=== PATIENT | male | born 1945 | race Caucasian/White ===

== ENCOUNTER → 2016-11-17 | Day surgery (SDC) | payer OTHER ==
[~2016-11-17] VITALS: Ht 180.3 cm; Wt 90.0 kg
[~2016-11-17] MED LIST: ALBU1AER9 INH; AMIO200T4 PO; ASPCH81X PO; ATOR10TA82 PO; ATROPINE SULFATE 0.1 MG/ML 5ML SYR IV PRN; DICL1GEL12 TOP; EpHEDrine SULFATE INJ 50 MG/ML AMP IV PRN; FURO40TA3 PO; LORA-741 PO; LOSA1TAB PO; MELO7.5T5 PO; METO-596 PO; METO100T44 PO; MULT-513 PO; NITR0.4S UT; RIVA1TAB4 PO; SERT1TAB72 PO; TRAM-10 PO; WARF5TAB7 PO
[2016-11-17 07:05] VITALS: BP 102/74; PULSE 73; TEMP 36.4; O2SAT 95; Ht 180.3 cm; Wt 90.0 kg
[2016-11-17 07:31] VITALS: BP 103/72; PULSE 72; O2SAT 99
--- NOTE | 2016-11-17 07:31 | History & Physical Bridge Note ---
H&P Re-Evaluation Bridge Note: I have examined the patient, reviewed the History & Physical and in the interval since the performance of the History & Physical I have noted the following changes of clinical significance: Since office visit, patient had repeat EKG two days ago revealing continued rate controlled atrial fibrillation despite metoprolol and amiodarone therapy. He has been on Xarelto without any missed doses for months. Will proceed with DCCV. Goal of treatment is rhythm control given patient's past history of nonischemic CM in the setting of AF with RVR. His LV EF normalized with medical therapy for cardiomyopathy and maintenance of sinus rhythm in the past. No changes noted
[2016-11-17 07:35] VITALS: BP 87/67; PULSE 57; O2SAT 98
[2016-11-17 07:40] VITALS: BP 100/60; PULSE 57; O2SAT 98
--- NOTE | 2016-11-17 07:41 | Cardiology Procedure Brief Nt ---
Preliminary Cardiology Note Procedure Date Nov 17, 2016. Pre-Procedure Diagnosis atrial fibrillation Post-Procedure Diagnosis successful conversion to SB Procedure(s) Performed [facility] Neurology Hospitalist Pro Pisano DO Security Field Supervisor(s) not applicable Estimated Blood Loss none Preliminary Findings Patient received a total of three counter shocks of 150 J, 200 J, and 360 J, and successfully converted to sinus bradycardia at 56 bpm on third attempt. Patient tolerated procedure well. Recommendations Continue metoprolol , Amiodarone, and Xarelto at prior doses. Specimens none. 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
--- NOTE | 2016-11-17 07:47 | Discharge Instructions ---
Discharge Instructions Procedure Procedure Date: Nov 17, 2016. Reason for Visit: atrial fibrillation, cardioversion Discharge Discharge Date: Nov 17, 2016. Discharge Diagnosis: Successful conversion to sinus rhythm. Last Recorded Wt (Kilograms): 90 Anesthesia Post Anesthesia Instructions: If you have had General Anesthesia or IV Sedation: * Do not drive today. * Resume driving when surgeon permits. * Do not make important decisions or sign legal documents today. * Call surgeon for: 1. Temperature elevations greater than 101 degrees F. 2. Uncontrollable pain. 3. Excessive bleeding. 4. Persistent nausea and vomiting. 5. Medication intolerance (nausea, vomiting or rash). * For nausea and vomiting use only clear liquids such as: tea, soda, bouillon until nausea subsides, then gradually increase diet as tolerated. * If you have any concerns or questions, call your surgeon's office. If physician is unavailable and it is an emergency, call 911 or go to the nearest emergency room. Instructions Activity Recommendations: limitations as noted below Recommended Home Diet: resume previous diet Allergies: Coded Allergies: No Known Allergies (Unverified , 08/10/15) Provider Instructions ACTIVITY RECOMMENDATIONS: Resume activities as tolerated with no limitations unless specified. _x_ No lifting over _10_ pounds for 24 hours. _x_ Do not engage in vigorous exercise, sexual activity, or sports for 24 hours. _x_ Do not drive or operate any motorized equipment for 24 hours. _x_ You may return to work/school tomorrow. Follow Up Follow-up with: Dr Pisaon, keep office appointment as planned Clarice Snell Recommendations: Call your doctor if: * Temperature above 101 degrees * Pain not relieved by pain medicine ordered * There is increased drainage or redness from any incision * You have any unanswered questions or concerns. Your Doctors Instructions noted above were prepared by provider Phong Pisano. Patient Signature Section: Patient Instructions Signature Page Lencho Jena Patient (or Guardian) Signature/Date: I have read and understand the instructions given to me by my caregivers. Caregiver/RN/Doctor Signature/Date: The above-named patient and/or guardian has received patient instructions on this date. + Original Patient Signature Page (only) stays with chart. Please make copy for patient.
[2016-11-17 08:35] VITALS: BP 98/56; PULSE 56; O2SAT 98
--- NOTE | 2016-11-17 08:39 | CARDIOVERSION ---
DATE OF OPERATION: 11/17/2016 PREPROCEDURE DIAGNOSIS: Atrial fibrillation. POSTPROCEDURE DIAGNOSIS: Successful conversion to sinus bradycardia. PROCEDURE PERFORMED: Synchronized direct current cardioversion. SUPERVISOR ROLLER SHOP: Phong Pisano DO DESCRIPTION OF PROCEDURE: After informed consent was obtained, time out was performed, the patient was sedated with the assistance of Dr. Gottlieb of anesthesia receiving a total of 70 mg if IV propofol. The patient then received a total of 3 synchronized counter shocks with doses of 150 joules, 200 joules, 360 joules. On the third attempt, which was the 360 joules dose, the patient successfully converted from atrial fibrillation at 75 beats per minute to sinus bradycardia 56 beats per minute. The patient tolerated the procedure well and vital signs remained stable throughout the procedure. RECOMMENDATIONS: The patient is to be discharged after he completes the recovery interval on his previous doses of metoprolol, amiodarone and Xarelto. COMPLICATIONS: None. 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 I attest to the content of the Intraoperative Record and any orders documented therein. Any exceptions are noted below. MTDD
--- NOTE | 2016-11-17 09:11 | Anesthesiology Progress Note ---
Anesthesia Post Op Note Date & Time Nov 17, 2016 at 09:10 Vital Signs Pain Intensity: 0 Vital Signs Past 12 Hours Date Time Temp Pulse Resp B/P Pulse Ox O2 Delivery O2 Flow Rate FiO2 11/17/16 08:35 56 16 98/56 98 Room Air 11/17/16 08:20 53 16 97/50 98 Room Air 11/17/16 08:05 50 16 100/52 98 Room Air 11/17/16 07:50 53 18 92/59 92 Room Air 11/17/16 07:40 57 18 100/60 98 Nasal Cannula 4 11/17/16 07:35 57 18 87/67 98 Nasal Cannula 4 11/17/16 07:31 72 18 103/72 99 Nasal Cannula 4 11/17/16 07:05 36.4 73 18 102/74 95 Room Air Notes Mental Status: alert / awake / arousable, participated in evaluation Pt Amnestic to Procedure: Yes Nausea / Vomiting: adequately controlled Pain: adequately controlled Airway Patency, RR, SpO2: stable & adequate BP & HR: stable & adequate Hydration State: stable & adequate Anesthetic Complications: no major complications apparent
== END | disposition home or self-care (01) ==
LOC: C.CATH 06:31
PROVIDERS: ATTEND Specialist
DX: I48.0 Paroxysmal atrial fibrillation (principal); R00.1 Bradycardia, unspecified; I10 Essential (primary) hypertension; E78.5 Hyperlipidemia, unspecified; E83.119 Hemochromatosis, unspecified; Z79.82 Long term (current) use of aspirin

== ENCOUNTER 2023-04-14 14:11 | Inpatient (IN) ==
[2023-04-14 15:25] LABS: Albumin Globulin Ratio 1.2 (0.9-2); Albumin Level 3.6 gm/dl (3.4-5.0); BUN Creatinine Ratio 32.2 (10-20); Bilirubin,Total 0.9 mg/dl (0.2-1.0); Calcium 8.7 mg/dl (8.6-10.3); Creatinine Clr Calc Pharmacy 71.1 ml/min; Est GFR (African American) 96.5 ml/min; Est GFR (Non-African American) 83.2 ml/min; Potassium 3.9 mmol/L (3.5-5.1); Total Protein 6.6 gm/dl (6.0-8.3)
[2023-04-14 15:29] LABS: Hematocrit (blood only) 27.9 % (42.0-52.0); Hemoglobin 9.8 g/dl (14.0-18.0); Mean Corpuscular Hemoglobin 35.9 pg (25.0-34.0); Mean Corpuscular Hgb Conc 35.1 g/dL (32.0-36.0); Mean Corpuscular Volume 102.2 fL (80.0-100.0); Mean Platelet Volume 10.5 fL (9.4-12.4); Platelet Count 101 K/uL (130-400); RDW Coefficient of Variation 16.1 % (11.5-14.5); RDW Standard Deviation 56.4 fL (36.4-46.3); Red Blood Count 2.73 M/uL (4.70-6.10); White Blood Count 1.94 K/ul (4.8-10.8)
--- NOTE | 2023-04-14 15:30 | Emergency Department Note ---
History of Present Illness General Chief complaint: Abnormal Labs/Diagnostic Testing Stated complaint: REF BY FOR BLOOD TRANSFUSION Time Seen by Provider: 04/14/23 15:14 History of Present Illness 77-year-old male presents emergency department complaint of black stools for the past few days. Patient is very poor historian he was taking antidiarrheal he is also taking acid reflux medication. Patient had outpatient lab work today [facility] and was told that his hemoglobin is half. Patient is currently on Xarelto for A-fib. Patient has no other history of GI bleeding. No history of ulcers. Patient does state some lightheadedness dizziness at times and fatigue; no abdominal pain Home Medications Medication Instructions Recorded Confirmed Type albuterol sulfate 90 mcg/actuation 2 puff inhalation PRN ##0 06/30/12 04/14/23 History aerosol inhaler (ProAir HFA) lorazepam 0.5 mg tablet 0.5 mg PO BID PRN #0 tabs 06/30/12 04/14/23 History aspirin 81 mg tablet 81 mg PO QAM #0 tabs 07/18/12 04/14/23 History nitroglycerin 0.4 mg sublingual 0.4 mg UT PRN #0 BTLS 07/18/12 04/14/23 History tablet (Nitrostat) losartan 25 mg tablet 25 mg PO QAM #0 tabs 11/28/12 04/14/23 History atorvastatin 10 mg tablet 10 mg PO QAM #0 tabs 05/04/15 04/14/23 History rivaroxaban 20 mg tablet (Xarelto) 1 tab PO DAILY 30 days #30 tabs 11/17/16 04/14/23 History folic acid 1 mg tablet 1 mg PO DAILY 02/16/23 04/14/23 History metformin 500 mg tablet 500 mg PO DAILY 02/16/23 04/14/23 History dexamethasone 4 mg tablet See Rx Instructions .Route .COMPLEX 04/14/23 04/14/23 History diclofenac sodium 1 % topical gel 2 g topical BID PRN Pain 04/14/23 04/14/23 History glipizide 5 mg tablet, extended See Rx Instructions .Route .COMPLEX 04/14/23 04/14/23 History release 24 hr metoprolol succinate 25 mg 12.5 mg PO QAM 04/14/23 04/14/23 History tablet,extended release 24 hr sertraline 50 mg tablet 50 mg PO QAM 04/14/23 04/14/23 History umeclidinium 62.5 mcg-vilanterol 1 inh inhalation DAILY 04/14/23 04/14/23 History 25 mcg/actuation powdr for inhalation (Anoro Ellipta) Allergies Allergy/AdvReac Type Severity Reaction Status Date / Time No Known Drug Allergies Allergy Verified 04/14/23 15:58 Past Med/Surg History Medical History Atrial fibrillation COPD (chronic obstructive pulmonary disease) with emphysema Diabetes mellitus type II, controlled Gall stones Lung cancer Skin cancer of scalp Surgical History H/O cataract removal with insertion of prosthetic lens 07/21 H/O colonoscopy 10/27/2015 Dr. Sargent; Diverticulosis; repeat 10 yrs H/O ventral hernia repair 09/01/2009 Dr. Cortes; right inguinal hernia Hx of tonsillectomy <12 y/o Family History Mother Breast cancer Father Diabetes Type I Stroke Sister Breast cancer Sister Autoimmune hemolytic anemia Aunt Breast cancer Social History Smoking Status: Never smoker Tobacco Type: Cigarettes Age Started Using Tobacco: 20; Age Quit Using Tobacco: 77; packs per day: 0.5; Second Hand Exposure: Yes; Do You Dip or Chew Tobacco: No; Hx Alcohol Use: Yes Alcohol type: beer and other Alcohol type Comment: Yanet Alcohol Intake Frequency: 2-4 x/Month Hx Substance Use: No Preferred Language: Micronesian Communication Ability: Effective Visual Impairment: No Limitations Beliefs That Will Affect Care: None marital status: Current Living Situation: Spouse current occupational status: employed 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 How many Children do You have: 2 Feels Safe at Home: Yes Review of Systems A total of 10 systems reviewed and were otherwise negative Gastrointestinal: + blood in stools; no nausea Physical Exam Vital Signs Vital Signs - 24 hr 04/14/23 14:30 04/14/23 16:13 04/14/23 15:37 Temperature 37.0 C Temperature Source Temporal Artery Scan Pulse Rate 102 H 109 H 112 H Respiratory Rate 20 18 Blood Pressure 106/66 Blood Pressure Mean 79 Pulse Oximetry 96 Oxygen Delivery Method Room Air Sepsis Recent Fever Within 48 Hours No Sepsis New/Unexplained Change in Mental Status N/A Sepsis Action Taken by Nursing No Action Required 04/14/23 16:00 04/14/23 16:00 Temperature Temperature Source Pulse Rate 101 H Respiratory Rate 13 Blood Pressure 104/70 Blood Pressure Mean 88 Pulse Oximetry Oxygen Delivery Method Sepsis Recent Fever Within 48 Hours Sepsis New/Unexplained Change in Mental Status Sepsis Action Taken by Nursing GENERAL: Patient is awake alert in no acute distress patient is resting comfortably and showing no signs of anxiety EYES: The conjunctivae are clear. The pupils are round and reactive. EARS, NOSE, MOUTH AND THROAT: The nose is without any evidence of any deformity. Mucous membranes are moist. Tongue is midline. NECK: The neck is nontender and supple. RESPIRATORY: Normal respiratory effort is noted there is no evidence of wheezing rhonchi or rales CARDIOVASCULAR: Regular rate and rhythm noted there no murmurs rubs or gallops normal S1 normal S2. GASTROINTESTINAL: The abdomen is soft. Abdomen is nontender. No rebound rigidity or guarding, rectal exam reveals black stools however surprisingly the Hemoccult card was negative BACK: No midline tenderness or or step-off noted range of motion in flexion extension as well as rotation no signs of muscle spasm noted MUSCULOSKELETAL/EXTREMITIES: There is no evidence of gross deformity full range of motion is noted in the hips and shoulders. SKIN: There is no obvious evidence of any rash. There are no petechiae, pallor or cyanosis noted. NEUROLOGIC: Patient is awake alert and oriented x3 strength is symmetric Course Reevaluation(s) Reevaluation #1: Patient was started on IV Protonix Time: 15:30 Consultations Consultation #1: Case was discussed with the [facility] Hospitalist Time: 16:00 Administered Medications Discontinued Medications Pantoprazole Sodium 40 mg/ (Syringe) 10 mls @ 5 mls/min IV NOW ONE Stop: 04/14/23 15:33 Last Admin: 04/14/23 16:22 Dose: 5 mls/min Documented By: DAVIDA Critical Care Time Critical Care Time: Yes Total Critical Care Time: 35 I have personally spent greater than 35 minutes of critical care time in the direct management of this patient. This includes bedside care, interpretation of diagnostic studies, and testing, discussion with consultants, patient, and fa vikas members, and other required patient management activities. These minutes are in excess of all separately billable procedures. Medical Decision Making Medical Records Attestation: I reviewed the patient's medical records. Home Medications Current Medication List: was personally reviewed by me Laboratory Data Attestation: I reviewed the patient's lab results. Lab work interpreted by me patient is anemic 04/14/23 14:51 04/14/23 14:51 Lab Results 04/14/23 04/14/23 04/14/23 Range/Units 14:51 14:51 14:51 WBC 1.94 L (4.8-10.8) K/ul RBC 2.73 L (4.70-6.10) M/uL Hgb 9.8 L (14.0-18.0) g/dl Hct 27.9 L (42.0-52.0) % MCV 102.2 H (80.0-100.0) fL MCH 35.9 H (25.0-34.0) pg MCHC 35.1 (32.0-36.0) g/dL RDW Std Deviation 56.4 H (36.4-46.3) fL RDW Coeff of Norm 16.1 H (11.5-14.5) % Plt Count 101 L (130-400) K/uL MPV 10.5 (9.4-12.4) fL PT 13.0 H (9.0-12.0) Seconds INR 1.2 H (0.9-1.1) APTT 28.7 (21.0-31.0) Seconds PTT Ratio 1.0 Sodium 139 (136-145) mmol/L Potassium 3.9 (3.5-5.1) mmol/L Chloride 107 (98-107) mmol/L Carbon Dioxide 29 (21-32) mmol/L Anion Gap 3 (3-11) BUN 28 H (6-23) mg/dl Creatinine 0.87 (0.6-1.4) mg/dl Est Cr Clr Drug Dosing 71.1 ml/min Est GFR ( Amer) 96.5 ml/min Est GFR (Non-Af Amer) 83.2 ml/min BUN/Creatinine Ratio 32.2 H (10-20) Glucose 100 H (70-99(Fasting)) mg/dl Calcium 8.7 (8.6-10.3) mg/dl Total Bilirubin 0.9 (0.2-1.0) mg/dl AST 22 (13-39) U/L ALT 16 (7-52) U/L Alkaline Phosphatase 60 (34-104) U/L Troponin I High Sens 11.0 (0-20) pg/ml Total Protein 6.6 (6.0-8.3) gm/dl Albumin 3.6 (3.4-5.0) gm/dl Globulin 3.0 (2.5-4.0) gm/dl Albumin/Globulin Ratio 1.2 (0.9-2) POC Stool Occult Blood (Negative) Blood Type Antibody Screen 04/14/23 04/14/23 Range/Units 14:52 16:17 WBC (4.8-10.8) K/ul RBC (4.70-6.10) M/uL Hgb (14.0-18.0) g/dl Hct (42.0-52.0) % MCV (80.0-100.0) fL MCH (25.0-34.0) pg MCHC (32.0-36.0) g/dL RDW Std Deviation (36.4-46.3) fL RDW Coeff of Nrom (11.5-14.5) % Plt Count (130-400) K/uL MPV (9.4-12.4) fL PT (9.0-12.0) Seconds INR (0.9-1.1) APTT (21.0-31.0) Seconds PTT Ratio Sodium (136-145) mmol/L Potassium (3.5-5.1) mmol/L Chloride (98-107) mmol/L Carbon Dioxide (21-32) mmol/L Anion Gap (3-11) BUN (6-23) mg/dl Creatinine (0.6-1.4) mg/dl Est Cr Clr Drug Dosing ml/min Est GFR ( Amer) ml/min Est GFR (Non-Af Amer) ml/min BUN/Creatinine Ratio (10-20) Glucose (70-99(Fasting)) mg/dl Calcium (8.6-10.3) mg/dl Total Bilirubin (0.2-1.0) mg/dl AST (13-39) U/L ALT (7-52) U/L Alkaline Phosphatase (34-104) U/L Troponin I High Sens (0-20) pg/ml Total Protein (6.0-8.3) gm/dl Albumin (3.4-5.0) gm/dl Globulin (2.5-4.0) gm/dl Albumin/Globulin Ratio (0.9-2) POC Stool Occult Blood Negative (Negative) Blood Type A Positive Antibody Screen NEGATIVE ECG Data Attestation: I personally reviewed and interpreted this ECG as follows: Additional Comments: EKG interpreted by me atrial fibrillation rate of 107, occasional PVCs, no obvious ST segment elevation or depression, normal axis Telemetry was ordered by me, interpreted as atrial fibrillation rate of 107 MDM Narrative Medical decision making differential diagnosis includes upper GI bleed, ulcer, anemia, metabolic derangement, dehydration, electrolyte abnormality, coagulopathy Plan is to check labs, type and screen External medical records were reviewed by me Family at bedside, his sisters provide any medical history as well [facility] outpatient labs revealed a hemoglobin of 11 today with platelets of 114 and a white blood cell count of 2 Impression & Plan UGIB (upper gastrointestinal bleed), Anemia Discharge Plan Visit Data Chief Complaint: Abnormal Labs/Diagnostic Testing Stated Complaint: REF BY FOR BLOOD TRANSFUSION ED Provider: Mamadou Gao Discharge Problem: UGIB (upper gastrointestinal bleed), Anemia Patient Disposition: Admitted As Inpatient Forms Stand Alone Forms: My [facility] Prescriptions Prescriptions: No Action folic acid 1 mg tablet 1 mg PO DAILY metformin 500 mg tablet 500 mg PO DAILY lorazepam 0.5 mg Tablet 0.5 mg PO BID PRN Qty: 0 albuterol sulfate [ProAir HFA] 90 mcg/actuation Hfa Aerosol Inhaler 2 puff Inhalation PRN Qty: 0 nitroglycerin [Nitrostat] 0.4 mg Tablet, Sublingual 0.4 mg UT PRN Qty: 0 aspirin 81 mg Tablet 81 mg PO QAM Qty: 0 losartan 25 mg Tablet 25 mg PO QAM Qty: 0 atorvastatin 10 mg Tablet 10 mg PO QAM Qty: 0 Xarelto 20 mg Tablet 1 tab PO DAILY 30 Days Qty: 30 glipizide 5 mg tablet extended release 24hr See Rx Instructions .ROUTE .COMPLEX Rx Instructions: Take 1-2 tablets the night before chemo with dexamethasone and in the evening the day of chemo as directed for 7 weeks. (tapering dose based on blood glucose) dexamethasone 4 mg tablet See Rx Instructions .ROUTE .COMPLEX Rx Instructions: TAKE 12mg THE NIGHT BEFORE AND THE MORNING OF EACH CHEMO TREATMENT metoprolol succinate 25 mg tablet extended release 24 hr 12.5 mg PO QAM sertraline 50 mg tablet 50 mg PO QAM Anoro Ellipta 62.5-25 mcg/actuation blister with device 1 inh INHALATION DAILY diclofenac sodium [Voltaren] 1 % Gel 2 g Topical BID PRN (Reason: Pain) Referrals Referrals: Ameya Benedict MD [Physician] -
[2023-04-14] MEDS ORDERED: PANTOprazole 40 MG in SYRINGE 0 ML IV ONE (15:32)
[2023-04-14 15:39] LABS: INR 1.2 (0.9-1.1); Partial Thromboplastin Time 28.7 Seconds (21.0-31.0)
[2023-04-14] MEDS ORDERED: POLYETHYLENE (MIRALAX) 17 GM PACK PO PRN (18:38)
--- NOTE | 2023-04-14 18:49 | Electrocardiogram Report ---
Test Reason : Blood Pressure : / mmHG Vent. Rate : 107 BPM Atrial Rate : 000 BPM P-R Int : 000 ms QRS Dur : 076 ms QT Int : 340 ms P-R-T Axes : 000 054 056 degrees QTc Int : 453 ms Atrial fibrillation with rapid ventricular response with premature ventricular or aberrantly conducte d complexes Abnormal ECG When compared with ECG of 17-NOV-2016 07:40, Atrial fibrillation has replaced Sinus rhythm Vent. rate has increased BY 39 BPM Confirmed by Lencho Reid ([id number]) on 04/14/2023 6:49:02 PM Referred By: Confirmed By:Denny Reid
[2023-04-14 19:38] LABS: Hematocrit (blood only) 25.9 % (42.0-52.0)
--- NOTE | 2023-04-14 20:21 | History & Physical Report ---
Date of Service April 14, 2023 Assessment & Plan (1) UGIB (upper gastrointestinal bleed): (2) Anemia: (3) Primary cancer of right lower lobe of lung: (4) Diabetes mellitus type II, controlled: (5) Atrial fibrillation: Plan Pt is a 77yo very pleasant gentleman with Pmhx significant for lung cancer (currently undergoing chemotherapy and radiation), atrial fibrillation anticoagulated with xarelto, DMII, HLD, hemochromatosis, Mood disorder admitted with an acute GI bleed. Acute GI Bleed/Melena/Acute blood loss anemia Pt states that he has been having black tarry stools for the past week. Presented to his pcp today and discussed the stools. He was advised to present to the ED after it was noted that his hgb dropped to 9.9 from 11 two days ago. States he is occasionally dizzy. Denies chest pain, SOB. Admits to abdominal discomfort/ "gurgling". Hgb on arrival of 9.8. Hemodynamically stable. Started on ppi drip. Pt NPO, GI consult, continue ppi drip. CT abd/pelvis pending. Trend h/h q6h. Transfuse for hgb <7, or for 8 + symptoms. Hold home xarelto and baby aspirin. Appreciate GI recs. Hx of Lung Cancer Non small cell lung cancer, in R lower lobe Currently undergoing chemotherapy (weekly paclitaxel and carboplatin) and radiation, follows with Dr. Mari Continue home inhalers, compazine and zofran prn Hemochromatosis Per [facility], had HFE testing done in 2016 Has not had phlebotomy for many years. AM ferritin, iron panel ordered Atrial fibrillation On metoprolol and xarelto hold xarelto as above DMII On metformin at home daily Also takes glipizide on chemo days when taking dexamethasone Hold home PO meds, ISS once taking PO Mood Disorder Continue home sertraline once taking po, home ativan prn HLD continue home statin once taking po macrocytosis MCV >100 folic acid and b12 levels pending Continue home folic acid once tolerating po FEN/GI: NPO, NSS@80 DVT prophylaxis: holding home xarelto and aspirin in setting of acute GI bleed Dispo: PCU/tele CODE STATUS: DNR/DNI History of Present Illness Chief Complaint: Abnormal labs Primary Care Provider: So Dave DO Pt is a 77yo very pleasant gentleman with Pmhx significant for lung cancer (currently undergoing chemotherapy and radiation), atrial fibrillation anticoagulated with xarelto, DMII, HLD, hemochromatosis, mood disorder admitted with an acute GI bleed. Younger sister is present in the room. Hx obtained from patient, sister, [facility] and [facility] rad/onc records. Pt states that he has been having black tarry stools for the past week. Presented to his pcp today and discussed the stools. He was advised to present to the ED after it was noted that his hgb dropped to 9.9 from 11 two days ago. States that the stools are "sticky". Notes he had heartburn about 2-3 days ago that prompted his sister to advise use of OTC pepcid to help. States that he has been occasionally dizzy since noting the black stools. Denies chest pain, SOB. Admits to abdominal discomfort/ "gurgling in the area" where he was told he had gallstones. Notes that he last took his baby aspirin on MondayApr 10 as he ran out but has been taking his home xarelto. Currently undergoing both chemotherapy and radiation treatments for lung cancer. Was a former smoker. States that he had radiation yesterday. In the ED, Hgb of 9.8 noted, pantoprazole drip started. Allergies Allergy/AdvReac Type Severity Reaction Status Date / Time No Known Drug Allergies Allergy Verified 04/14/23 15:58 Home Medications Medication Instructions Recorded Confirmed Type albuterol sulfate 90 mcg/actuation 2 puff inhalation PRN ##0 06/30/12 04/14/23 History aerosol inhaler (ProAir HFA) lorazepam 0.5 mg tablet 0.5 mg PO BID PRN #0 tabs 06/30/12 04/14/23 History aspirin 81 mg tablet 81 mg PO QAM #0 tabs 07/18/12 04/14/23 History nitroglycerin 0.4 mg sublingual 0.4 mg UT PRN #0 BTLS 07/18/12 04/14/23 History tablet (Nitrostat) rivaroxaban 20 mg tablet (Xarelto) 1 tab PO DAILY 30 days #30 tabs 11/17/16 04/14/23 History folic acid 1 mg tablet 1 mg PO DAILY 02/16/23 04/14/23 History metformin 500 mg tablet 500 mg PO DAILY 02/16/23 04/14/23 History atorvastatin 40 mg tablet 40 mg PO DAILY 04/14/23 04/14/23 History dexamethasone 4 mg tablet See Rx Instructions .Route .COMPLEX 04/14/23 04/14/23 History diclofenac sodium 1 % topical gel 2 g topical BID PRN Pain 04/14/23 04/14/23 History glipizide 5 mg tablet, extended See Rx Instructions .Route .COMPLEX 04/14/23 04/14/23 History release 24 hr metoprolol succinate 25 mg 12.5 mg PO QAM 04/14/23 04/14/23 History tablet,extended release 24 hr ondansetron HCl 8 mg tablet 8 mg PO Q8H PRN Nausea And Vomiting 04/14/23 04/14/23 History prochlorperazine maleate 10 mg 10 mg PO Q6H PRN Nausea And 04/14/23 04/14/23 History tablet (Compazine) Vomiting sertraline 50 mg tablet 50 mg PO QAM 04/14/23 04/14/23 History umeclidinium 62.5 mcg-vilanterol 1 inh inhalation DAILY 04/14/23 04/14/23 History 25 mcg/actuation powdr for inhalation (Anoro Ellipta) Past Med/Surg History Medical History (Updated 04/15/23 @ 00:54 by Sugar Blas MD) Atrial fibrillation COPD (chronic obstructive pulmonary disease) with emphysema Diabetes mellitus type II, controlled Gall stones Lung cancer Skin cancer of scalp Surgical History H/O cataract removal with insertion of prosthetic lens 07/21 H/O colonoscopy 10/27/2015 Dr. Sargent; Diverticulosis; repeat 10 yrs H/O ventral hernia repair 09/01/2009 Dr. 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 No acute distress but shivering under blanket Psych: Appropriate mood and affect, occasionally joking Neuro: No gross deficits while laying in bed HEENT: NC/AT CV: Irregular Resp: Breath sounds clear but decreased bilaterally, no increased effort of breathing. Abdomen: Soft, nontender Extremities: No edema in lower extremities bilaterally. Results & Data Results & Data Vital Signs (Past 12 Hours) Vital Signs Temp Pulse Resp BP Pulse Ox O2 Del Method 04/14/23 18:25 111 H 16 110/76 95 Room Air 04/14/23 17:32 134/114 H 04/14/23 16:38 121 H 16 04/14/23 16:30 114 H 17 04/14/23 16:30 111/78 04/14/23 16:00 101 H 13 04/14/23 16:00 104/70 04/14/23 15:37 112 H 18 04/14/23 16:13 109 H 04/14/23 14:30 37.0 C 102 H 20 106/66 96 Room Air Code Status & VTE Plan VTE Prophylaxis Plan VTE Prophylaxis will be ordered: Yes
[2023-04-14 20:53] LABS: Hematocrit (blood only) 25.5 % (42.0-52.0)
[2023-04-14] MEDS ORDERED: PROCHLORPERAZINE MALEATE 10 MG TAB PO PRN (21:18)
[2023-04-14] MEDS ORDERED: ONDANSETRON 8MG OD TAB PO PRN (21:18)
[2023-04-14] MEDS ORDERED: SODIUM CHLORIDE 0.9% 250 ML IV PRN (21:18)
[2023-04-14] MEDS ORDERED: PANTOprazole 40 MG in DEXTROSE 5% 100 ML IV SCH (21:18)
[2023-04-14] MEDS: PANTOprazole 40 MG in DEXTROSE 5% 100 ML IV SCH (22:06)
[2023-04-14] MEDS: ALBUTEROL HFA 8 GM INHALER INH SCH (22:45)
[2023-04-15] MEDS: PANTOprazole 40 MG in DEXTROSE 5% 100 ML IV SCH ×5 (02:24→21:09)
[2023-04-15] MEDS: SODIUM CHLORIDE 0.9% 1,000 ML IV SCH ×3 (02:28→21:08)
[2023-04-15] MEDS: FOLIC ACID 1 MG TAB PO SCH (07:54)
[2023-04-15] MEDS: SERTRALINE HCL 50 MG TABLET PO SCH (07:54)
[2023-04-15] MEDS: ATORVASTATIN 40 MG TAB PO SCH (07:54)
[2023-04-15] MEDS: UMECLIDINIUM/VILANTEROL 62.5/25MCG 7 PUFFS/INHALER INH SCH (07:55)
[2023-04-15 08:16] LABS: Hematocrit (blood only) 25.3 % (42.0-52.0); Hemoglobin 8.9 g/dl (14.0-18.0); Mean Corpuscular Hemoglobin 34.9 pg (25.0-34.0); Mean Corpuscular Hgb Conc 35.2 g/dL (32.0-36.0); Mean Corpuscular Volume 99.2 fL (80.0-100.0); Mean Platelet Volume 10.5 fL (9.4-12.4); Platelet Count 89 K/uL (130-400); RDW Coefficient of Variation 15.9 % (11.5-14.5); RDW Standard Deviation 55.2 fL (36.4-46.3); Red Blood Count 2.55 M/uL (4.70-6.10); White Blood Count 1.41 K/ul (4.8-10.8)
[2023-04-15 08:22] LABS: Albumin Globulin Ratio 1.2 (0.9-2); Albumin Level 3.2 gm/dl (3.4-5.0); BUN Creatinine Ratio 25.3 (10-20); Bilirubin,Total 1.4 mg/dl (0.2-1.0); Calcium 8.1 mg/dl (8.6-10.3); Creatinine Clr Calc Pharmacy 78.3 ml/min; Est GFR (African American) 100.4 ml/min; Est GFR (Non-African American) 86.6 ml/min; Globulin 2.7 gm/dl (2.5-4.0); Potassium 4.2 mmol/L (3.5-5.1); Total Protein 5.9 gm/dl (6.0-8.3)
[2023-04-15 08:25] LABS: Estimated Average Glucose 160 mg/dl; Hemoglobin A1C 7.2 % (4.5-5.6)
[2023-04-15 08:36] LABS: Basophils # (auto) 0.01 K/uL (0.00-0.20); Basophils % (auto) 0.7 %; Eosinophils # (auto) 0.01 K/uL (0.00-0.50); Eosinophils % (auto) 0.7 %; Immature Granulocytes # (auto) 0.01 K/uL (0.01-0.20); Immature Granulocytes % (auto) 0.7 %; Lymphocytes # (auto) 0.24 K/uL (1.20-3.40); Monocytes # (auto) 0.19 K/uL (0.11-0.59); Monocytes % (auto) 13.5 %; Neutrophils # (auto) 0.95 K/uL (1.40-6.50); Neutrophils % (auto) 67.4 %
[2023-04-15 08:41] LABS: Ferritin 463.6 ng/ml (8-388)
[2023-04-15 08:44] LABS: Folate (Folic Acid),Ser orPlas > 22.30 ng/ml (>5.38); Vitamin B12 783 pg/ml (180-914)
--- NOTE | 2023-04-15 08:52 | Hospitalist Progress Note ---
Date of Service April 15, 2023 Assessment & Plan (1) UGIB (upper gastrointestinal bleed): (2) Anemia: (3) Primary cancer of right lower lobe of lung: (4) Diabetes mellitus type II, controlled: (5) Atrial fibrillation: Plan Pt is a 77yo M w/ lung cancer (currently undergoing chemotherapy and radiation), atrial fibrillation anticoagulated with xarelto, DMII, HLD, hemochromatosis, Mood disorder admitted with an acute GI bleed. Acute GI Bleed/Melena/Acute blood loss anemia Pt states that he has been having black tarry stools for the past week. Presented to his pcp and discussed the stools. He was advised to present to the ED after it was noted that his hgb dropped to 9.9 from 11 two days ago. States he is occasionally dizzy. Denies chest pain, SOB. Admits to abdominal discomfort/ "gurgling". Hgb on arrival of 9.8. Hemodynamically stable. Started on ppi drip. Cont. PPI IV CT abd/pelvis c/w diverticulitis w/ poss. abscess - started on zosyn GI and surgery consulted - plan for EGD on Tuesday 04/17 Monitor H&H, Transfuse for hgb <7, or for 8 + symptoms. Hold home xarelto and baby aspirin. Hypomagnesemia Mag 1.3 this AM -replete and monitor Hx of Lung Cancer Non small cell lung cancer, in R lower lobe Currently undergoing chemotherapy (weekly paclitaxel and carboplatin) and radiation, follows with Dr. Mari Continue home inhalers, compazine and zofran prn Hemochromatosis Per [facility], had HFE testing done in 2016 Has not had phlebotomy for many years. ferritin 460, iron panel obtained Atrial fibrillation On metoprolol and xarelto hold xarelto as above DMII On metformin at home daily Also takes glipizide on chemo days when taking dexamethasone Hold home PO meds, ISS once taking PO Mood Disorder Continue home sertraline once taking po, home ativan prn HLD continue home statin once taking po macrocytosis MCV >100 folic acid and b12 levels wnl Continue home folic acid once tolerating po DVT prophylaxis: holding home xarelto and aspirin in setting of acute GI bleed Dispo: PCU/tele CODE STATUS: DNR/DNI Admission and Anticipated Discharge Date Admission Date: April 14, 2023 Subjective Pt seen in follow up of anemia, poss. GI bleed, currently on chemo and radiation for lung ca CT abd/pelvis - w/ diverticulitis and poss. abscess - started zosyn GI and surgery consulted - plan for EGD on Monday Pt is currently laying in bed in NAD, denies any abd. pain, denies fever, chills, chest pain, shortness of breath Review of Systems Review of Systems: All systems reviewed & are unremarkable except as noted in Subjective Physical Exam Physical Exam: General: Alert, oriented. No acute distress HEENT: NC/AT CV: Irregular Resp: Breath sounds clear but decreased bilaterally, no increased effort of breathing. Abdomen: Soft, nontender, posit. bowel sounds Extremities: No edema in lower extremities bilaterally. Neuro: awake, alert, answers appropriately, moves extremities Results & Data Results & Data Vital Signs (Past 12 Hours) Vital Signs Temp Pulse Pulse Resp BP Pulse Ox O2 Del Method 04/15/23 08:29 37.0 C 90 18 102/72 95 Room Air 04/15/23 02:45 36.7 C 99 H 18 96/65 L 94 Room Air 04/14/23 23:33 36.6 C 95 H 18 105/76 99 Room Air 04/14/23 22:46 97 H 18 93 04/14/23 21:48 37.3 C 98 H 18 106/75 98 Room Air 04/14/23 21:38 Room Air Laboratory Results 04/15/23 04/15/23 04/15/23 Range/Units 07:18 07:18 07:18 WBC (4.8-10.8) K/ul RBC (4.70-6.10) M/uL Hgb (14.0-18.0) g/dl Hct (42.0-52.0) % MCV (80.0-100.0) fL MCH (25.0-34.0) pg MCHC (32.0-36.0) g/dL RDW Std Deviation (36.4-46.3) fL RDW Coeff of Norm (11.5-14.5) % Plt Count (130-400) K/uL MPV (9.4-12.4) fL Immature Gran % (Auto) % Neut % (Auto) % Lymph % (Auto) % Faulk % (Auto) % Eos % (Auto) % Baso % (Auto) % Neut # (Auto) (1.40-6.50) K/uL Lymph # (Auto) (1.20-3.40) K/uL Faulk # (Auto) (0.11-0.59) K/uL Eos # (Auto) (0.00-0.50) K/uL Baso # (Auto) (0.00-0.20) K/uL Immature Gran # (Auto) (0.01-0.20) K/uL Hyposegmented Neuts PT (9.0-12.0) Seconds INR (0.9-1.1) APTT (21.0-31.0) Seconds PTT Ratio Sodium 136 (136-145) mmol/L Potassium 4.2 (3.5-5.1) mmol/L Chloride 105 (98-107) mmol/L Carbon Dioxide 26 (21-32) mmol/L Anion Gap 5 (3-11) BUN 20 (6-23) mg/dl Creatinine 0.79 (0.6-1.4) mg/dl Est Cr Clr Drug Dosing 78.3 ml/min Est GFR ( Amer) 100.4 ml/min Est GFR (Non-Af Amer) 86.6 ml/min BUN/Creatinine Ratio 25.3 H (10-20) Glucose 93 (70-99(Fasting)) mg/dl Estimat Average Glucose 160 mg/dl Hemoglobin A1c 7.2 H (4.5-5.6) % Calcium 8.1 L (8.6-10.3) mg/dl Magnesium 1.3 L (1.7-2.4) mg/dl Iron 127 (35-175) mcg/dl TIBC 235 L (250-450) mcg/dl Unsaturated IBC 108 L (155-355) mcg/dl Transferrin % Sat 54 H (20-50) % Ferritin 463.6 H (8-388) ng/ml Total Bilirubin 1.4 H D (0.2-1.0) mg/dl AST 19 (13-39) U/L ALT 13 (7-52) U/L Alkaline Phosphatase 56 (34-104) U/L Troponin I High Sens (0-20) pg/ml Total Protein 5.9 L (6.0-8.3) gm/dl Albumin 3.2 L (3.4-5.0) gm/dl Globulin 2.7 (2.5-4.0) gm/dl Albumin/Globulin Ratio 1.2 (0.9-2) Vitamin B12 783 (180-914) pg/ml Folate > 22.30 (>5.38) ng/ml POC Stool Occult Blood (Negative) Blood Type Blood Type Recheck Antibody Screen 04/15/23 04/14/23 04/14/23 Range/Units 07:18 22:31 20:38 WBC 1.41 L (4.8-10.8) K/ul RBC 2.55 L (4.70-6.10) M/uL Hgb 8.9 L 9.0 L (14.0-18.0) g/dl Hct 25.3 L 25.5 L (42.0-52.0) % MCV 99.2 (80.0-100.0) fL MCH 34.9 H (25.0-34.0) pg MCHC 35.2 (32.0-36.0) g/dL RDW Std Deviation 55.2 H (36.4-46.3) fL RDW Coeff of Norm 15.9 H (11.5-14.5) % Plt Count 89 L (130-400) K/uL MPV 10.5 (9.4-12.4) fL Immature Gran % (Auto) 0.7 % Neut % (Auto) 67.4 % Lymph % (Auto) 17.0 % Faulk % (Auto) 13.5 % Eos % (Auto) 0.7 % Baso % (Auto) 0.7 % Neut # (Auto) 0.95 L* (1.40-6.50) K/uL Lymph # (Auto) 0.24 L (1.20-3.40) K/uL Faulk # (Auto) 0.19 (0.11-0.59) K/uL Eos # (Auto) 0.01 (0.00-0.50) K/uL Baso # (Auto) 0.01 (0.00-0.20) K/uL Immature Gran # (Auto) 0.01 (0.01-0.20) K/uL Hyposegmented Neuts 1+ PT (9.0-12.0) Seconds INR (0.9-1.1) APTT (21.0-31.0) Seconds PTT Ratio Sodium (136-145) mmol/L Potassium (3.5-5.1) mmol/L Chloride (98-107) mmol/L Carbon Dioxide (21-32) mmol/L Anion Gap (3-11) BUN (6-23) mg/dl Creatinine (0.6-1.4) mg/dl Est Cr Clr Drug Dosing ml/min Est GFR ( Amer) ml/min Est GFR (Non-Af Amer) ml/min BUN/Creatinine Ratio (10-20) Glucose (70-99(Fasting)) mg/dl Estimat Average Glucose mg/dl Hemoglobin A1c (4.5-5.6) % Calcium (8.6-10.3) mg/dl Magnesium (1.7-2.4) mg/dl Iron (35-175) mcg/dl TIBC (250-450) mcg/dl Unsaturated IBC (155-355) mcg/dl Transferrin % Sat (20-50) % Ferritin (8-388) ng/ml Total Bilirubin (0.2-1.0) mg/dl AST (13-39) U/L ALT (7-52) U/L Alkaline Phosphatase (34-104) U/L Troponin I High Sens (0-20) pg/ml Total Protein (6.0-8.3) gm/dl Albumin (3.4-5.0) gm/dl Globulin (2.5-4.0) gm/dl Albumin/Globulin Ratio (0.9-2) Vitamin B12 (180-914) pg/ml Folate (>5.38) ng/ml POC Stool Occult Blood (Negative) Blood Type Blood Type Recheck A Positive Antibody Screen 04/14/23 04/14/23 04/14/23 Range/Units 19:14 16:17 14:52 WBC (4.8-10.8) K/ul RBC (4.70-6.10) M/uL Hgb 9.0 L (14.0-18.0) g/dl Hct 25.9 L (42.0-52.0) % MCV (80.0-100.0) fL MCH (25.0-34.0) pg MCHC (32.0-36.0) g/dL RDW Std Deviation (36.4-46.3) fL RDW Coeff of Norm (11.5-14.5) % Plt Count (130-400) K/uL MPV (9.4-12.4) fL Immature Gran % (Auto) % Neut % (Auto) % Lymph % (Auto) % Faulk % (Auto) % Eos % (Auto) % Baso % (Auto) % Neut # (Auto) (1.40-6.50) K/uL Lymph # (Auto) (1.20-3.40) K/uL Faulk # (Auto) (0.11-0.59) K/uL Eos # (Auto) (0.00-0.50) K/uL Baso # (Auto) (0.00-0.20) K/uL Immature Gran # (Auto) (0.01-0.20) K/uL Hyposegmented Neuts PT (9.0-12.0) Seconds INR (0.9-1.1) APTT (21.0-31.0) Seconds PTT Ratio Sodium (136-145) mmol/L Potassium (3.5-5.1) mmol/L Chloride (98-107) mmol/L Carbon Dioxide (21-32) mmol/L Anion Gap (3-11) BUN (6-23) mg/dl Creatinine (0.6-1.4) mg/dl Est Cr Clr Drug Dosing ml/min Est GFR ( Amer) ml/min Est GFR (Non-Af Amer) ml/min BUN/Creatinine Ratio (10-20) Glucose (70-99(Fasting)) mg/dl Estimat Average Glucose mg/dl Hemoglobin A1c (4.5-5.6) % Calcium (8.6-10.3) mg/dl Magnesium (1.7-2.4) mg/dl Iron (35-175) mcg/dl TIBC (250-450) mcg/dl Unsaturated IBC (155-355) mcg/dl Transferrin % Sat (20-50) % Ferritin (8-388) ng/ml Total Bilirubin (0.2-1.0) mg/dl AST (13-39) U/L ALT (7-52) U/L Alkaline Phosphatase (34-104) U/L Troponin I High Sens (0-20) pg/ml Total Protein (6.0-8.3) gm/dl Albumin (3.4-5.0) gm/dl Globulin (2.5-4.0) gm/dl Albumin/Globulin Ratio (0.9-2) Vitamin B12 (180-914) pg/ml Folate (>5.38) ng/ml POC Stool Occult Blood Negative (Negative) Blood Type A Positive Blood Type Recheck Antibody Screen NEGATIVE 04/14/23 04/14/23 04/14/23 Range/Units 14:51 14:51 14:51 WBC 1.94 L (4.8-10.8) K/ul RBC 2.73 L (4.70-6.10) M/uL Hgb 9.8 L (14.0-18.0) g/dl Hct 27.9 L (42.0-52.0) % MCV 102.2 H (80.0-100.0) fL MCH 35.9 H (25.0-34.0) pg MCHC 35.1 (32.0-36.0) g/dL RDW Std Deviation 56.4 H (36.4-46.3) fL RDW Coeff of Norm 16.1 H (11.5-14.5) % Plt Count 101 L (130-400) K/uL MPV 10.5 (9.4-12.4) fL Immature Gran % (Auto) % Neut % (Auto) % Lymph % (Auto) % Faulk % (Auto) % Eos % (Auto) % Baso % (Auto) % Neut # (Auto) (1.40-6.50) K/uL Lymph # (Auto) (1.20-3.40) K/uL Faulk # (Auto) (0.11-0.59) K/uL Eos # (Auto) (0.00-0.50) K/uL Baso # (Auto) (0.00-0.20) K/uL Immature Gran # (Auto) (0.01-0.20) K/uL Hyposegmented Neuts PT 13.0 H (9.0-12.0) Seconds INR 1.2 H (0.9-1.1) APTT 28.7 (21.0-31.0) Seconds PTT Ratio 1.0 Sodium 139 (136-145) mmol/L Potassium 3.9 (3.5-5.1) mmol/L Chloride 107 (98-107) mmol/L Carbon Dioxide 29 (21-32) mmol/L Anion Gap 3 (3-11) BUN 28 H (6-23) mg/dl Creatinine 0.87 (0.6-1.4) mg/dl Est Cr Clr Drug Dosing 71.1 ml/min Est GFR ( Amer) 96.5 ml/min Est GFR (Non-Af Amer) 83.2 ml/min BUN/Creatinine Ratio 32.2 H (10-20) Glucose 100 H (70-99(Fasting)) mg/dl Estimat Average Glucose mg/dl Hemoglobin A1c (4.5-5.6) % Calcium 8.7 (8.6-10.3) mg/dl Magnesium (1.7-2.4) mg/dl Iron (35-175) mcg/dl TIBC (250-450) mcg/dl Unsaturated IBC (155-355) mcg/dl Transferrin % Sat (20-50) % Ferritin (8-388) ng/ml Total Bilirubin 0.9 (0.2-1.0) mg/dl AST 22 (13-39) U/L ALT 16 (7-52) U/L Alkaline Phosphatase 60 (34-104) U/L Troponin I High Sens 11.0 (0-20) pg/ml Total Protein 6.6 (6.0-8.3) gm/dl Albumin 3.6 (3.4-5.0) gm/dl Globulin 3.0 (2.5-4.0) gm/dl Albumin/Globulin Ratio 1.2 (0.9-2) Vitamin B12 (180-914) pg/ml Folate (>5.38) ng/ml POC Stool Occult Blood (Negative) Blood Type Blood Type Recheck Antibody Screen Medications Administered Current Inpatient Medications Albuterol (Albuterol Hfa 8 Gm Inhaler) 2 puffs INH PRN TIANA Stop: 05/14/23 21:17 Last Admin: 04/14/23 22:45 Dose: 2 puffs Atorvastatin Calcium (Atorvastatin 40 Mg Tab) 40 mg PO DAILY TIANA Stop: 05/15/23 08:59 Last Admin: 04/15/23 07:54 Dose: 40 mg Benzocaine (Benzocaine/Menthol 18 Eduard/1 Box) 1 eduard MT Q4 PRN PRN Reason: Sore Throat Stop: 05/15/23 09:03 Folic Acid (Folic Acid 1 Mg Tab) 1 mg PO DAILY [facility] Stop: 05/15/23 08:59 Last Admin: 04/15/23 07:54 Dose: 1 mg Pantoprazole Sodium 40 mg/ (Dextrose) 100 mls @ 20 mls/hr IV Q5H [facility] Stop: 05/14/23 20:14 Last Admin: 04/15/23 07:58 Dose: 8 mg/hr, 20 mls/hr Sodium Chloride (Nss) 1,000 mls @ 125 mls/hr IV .Q8H [facility] Stop: 05/15/23 00:44 Last Infusion: 04/15/23 10:17 Dose: 125 mls/hr Magnesium Sulfate/Dextrose (Magnesium Sulfate / D5w) 1 gm in 100 mls @ 50 mls/hr IV Q2H [facility] Stop: 04/15/23 13:44 Last Admin: 04/15/23 11:41 Dose: 50 mls/hr Piperacillin Sod/Tazobactam (Sod 4.5 gm/ Dextrose) 120 mls @ 30 mls/hr IV Q8H [facility]; Protocol Stop: 04/25/23 15:29 Lorazepam (Lorazepam 0.5 Mg Tab) 0.5 mg PO BID PRN PRN Reason: Anxiety Stop: 05/14/23 21:17 Magnesium Oxide (Magnesium Oxide 400 Mg Tab) 400 mg PO BID [facility] Stop: 05/15/23 20:59 Metoprolol Succinate (Metoprolol Succ 25mg Ext Rel Tab) 12.5 mg PO QAM [facility] Stop: 05/15/23 08:59 Last Admin: 04/15/23 07:54 Dose: 12.5 mg Ondansetron HCl (Ondansetron 8mg Od Tab) 8 mg PO Q8H PRN PRN Reason: Nausea And Vomiting Polyethylene Glycol (Polyethylene (Miralax) 17 Gm Pack) 17 gm PO DAILY PRN PRN Reason: Constipation Stop: 05/14/23 18:37 Prochlorperazine (Prochlorperazine Maleate 10 Mg Tab) 10 mg PO Q6H PRN PRN Reason: Nausea And Vomiting Stop: 05/14/23 21:17 Sertraline HCl (Sertraline Hcl 50 Mg Tablet) 50 mg PO QAM [facility] Stop: 05/15/23 08:59 Last Admin: 04/15/23 07:54 Dose: 50 mg Umeclidinium/Vilanterol (Umeclidinium/Vilanterol 62.5/25mcg 7 Puffs/Inhaler) 1 puffs INH DAILY [facility] Stop: 05/15/23 08:59 Last Admin: 04/15/23 07:55 Dose: 1 puffs
[2023-04-15] MEDS ORDERED: METOPROLOL SUCC 25MG EXT REL TAB PO SCH (09:00)
[2023-04-15] MEDS ORDERED: BENZOCAINE/MENTHOL 18 LOZ/1 BOX MT PRN (09:04)
[2023-04-15 09:29] LABS: Magnesium 1.3 mg/dl (1.7-2.4)
[2023-04-15] MEDS ORDERED: OPTIRAY 320 100ml IV ONE (09:39)
--- NOTE | 2023-04-15 10:12 | CT Scan Report ---
CT SCAN OF THE ABDOMEN AND PELVIS WITH IV CONTRAST CLINICAL HISTORY: Generalized abdominal pain. Melanotic stool. COMPARISON STUDY: PET/CT dated 01/03/2023. TECHNIQUE: Following the IV administration of 92 cc of Optiray 320, CT scan of the abdomen and pelvi s is performed from the lung bases to the proximal femora. Images are reviewed in the axial, sagittal , and coronal planes. IV contrast was administered without complication. A dose lowering technique wa s utilized adhering to the principles of ALARA. CT DOSE: 893.83 mGy.cm FINDINGS: Lung bases: The heart is enlarged and without pericardial effusion. Emphysematous change is noted. Th ere is bibasilar scarring/atelectasis. Trace pleural effusions are seen bilaterally. Mild bronchiecta sis is noted at the lung bases. There is no airspace consolidation typical for pneumonia. There is a small hiatal hernia. Liver: The contrast-enhanced liver is normal in size, contour, and attenuation. There is no intrahepa tic biliary ductal dilatation. The hepatic veins and portal veins are patent. Gallbladder: There are layering calcified gallstones with no CT evidence of acute cholecystitis. Spleen: Normal in size and attenuation. Pancreas: Atrophic and grossly unremarkable. Adrenal glands: Unremarkable. Kidneys: The contrast enhanced kidneys are normal in size and without hydronephrosis. The kidneys enh ance symmetrically. Abdominal vasculature: There is advanced atherosclerotic calcification and mild ectasia of the abdomi nal aorta. Bowel: There is moderate to advanced colonic diverticulosis. There is wall thickening with surroundin g inflammation involving the right colon below the hepatic flexure seen on image #145. This likely re presents acute to subacute diverticulitis. An intramural fluid collection at this site measures 2.9 x 2.9 x 2.6 cm and is typical for an abscess. No bowel obstruction is seen. The appendix is well-visu alized and normal. Peritoneum: No intraperitoneal free air is identified. There is trace perisplenic and a small volume of pelvic ascites. Lymphadenopathy: None. Pelvic viscera: The prostate gland is enlarged and heterogeneous. The bladder is decompressed, and th e wall is thickened/trabeculated suggesting chronic outlet obstruction. Skeletal structures: The skeletal structures are osteopenic. There is moderate lumbosacral spondylosi s. No lytic or blastic lesions are seen. There are numerous subacute appearing right-sided rib fractu res. Chronic/healed rib fractures on the left. Soft tissues: The patient is cachectic. IMPRESSION: 1. Moderate to advanced colonic diverticulosis. Findings are most consistent with acute to subacute d iverticulitis of the right colon as above with a 2.9 cm intramural abscess. This is not amenable to p ercutaneous drainage. 2. No intraperitoneal free air is identified. 4. Cardiomegaly and emphysema. 5. Trace pleural effusions. 6. Cholelithiasis. 7. Small volume pelvic ascites. 8. Additional findings as above. ACT 112: Negative or not required by law. Electronically signed by: Lonnie Baez M.D. 04/15/2023 10:10 AM
[2023-04-15] MEDS: MAGNESIUM SULFATE / D5W 1 GM/100 ML BAG IV SCH ×2 (10:17→11:41)
[2023-04-15] MEDS ORDERED: PIPERACILLIN/TAZOBACTAM 4.5 GM (over 30 mins) IV ONE (10:45)
--- NOTE | 2023-04-15 11:02 | Gastrointestinal Consultation ---
Date of Consultation April 15, 2023 Assessment & Plan (1) Melena: Possibly related to the acute complicated diverticulitis however will need to r/o UGI bleeding source. Currently stable with no signs of overt ongoing GI bleeding. Recommend: IV PPI drip. Clear liquid diet. Plan for EGD on Monday. IV ABx for the diverticulitis. Surgery consult. Colonoscopy as OP in 2-3 months. (2) Anemia: (3) Acute diverticulitis: History of Present Illness Reason for Consultation: Anemia and melena Attending Physician: Ger Barrera MD History of Present Illness 77 years old male patient with Lung cancer on chemotherapy, Atrial fibrillation on Xarelto, presented with melena for almost a week and anemia. Initially had worsening heartburn prior to that. Also reports intermittent right lower abdominal pain. No nausea, vomiting, fever, change in bowel hbaits, no diarrhea. Allergies Allergy/AdvReac Type Severity Reaction Status Date / Time No Known Drug Allergies Allergy Verified 04/14/23 15:58 Home Medications Medication Instructions Recorded Confirmed Type albuterol sulfate 90 mcg/actuation 2 puff inhalation PRN ##0 06/30/12 04/14/23 History aerosol inhaler (ProAir HFA) lorazepam 0.5 mg tablet 0.5 mg PO BID PRN #0 tabs 06/30/12 04/14/23 History aspirin 81 mg tablet 81 mg PO QAM #0 tabs 07/18/12 04/14/23 History nitroglycerin 0.4 mg sublingual 0.4 mg UT PRN #0 BTLS 07/18/12 04/14/23 History tablet (Nitrostat) rivaroxaban 20 mg tablet (Xarelto) 1 tab PO DAILY 30 days #30 tabs 11/17/16 04/14/23 History folic acid 1 mg tablet 1 mg PO DAILY 02/16/23 04/14/23 History metformin 500 mg tablet 500 mg PO DAILY 02/16/23 04/14/23 History atorvastatin 40 mg tablet 40 mg PO DAILY 04/14/23 04/14/23 History dexamethasone 4 mg tablet See Rx Instructions .Route .COMPLEX 04/14/23 04/14/23 History diclofenac sodium 1 % topical gel 2 g topical BID PRN Pain 04/14/23 04/14/23 History glipizide 5 mg tablet, extended See Rx Instructions .Route .COMPLEX 04/14/23 04/14/23 History release 24 hr metoprolol succinate 25 mg 12.5 mg PO QAM 04/14/23 04/14/23 History tablet,extended release 24 hr ondansetron HCl 8 mg tablet 8 mg PO Q8H PRN Nausea And Vomiting 04/14/23 04/14/23 History prochlorperazine maleate 10 mg 10 mg PO Q6H PRN Nausea And 04/14/23 04/14/23 History tablet (Compazine) Vomiting sertraline 50 mg tablet 50 mg PO QAM 04/14/23 04/14/23 History umeclidinium 62.5 mcg-vilanterol 1 inh inhalation DAILY 04/14/23 04/14/23 History 25 mcg/actuation powdr for inhalation (Anoro Ellipta) Patient History Medical History (Updated 04/15/23 @ 11:00 by Yodit Ellington MD) Atrial fibrillation COPD (chronic obstructive pulmonary disease) with emphysema Diabetes mellitus type II, controlled Gall stones Lung cancer Skin cancer of scalp Surgical History H/O cataract removal with insertion of prosthetic lens 07/21 H/O colonoscopy 10/27/2015 Dr. Sargent; Diverticulosis; repeat 10 yrs H/O ventral hernia repair 09/01/2009 Dr. Cortes; right inguinal hernia Hx of tonsillectomy <12 y/o Family History Mother Breast cancer Father Diabetes Type I Stroke Sister Breast cancer Sister Autoimmune hemolytic anemia Aunt Breast cancer Social History Smoking Status: Never smoker Tobacco Type: Cigarettes Age Started Using Tobacco: 20; Age Quit Using Tobacco: 77; packs per day: 0.5; Second Hand Exposure: Yes; Do You Dip or Chew Tobacco: No; Hx Alcohol Use: No Hx Substance Use: No Preferred Language: Vietnamese Communication Ability: Effective Visual Impairment: No Limitations Manager Pricing Required: No Beliefs That Will Affect Care: None marital status: Current Living Situation: Spouse current occupational status: employed 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 How many Children do You have: 2 Other Information That Helps Us Care for You: No Feels Safe at Home: Yes Safety Concerns: Feels Safe At This Time Assistive Devices: None Review of Systems Constitutional: no fever, no chills, no fatigue and no weight loss Eyes: no eye pain and no worsening vision Ear, Nose, Mouth, Throat: no tinnitus, no dizziness, no nasal discharge and no epistaxis Respiratory: no cough, no dyspnea, no dyspnea on exertion and no wheezing Cardiovascular: no chest pain, no orthopnea, no palpitations and no edema Gastrointestinal: as per Subjective / HPI Musculoskeletal: no stiffness and no myalgia Neurologic: no localized weakness, no paralysis, no tremor(s) and no headache(s) Endocrine: no polydipsia and no polyuria Hematologic / Lymphatic: no easy bleeding and no night sweats Physical Exam Constitutional: + well hydrated, cooperative and comfortable Eyes: PERRL, conjunctivae normal, anicteric sclerae ENMT: external ear and nose normal, oropharynx normal Neck: normal visual inspection and trachea midline Respiratory: normal respiratory effort, lungs clear to auscultation Auscultation: no wheezes Cardiovascular: RRR, no murmur, no edema Gastrointestinal (Abdomen): normal bowel sounds, soft, nontender, no hepatosplenomegaly Musculoskeletal: no cyanosis or clubbing, extremities motor strength 5/5 Skin: no rashes, warm and dry Neurologic: awake; no focal motor deficits Motor/Sensory: no tremor Results & Data Vital Signs (Past 12 Hours) Vital Signs Temp Pulse Resp BP Pulse Ox O2 Del Method 04/15/23 09:24 139 H 18 121/81 94 Room Air 04/15/23 08:00 Room Air 04/15/23 08:29 37.0 C 90 18 102/72 95 Room Air 04/15/23 02:45 36.7 C 99 H 18 96/65 L 94 Room Air 04/14/23 23:33 36.6 C 95 H 18 105/76 99 Room Air Diagnostic Findings Laboratory Results - last 24 hr 04/14/23 04/14/23 04/14/23 14:51 14:51 14:51 WBC 1.94 L RBC 2.73 L Hgb 9.8 L Hct 27.9 L MCV 102.2 H MCH 35.9 H MCHC 35.1 RDW Std Deviation 56.4 H RDW Coeff of Norm 16.1 H Plt Count 101 L MPV 10.5 Immature Gran % (Auto) Neut % (Auto) Lymph % (Auto) Cloud % (Auto) Eos % (Auto) Baso % (Auto) Neut # (Auto) Lymph # (Auto) Cloud # (Auto) Eos # (Auto) Baso # (Auto) Immature Gran # (Auto) Hyposegmented Neuts PT 13.0 H INR 1.2 H APTT 28.7 PTT Ratio 1.0 Sodium 139 Potassium 3.9 Chloride 107 Carbon Dioxide 29 Anion Gap 3 BUN 28 H Creatinine 0.87 Est Cr Clr Drug Dosing 71.1 Est GFR ( Amer) 96.5 Est GFR (Non-Af Amer) 83.2 BUN/Creatinine Ratio 32.2 H Glucose 100 H Estimat Average Glucose Hemoglobin A1c Calcium 8.7 Magnesium Iron TIBC Unsaturated IBC Transferrin % Sat Ferritin Total Bilirubin 0.9 AST 22 ALT 16 Alkaline Phosphatase 60 Troponin I High Sens 11.0 Total Protein 6.6 Albumin 3.6 Globulin 3.0 Albumin/Globulin Ratio 1.2 Vitamin B12 Folate POC Stool Occult Blood Blood Type Blood Type Recheck Antibody Screen 04/14/23 04/14/23 04/14/23 14:52 16:17 19:14 WBC RBC Hgb 9.0 L Hct 25.9 L MCV MCH MCHC RDW Std Deviation RDW Coeff of Norm Plt Count MPV Immature Gran % (Auto) Neut % (Auto) Lymph % (Auto) Cloud % (Auto) Eos % (Auto) Baso % (Auto) Neut # (Auto) Lymph # (Auto) Cloud # (Auto) Eos # (Auto) Baso # (Auto) Immature Gran # (Auto) Hyposegmented Neuts PT INR APTT PTT Ratio Sodium Potassium Chloride Carbon Dioxide Anion Gap BUN Creatinine Est Cr Clr Drug Dosing Est GFR ( Amer) Est GFR (Non-Af Amer) BUN/Creatinine Ratio Glucose Estimat Average Glucose Hemoglobin A1c Calcium Magnesium Iron TIBC Unsaturated IBC Transferrin % Sat Ferritin Total Bilirubin AST ALT Alkaline Phosphatase Troponin I High Sens Total Protein Albumin Globulin Albumin/Globulin Ratio Vitamin B12 Folate POC Stool Occult Blood Negative Blood Type A Positive Blood Type Recheck Antibody Screen NEGATIVE 04/14/23 04/14/23 04/15/23 20:38 22:31 07:18 WBC 1.41 L RBC 2.55 L Hgb 9.0 L 8.9 L Hct 25.5 L 25.3 L MCV 99.2 MCH 34.9 H MCHC 35.2 RDW Std Deviation 55.2 H RDW Coeff of Norm 15.9 H Plt Count 89 L MPV 10.5 Immature Gran % (Auto) 0.7 Neut % (Auto) 67.4 Lymph % (Auto) 17.0 Cloud % (Auto) 13.5 Eos % (Auto) 0.7 Baso % (Auto) 0.7 Neut # (Auto) 0.95 L* Lymph # (Auto) 0.24 L Cloud # (Auto) 0.19 Eos # (Auto) 0.01 Baso # (Auto) 0.01 Immature Gran # (Auto) 0.01 Hyposegmented Neuts 1+ PT INR APTT PTT Ratio Sodium Potassium Chloride Carbon Dioxide Anion Gap BUN Creatinine Est Cr Clr Drug Dosing Est GFR ( Amer) Est GFR (Non-Af Amer) BUN/Creatinine Ratio Glucose Estimat Average Glucose Hemoglobin A1c Calcium Magnesium Iron TIBC Unsaturated IBC Transferrin % Sat Ferritin Total Bilirubin AST ALT Alkaline Phosphatase Troponin I High Sens Total Protein Albumin Globulin Albumin/Globulin Ratio Vitamin B12 Folate POC Stool Occult Blood Blood Type Blood Type Recheck A Positive Antibody Screen 04/15/23 04/15/23 04/15/23 07:18 07:18 07:18 WBC RBC Hgb Hct MCV MCH MCHC RDW Std Deviation RDW Coeff of Norm Plt Count MPV Immature Gran % (Auto) Neut % (Auto) Lymph % (Auto) Cloud % (Auto) Eos % (Auto) Baso % (Auto) Neut # (Auto) Lymph # (Auto) Cloud # (Auto) Eos # (Auto) Baso # (Auto) Immature Gran # (Auto) Hyposegmented Neuts PT INR APTT PTT Ratio Sodium 136 Potassium 4.2 Chloride 105 Carbon Dioxide 26 Anion Gap 5 BUN 20 Creatinine 0.79 Est Cr Clr Drug Dosing 78.3 Est GFR ( Amer) 100.4 Est GFR (Non-Af Amer) 86.6 BUN/Creatinine Ratio 25.3 H Glucose 93 Estimat Average Glucose 160 Hemoglobin A1c 7.2 H Calcium 8.1 L Magnesium 1.3 L Iron 127 TIBC 235 L Unsaturated IBC 108 L Transferrin % Sat 54 H Ferritin 463.6 H Total Bilirubin 1.4 H D AST 19 ALT 13 Alkaline Phosphatase 56 Troponin I High Sens Total Protein 5.9 L Albumin 3.2 L Globulin 2.7 Albumin/Globulin Ratio 1.2 Vitamin B12 783 Folate > 22.30 POC Stool Occult Blood Blood Type Blood Type Recheck Antibody Screen
[2023-04-15] MEDS ORDERED: Nursing to Pharmacy Communication SCH (12:15)
[2023-04-15] MEDS: PIPERACILLIN/TAZOBACTAM 4.5 GM in DEXTROSE 5% 100 ML IV SCH (14:59)
--- NOTE | 2023-04-15 15:11 | Surgery Consultation ---
Date of Consultation April 15, 2023 Assessment & Plan (1) Acute diverticulitis: Assessment: Patient is a 77 years old gentleman with a significant past medical history with a lung cancer (with chemo and radiation atrial fibrillation on Xarelto. Patient presented to ED with 2-day history of melena and the right lower quadrant pain. CT scan diagnosis right-sided diverticulitis abscess. Abscess less than 3 cm. Plan: No emergency surgical indication now. Conservative treatment. N.p.o.. IV fluid. IV antibiotic. control the pain. Repeat the lab in morning, agree GI will do EGD to rule out upper GI bleeding. Patient agreed with treatment plan. I answered all questions. We will follow-up. History of Present Illness Reason for Consultation: Diverticulitis with abscess Requesting Physician: Ger Barrera MD Attending Physician: Ger Barrera MD History of Present Illness CC: Melena HPI: Patient is a 77 years old gentleman with a significant lung cancer currently chemotherapy and radiation, with atrial fibrillation on Xarelto.T II DM. Patient presented with a 2 days history of melena with RLQ pain. The pain was dull. Patient saw his PCP yesterday. On the patient hemoglobin dropped to 9.8 from 11 2 days ago. Patient was recommended to come to the ED. patient denies significant chest pain. No shortness of breath. No fever or chills. No nausea or vomiting. No significant dizziness. Patient had a CT scan done earlier this month. Which diagnosis acute right-sided acute diverticulitis with abscess. Allergies Allergy/AdvReac Type Severity Reaction Status Date / Time No Known Drug Allergies Allergy Verified 04/14/23 15:58 Home Medications Medication Instructions Recorded Confirmed Type albuterol sulfate 90 mcg/actuation 2 puff inhalation PRN ##0 06/30/12 04/14/23 History aerosol inhaler (ProAir HFA) lorazepam 0.5 mg tablet 0.5 mg PO BID PRN #0 tabs 06/30/12 04/14/23 History aspirin 81 mg tablet 81 mg PO QAM #0 tabs 07/18/12 04/14/23 History nitroglycerin 0.4 mg sublingual 0.4 mg UT PRN #0 BTLS 07/18/12 04/14/23 History tablet (Nitrostat) rivaroxaban 20 mg tablet (Xarelto) 1 tab PO DAILY 30 days #30 tabs 11/17/16 04/14/23 History folic acid 1 mg tablet 1 mg PO DAILY 02/16/23 04/14/23 History metformin 500 mg tablet 500 mg PO DAILY 02/16/23 04/14/23 History atorvastatin 40 mg tablet 40 mg PO DAILY 04/14/23 04/14/23 History dexamethasone 4 mg tablet See Rx Instructions .Route .COMPLEX 04/14/23 04/14/23 History diclofenac sodium 1 % topical gel 2 g topical BID PRN Pain 04/14/23 04/14/23 History glipizide 5 mg tablet, extended See Rx Instructions .Route .COMPLEX 04/14/23 04/14/23 History release 24 hr metoprolol succinate 25 mg 12.5 mg PO QAM 04/14/23 04/14/23 History tablet,extended release 24 hr ondansetron HCl 8 mg tablet 8 mg PO Q8H PRN Nausea And Vomiting 04/14/23 04/14/23 History prochlorperazine maleate 10 mg 10 mg PO Q6H PRN Nausea And 04/14/23 04/14/23 History tablet (Compazine) Vomiting sertraline 50 mg tablet 50 mg PO QAM 04/14/23 04/14/23 History umeclidinium 62.5 mcg-vilanterol 1 inh inhalation DAILY 04/14/23 04/14/23 History 25 mcg/actuation powdr for inhalation (Anoro Ellipta) Patient History Medical History (Updated 04/15/23 @ 11:00 by Yodit Ellington MD) Atrial fibrillation COPD (chronic obstructive pulmonary disease) with emphysema Diabetes mellitus type II, controlled Gall stones Lung cancer Skin cancer of scalp Surgical History H/O cataract removal with insertion of prosthetic lens 07/21 H/O colonoscopy 10/27/2015 Dr. Sargent; Diverticulosis; repeat 10 yrs H/O ventral hernia repair 09/01/2009 Dr. Cortes; right inguinal hernia Hx of tonsillectomy <12 y/o Family History Mother Breast cancer Father Diabetes Type I Stroke Sister Breast cancer Sister Autoimmune hemolytic anemia Aunt Breast cancer Social History Smoking Status: Never smoker Tobacco Type: Cigarettes Age Started Using Tobacco: 20; Age Quit Using Tobacco: 77; packs per day: 0.5; Second Hand Exposure: Yes; Do You Dip or Chew Tobacco: No; Hx Alcohol Use: No Hx Substance Use: No Preferred Language: Swiss Communication Ability: Effective Visual Impairment: No Limitations Stove Refinisher Required: No Beliefs That Will Affect Care: None marital status: Current Living Situation: Spouse current occupational status: employed 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 How many Children do You have: 2 Other Information That Helps Us Care for You: No Feels Safe at Home: Yes Safety Concerns: Feels Safe At This Time Assistive Devices: None Review of Systems Constitutional: as per Subjective / HPI no distress Eyes: as per Subjective / HPI Respiratory: lung cancer on chemo + radiation, Cardiovascular: Additional Comments: A-fib Gastrointestinal: melena Neurologic: as per Subjective / HPI Psychiatric: as per Subjective / HPI Endocrine: DM Hematologic / Lymphatic: anemia Physical Exam Constitutional: WD/WN, vitals as above Eyes: PERRL, conjunctivae normal, anicteric sclerae Neck: trachea midline, no thyromegaly Respiratory: normal respiratory effort, lungs clear to auscultation Cardiovascular: Rate/Rhythm: + irregularly irregular Gastrointestinal (Abdomen): soft, mild tenderness at RLQ, no rebound pain, no distend, BS +. Neurologic: patellar DTR's 2+ bilat, sensation intact Psychiatric: A+Ox3, euthymic affect Results & Data Vital Signs (Past 12 Hours) Vital Signs Temp Pulse Resp BP Pulse Ox O2 Del Method 04/15/23 11:27 36.4 C L 86 18 91/56 L 95 Room Air 04/15/23 09:24 139 H 18 121/81 94 Room Air 04/15/23 08:00 Room Air 04/15/23 08:29 37.0 C 90 18 102/72 95 Room Air Laboratory Results Lab Results 04/14/23 04/14/23 04/14/23 Range/Units 14:51 14:51 14:51 WBC 1.94 L (4.8-10.8) K/ul RBC 2.73 L (4.70-6.10) M/uL Hgb 9.8 L (14.0-18.0) g/dl Hct 27.9 L (42.0-52.0) % MCV 102.2 H (80.0-100.0) fL MCH 35.9 H (25.0-34.0) pg MCHC 35.1 (32.0-36.0) g/dL RDW Std Deviation 56.4 H (36.4-46.3) fL RDW Coeff of Norm 16.1 H (11.5-14.5) % Plt Count 101 L (130-400) K/uL MPV 10.5 (9.4-12.4) fL Immature Gran % (Auto) % Neut % (Auto) % Lymph % (Auto) % [place] % (Auto) % Eos % (Auto) % Baso % (Auto) % Neut # (Auto) (1.40-6.50) K/uL Lymph # (Auto) (1.20-3.40) K/uL [place] # (Auto) (0.11-0.59) K/uL Eos # (Auto) (0.00-0.50) K/uL Baso # (Auto) (0.00-0.20) K/uL Immature Gran # (Auto) (0.01-0.20) K/uL Hyposegmented Neuts PT 13.0 H (9.0-12.0) Seconds INR 1.2 H (0.9-1.1) APTT 28.7 (21.0-31.0) Seconds PTT Ratio 1.0 Sodium 139 (136-145) mmol/L Potassium 3.9 (3.5-5.1) mmol/L Chloride 107 (98-107) mmol/L Carbon Dioxide 29 (21-32) mmol/L Anion Gap 3 (3-11) BUN 28 H (6-23) mg/dl Creatinine 0.87 (0.6-1.4) mg/dl Est Cr Clr Drug Dosing 71.1 ml/min Est GFR ( Amer) 96.5 ml/min Est GFR (Non-Af Amer) 83.2 ml/min BUN/Creatinine Ratio 32.2 H (10-20) Glucose 100 H (70-99(Fasting)) mg/dl Estimat Average Glucose mg/dl Hemoglobin A1c (4.5-5.6) % Calcium 8.7 (8.6-10.3) mg/dl Magnesium (1.7-2.4) mg/dl Iron (35-175) mcg/dl TIBC (250-450) mcg/dl Unsaturated IBC (155-355) mcg/dl Transferrin % Sat (20-50) % Ferritin (8-388) ng/ml Total Bilirubin 0.9 (0.2-1.0) mg/dl AST 22 (13-39) U/L ALT 16 (7-52) U/L Alkaline Phosphatase 60 (34-104) U/L Troponin I High Sens 11.0 (0-20) pg/ml Total Protein 6.6 (6.0-8.3) gm/dl Albumin 3.6 (3.4-5.0) gm/dl Globulin 3.0 (2.5-4.0) gm/dl Albumin/Globulin Ratio 1.2 (0.9-2) Vitamin B12 (180-914) pg/ml Folate (>5.38) ng/ml POC Stool Occult Blood (Negative) Blood Type Blood Type Recheck Antibody Screen 04/14/23 04/14/23 04/14/23 Range/Units 14:52 16:17 19:14 WBC (4.8-10.8) K/ul RBC (4.70-6.10) M/uL Hgb 9.0 L (14.0-18.0) g/dl Hct 25.9 L (42.0-52.0) % MCV (80.0-100.0) fL MCH (25.0-34.0) pg MCHC (32.0-36.0) g/dL RDW Std Deviation (36.4-46.3) fL RDW Coeff of Norm (11.5-14.5) % Plt Count (130-400) K/uL MPV (9.4-12.4) fL Immature Gran % (Auto) % Neut % (Auto) % Lymph % (Auto) % [place] % (Auto) % Eos % (Auto) % Baso % (Auto) % Neut # (Auto) (1.40-6.50) K/uL Lymph # (Auto) (1.20-3.40) K/uL [place] # (Auto) (0.11-0.59) K/uL Eos # (Auto) (0.00-0.50) K/uL Baso # (Auto) (0.00-0.20) K/uL Immature Gran # (Auto) (0.01-0.20) K/uL Hyposegmented Neuts PT (9.0-12.0) Seconds INR (0.9-1.1) APTT (21.0-31.0) Seconds PTT Ratio Sodium (136-145) mmol/L Potassium (3.5-5.1) mmol/L Chloride (98-107) mmol/L Carbon Dioxide (21-32) mmol/L Anion Gap (3-11) BUN (6-23) mg/dl Creatinine (0.6-1.4) mg/dl Est Cr Clr Drug Dosing ml/min Est GFR ( Amer) ml/min Est GFR (Non-Af Amer) ml/min BUN/Creatinine Ratio (10-20) Glucose (70-99(Fasting)) mg/dl Estimat Average Glucose mg/dl Hemoglobin A1c (4.5-5.6) % Calcium (8.6-10.3) mg/dl Magnesium (1.7-2.4) mg/dl Iron (35-175) mcg/dl TIBC (250-450) mcg/dl Unsaturated IBC (155-355) mcg/dl Transferrin % Sat (20-50) % Ferritin (8-388) ng/ml Total Bilirubin (0.2-1.0) mg/dl AST (13-39) U/L ALT (7-52) U/L Alkaline Phosphatase (34-104) U/L Troponin I High Sens (0-20) pg/ml Total Protein (6.0-8.3) gm/dl Albumin (3.4-5.0) gm/dl Globulin (2.5-4.0) gm/dl Albumin/Globulin Ratio (0.9-2) Vitamin B12 (180-914) pg/ml Folate (>5.38) ng/ml POC Stool Occult Blood Negative (Negative) Blood Type A Positive Blood Type Recheck Antibody Screen NEGATIVE 04/14/23 04/14/23 04/15/23 Range/Units 20:38 22:31 07:18 WBC 1.41 L (4.8-10.8) K/ul RBC 2.55 L (4.70-6.10) M/uL Hgb 9.0 L 8.9 L (14.0-18.0) g/dl Hct 25.5 L 25.3 L (42.0-52.0) % MCV 99.2 (80.0-100.0) fL MCH 34.9 H (25.0-34.0) pg MCHC 35.2 (32.0-36.0) g/dL RDW Std Deviation 55.2 H (36.4-46.3) fL RDW Coeff of Norm 15.9 H (11.5-14.5) % Plt Count 89 L (130-400) K/uL MPV 10.5 (9.4-12.4) fL Immature Gran % (Auto) 0.7 % Neut % (Auto) 67.4 % Lymph % (Auto) 17.0 % [place] % (Auto) 13.5 % Eos % (Auto) 0.7 % Baso % (Auto) 0.7 % Neut # (Auto) 0.95 L* (1.40-6.50) K/uL Lymph # (Auto) 0.24 L (1.20-3.40) K/uL [place] # (Auto) 0.19 (0.11-0.59) K/uL Eos # (Auto) 0.01 (0.00-0.50) K/uL Baso # (Auto) 0.01 (0.00-0.20) K/uL Immature Gran # (Auto) 0.01 (0.01-0.20) K/uL Hyposegmented Neuts 1+ PT (9.0-12.0) Seconds INR (0.9-1.1) APTT (21.0-31.0) Seconds PTT Ratio Sodium (136-145) mmol/L Potassium (3.5-5.1) mmol/L Chloride (98-107) mmol/L Carbon Dioxide (21-32) mmol/L Anion Gap (3-11) BUN (6-23) mg/dl Creatinine (0.6-1.4) mg/dl Est Cr Clr Drug Dosing ml/min Est GFR ( Amer) ml/min Est GFR (Non-Af Amer) ml/min BUN/Creatinine Ratio (10-20) Glucose (70-99(Fasting)) mg/dl Estimat Average Glucose mg/dl Hemoglobin A1c (4.5-5.6) % Calcium (8.6-10.3) mg/dl Magnesium (1.7-2.4) mg/dl Iron (35-175) mcg/dl TIBC (250-450) mcg/dl Unsaturated IBC (155-355) mcg/dl Transferrin % Sat (20-50) % Ferritin (8-388) ng/ml Total Bilirubin (0.2-1.0) mg/dl AST (13-39) U/L ALT (7-52) U/L Alkaline Phosphatase (34-104) U/L Troponin I High Sens (0-20) pg/ml Total Protein (6.0-8.3) gm/dl Albumin (3.4-5.0) gm/dl Globulin (2.5-4.0) gm/dl Albumin/Globulin Ratio (0.9-2) Vitamin B12 (180-914) pg/ml Folate (>5.38) ng/ml POC Stool Occult Blood (Negative) Blood Type Blood Type Recheck A Positive Antibody Screen 04/15/23 04/15/23 04/15/23 Range/Units 07:18 07:18 07:18 WBC (4.8-10.8) K/ul RBC (4.70-6.10) M/uL Hgb (14.0-18.0) g/dl Hct (42.0-52.0) % MCV (80.0-100.0) fL MCH (25.0-34.0) pg MCHC (32.0-36.0) g/dL RDW Std Deviation (36.4-46.3) fL RDW Coeff of Norm (11.5-14.5) % Plt Count (130-400) K/uL MPV (9.4-12.4) fL Immature Gran % (Auto) % Neut % (Auto) % Lymph % (Auto) % [place] % (Auto) % Eos % (Auto) % Baso % (Auto) % Neut # (Auto) (1.40-6.50) K/uL Lymph # (Auto) (1.20-3.40) K/uL [place] # (Auto) (0.11-0.59) K/uL Eos # (Auto) (0.00-0.50) K/uL Baso # (Auto) (0.00-0.20) K/uL Immature Gran # (Auto) (0.01-0.20) K/uL Hyposegmented Neuts PT (9.0-12.0) Seconds INR (0.9-1.1) APTT (21.0-31.0) Seconds PTT Ratio Sodium 136 (136-145) mmol/L Potassium 4.2 (3.5-5.1) mmol/L Chloride 105 (98-107) mmol/L Carbon Dioxide 26 (21-32) mmol/L Anion Gap 5 (3-11) BUN 20 (6-23) mg/dl Creatinine 0.79 (0.6-1.4) mg/dl Est Cr Clr Drug Dosing 78.3 ml/min Est GFR ( Amer) 100.4 ml/min Est GFR (Non-Af Amer) 86.6 ml/min BUN/Creatinine Ratio 25.3 H (10-20) Glucose 93 (70-99(Fasting)) mg/dl Estimat Average Glucose 160 mg/dl Hemoglobin A1c 7.2 H (4.5-5.6) % Calcium 8.1 L (8.6-10.3) mg/dl Magnesium 1.3 L (1.7-2.4) mg/dl Iron 127 (35-175) mcg/dl TIBC 235 L (250-450) mcg/dl Unsaturated IBC 108 L (155-355) mcg/dl Transferrin % Sat 54 H (20-50) % Ferritin 463.6 H (8-388) ng/ml Total Bilirubin 1.4 H D (0.2-1.0) mg/dl AST 19 (13-39) U/L ALT 13 (7-52) U/L Alkaline Phosphatase 56 (34-104) U/L Troponin I High Sens (0-20) pg/ml Total Protein 5.9 L (6.0-8.3) gm/dl Albumin 3.2 L (3.4-5.0) gm/dl Globulin 2.7 (2.5-4.0) gm/dl Albumin/Globulin Ratio 1.2 (0.9-2) Vitamin B12 783 (180-914) pg/ml Folate > 22.30 (>5.38) ng/ml POC Stool Occult Blood (Negative) Blood Type Blood Type Recheck Antibody Screen Diagnostic Findings CT SCAN OF THE ABDOMEN AND PELVIS WITH IV CONTRAST CLINICAL HISTORY: Generalized abdominal pain. Melanotic stool. COMPARISON STUDY: PET/CT dated 01/03/2023. TECHNIQUE: Following the IV administration of 92 cc of Optiray 320, CT scan of the abdomen and pelvis is performed from the lung bases to the proximal femora. Images are reviewed in the axial, sagittal, and coronal planes. IV contrast was administered without complication. A dose lowering technique was utilized adhering to the principles of ALARA. CT DOSE: 893.83 mGy.cm FINDINGS: Lung bases: The heart is enlarged and without pericardial effusion. Emphysematous change is noted. There is bibasilar scarring/atelectasis. Trace pleural effusions are seen bilaterally. Mild bronchiectasis is noted at the lung bases. There is no airspace consolidation typical for pneumonia. There is a small hiatal hernia. Liver: The contrast-enhanced liver is normal in size, contour, and attenuation. There is no intrahepatic biliary ductal dilatation. The hepatic veins and portal veins are patent. Gallbladder: There are layering calcified gallstones with no CT evidence of acute cholecystitis. Spleen: Normal in size and attenuation. Pancreas: Atrophic and grossly unremarkable. Adrenal glands: Unremarkable. Kidneys: The contrast enhanced kidneys are normal in size and without hydronephrosis. The kidneys enhance symmetrically. Abdominal vasculature: There is advanced atherosclerotic calcification and mild ectasia of the abdominal aorta. Bowel: There is moderate to advanced colonic diverticulosis. There is wall thickening with surrounding inflammation involving the right colon below the hepatic flexure seen on image #145. This likely represents acute to subacute diverticulitis. An intramural fluid collection at this site measures 2.9 x 2.9 x 2.6 cm and is typical for an abscess. No bowel obstruction is seen. The appendix is well-visualized and normal. Peritoneum: No intraperitoneal free air is identified. There is trace perisplenic and a small volume of pelvic ascites. Lymphadenopathy: None. Pelvic viscera: The prostate gland is enlarged and heterogeneous. The bladder is decompressed, and the wall is thickened/trabeculated suggesting chronic outlet obstruction. Skeletal structures: The skeletal structures are osteopenic. There is moderate lumbosacral spondylosis. No lytic or blastic lesions are seen. There are numerous subacute appearing right-sided rib fractures. Chronic/healed rib fractures on the left. Soft tissues: The patient is cachectic. IMPRESSION: 1. Moderate to advanced colonic diverticulosis. Findings are most consistent with acute to subacute diverticulitis of the right colon as above with a 2.9 cm intramural abscess. This is not amenable to percutaneous drainage. 2. No intraperitoneal free air is identified. 4. Cardiomegaly and emphysema. 5. Trace pleural effusions. 6. Cholelithiasis. 7. Small volume pelvic ascites. 8. Additional findings as above.
[2023-04-15] MEDS: ACETAMINOPHEN 325 MG TAB PO PRN ×2 (15:30→21:57)
[2023-04-15] MEDS: MAGNESIUM OXIDE 400 MG TAB PO SCH (21:08)
[2023-04-15] MEDS: ALBUTEROL HFA 8 GM INHALER INH SCH (21:09)
[2023-04-15] MEDS: LORazepam 0.5 MG TAB PO PRN (21:57)
[2023-04-16] MEDS: PIPERACILLIN/TAZOBACTAM 4.5 GM in DEXTROSE 5% 100 ML IV SCH ×4 (00:02→22:25)
[2023-04-16] MEDS: PANTOprazole 40 MG in DEXTROSE 5% 100 ML IV SCH ×5 (04:37→22:25)
[2023-04-16] MEDS: SODIUM CHLORIDE 0.9% 1,000 ML IV SCH ×3 (04:37→19:53)
[2023-04-16 07:11] LABS: Hematocrit (blood only) 25.5 % (42.0-52.0); Hemoglobin 8.8 g/dl (14.0-18.0); Mean Corpuscular Hemoglobin 34.9 pg (25.0-34.0); Mean Corpuscular Hgb Conc 34.5 g/dL (32.0-36.0); Mean Corpuscular Volume 101.2 fL (80.0-100.0); Mean Platelet Volume 10.5 fL (9.4-12.4); Platelet Count 76 K/uL (130-400); Red Blood Count 2.52 M/uL (4.70-6.10); White Blood Count 1.49 K/ul (4.8-10.8)
--- NOTE | 2023-04-16 07:18 | Hospitalist Progress Note ---
Date of Service April 16, 2023 Assessment & Plan (1) UGIB (upper gastrointestinal bleed): (2) Anemia: (3) Primary cancer of right lower lobe of lung: (4) Diabetes mellitus type II, controlled: (5) Atrial fibrillation: Plan Pt is a 77yo M w/ lung cancer (currently undergoing chemotherapy and radiation), atrial fibrillation anticoagulated with xarelto, DMII, HLD, hemochromatosis, Mood disorder admitted with an acute GI bleed. Acute GI Bleed/Melena/Acute blood loss anemia Pt states that he has been having black tarry stools for the past week. Presented to his pcp and discussed the stools. He was advised to present to the ED after it was noted that his hgb dropped to 9.9 from 11 two days ago. States he is occasionally dizzy. Denies chest pain, SOB. Admits to abdominal discomfort/ "gurgling". Hgb on arrival of 9.8. Hemodynamically stable. Started on ppi drip. Cont. PPI IV CT abd/pelvis c/w diverticulitis w/ poss. abscess - started on zosyn GI and surgery consulted - plan for EGD on Tuesday 04/17 Monitor H&H, Transfuse for hgb <7, or for 8 + symptoms. Hold home xarelto and baby aspirin. Hypomagnesemia Mag 1.3 yesterday AM, 1.5 today AM -replete and monitor Hx of Lung Cancer Non small cell lung cancer, in R lower lobe Currently undergoing chemotherapy (weekly paclitaxel and carboplatin) and radiation, follows with Dr. Mari Continue home inhalers, compazine and zofran prn Hemochromatosis Per [facility], had HFE testing done in 2016 Has not had phlebotomy for many years. ferritin 460, iron panel obtained Atrial fibrillation On metoprolol and xarelto hold xarelto as above DMII On metformin at home daily Also takes glipizide on chemo days when taking dexamethasone Hold home PO meds, ISS once taking PO Mood Disorder Continue home sertraline once taking po, home ativan prn HLD continue home statin once taking po macrocytosis MCV >100 folic acid and b12 levels wnl Continue home folic acid once tolerating po DVT prophylaxis: holding home xarelto and aspirin in setting of acute GI bleed Dispo: PCU/tele CODE STATUS: DNR/DNI Admission and Anticipated Discharge Date Admission Date: April 14, 2023 Subjective Pt seen in follow up of anemia, poss. GI bleed, currently on chemo and radiation for lung ca CT abd/pelvis - w/ diverticulitis and poss. abscess - started zosyn GI and surgery consulted - plan for EGD on Monday Pt is currently laying in bed in NAD, denies any abd. pain, denies fever, chills, chest pain, shortness of breath Review of Systems Review of Systems: All systems reviewed & are unremarkable except as noted in Subjective Physical Exam Physical Exam: General: Alert, oriented. No acute distress HEENT: NC/AT CV: Irregular Resp: Breath sounds clear but decreased bilaterally, no increased effort of breathing. Abdomen: Soft, nontender, posit. bowel sounds Extremities: No edema in lower extremities bilaterally. Neuro: awake, alert, answers appropriately, moves extremities Results & Data Results & Data Vital Signs (Past 12 Hours) Vital Signs Temp Pulse Resp BP Pulse Ox O2 Del Method 04/16/23 03:00 36.6 C 97 H 18 94 Room Air 04/15/23 23:00 36.6 C 87 14 91/58 L 93 Room Air 04/15/23 22:00 Room Air Laboratory Results 04/16/23 04/16/23 04/15/23 Range/Units 06:08 06:08 07:18 WBC 1.49 L (4.8-10.8) K/ul RBC 2.52 L (4.70-6.10) M/uL Hgb 8.8 L (14.0-18.0) g/dl Hct 25.5 L (42.0-52.0) % MCV 101.2 H (80.0-100.0) fL MCH 34.9 H (25.0-34.0) pg MCHC 34.5 (32.0-36.0) g/dL RDW Std Deviation 56.0 H (36.4-46.3) fL RDW Coeff of Norm 16.0 H (11.5-14.5) % Plt Count 76 L (130-400) K/uL MPV 10.5 (9.4-12.4) fL Immature Gran % (Auto) 1.3 % Neut % (Auto) 73.8 % Lymph % (Auto) 12.8 % [place] % (Auto) 10.7 % Eos % (Auto) 0.7 % Baso % (Auto) 0.7 % Neut # (Auto) 1.10 L (1.40-6.50) K/uL Lymph # (Auto) 0.19 L (1.20-3.40) K/uL [place] # (Auto) 0.16 (0.11-0.59) K/uL Eos # (Auto) 0.01 (0.00-0.50) K/uL Baso # (Auto) 0.01 (0.00-0.20) K/uL Immature Gran # (Auto) 0.02 (0.01-0.20) K/uL Hyposegmented Neuts 1+ Polychromasia 1+ Sodium 136 (136-145) mmol/L Potassium 4.0 (3.5-5.1) mmol/L Chloride 108 H (98-107) mmol/L Carbon Dioxide 25 (21-32) mmol/L Anion Gap 3 (3-11) BUN 14 (6-23) mg/dl Creatinine 0.84 (0.6-1.4) mg/dl Est Cr Clr Drug Dosing 73.6 ml/min Est GFR ( Amer) 97.9 ml/min Est GFR (Non-Af Amer) 84.5 ml/min BUN/Creatinine Ratio 16.7 (10-20) Glucose 99 (70-99(Fasting)) mg/dl Calcium 7.8 L (8.6-10.3) mg/dl Phosphorus 2.5 (2.5-4.9) mg/dl Magnesium 1.5 L (1.7-2.4) mg/dl Ferritin (8-388) ng/ml Total Bilirubin 2.2 H D (0.2-1.0) mg/dl AST 16 (13-39) U/L ALT 11 (7-52) U/L Alkaline Phosphatase 50 (34-104) U/L Total Protein 5.5 L (6.0-8.3) gm/dl Albumin 3.0 L (3.4-5.0) gm/dl Globulin 2.5 (2.5-4.0) gm/dl Albumin/Globulin Ratio 1.2 (0.9-2) Vitamin B12 783 (180-914) pg/ml Folate > 22.30 (>5.38) ng/ml 09/09/23 Range/Units 07:18 WBC (4.8-10.8) K/ul RBC (4.70-6.10) M/uL Hgb (14.0-18.0) g/dl Hct (42.0-52.0) % MCV (80.0-100.0) fL MCH (25.0-34.0) pg MCHC (32.0-36.0) g/dL RDW Std Deviation (36.4-46.3) fL RDW Coeff of Norm (11.5-14.5) % Plt Count (130-400) K/uL MPV (9.4-12.4) fL Immature Gran % (Auto) % Neut % (Auto) % Lymph % (Auto) % [place] % (Auto) % Eos % (Auto) % Baso % (Auto) % Neut # (Auto) (1.40-6.50) K/uL Lymph # (Auto) (1.20-3.40) K/uL [place] # (Auto) (0.11-0.59) K/uL Eos # (Auto) (0.00-0.50) K/uL Baso # (Auto) (0.00-0.20) K/uL Immature Gran # (Auto) (0.01-0.20) K/uL Hyposegmented Neuts Polychromasia Sodium (136-145) mmol/L Potassium (3.5-5.1) mmol/L Chloride (98-107) mmol/L Carbon Dioxide (21-32) mmol/L Anion Gap (3-11) BUN (6-23) mg/dl Creatinine (0.6-1.4) mg/dl Est Cr Clr Drug Dosing ml/min Est GFR ( Amer) ml/min Est GFR (Non-Af Amer) ml/min BUN/Creatinine Ratio (10-20) Glucose (70-99(Fasting)) mg/dl Calcium (8.6-10.3) mg/dl Phosphorus (2.5-4.9) mg/dl Magnesium 1.3 L (1.7-2.4) mg/dl Ferritin 463.6 H (8-388) ng/ml Total Bilirubin (0.2-1.0) mg/dl AST (13-39) U/L ALT (7-52) U/L Alkaline Phosphatase (34-104) U/L Total Protein (6.0-8.3) gm/dl Albumin (3.4-5.0) gm/dl Globulin (2.5-4.0) gm/dl Albumin/Globulin Ratio (0.9-2) Vitamin B12 (180-914) pg/ml Folate (>5.38) ng/ml Medications Administered Current Inpatient Medications Acetaminophen (Acetaminophen 325 Mg Tab) 650 mg PO Q4 PRN PRN Reason: Headache or Pain Stop: 05/15/23 15:24 Last Admin: 04/15/23 21:57 Dose: 650 mg Albuterol (Albuterol Hfa 8 Gm Inhaler) 2 puffs INH PRN TIANA Stop: 05/14/23 21:17 Last Admin: 04/15/23 21:09 Dose: Not Given Atorvastatin Calcium (Atorvastatin 40 Mg Tab) 40 mg PO DAILY TIANA Stop: 05/15/23 08:59 Last Admin: 04/15/23 07:54 Dose: 40 mg Benzocaine (Benzocaine/Menthol 18 Eduard/1 Box) 1 eduard MT Q4 PRN PRN Reason: Sore Throat Stop: 05/15/23 09:03 Folic Acid (Folic Acid 1 Mg Tab) 1 mg PO DAILY TIANA Stop: 05/15/23 08:59 Last Admin: 04/15/23 07:54 Dose: 1 mg Pantoprazole Sodium 40 mg/ (Dextrose) 100 mls @ 20 mls/hr IV Q5H TIANA Stop: 05/14/23 20:14 Last Admin: 04/16/23 04:37 Dose: 8 mg/hr, 20 mls/hr Sodium Chloride (Nss) 1,000 mls @ 125 mls/hr IV .Q8H TIANA Stop: 05/15/23 00:44 Last Admin: 04/16/23 04:37 Dose: 125 mls/hr Piperacillin Sod/Tazobactam (Sod 4.5 gm/ Dextrose) 120 mls @ 30 mls/hr IV Q8H TIANA; Protocol Stop: 04/25/23 15:29 Last Infusion: 04/16/23 04:02 Dose: Infused Lorazepam (Lorazepam 0.5 Mg Tab) 0.5 mg PO BID PRN PRN Reason: Anxiety Stop: 05/14/23 21:17 Last Admin: 04/15/23 21:57 Dose: 0.5 mg Magnesium Oxide (Magnesium Oxide 400 Mg Tab) 400 mg PO BID [facility] Stop: 05/15/23 20:59 Last Admin: 04/15/23 21:08 Dose: 400 mg Metoprolol Succinate (Metoprolol Succ 25mg Ext Rel Tab) 6.25 mg PO QAM [facility] Stop: 05/16/23 08:59 Ondansetron HCl (Ondansetron 8mg Od Tab) 8 mg PO Q8H PRN PRN Reason: Nausea And Vomiting Polyethylene Glycol (Polyethylene (Miralax) 17 Gm Pack) 17 gm PO DAILY PRN PRN Reason: Constipation Stop: 05/14/23 18:37 Prochlorperazine (Prochlorperazine Maleate 10 Mg Tab) 10 mg PO Q6H PRN PRN Reason: Nausea And Vomiting Stop: 05/14/23 21:17 Sertraline HCl (Sertraline Hcl 50 Mg Tablet) 50 mg PO QAM [facility] Stop: 05/15/23 08:59 Last Admin: 04/15/23 07:54 Dose: 50 mg Umeclidinium/Vilanterol (Umeclidinium/Vilanterol 62.5/25mcg 7 Puffs/Inhaler) 1 puffs INH DAILY [facility] Stop: 05/15/23 08:59 Last Admin: 04/15/23 07:55 Dose: 1 puffs
[2023-04-16 07:34] LABS: Basophils # (auto) 0.01 K/uL (0.00-0.20); Basophils % (auto) 0.7 %; Eosinophils # (auto) 0.01 K/uL (0.00-0.50); Eosinophils % (auto) 0.7 %; Immature Granulocytes # (auto) 0.02 K/uL (0.01-0.20); Immature Granulocytes % (auto) 1.3 %; Lymphocytes # (auto) 0.19 K/uL (1.20-3.40); Lymphocytes % (auto) 12.8 %; Monocytes # (auto) 0.16 K/uL (0.11-0.59); Monocytes % (auto) 10.7 %; Neutrophils % (auto) 73.8 %; Polychromasia 1+
[2023-04-16 08:16] LABS: Albumin Globulin Ratio 1.2 (0.9-2); BUN Creatinine Ratio 16.7 (10-20); Bilirubin,Total 2.2 mg/dl (0.2-1.0); Calcium 7.8 mg/dl (8.6-10.3); Creatinine Clr Calc Pharmacy 73.6 ml/min; Est GFR (African American) 97.9 ml/min; Est GFR (Non-African American) 84.5 ml/min; Globulin 2.5 gm/dl (2.5-4.0); Magnesium 1.5 mg/dl (1.7-2.4); Phosphorus 2.5 mg/dl (2.5-4.9); Total Protein 5.5 gm/dl (6.0-8.3)
[2023-04-16] MEDS: SERTRALINE HCL 50 MG TABLET PO SCH (08:51)
[2023-04-16] MEDS: METOPROLOL SUCC 25MG EXT REL TAB PO SCH (08:51)
[2023-04-16] MEDS: ATORVASTATIN 40 MG TAB PO SCH (08:51)
[2023-04-16] MEDS: FOLIC ACID 1 MG TAB PO SCH (08:52)
[2023-04-16] MEDS: MAGNESIUM OXIDE 400 MG TAB PO SCH ×2 (08:52→19:55)
[2023-04-16] MEDS: MAGNESIUM SULFATE / D5W 1 GM/100 ML BAG IV SCH ×2 (08:58→10:55)
[2023-04-16] MEDS: UMECLIDINIUM/VILANTEROL 62.5/25MCG 7 PUFFS/INHALER INH SCH (09:04)
--- NOTE | 2023-04-16 14:20 | Surgery Progress Note ---
Date of Service April 16, 2023 Assessment & Plan (1) Acute diverticulitis: Plan: Assessment: Patient is a 77 years old gentleman with a significant past medical history with a lung cancer (with chemo and radiation atrial fibrillation on Xarelto. Patient presented to ED with 2-day history of melena and the right lower quadrant pain. CT scan diagnosis right-sided diverticulitis abscess. Abscess less than 3 cm. Plan: No emergency surgical indication now. Conservative treatment. N.p.o.. IV fluid. IV antibiotic. control the pain. Repeat the lab in morning, agree GI will do EGD to rule out upper GI bleeding. Patient agreed with treatment plan. I answered all questions. We will follow-up. 04/16/2023 2:18 PM continue conservative treatment, clear diet, repeat labs in morning, will F/U Admission and Anticipated Discharge Date Admission Date: April 14, 2023 Subjective Pt seen in follow up of anemia, poss. GI bleed, currently on chemo and radiation for lung ca CT abd/pelvis - w/ diverticulitis and poss. abscess - started [facility] GI and surgery consulted - plan for EGD on Monday Pt is currently laying in bed in NAD, denies any abd. pain, denies fever, chills, chest pain, shortness of breath 04/16/2023 2:17 PM, DR. Hathaway F/U diverticulitis and poss. abscess pt is doing better, no significant abdominal pain, no fever, no bloody stool. Review of Systems Constitutional: as per Subjective / HPI no distress Eyes: as per Subjective / HPI Respiratory: lung cancer on chemo + radiation, Cardiovascular: Additional Comments: A-fib Gastrointestinal: melena Neurologic: as per Subjective / HPI Psychiatric: as per Subjective / HPI Endocrine: DM Hematologic / Lymphatic: anemia Physical Exam Constitutional: WD/WN, vitals as above Eyes: PERRL, conjunctivae normal, anicteric sclerae Neck: trachea midline, no thyromegaly Respiratory: normal respiratory effort, lungs clear to auscultation Cardiovascular: Rate/Rhythm: + irregularly irregular Gastrointestinal (Abdomen): soft, NT, Nd, BS +. Neurologic: patellar DTR's 2+ bilat, sensation intact Psychiatric: A+Ox3, euthymic affect Results & Data Vital Signs (Past 12 Hours) Vital Signs Temp Pulse Pulse Resp BP Pulse Ox O2 Del Method 04/16/23 12:30 36.4 C L 106 H 20 104/65 94 Room Air 04/16/23 08:00 89 04/16/23 08:00 Room Air 04/16/23 08:05 37.0 C 81 18 106/87 96 Room Air 04/16/23 03:00 36.6 C 97 H 18 94 Room Air Laboratory Results Abnormal lab results 04/16/23 04/16/23 Range/Units 06:08 06:08 WBC 1.49 L (4.8-10.8) K/ul RBC 2.52 L (4.70-6.10) M/uL Hgb 8.8 L (14.0-18.0) g/dl Hct 25.5 L (42.0-52.0) % MCV 101.2 H (80.0-100.0) fL MCH 34.9 H (25.0-34.0) pg RDW Std Deviation 56.0 H (36.4-46.3) fL RDW Coeff of Norm 16.0 H (11.5-14.5) % Plt Count 76 L (130-400) K/uL Neut # (Auto) 1.10 L (1.40-6.50) K/uL Lymph # (Auto) 0.19 L (1.20-3.40) K/uL Chloride 108 H (98-107) mmol/L Calcium 7.8 L (8.6-10.3) mg/dl Magnesium 1.5 L (1.7-2.4) mg/dl Total Bilirubin 2.2 H D (0.2-1.0) mg/dl Total Protein 5.5 L (6.0-8.3) gm/dl Albumin 3.0 L (3.4-5.0) gm/dl
[2023-04-16] MEDS ORDERED: MAGNESIUM SULFATE / D5W 1 GM/100 ML BAG IV ONE (14:21)
[2023-04-16] MEDS: LORazepam 0.5 MG TAB PO PRN (19:57)
[2023-04-17] MEDS: ALBUTEROL HFA 8 GM INHALER INH SCH ×2 (00:58→20:02)
[2023-04-17] MEDS: SODIUM CHLORIDE 0.9% 1,000 ML IV SCH ×3 (04:16→20:00)
[2023-04-17] MEDS: PANTOprazole 40 MG in DEXTROSE 5% 100 ML IV SCH ×4 (04:17→19:59)
[2023-04-17 06:29] LABS: Hematocrit (blood only) 24.2 % (42.0-52.0); Hemoglobin 8.6 g/dl (14.0-18.0); Mean Corpuscular Hemoglobin 35.2 pg (25.0-34.0); Mean Corpuscular Hgb Conc 35.5 g/dL (32.0-36.0); Mean Corpuscular Volume 99.2 fL (80.0-100.0); Mean Platelet Volume 9.8 fL (9.4-12.4); Platelet Count 64 K/uL (130-400); RDW Coefficient of Variation 15.9 % (11.5-14.5); RDW Standard Deviation 54.8 fL (36.4-46.3); Red Blood Count 2.44 M/uL (4.70-6.10); White Blood Count 1.58 K/ul (4.8-10.8)
[2023-04-17 06:49] LABS: Albumin Globulin Ratio 1.1 (0.9-2); Albumin Level 2.9 gm/dl (3.4-5.0); BUN Creatinine Ratio 10.6 (10-20); Bilirubin,Total 2.2 mg/dl (0.2-1.0); Calcium 7.6 mg/dl (8.6-10.3); Creatinine Clr Calc Pharmacy 72.8 ml/min; Est GFR (African American) 97.4 ml/min; Globulin 2.6 gm/dl (2.5-4.0); Magnesium 1.7 mg/dl (1.7-2.4); Phosphorus 2.1 mg/dl (2.5-4.9); Potassium 3.7 mmol/L (3.5-5.1); Total Protein 5.5 gm/dl (6.0-8.3)
[2023-04-17 07:49] LABS: Basophils # (auto) 0.01 K/uL (0.00-0.20); Basophils % (auto) 0.6 %; Eosinophils # (auto) 0.02 K/uL (0.00-0.50); Eosinophils % (auto) 1.3 %; Immature Granulocytes # (auto) 0.02 K/uL (0.01-0.20); Immature Granulocytes % (auto) 1.3 %; Lymphocytes # (auto) 0.34 K/uL (1.20-3.40); Lymphocytes % (auto) 21.5 %; Monocytes # (auto) 0.17 K/uL (0.11-0.59); Monocytes % (auto) 10.8 %; Neutrophils # (auto) 1.02 K/uL (1.40-6.50); Neutrophils % (auto) 64.5 %; Polychromasia 1+
--- NOTE | 2023-04-17 08:32 | History & Physical Bridge Note ---
Date of Service April 17, 2023 History & Physical Bridge Note I have examined the patient, reviewed the History & Physical and in the interval since the performance of the History & Physical I have noted the following changes of clinical significance: no changes noted
[2023-04-17] MEDS ORDERED: LIDOCAINE 2% 2 ML VIAL/AMP(20MG/ML) INFIL ONE (08:47)
[2023-04-17] MEDS ORDERED: PROPOFOL IV EMULSION 10 MG/ML 20 ML VIAL IV ONE (08:47)
--- NOTE | 2023-04-17 08:55 | Anesthesiology Consultation ---
Date of Service April 17, 2023 Assessment & Plan Chart Review Chart Review: Acceptable Risk for Surgery Consults Requested none History Surgery Operation Date: 04/17/23 16:45 Proposed Procedures p Esophagogastroduodenoscopy Dr Ellington - Yodit Ellington MD Height/Weight Height: 5 ft 9 in Weight: 75.7 kg Allergies Allergy/AdvReac Type Severity Reaction Status Date / Time No Known Drug Allergies Allergy Verified 04/14/23 15:58 Medications Home Medications Medication Instructions Recorded Confirmed Last Taken albuterol sulfate 90 mcg/actuation 2 puff inhalation PRN ##0 06/30/12 04/14/23 Unknown aerosol inhaler (ProAir HFA) lorazepam 0.5 mg tablet 0.5 mg PO BID PRN #0 tabs 06/30/12 04/14/23 Unknown aspirin 81 mg tablet 81 mg PO QAM #0 tabs 07/18/12 04/14/23 04/10/23 nitroglycerin 0.4 mg sublingual 0.4 mg UT PRN #0 BTLS 07/18/12 04/14/23 Unknown tablet (Nitrostat) rivaroxaban 20 mg tablet (Xarelto) 1 tab PO DAILY 30 days #30 tabs 11/17/16 04/14/23 04/14/23 folic acid 1 mg tablet 1 mg PO DAILY 02/16/23 04/14/23 04/14/23 metformin 500 mg tablet 500 mg PO DAILY 02/16/23 04/14/23 04/14/23 atorvastatin 40 mg tablet 40 mg PO DAILY 04/14/23 04/14/23 Unknown dexamethasone 4 mg tablet See Rx Instructions .Route .COMPLEX 04/14/23 04/14/23 04/12/23 diclofenac sodium 1 % topical gel 2 g topical BID PRN Pain 04/14/23 04/14/23 Unknown glipizide 5 mg tablet, extended See Rx Instructions .Route .COMPLEX 04/14/23 04/14/23 04/12/23 release 24 hr metoprolol succinate 25 mg 12.5 mg PO QAM 04/14/23 04/14/23 04/14/23 tablet,extended release 24 hr ondansetron HCl 8 mg tablet 8 mg PO Q8H PRN Nausea And Vomiting 04/14/23 04/14/23 Unknown prochlorperazine maleate 10 mg 10 mg PO Q6H PRN Nausea And 04/14/23 04/14/23 Unknown tablet (Compazine) Vomiting sertraline 50 mg tablet 50 mg PO QAM 04/14/23 04/14/23 04/14/23 umeclidinium 62.5 mcg-vilanterol 1 inh inhalation DAILY 04/14/23 04/14/23 04/14/23 25 mcg/actuation powdr for inhalation (Anoro Ellipta) Active Medications Generic Name Dose Route Start Last Admin Trade Name Freq PRN Reason Stop Dose Admin Acetaminophen 650 mg 04/15/23 15:25 04/15/23 21:57 Acetaminophen 325 Mg Tab PO 05/15/23 15:24 650 mg Q4 PRN Administration Headache or Pain Albuterol 2 puffs 04/14/23 21:18 04/17/23 00:58 Albuterol Hfa 8 Gm Inhaler INH 05/14/23 21:17 Not Given PRN TIANA Atorvastatin Calcium 40 mg 04/15/23 09:00 04/16/23 08:51 Atorvastatin 40 Mg Tab PO 05/15/23 08:59 40 mg DAILY TIANA Administration Folic Acid 1 mg 04/15/23 09:00 04/16/23 08:52 Folic Acid 1 Mg Tab PO 05/15/23 08:59 1 mg DAILY TIANA Administration Pantoprazole Sodium 40 mg/ 100 mls @ 20 mls/hr 04/14/23 20:15 04/17/23 04:17 Dextrose IV 05/14/23 20:14 8 mg/hr Q5H TIANA 20 mls/hr Administration 8 MG/HR Sodium Chloride 1,000 mls @ 125 mls/hr 04/15/23 00:45 04/17/23 04:16 Nss IV 05/15/23 00:44 125 mls/hr .Q8H TIANA Administration Piperacillin Sod/Tazobactam 120 mls @ 30 mls/hr 04/15/23 15:30 04/17/23 04:16 Sod 4.5 gm/ Dextrose IV 04/25/23 15:29 Infused Q8H TIANA Infusion Protocol Lorazepam 0.5 mg 04/14/23 21:18 04/16/23 19:57 Lorazepam 0.5 Mg Tab PO 05/14/23 21:17 0.5 mg BID PRN Administration Anxiety Magnesium Oxide 400 mg 04/15/23 21:00 04/16/23 19:55 Magnesium Oxide 400 Mg Tab PO 05/15/23 20:59 400 mg BID TIANA Administration Metoprolol Succinate 6.25 mg 04/16/23 09:00 04/16/23 08:51 Metoprolol Succ 25mg Ext Rel Tab PO 05/16/23 08:59 6.25 mg QAM TIANA Administration Sertraline HCl 50 mg 04/15/23 09:00 04/16/23 08:51 Sertraline Hcl 50 Mg Tablet PO 05/15/23 08:59 50 mg QAM TIANA Administration Umeclidinium/Vilanterol 1 puffs 04/15/23 09:00 04/16/23 09:04 Umeclidinium/Vilanterol 62.5/25mcg 7 Puffs/Inhaler INH 05/15/23 08:59 1 puffs DAILY TIANA Administration NPO Date Last Intake of Fluids: 04/17/23 Time Last Intake of Fluids: 07:00 Date Last Intake of Solids: 04/15/23 Past Medical History Medical History (Updated 04/15/23 @ 11:00 by Yodit Ellington MD) Atrial fibrillation COPD (chronic obstructive pulmonary disease) with emphysema Diabetes mellitus type II, controlled Gall stones Lung cancer Skin cancer of scalp Past Family History Family History Mother Breast cancer Father Diabetes Type I Stroke Sister Breast cancer Sister Autoimmune hemolytic anemia Aunt Breast cancer Past Surgical History Surgical History H/O cataract removal with insertion of prosthetic lens 07/21 H/O colonoscopy 10/27/2015 Dr. Sargent; Diverticulosis; repeat 10 yrs H/O ventral hernia repair 09/01/2009 Dr. Cortes; right inguinal hernia Hx of tonsillectomy <12 y/o Social History Smoking Status: Never smoker Do You Dip or Chew Tobacco: No Hx Alcohol Use: No Alcohol type: beer and other Hx Substance Use: No Physical Exam Vital Signs Last Vital Signs Temp 36.8 C 04/17/23 08:45 Pulse 105 H 04/17/23 08:45 Resp 16 04/17/23 08:45 BP 105/70 04/17/23 08:45 Pulse Ox 96 04/17/23 08:45 O2 Del Method Room Air 04/17/23 08:45 Testing Laboratory Results 04/17/23 05:50 04/17/23 05:50 PT 13.0 Seconds (9.0-12.0) H 04/14/23 14:51 INR 1.2 (0.9-1.1) H 04/14/23 14:51 APTT 28.7 Seconds (21.0-31.0) 04/14/23 14:51 Hemoglobin A1c 7.2 % (4.5-5.6) H 04/15/23 07:18 Blood Type A Positive 04/14/23 14:52 Antibody Screen NEGATIVE 04/14/23 14:52
[2023-04-17] MEDS ORDERED: PHENYLEPHRINE 100MCG/ML 5ML SYR ONE (09:17)
--- NOTE | 2023-04-17 09:31 | GI REPORT ---
Patient Name: Lencho Bella Procedure Date: 04/17/2023 8:48 AM Date of : 1945 Admit Type: Inpatient Age: 77 Gender: Male Attending MD: Yodit Ellington MD, Procedure: Upper GI endoscopy Providers: Yodit Ellington MD Referring MD: So Dave Do Indications: Melena Medicines: Propofol per Anesthesia Complications: No immediate complications. Estimated Blood Loss: Estimated blood loss: none. Procedure: Pre-Anesthesia Assessment: - Prior to the procedure, a History and Physical was performed, and patient medications, allergies and sensitivities were reviewed. The patient's tolerance of previous anesthesia was reviewed. - The risks and benefits of the procedure and the sedation options and risks were discussed with the patient. All questions were answered and informed consent was obtained. - Patient identification and proposed procedure were verified prior to the procedure by the physician and the nurse. The procedure was verified in the procedure room. - Pre-procedure physical examination revealed no contraindications to sedation. After obtaining informed consent, the endoscope was passed under direct vision. Throughout the procedure, the patient's blood pressure, pulse, and oxygen saturations were monitored continuously. The Endoscope was introduced through the mouth, and advanced to the second part of duodenum. The upper GI endoscopy was accomplished without difficulty. The patient tolerated the procedure well. Findings: The examined esophagus was normal. A single small angioectasia with no bleeding was found in the stomach. Vaporization for hemostasis using argon plasma was successful. To prevent bleeding post-intervention, two hemostatic clips were successfully placed (MR conditional). Clip in flight refueling system repairer: Lighting by LED. The duodenal bulb and second portion of the duodenum were normal. The area of the papilla was prominent, possible underlying submucosal nodule. Impression: - Normal esophagus. - A single non-bleeding angioectasia in the stomach. Treated with argon plasma coagulation (APC). Clips (MR conditional) were placed. Clip in flight refueling system repairer: Lighting by LED. - Normal duodenal bulb and second portion of the duodenum. - Prominent Papilla. - No specimens collected. Recommendation: - [facility]. - Advance diet as tolerated. - Schedule EUS to evaluate the area of the Papilla as OP. - Perform a colonoscopy in 3 months. - May resume his anticoagulation in 3 days. Yodit Ellington MD 04/17/2023 9:30:19 AM This report has been signed electronically. Note Initiated On: 04/17/2023 8:48 AM Number of Addenda: 0 I attest to the content of the Intraoperative Record and orders documented therein, exceptions below {[id number]}
--- NOTE | 2023-04-17 09:45 | Anesthesiology Progress Note ---
Date of Service April 17, 2023 Anesthesia Post Procedure Vital Signs Vital Signs: Temp Pulse Pulse Resp BP Pulse Ox O2 Del Method 04/17/23 09:39 100 H 16 91/65 L 94 Room Air 04/17/23 09:24 112 H 24 84/61 L 97 Room Air 04/17/23 08:45 36.8 C 105 H 16 105/70 96 Room Air 04/17/23 07:50 36.8 C 108 H 18 110/74 92 Room Air 04/17/23 07:33 99 H 04/17/23 04:10 36.9 C 91 H 17 106/62 93 Room Air 04/17/23 00:35 36.9 C 91 H 16 94/58 L 94 Room Air 04/16/23 19:00 36.7 C 100 H 18 94/55 L 95 Room Air 04/16/23 18:00 98 H 96/58 L 04/16/23 16:00 89 04/16/23 16:38 36.7 C 114 H 20 81/63 L 93 Room Air 04/16/23 12:30 36.4 C L 106 H 20 104/65 94 Room Air Transfer of Care Handoff Completed per policy Notes Mental Status: alert / awake / arousable and participated in evaluation Patient Amnestic to Procedure: Yes Nausea / Vomiting: adequately controlled Pain: adequately controlled Airway Patency, RR, SpO2: stable & adequate BP & HR: stable & adequate Hydration State: stable & adequate Anesthetic Complications: no major complications apparent
[2023-04-17] MEDS: PIPERACILLIN/TAZOBACTAM 4.5 GM in DEXTROSE 5% 100 ML IV SCH ×2 (10:28→15:09)
[2023-04-17] MEDS: MAGNESIUM SULFATE / D5W 1 GM/100 ML BAG IV SCH ×2 (10:28→12:18)
[2023-04-17] MEDS: POT PHOSPHATE MONOBASIC W/ SOD TAB PO SCH ×4 (10:41→20:01)
[2023-04-17] MEDS: METOPROLOL SUCC 25MG EXT REL TAB PO SCH (10:41)
[2023-04-17] MEDS: SERTRALINE HCL 50 MG TABLET PO SCH (10:41)
[2023-04-17] MEDS: ATORVASTATIN 40 MG TAB PO SCH (10:42)
[2023-04-17] MEDS: UMECLIDINIUM/VILANTEROL 62.5/25MCG 7 PUFFS/INHALER INH SCH (10:42)
[2023-04-17] MEDS: MAGNESIUM OXIDE 400 MG TAB PO SCH ×2 (10:42→20:00)
[2023-04-17] MEDS: FOLIC ACID 1 MG TAB PO SCH (10:42)
--- NOTE | 2023-04-17 12:34 | Hospitalist Progress Note ---
Date of Service April 17, 2023 Assessment & Plan (1) UGIB (upper gastrointestinal bleed): (2) Anemia: (3) Primary cancer of right lower lobe of lung: (4) Diabetes mellitus type II, controlled: (5) Atrial fibrillation: Plan Pt is a 77yo M w/ lung cancer (currently undergoing chemotherapy and radiation), atrial fibrillation anticoagulated with xarelto, DMII, HLD, hemochromatosis, Mood disorder admitted with an acute GI bleed. Acute GI Bleed/Melena/Acute blood loss anemia Presents with black tarry stools for the past week. States he is occasionally dizzy. Denies chest pain, SOB. Admits to abdominal discomfort/ "gurgling". Hgb on arrival of 9.8. Hemodynamically stable. Started on ppi drip CT abd/pelvis c/w diverticulitis w/ poss. abscess - started on zosyn GI and surgery consulted Monitor H&H, Hold home xarelto and baby aspirin. Hypomagnesemia Mg 1.7, replace and repeat in am. Hx of Lung Cancer Non small cell lung cancer, in R lower lobe Currently undergoing chemotherapy (weekly paclitaxel and carboplatin) and radiation, follows with Dr. Mari Continue home inhalers, compazine and zofran prn Will continue XRT while inpatient. Hemochromatosis Per [facility], had HFE testing done in 2016 Has not had phlebotomy for many years. ferritin 460, iron panel obtained Atrial fibrillation On metoprolol and xarelto hold xarelto as above DMII On metformin at home daily Also takes glipizide on chemo days when taking dexamethasone Hold home PO meds, ISS once taking PO Mood Disorder chronic, stable. Continue home sertraline once taking po, home ativan prn HLD continue home statin once taking po macrocytosis MCV >100 folic acid and b12 levels wnl Continue home folic acid once tolerating po DVT prophylaxis: holding home xarelto and aspirin in setting of acute GI bleed Dispo: PCU/tele CODE STATUS: DNR/DNI DO Gomez Guerrero Hospitalist Admission and Anticipated Discharge Date Admission Date: April 14, 2023 Subjective Pt seen in follow up of anemia, poss. GI bleed, currently on chemo and radiation for lung ca CT abd/pelvis - w/ diverticulitis and poss. abscess - continues on zosyn Underwent EGD today Pt is currently laying in bed in NAD, denies any abd. pain, denies fever, chills, chest pain, shortness of breath Physical Exam Physical Exam: CONSTITUTIONAL: WNWD, vitals as above, generally well-appearing, NAD EYES: normal conjunctivae, no scleral icterus ENT: external ear and nose normal, MMM NECK: trachea midline RESPIRATORY: clear to auscultation bilaterally, no crackles, rales or wheezes, normal respiratory effort CARDIOVASCULAR: regular rate and rhythm, S1 and 2 heard without murmurs, gallops or rubs, no JVD, no peripheral edema, CHEST: inspection of chest was normal GASTROINTESTINAL: soft, nontender, ND, no guarding MUSCULOSKELETAL: strength 5/5 throughout, head is normocephalic and atraumatic SKIN: warm and dry NEUROLOGIC: CN 2-12 grossly intact, no sensory deficit, normal cognition, normal speech, no tremor PSYCHIATRIC: alert cooperative and oriented to person, place and time. Results & Data Results & Data Vital Signs (Past 12 Hours) Vital Signs Temp Pulse Pulse Resp BP Pulse Ox O2 Del Method 04/17/23 12:09 36.4 C L 120 H 18 94/64 L 96 Room Air 04/17/23 09:55 101 H 16 94/63 L 93 Room Air 04/17/23 09:39 100 H 16 91/65 L 94 Room Air 04/17/23 09:24 112 H 24 84/61 L 97 Room Air 04/17/23 08:45 36.8 C 105 H 16 105/70 96 Room Air 04/17/23 07:50 36.8 C 108 H 18 110/74 92 Room Air 04/17/23 07:33 99 H 04/17/23 04:10 36.9 C 91 H 17 106/62 93 Room Air 04/17/23 00:35 36.9 C 91 H 16 94/58 L 94 Room Air Laboratory Results Short CBC 04/17/23 Range/Units 05:50 WBC 1.58 L (4.8-10.8) K/ul Hgb 8.6 L (14.0-18.0) g/dl Hct 24.2 L (42.0-52.0) % Plt Count 64 L (130-400) K/uL BMP 04/17/23 05:50 Sodium 137 Potassium 3.7 Chloride 111 H Carbon Dioxide 24 BUN 9 Creatinine 0.85 Glucose 91 Calcium 7.6 L Liver Function 04/17/23 Range/Units 05:50 Total Bilirubin 2.2 H (0.2-1.0) mg/dl AST 14 (13-39) U/L ALT 9 (7-52) U/L Alkaline Phosphatase 45 (34-104) U/L Albumin 2.9 L (3.4-5.0) gm/dl Medications Administered Current Inpatient Medications Acetaminophen (Acetaminophen 325 Mg Tab) 650 mg PO Q4 PRN PRN Reason: Headache or Pain Stop: 05/15/23 15:24 Last Admin: 04/15/23 21:57 Dose: 650 mg Albuterol (Albuterol Hfa 8 Gm Inhaler) 2 puffs INH PRN TIANA Stop: 05/14/23 21:17 Last Admin: 04/17/23 00:58 Dose: Not Given Atorvastatin Calcium (Atorvastatin 40 Mg Tab) 40 mg PO DAILY TIANA Stop: 05/15/23 08:59 Last Admin: 04/17/23 10:42 Dose: 40 mg Benzocaine (Benzocaine/Menthol 18 Eduard/1 Box) 1 eduard MT Q4 PRN PRN Reason: Sore Throat Stop: 05/15/23 09:03 Folic Acid (Folic Acid 1 Mg Tab) 1 mg PO DAILY TIANA Stop: 05/15/23 08:59 Last Admin: 04/17/23 10:42 Dose: 1 mg Pantoprazole Sodium 40 mg/ (Dextrose) 100 mls @ 20 mls/hr IV Q5H TIANA Stop: 05/14/23 20:14 Last Admin: 04/17/23 10:28 Dose: 8 mg/hr, 20 mls/hr Sodium Chloride (Nss) 1,000 mls @ 125 mls/hr IV .Q8H TIANA Stop: 05/15/23 00:44 Last Admin: 04/17/23 04:16 Dose: 125 mls/hr Piperacillin Sod/Tazobactam (Sod 4.5 gm/ Dextrose) 120 mls @ 30 mls/hr IV Q8H TIANA; Protocol Stop: 04/25/23 15:29 Last Admin: 04/17/23 10:28 Dose: 30 mls/hr Lorazepam (Lorazepam 0.5 Mg Tab) 0.5 mg PO BID PRN PRN Reason: Anxiety Stop: 05/14/23 21:17 Last Admin: 04/16/23 19:57 Dose: 0.5 mg Magnesium Oxide (Magnesium Oxide 400 Mg Tab) 400 mg PO BID [facility] Stop: 05/15/23 20:59 Last Admin: 04/17/23 10:42 Dose: 400 mg Metoprolol Succinate (Metoprolol Succ 25mg Ext Rel Tab) 6.25 mg PO QAM [facility] Stop: 05/16/23 08:59 Last Admin: 04/17/23 10:41 Dose: 6.25 mg Ondansetron HCl (Ondansetron 8mg Od Tab) 8 mg PO Q8H PRN PRN Reason: Nausea And Vomiting Polyethylene Glycol (Polyethylene (Miralax) 17 Gm Pack) 17 gm PO DAILY PRN PRN Reason: Constipation Stop: 05/14/23 18:37 Potassium Phosphate (Pot Phosphate Monobasic W/ Sod Tab) 1 tab PO QID [facility] Stop: 04/17/23 21:01 Last Admin: 04/17/23 10:41 Dose: 1 tab Prochlorperazine (Prochlorperazine Maleate 10 Mg Tab) 10 mg PO Q6H PRN PRN Reason: Nausea And Vomiting Stop: 05/14/23 21:17 Sertraline HCl (Sertraline Hcl 50 Mg Tablet) 50 mg PO QAM [facility] Stop: 05/15/23 08:59 Last Admin: 04/17/23 10:41 Dose: 50 mg Umeclidinium/Vilanterol (Umeclidinium/Vilanterol 62.5/25mcg 7 Puffs/Inhaler) 1 puffs INH DAILY [facility] Stop: 05/15/23 08:59 Last Admin: 04/17/23 10:42 Dose: 1 puffs
--- NOTE | 2023-04-17 14:43 | Surgery Progress Note ---
Date of Service April 17, 2023 Assessment & Plan (1) Acute diverticulitis: Plan: Patient is a 77 year old gentleman with a significant past medical history with a lung cancer (with chemo and radiation atrial fibrillation on Xarelto. Patient presented to ED with 2-day history of melena and the right lower quadrant pain. CT scan diagnosis right-sided diverticulitis abscess. Abscess less than 3 cm. Plan: Continue conservative management slowly advance diet as tolerated continue IV antibiotics, will need 14 day total course of IV and oral antibiotics given abscess continue medical management Admission and Anticipated Discharge Date Admission Date: April 14, 2023 Subjective feeling okay no abdominal pain, some "gurgling" discomfort in right lower abdomen no n,v no fevers Physical Exam Constitutional: WD/WN, vitals as above no acute distress and not ill appearing Respiratory: normal respiratory effort; no respiratory distress Gastrointestinal (Abdomen): Inspection/Auscultation: abdomen normal to inspection; abdomen not distended Percussion/Palpation: abdomen soft; abdomen nontender, no guarding, abdomen not rigid and abdomen not firm Skin: no rashes, warm and dry Psychiatric: Orientation: alert and oriented x 3 Results & Data Vital Signs (Past 12 Hours) Vital Signs Temp Pulse Pulse Resp BP Pulse Ox O2 Del Method 04/17/23 12:09 36.4 C L 120 H 18 94/64 L 96 Room Air 04/17/23 09:55 101 H 16 94/63 L 93 Room Air 04/17/23 09:39 100 H 16 91/65 L 94 Room Air 04/17/23 09:24 112 H 24 84/61 L 97 Room Air 04/17/23 08:45 36.8 C 105 H 16 105/70 96 Room Air 04/17/23 07:50 36.8 C 108 H 18 110/74 92 Room Air 04/17/23 07:33 99 H 04/17/23 04:10 36.9 C 91 H 17 106/62 93 Room Air Laboratory Results 04/17/23 04/17/23 Range/Units 05:50 05:50 WBC 1.58 L (4.8-10.8) K/ul RBC 2.44 L (4.70-6.10) M/uL Hgb 8.6 L (14.0-18.0) g/dl Hct 24.2 L (42.0-52.0) % MCV 99.2 (80.0-100.0) fL MCH 35.2 H (25.0-34.0) pg MCHC 35.5 (32.0-36.0) g/dL RDW Std Deviation 54.8 H (36.4-46.3) fL RDW Coeff of Norm 15.9 H (11.5-14.5) % Plt Count 64 L (130-400) K/uL MPV 9.8 (9.4-12.4) fL Immature Gran % (Auto) 1.3 % Neut % (Auto) 64.5 % Lymph % (Auto) 21.5 % [place] % (Auto) 10.8 % Eos % (Auto) 1.3 % Baso % (Auto) 0.6 % Neut # (Auto) 1.02 L (1.40-6.50) K/uL Lymph # (Auto) 0.34 L (1.20-3.40) K/uL [place] # (Auto) 0.17 (0.11-0.59) K/uL Eos # (Auto) 0.02 (0.00-0.50) K/uL Baso # (Auto) 0.01 (0.00-0.20) K/uL Immature Gran # (Auto) 0.02 (0.01-0.20) K/uL Hyposegmented Neuts 1+ Polychromasia 1+ Sodium 137 (136-145) mmol/L Potassium 3.7 (3.5-5.1) mmol/L Chloride 111 H (98-107) mmol/L Carbon Dioxide 24 (21-32) mmol/L Anion Gap 2 L (3-11) BUN 9 (6-23) mg/dl Creatinine 0.85 (0.6-1.4) mg/dl Est Cr Clr Drug Dosing 72.8 ml/min Est GFR ( Amer) 97.4 ml/min Est GFR (Non-Af Amer) 84.0 ml/min BUN/Creatinine Ratio 10.6 (10-20) Glucose 91 (70-99(Fasting)) mg/dl Calcium 7.6 L (8.6-10.3) mg/dl Phosphorus 2.1 L (2.5-4.9) mg/dl Magnesium 1.7 (1.7-2.4) mg/dl Total Bilirubin 2.2 H (0.2-1.0) mg/dl AST 14 (13-39) U/L ALT 9 (7-52) U/L Alkaline Phosphatase 45 (34-104) U/L Total Protein 5.5 L (6.0-8.3) gm/dl Albumin 2.9 L (3.4-5.0) gm/dl Globulin 2.6 (2.5-4.0) gm/dl Albumin/Globulin Ratio 1.1 (0.9-2)
[2023-04-17] MEDS: LORazepam 0.5 MG TAB PO PRN (20:11)
[2023-04-17] MEDS ORDERED: GLUCOSE 10 TAB/TUBE PO PRN (23:08)
[2023-04-17] MEDS ORDERED: GLUCOSE 40% GEL 15 GM TUBE PO PRN (23:08)
[2023-04-17] MEDS ORDERED: CARBOHYDRATES FOR HYPOGLYCEMIA PO PRN (23:08)
[2023-04-17] MEDS ORDERED: GLUCAGON FOR INJ 1 MG VIAL SQ PRN (23:08)
[2023-04-17] MEDS ORDERED: DEXTROSE 50% 50 ML SYRINGE IV PRN (23:08)
[2023-04-18] MEDS: PANTOprazole 40 MG in DEXTROSE 5% 100 ML IV SCH ×2 (00:34→05:52)
[2023-04-18] MEDS: PIPERACILLIN/TAZOBACTAM 4.5 GM in DEXTROSE 5% 100 ML IV SCH ×2 (00:34→07:43)
[2023-04-18] MEDS: SODIUM CHLORIDE 0.9% 1,000 ML IV SCH (03:59)
[2023-04-18] MEDS: METOPROLOL SUCC 25MG EXT REL TAB PO SCH (07:45)
[2023-04-18] MEDS: FOLIC ACID 1 MG TAB PO SCH (07:45)
[2023-04-18] MEDS: ATORVASTATIN 40 MG TAB PO SCH (07:45)
[2023-04-18] MEDS: MAGNESIUM OXIDE 400 MG TAB PO SCH ×2 (07:45→20:00)
[2023-04-18] MEDS: SERTRALINE HCL 50 MG TABLET PO SCH (07:46)
[2023-04-18] MEDS: UMECLIDINIUM/VILANTEROL 62.5/25MCG 7 PUFFS/INHALER INH SCH (07:46)
[2023-04-18 08:07] LABS: Hemoglobin 8.3 g/dl (14.0-18.0); Mean Corpuscular Hemoglobin 35.9 pg (25.0-34.0); Mean Corpuscular Hgb Conc 36.1 g/dL (32.0-36.0); Mean Corpuscular Volume 99.6 fL (80.0-100.0); Mean Platelet Volume 10.1 fL (9.4-12.4); Platelet Count 64 K/uL (130-400); RDW Coefficient of Variation 15.8 % (11.5-14.5); RDW Standard Deviation 54.2 fL (36.4-46.3); Red Blood Count 2.31 M/uL (4.70-6.10); White Blood Count 1.47 K/ul (4.8-10.8)
[2023-04-18 09:08] LABS: BUN Creatinine Ratio 7.3 (10-20); Calcium 7.7 mg/dl (8.6-10.3); Creatinine Clr Calc Pharmacy 77.9 ml/min; Est GFR (African American) 98.9 ml/min; Est GFR (Non-African American) 85.3 ml/min; Magnesium 1.5 mg/dl (1.7-2.4); Potassium 3.7 mmol/L (3.5-5.1)
[2023-04-18] MEDS: METOPROLOL TARTRATE 25 MG TAB PO SCH ×3 (10:26→20:00)
[2023-04-18] MEDS: PANTOprazole 40 MG TAB PO SCH (10:27)
--- NOTE | 2023-04-18 11:18 | Hospitalist Progress Note ---
Date of Service April 18, 2023 Assessment & Plan (1) UGIB (upper gastrointestinal bleed): (2) Anemia: (3) Primary cancer of right lower lobe of lung: (4) Diabetes mellitus type II, controlled: (5) Atrial fibrillation: Plan Pt is a 77yo M w/ lung cancer (currently undergoing chemotherapy and radiation), atrial fibrillation anticoagulated with xarelto, DMII, HLD, hemochromatosis, Mood disorder admitted with an acute GI bleed. Acute GI Bleed/Melena/Acute blood loss anemia Presents with black tarry stools for the past week. States he was occasionally dizzy. Denies chest pain, SOB. Admits to abdominal discomfort/ "gurgling". Symptoms have improved/resolved. Hgb on arrival of 9.8. Hemodynamically stable. Started on ppi drip CT abd/pelvis c/w diverticulitis w/ poss. abscess - started on zosyn GI and surgery consulted Monitor H&H, Underwent EGD on 04/17 with clip placed on non-bleeding angioectasia and other angioectasia spots that were not clipped. Advanced diet as tolerated. PPI drip converted to PO this morning, cont once daily Protonix Hold home xarelto and baby aspirin until 04/21. Colonoscopy in 3 months. Schedule EUS as outpatient to evaluate his papilla area which was prominent on the EGD. Transitioned to Augmentin 875 q8h after having had 48 hours of IV Zosyn and doing well clinically. Cont for total 14 day course and followup with general surgeon as outpatient. Hypomagnesemia Mg 1.5, replace and repeat in am. Cont oral Mg Oxide at discharge. PPI may continue to cause this to be low post hospital discharge. Followup with PCP. Hx of Lung Cancer Non small cell lung cancer, in R lower lobe Currently undergoing chemotherapy (weekly paclitaxel and carboplatin) and radiation, follows with Dr. Mari Continue home inhalers, compazine and zofran prn Will continue XRT while inpatient, next session on 04/18. Pancytopenia 2/2 chemotherapy No indication for transfusion at this time. Cont neutropenic precautions for now wtih borderline ANC. Hemochromatosis Per [facility], had HFE testing done in 2016 Has not had phlebotomy for many years. ferritin 460, iron panel obtained Atrial fibrillation with rapid ventricular response Persistent afib. On metoprolol which was decreased by 50% on admission. Increased to 12.5mg PO TID this morning for better HR control, partly off because of infection. hold xarelto as above until 04/21. DMII On metformin at home daily Also takes glipizide on chemo days when taking dexamethasone Hold home PO meds, ISS held at this time to avoid hypoglycemia. given BSG is at goal. Cont to trend BSG Mood Disorder chronic, stable. Continue home sertraline once taking po, home ativan prn HLD continue home statin once taking po macrocytosis MCV >100 folic acid and b12 levels wnl Continue home folic acid once tolerating po DVT prophylaxis: holding home xarelto and aspirin in setting of acute GI bleed. Additional chemoprophylaxis is contraindicated in setting of thrombocytopenia. SCDs, ambulation Dispo: PCU/tele, if HR stabilizes and he does well after the transition to oral medication will plan to dc him to home in am. Will ensure he is moving [facility] PT/OT to evaluate. CODE STATUS: DNR/DNI I spent a total of 60minutes coordinating, documenting, and providing care for this patient excluding time spent in the performance of separately billed services Guillermina Bajwa DO [facility] Hospitalist Admission and Anticipated Discharge Date Admission Date: April 14, 2023 Subjective Pt seen in follow up of anemia, poss. GI bleed, currently on chemo and radiation for lung ca CT abd/pelvis - w/ diverticulitis and poss. abscess - no fevers, chills, abdominal pain Underwent EGD today HR elevated overnight into the 1 teens. Chronic underlying afib and metoprolol was cut in half Metop was increased for better rate control today No other issues today Plans for XRT therapy this afternoon. Physical Exam Physical Exam: CONSTITUTIONAL: WNWD, vitals as above, generally well-appearing, NAD EYES: normal conjunctivae, no scleral icterus ENT: external ear and nose normal, MMM NECK: trachea midline RESPIRATORY: clear to auscultation bilaterally, no crackles, rales or wheezes, normal respiratory effort CARDIOVASCULAR: regular rate and rhythm, S1 and 2 heard without murmurs, gallops or rubs, no JVD, no peripheral edema, CHEST: inspection of chest was normal GASTROINTESTINAL: soft, nontender, ND, no guarding MUSCULOSKELETAL: strength 5/5 throughout, head is normocephalic and atraumatic SKIN: warm and dry NEUROLOGIC: CN 2-12 grossly intact, no sensory deficit, normal cognition, normal speech, no tremor PSYCHIATRIC: alert cooperative and oriented to person, place and time. Results & Data Results & Data Vital Signs (Past 12 Hours) Vital Signs Temp Pulse Pulse Pulse Resp BP BP 04/18/23 08:00 102 H 04/18/23 08:00 04/18/23 08:34 37.1 C 118 H 20 120/76 04/18/23 03:05 37.0 C 99 H 18 111/71 04/17/23 23:49 36.7 C 92 H 20 98/68 L Pulse Ox O2 Del Method 04/18/23 08:00 04/18/23 08:00 Room Air 04/18/23 08:34 93 Room Air 04/18/23 03:05 92 Room Air 04/17/23 23:49 92 Room Air Laboratory Results Short CBC 04/18/23 Range/Units 07:21 WBC 1.47 L (4.8-10.8) K/ul Hgb 8.3 L (14.0-18.0) g/dl Hct 23.0 L (42.0-52.0) % Plt Count 64 L (130-400) K/uL BMP 04/18/23 07:21 Sodium 139 Potassium 3.7 Chloride 111 H Carbon Dioxide 25 BUN 6 Creatinine 0.82 Glucose 95 Calcium 7.7 L Medications Administered Current Inpatient Medications Acetaminophen (Acetaminophen 325 Mg Tab) 650 mg PO Q4 PRN PRN Reason: Headache or Pain Stop: 05/15/23 15:24 Last Admin: 04/15/23 21:57 Dose: 650 mg Albuterol (Albuterol Hfa 8 Gm Inhaler) 2 puffs INH PRN TIANA Stop: 05/14/23 21:17 Last Admin: 04/17/23 20:02 Dose: Not Given Amoxicillin/Clavulanate Potassium (Amoxicillin/Clavulanate 875 Mg Tab) 1 tab PO Q8H TIANA; Protocol Stop: 04/28/23 15:59 Atorvastatin Calcium (Atorvastatin 40 Mg Tab) 40 mg PO DAILY TIANA Stop: 05/15/23 08:59 Last Admin: 04/18/23 07:45 Dose: 40 mg Benzocaine (Benzocaine/Menthol 18 Eduard/1 Box) 1 eduard MT Q4 PRN PRN Reason: Sore Throat Stop: 05/15/23 09:03 Dextrose (Dextrose 50% 50 Ml Syringe) 25 - 50 ml IV UD PRN; Protocol PRN Reason: Hypoglycemia Protocol Stop: 05/17/23 23:07 Folic Acid (Folic Acid 1 Mg Tab) 1 mg PO DAILY TIANA Stop: 05/15/23 08:59 Last Admin: 04/18/23 07:45 Dose: 1 mg Glucagon (Glucagon For Inj 1 Mg Vial) 1 mg SQ UD PRN; Protocol PRN Reason: Hypoglycemia Protocol Stop: 05/17/23 23:07 Glucose (Glucose 10 Tab/Tube) 4 - 8 tab PO UD PRN; Protocol PRN Reason: Hypoglycemia Treatment Stop: 05/17/23 23:07 Glucose (Glucose 40% Gel 15 Gm Tube) 15 - 30 gm PO UD PRN; Protocol PRN Reason: Hypoglycemia Protocol Stop: 05/17/23 23:07 Lorazepam (Lorazepam 0.5 Mg Tab) 0.5 mg PO BID PRN PRN Reason: Anxiety Stop: 05/14/23 21:17 Last Admin: 04/17/23 20:11 Dose: 0.5 mg Magnesium Oxide (Magnesium Oxide 400 Mg Tab) 400 mg PO BID TIANA Stop: 05/15/23 20:59 Last Admin: 04/18/23 07:45 Dose: 400 mg Metoprolol Tartrate (Metoprolol Tartrate 25 Mg Tab) 12.5 mg PO TID TIANA Stop: 05/18/23 09:09 Last Admin: 04/18/23 10:26 Dose: 12.5 mg Miscellaneous (Carbohydrates For Hypoglycemia ) 15 - 30 gm PO UD PRN PRN Reason: Hypoglycemia Protocol Stop: 05/17/23 23:07 Ondansetron HCl (Ondansetron 8mg Od Tab) 8 mg PO Q8H PRN PRN Reason: Nausea And Vomiting Pantoprazole Sodium (Pantoprazole 40 Mg Tab) 40 mg PO QAM TIANA Stop: 05/18/23 09:09 Last Admin: 04/18/23 10:27 Dose: 40 mg Polyethylene Glycol (Polyethylene (Miralax) 17 Gm Pack) 17 gm PO DAILY PRN PRN Reason: Constipation Stop: 05/14/23 18:37 Prochlorperazine (Prochlorperazine Maleate 10 Mg Tab) 10 mg PO Q6H PRN PRN Reason: Nausea And Vomiting Stop: 05/14/23 21:17 Sertraline HCl (Sertraline Hcl 50 Mg Tablet) 50 mg PO QAM [facility] Stop: 05/15/23 08:59 Last Admin: 04/18/23 07:46 Dose: 50 mg Umeclidinium/Vilanterol (Umeclidinium/Vilanterol 62.5/25mcg 7 Puffs/Inhaler) 1 puffs INH DAILY [facility] Stop: 05/15/23 08:59 Last Admin: 04/18/23 07:46 Dose: 1 puffs
[2023-04-18] MEDS ORDERED: BUTT PASTE (ZINC OXIDE 16%) 171 APPLN/57 GM JAR EXT PRN (12:05)
[2023-04-18] MEDS: MAGNESIUM SULFATE / D5W 1 GM/100 ML BAG IV SCH ×4 (12:11→18:45)
--- NOTE | 2023-04-18 13:10 | CT Scan Report ---
CT OF THE CHEST WITHOUT IV CONTRAST CLINICAL HISTORY: new, worsened pleural effusion right per XRT. Lung cancer. COMPARISON STUDY: Chest CT July 05, 2012. Chest radiograph July 18, 2012. PET/CT January 03 3. Chest radiograph January 19, 2023. CT DOSE: 446.15 mGy.cm TECHNIQUE: Axial images of the chest were obtained without IV contrast. Images were reviewed in the axial, sagittal, and coronal planes. IV contrast was not administered for this examination. Automat ed exposure control was utilized for the study. A dose lowering technique was utilized adhering to t he principles of ALARA. FINDINGS: Mediastinal and right hilar lymph nodes have mildly decreased in size since PET/CT of January 03, 2023. Index AP window lymph node on image 116 of 277 measures 1.9 x 1.5 cm. It previously measure d 2.1 x 1.5 cm. Subcarinal lymph node has also decreased in size. There is mild cardiomegaly. There i s no pericardial effusion. No pneumothorax is present. Small bilateral pleural effusions have increas ed in size since abdominal CT of April 15, 2023. The right lower lobe nodule on prior PET/CT has d ecreased in size. This now measures 1.4 x 1.2 cm. Appearance measured 2.2 x 1.6 cm. There is underlyi ng emphysema. Subpleural opacities are greatest within the right upper lobe. These were present on pr ior PET/CT. The right pleural effusion is slightly loculated. Multiple old incompletely healed right- sided rib fractures are present. There are no suspicious lesions within the bony fracture. Visualized portions of the upper abdomen are unremarkable. IMPRESSION: 1. Small bilateral pleural effusions, increased in size since CT of April 15, 2023. The right pleu ral effusion is slightly loculated. 2. Decrease in size of the right lower lobe lesion since PET/CT of January 03, 2023. Interval decrease in mediastinal and right hilar adenopathy. 3. Emphysema. 4. Subpleural opacities within the lungs which are unchanged. These favor atelectasis. Pneumonia coul d appear similar although is considered less likely. ACT 112: Negative or not required by law. Electronically signed by: Chung Pelayo M.D. 04/18/2023 1:08 PM
--- NOTE | 2023-04-18 15:43 | Surgery Progress Note ---
Date of Service April 18, 2023 Assessment & Plan (1) Acute diverticulitis: Plan: Patient is a 77 year old gentleman with a significant past medical history with a lung cancer (with chemo and radiation atrial fibrillation on Xarelto. Patient presented to ED with 2-day history of melena and the right lower quadrant pain. CT scan diagnosis right-sided diverticulitis abscess. Abscess less than 3 cm. Plan: Continue conservative management slowly advance diet as tolerated continue IV antibiotics, will need 14 day total course of IV and oral antibiotics given abscess continue medical management 04/18/2023 3:[address] Hathaway F/U diverticulitis with small abscess, pt is doing fine, no abdominal pain, pt can be discharged home with po cipro + flagyl for 10 days. sign off today, F/U me 2 weeks, please call with questions, thanks. Admission and Anticipated Discharge Date Admission Date: April 14, 2023 Subjective Pt seen in follow up of anemia, poss. GI bleed, currently on chemo and radiation for lung ca CT abd/pelvis - w/ diverticulitis and poss. abscess - no fevers, chills, abdominal pain Underwent EGD today HR elevated overnight into the 1 teens. Chronic underlying afib and metoprolol was cut in half Metop was increased for better rate control today No other issues today Plans for XRT therapy this afternoon. 04/18/2023 3:[address] Hathaway pt is doing fine, no abdominal pain, tolerated diet. no nausea, no vomiting. EGD- no active bleeding from UGI. Review of Systems Constitutional: as per Subjective / HPI no distress Eyes: as per Subjective / HPI Respiratory: lung cancer on chemo + radiation, Cardiovascular: Additional Comments: A-fib Gastrointestinal: melena Neurologic: as per Subjective / HPI Psychiatric: as per Subjective / HPI Endocrine: DM Hematologic / Lymphatic: anemia Physical Exam Constitutional: WD/WN, vitals as above Eyes: PERRL, conjunctivae normal, anicteric sclerae Neck: trachea midline, no thyromegaly Respiratory: normal respiratory effort, lungs clear to auscultation Cardiovascular: Rate/Rhythm: + irregularly irregular Gastrointestinal (Abdomen): soft, NT, ND, BS +. Neurologic: patellar DTR's 2+ bilat, sensation intact Psychiatric: A+Ox3, euthymic affect Results & Data Vital Signs (Past 12 Hours) Vital Signs Temp Pulse Pulse Pulse Resp BP BP 04/18/23 14:00 85 94/70 L 04/18/23 12:42 37.5 C 89 20 94/50 L 04/18/23 08:00 102 H 04/18/23 08:00 04/18/23 08:34 37.1 C 118 H 20 120/76 Pulse Ox O2 Del Method 04/18/23 14:00 04/18/23 12:42 96 Room Air 04/18/23 08:00 04/18/23 08:00 Room Air 04/18/23 08:34 93 Room Air Laboratory Results Abnormal lab results 04/18/23 04/18/23 Range/Units 07:21 07:21 WBC 1.47 L (4.8-10.8) K/ul RBC 2.31 L (4.70-6.10) M/uL Hgb 8.3 L (14.0-18.0) g/dl Hct 23.0 L (42.0-52.0) % MCH 35.9 H (25.0-34.0) pg MCHC 36.1 H (32.0-36.0) g/dL RDW Std Deviation 54.2 H (36.4-46.3) fL RDW Coeff of Norm 15.8 H (11.5-14.5) % Plt Count 64 L (130-400) K/uL Chloride 111 H (98-107) mmol/L BUN/Creatinine Ratio 7.3 L (10-20) Calcium 7.7 L (8.6-10.3) mg/dl Magnesium 1.5 L (1.7-2.4) mg/dl
[2023-04-18] MEDS: ACETAMINOPHEN 325 MG TAB PO PRN (16:20)
[2023-04-18] MEDS: AMOXICILLIN/CLAVULANATE 875 MG TAB PO SCH (17:03)
[2023-04-18] MEDS: LORazepam 0.5 MG TAB PO PRN (20:00)
[2023-04-18] MEDS: ALBUTEROL HFA 8 GM INHALER INH SCH (20:03)
[2023-04-19] MEDS: AMOXICILLIN/CLAVULANATE 875 MG TAB PO SCH ×4 (00:24→23:56)
[2023-04-19 06:35] LABS: Basophils # (auto) 0.01 K/uL (0.00-0.20); Basophils % (auto) 0.6 %; Eosinophils # (auto) 0.01 K/uL (0.00-0.50); Eosinophils % (auto) 0.6 %; Hematocrit (blood only) 23.4 % (42.0-52.0); Hemoglobin 8.3 g/dl (14.0-18.0); Immature Granulocytes # (auto) 0.02 K/uL (0.01-0.20); Immature Granulocytes % (auto) 1.1 %; Lymphocytes # (auto) 0.37 K/uL (1.20-3.40); Lymphocytes % (auto) 21.3 %; Mean Corpuscular Hemoglobin 35.3 pg (25.0-34.0); Mean Corpuscular Hgb Conc 35.5 g/dL (32.0-36.0); Mean Corpuscular Volume 99.6 fL (80.0-100.0); Mean Platelet Volume 10.4 fL (9.4-12.4); Monocytes # (auto) 0.17 K/uL (0.11-0.59); Monocytes % (auto) 9.8 %; Neutrophils # (auto) 1.16 K/uL (1.40-6.50); Neutrophils % (auto) 66.6 %; Platelet Count 61 K/uL (130-400); RDW Standard Deviation 55.2 fL (36.4-46.3); Red Blood Count 2.35 M/uL (4.70-6.10); White Blood Count 1.74 K/ul (4.8-10.8)
[2023-04-19 06:50] LABS: Calcium 7.6 mg/dl (8.6-10.3); Creatinine Clr Calc Pharmacy 77.9 ml/min; Est GFR (African American) 98.9 ml/min; Est GFR (Non-African American) 85.3 ml/min; Potassium 3.7 mmol/L (3.5-5.1)
[2023-04-19] MEDS: UMECLIDINIUM/VILANTEROL 62.5/25MCG 7 PUFFS/INHALER INH SCH (08:01)
[2023-04-19] MEDS: MAGNESIUM OXIDE 400 MG TAB PO SCH ×2 (08:01→20:56)
[2023-04-19] MEDS: SERTRALINE HCL 50 MG TABLET PO SCH (08:01)
[2023-04-19] MEDS: METOPROLOL TARTRATE 25 MG TAB PO SCH ×3 (08:01→20:56)
[2023-04-19] MEDS: FOLIC ACID 1 MG TAB PO SCH (08:01)
[2023-04-19] MEDS: PANTOprazole 40 MG TAB PO SCH (08:01)
[2023-04-19] MEDS: ATORVASTATIN 40 MG TAB PO SCH (08:01)
--- NOTE | 2023-04-19 11:03 | Cardiology Consultation ---
Date of Consultation April 19, 2023 Assessment & Plan (1) Chronic atrial fibrillation with rapid ventricular response: (2) Nonobstructive atherosclerosis of coronary artery: (3) Nonischemic cardiomyopathy: (4) Hemochromatosis: (5) UGIB (upper gastrointestinal bleed): Plan Permanent atrial fibrillation. Recommend rate control. Recommend retrial of metoprolol succinate at 12.5 mg/day. If patient experiences symptomatic hypotension from metoprolol succinate 12.5 mg/day would discontinue and initiate digoxin 125 mcg/day as discussed. Recommend resumption of anticoagulation when able from a GI standpoint. Nonobstructive coronary artery disease. Cardiac catheterization on 07/04/2012 revealed branch vessel CAD with no significant stenosis in his major coronary tree. Patient asymptomatic. Continue medical management. History of nonischemic cardiomyopathy. EF previously 20-25%. Last available echo was in August 2016, EF 55-59%. Compensated volume status. Refer for resting echocardiography. Dyslipidemia. LDL 38 mg/dL on 11/25/2021. Continue atorvastatin 40 mg/day. Supervising Physician Co-Signing Physician Notes 77-year-old patient seen and examined at the bedside. Patient admitted with GI bleed. History of permanent atrial fibrillation with borderline resting hypotension. Cardiology consultation is requested for management of atrial fibrillation. Patient denies palpitations, lightheadedness, or dizziness. No chest discomfort or unusual shortness of breath. PE: VSS. Gen: NAD, AAO x3. Heart: Irregular rhythm. Normal S1-S2. No murmur. Lungs: Clear bilateral, no rales, rhonchi, wheeze. Extremities: No edema. A/P: Agree with above PA-C history, physical exam, assessment and plan. Recommend initiation of low-dose metoprolol succinate 12.5 mg daily. If patient unable to tolerate this low-dose, will consider transition to oral digoxin. Resume anticoagulation when stable from a GI perspective. Preliminary review of bedside echocardiogram demonstrates preserved LV systolic function. History of Present Illness Reason for Consultation: Evaluate atrial fibrillation therapy, hypotension with metoprolol Requesting Physician: Dr. Bajwa Attending Physician: Dr. Patino History of Present Illness Mr. Lencho Bella is a 77-year-old male who was admitted to [facility] on April 14, 2023 with an upper GI bleed, undergoing EGD on April 17, 2023 and clipping of a nonbleeding angioectasia. Cardiology consultation requested on 04/18/2023, to evaluate atrial fibrillation - concern for hypotension observed with metoprolol. Mr. Bella recently reestablished with [facility] cardiology on February 15, 2023 having previously been followed by Dr. Pisano (last in 2017). Patient with chronic atrial fibrillation. Patient previously treated with metoprolol tartrate 100 mg twice per day followed by metoprolol succinate at 100 mg/day. Back in the spring 2022 metoprolol succinate 100 mg/day was discontinued due to observed hypotension. In February 2023 patient underwent a 3-day ZIO monitor while on no rate lowering therapies. This revealed atrial fibrillation with an average heart rate of 103 bpm (ranging from 60 to 182 bpm) led to the recommendation to resume beta-deandre therapy in the form of metoprolol succinate 25 mg/day. Most recently, metoprolol succinate was decreased to 12.5 mg/day again due to hypotension. Review of the patient's continuous clinical research monitor throughout this hospitalization reveals atrial fibrillation with heart rates ranging from the 70s to 130s, currently in the 90s. On April 18, 2023 patient received 2 doses of 12.5 mg metoprolol tartrate. This morning, patient received 12.5 mg of metoprolol tartrate without difficulty. Patient evaluated upon return from radiation therapy. Lone complaint voiced is that of his back being itchy. No chest pain. No overt palpitations. No breath. No orthopnea or PND. No lower extremity peripheral edema. No dizziness or lightheadedness. No near syncope or syncope. Anticoagulation with Xarelto was on hold and is set to be resumed on April 21, 2023. Additional medical issues include nonobstructive coronary artery disease, nonischemic cardiomyopathy (possibly tachycardia induced), chart history of hereditary hemochromatosis, hypertension, dyslipidemia, type 2 diabetes mellitus, ectatic abdominal aorta, stage III chronic kidney disease. Most recent diagnosis included metastatic non-small cell lung cancer, January 2023, history of tobacco abuse as well as work/environmental exposures. Family History: Mother with breast cancer. Father with CVA. Social History: Reformed smoker. Alcohol: Prior heavy use, refomred. No illegal drug use. 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 Sister present for consultation. Allergies Allergy/AdvReac Type Severity Reaction Status Date / Time No Known Drug Allergies Allergy Verified 04/14/23 15:58 Home Medications Medication Instructions Recorded Confirmed Type albuterol sulfate 90 mcg/actuation 2 puff inhalation PRN ##0 06/30/12 04/14/23 History aerosol inhaler (ProAir HFA) lorazepam 0.5 mg tablet 0.5 mg PO BID PRN #0 tabs 06/30/12 04/14/23 History aspirin 81 mg tablet 81 mg PO QAM #0 tabs 07/18/12 04/14/23 History nitroglycerin 0.4 mg sublingual 0.4 mg UT PRN #0 BTLS 07/18/12 04/14/23 History tablet (Nitrostat) rivaroxaban 20 mg tablet (Xarelto) 1 tab PO DAILY 30 days #30 tabs 11/17/16 04/14/23 History folic acid 1 mg tablet 1 mg PO DAILY 02/16/23 04/14/23 History metformin 500 mg tablet 500 mg PO DAILY 02/16/23 04/14/23 History atorvastatin 40 mg tablet 40 mg PO DAILY 04/14/23 04/14/23 History dexamethasone 4 mg tablet See Rx Instructions .Route .COMPLEX 04/14/23 04/14/23 History diclofenac sodium 1 % topical gel 2 g topical BID PRN Pain 04/14/23 04/14/23 History glipizide 5 mg tablet, extended See Rx Instructions .Route .COMPLEX 04/14/23 04/14/23 History release 24 hr metoprolol succinate 25 mg 12.5 mg PO QAM 04/14/23 04/14/23 History tablet,extended release 24 hr ondansetron HCl 8 mg tablet 8 mg PO Q8H PRN Nausea And Vomiting 04/14/23 04/14/23 History prochlorperazine maleate 10 mg 10 mg PO Q6H PRN Nausea And 04/14/23 04/14/23 History tablet (Compazine) Vomiting sertraline 50 mg tablet 50 mg PO QAM 04/14/23 04/14/23 History umeclidinium 62.5 mcg-vilanterol 1 inh inhalation DAILY 04/14/23 04/14/23 History 25 mcg/actuation powdr for inhalation (Anoro Ellipta) amoxicillin 875 mg-potassium 1 tab PO Q8H #16 tabs 04/20/23 Rx clavulanate 125 mg tablet metoprolol succinate 25 mg 25 mg PO QAM #30 tabs 04/20/23 Rx tablet,extended release 24 hr pantoprazole 40 mg tablet,delayed 40 mg PO QAM #30 tabs 04/20/23 Rx release Patient History Medical History Atrial fibrillation COPD (chronic obstructive pulmonary disease) with emphysema Diabetes mellitus type II, controlled Gall stones Lung cancer Skin cancer of scalp Surgical History H/O cataract removal with insertion of prosthetic lens 07/21 H/O colonoscopy 10/27/2015 Dr. Sargent; Diverticulosis; repeat 10 yrs H/O ventral hernia repair 09/01/2009 Dr. Cortes; right inguinal hernia Hx of tonsillectomy <12 y/o Family History Mother Breast cancer Father Diabetes Type I Stroke Sister Breast cancer Sister Autoimmune hemolytic anemia Aunt Breast cancer Social History Smoking Status: Never smoker Tobacco Type: Cigarettes Age Started Using Tobacco: 20; Age Quit Using Tobacco: 77; packs per day: 0.5; Second Hand Exposure: Yes; Do You Dip or Chew Tobacco: No; Hx Alcohol Use: No Hx Substance Use: No Preferred Language: Armenian Communication Ability: Effective Visual Impairment: No Limitations Greens Picker Required: No Beliefs That Will Affect Care: None marital status: Current Living Situation: Spouse current occupational status: employed 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 Physical Exam Physical Exam: General: A&Ox3. NAD. HENT: Normocephalic. Atraumatic. Eyes: PER. Conjunctiva pink, sclera clear. Neck: No carotid bruits. No JVD. Heart: Irregularly irregular at 90 bpm. Soft systolic murmur. No diastolic murmur. Lungs: Diminished. Decreased. No wheeze. Abdomen: +BS. Soft. Nontender. No masses or organomegaly. Extremities: No clubbing, cyanosis, or edema. Limited neurological examination is without focal deficits. Pulses: Posterior tibial=2/4. Results & Data Vital Signs (Past 12 Hours) Vital Signs Temp Pulse Pulse Resp BP BP Pulse Ox 04/19/23 10:11 36.8 C 97 H 18 113/77 96 04/19/23 08:13 36.5 C 97 H 18 125/84 93 04/19/23 07:41 04/19/23 07:13 91 H 04/19/23 02:37 36.7 C 85 18 106/66 96 O2 Del Method 04/19/23 10:11 Room Air 04/19/23 08:13 Room Air 04/19/23 07:41 Room Air 04/19/23 07:13 04/19/23 02:37 Room Air Laboratory Results CBC 04/19/23 Range/Units 06:15 WBC 1.74 L (4.8-10.8) K/ul RBC 2.35 L (4.70-6.10) M/uL Hgb 8.3 L (14.0-18.0) g/dl Hct 23.4 L (42.0-52.0) % Plt Count 61 L (130-400) K/uL Neut # (Auto) 1.16 L (1.40-6.50) K/uL Lymph # (Auto) 0.37 L (1.20-3.40) K/uL Benzie # (Auto) 0.17 (0.11-0.59) K/uL Eos # (Auto) 0.01 (0.00-0.50) K/uL Baso # (Auto) 0.01 (0.00-0.20) K/uL Comprehensive Metabolic Panel 04/19/23 Range/Units 06:15 Sodium 138 (136-145) mmol/L Potassium 3.7 (3.5-5.1) mmol/L Chloride 110 H (98-107) mmol/L Carbon Dioxide 24 (21-32) mmol/L BUN 9 (6-23) mg/dl Creatinine 0.82 (0.6-1.4) mg/dl Glucose 94 (70-99(Fasting)) mg/dl Calcium 7.6 L (8.6-10.3) mg/dl Intake and Output 04/18/23 04/19/23 04/19/23 22:59 06:59 14:59 Intake Total 550 / 1996.333 200 / 1996.333 Output Total 700 / 1051 350 / 1051 Balance -150 / 946.333 -150 / 946.333 Intake: IV 300 / 1187.333 Magnesium Sulfate / D5w 1 gm In 300 / 318.333 100 ml @ 50 mls/hr IV Q2H [facility] Rx#:[id number] Oral 250 / 810 200 / 810 Output: Urine 700 / 1050 350 / 1050 Other: Weight 76 kg Weight Measurement Method Built in [facility]
--- NOTE | 2023-04-19 14:00 | Hospitalist Progress Note ---
Date of Service April 19, 2023 Assessment & Plan (1) UGIB (upper gastrointestinal bleed): (2) Anemia: (3) Primary cancer of right lower lobe of lung: (4) Diabetes mellitus type II, controlled: (5) Atrial fibrillation: Plan Pt is a 77yo M w/ lung cancer (currently undergoing chemotherapy and radiation), atrial fibrillation anticoagulated with xarelto, DMII, HLD, hemochromatosis, Mood disorder admitted with an acute GI bleed. Acute GI Bleed/Melena/Acute blood loss anemia Presents with black tarry stools for the past week. States he was occasionally dizzy. Denies chest pain, SOB. Admits to abdominal discomfort/ "gurgling". Symptoms have improved/resolved. Hgb on arrival of 9.8. Hemodynamically stable. Started on ppi drip Underwent EGD on 04/17 with clip placed on non-bleeding angioectasia and other angioectasia spots that were not clipped. Hemoglobin remains stable at 8.3 as of 04/19/2023 Advanced diet as tolerated. PPI drip converted to PO this morning, cont once daily Protonix Appreciate GI input and recommendation We will have a EUS as an outpatient and colonoscopy in 3 months Acute diverticulitis it with diverticular abscess CT abd/pelvis c/w diverticulitis w/ poss. abscess - started on zosyn Appreciate surgery input and recommendation Zosyn has been changed to oral Augmentin which will be continued for a total of 14 days following discharge Hypomagnesemia Mg 1.5, replace and repeat in am. Cont oral Mg Oxide at discharge. PPI may continue to cause this to be low post hospital discharge. Followup with PCP. Hx of Lung Cancer Non small cell lung cancer, in R lower lobe Currently undergoing chemotherapy (weekly paclitaxel and carboplatin) and radiation, follows with Dr. Mari Continue home inhalers, compazine and zofran prn Will continue XRT while inpatient, next session on 04/18. Denies any lung symptoms-we will continue radiation as an outpatient Pancytopenia 2/2 chemotherapy No indication for transfusion at this time. Cont neutropenic precautions for now wtih borderline ANC. Hemochromatosis Per [facility], had HFE testing done in 2016 Has not had phlebotomy for many years. ferritin 460, iron panel obtained Atrial fibrillation with rapid ventricular response Persistent afib. On metoprolol which was decreased by 50% on admission. Increased to 12.5mg PO TID this morning for better HR control, partly off because of infection. hold xarelto and aspirin as above until 04/21. Appreciate cardiology input and recommendation Will have echo of the heart to evaluate LV function DMII On metformin at home daily Also takes glipizide on chemo days when taking dexamethasone Hold home PO meds, ISS held at this time to avoid hypoglycemia. given BSG is at goal. Cont to trend BSG Mood Disorder chronic, stable. Continue home sertraline once taking po, home ativan prn HLD continue home statin once taking po macrocytosis MCV >100 folic acid and b12 levels wnl Continue home folic acid once tolerating po DVT prophylaxis: holding home xarelto and aspirin in setting of acute GI bleed. Additional chemoprophylaxis is contraindicated in setting of thrombocytopenia. SCDs, ambulation Dispo: PCU/tele, if HR stabilizes and he does well after the transition to oral medication will plan to dc him to home in am. Will ensure he is moving well wt PT/OT to evaluate. CODE STATUS: DNR/DNI Remains medically stable and awaiting echo and further evaluation by the chief pilot Likely discharge tomorrow Admission and Anticipated Discharge Date Admission Date: April 14, 2023 Subjective 04/19/2023 The patient was seen and examined in telemetry unit He remains stable and denies any significant symptoms No chest pain, cough or shortness of breath at rest but he still has palpitation Also complains to have occasional dizziness with ambulation Review of Systems Review of Systems: All systems reviewed and are unremarkable except as noted below Neurologic: Occasional dizziness with ambulation Physical Exam Physical Exam: Lying in bed comfortably Constitutional: well developed, well nourished, + ill appearing and average body habitus Eyes: PERRL, conjunctivae normal, anicteric sclerae ENMT: external ear and nose normal, oropharynx normal Neck: trachea midline, no thyromegaly Respiratory: normal respiratory effort, lungs clear to auscultation Cardiovascular: Rate/Rhythm: regular rate and regular rhythm; not tachycardic Heart Sounds: normal S1, normal S2 and + murmur Extremities: no edema Gastrointestinal (Abdomen): Inspection/Auscultation: normal bowel sounds; abdomen not distended Percussion/Palpation: abdomen soft; abdomen nontender Musculoskeletal: No acute arthritis involving any of the joint Neurologic: normal touch/pain/proprioception and moves all extremities; no focal motor deficits Lymphatic: no cervical or axillary lymphadenopathy Results & Data Results & Data Vital Signs (Past 12 Hours) Vital Signs Temp Pulse Pulse Resp BP BP Pulse Ox 04/19/23 10:11 36.8 C 97 H 18 113/77 96 04/19/23 08:13 36.5 C 97 H 18 125/84 93 04/19/23 07:41 04/19/23 07:13 91 H 04/19/23 02:37 36.7 C 85 18 106/66 96 O2 Del Method 04/19/23 10:11 Room Air 04/19/23 08:13 Room Air 04/19/23 07:41 Room Air 04/19/23 07:13 04/19/23 02:37 Room Air Laboratory Results Short CBC 04/19/23 Range/Units 06:15 WBC 1.74 L (4.8-10.8) K/ul Hgb 8.3 L (14.0-18.0) g/dl Hct 23.4 L (42.0-52.0) % Plt Count 61 L (130-400) K/uL BMP 04/19/23 06:15 Sodium 138 Potassium 3.7 Chloride 110 H Carbon Dioxide 24 BUN 9 Creatinine 0.82 Glucose 94 Calcium 7.6 L Medications Administered Current Inpatient Medications Acetaminophen (Acetaminophen 325 Mg Tab) 650 mg PO Q4 PRN PRN Reason: Headache or Pain Stop: 05/15/23 15:24 Last Admin: 04/18/23 16:20 Dose: 650 mg Albuterol (Albuterol Hfa 8 Gm Inhaler) 2 puffs INH PRN TIANA Stop: 05/14/23 21:17 Last Admin: 04/18/23 20:03 Dose: 2 puffs Amoxicillin/Clavulanate Potassium (Amoxicillin/Clavulanate 875 Mg Tab) 1 tab PO Q8H TIANA; Protocol Stop: 04/28/23 15:59 Last Admin: 04/19/23 08:00 Dose: 1 tab Atorvastatin Calcium (Atorvastatin 40 Mg Tab) 40 mg PO DAILY TIANA Stop: 05/15/23 08:59 Last Admin: 04/19/23 08:01 Dose: 40 mg Benzocaine (Benzocaine/Menthol 18 Eduard/1 Box) 1 eduard MT Q4 PRN PRN Reason: Sore Throat Stop: 05/15/23 09:03 Dextrose (Dextrose 50% 50 Ml Syringe) 25 - 50 ml IV UD PRN; Protocol PRN Reason: Hypoglycemia Protocol Stop: 05/17/23 23:07 Folic Acid (Folic Acid 1 Mg Tab) 1 mg PO DAILY [facility] Stop: 05/15/23 08:59 Last Admin: 04/19/23 08:01 Dose: 1 mg Glucagon (Glucagon For Inj 1 Mg Vial) 1 mg SQ UD PRN; Protocol PRN Reason: Hypoglycemia Protocol Stop: 05/17/23 23:07 Glucose (Glucose 10 Tab/Tube) 4 - 8 tab PO UD PRN; Protocol PRN Reason: Hypoglycemia Treatment Stop: 05/17/23 23:07 Glucose (Glucose 40% Gel 15 Gm Tube) 15 - 30 gm PO UD PRN; Protocol PRN Reason: Hypoglycemia Protocol Stop: 05/17/23 23:07 Lorazepam (Lorazepam 0.5 Mg Tab) 0.5 mg PO BID PRN PRN Reason: Anxiety Stop: 05/14/23 21:17 Last Admin: 04/18/23 20:00 Dose: 0.5 mg Magnesium Oxide (Magnesium Oxide 400 Mg Tab) 400 mg PO BID TIANA Stop: 05/15/23 20:59 Last Admin: 04/19/23 08:01 Dose: 400 mg Metoprolol Succinate (Metoprolol Succ 25mg Ext Rel Tab) 12.5 mg PO QAM [facility] Stop: 05/20/23 08:59 Metoprolol Tartrate (Metoprolol Tartrate 25 Mg Tab) 12.5 mg PO TID TIANA Stop: 04/19/23 23:59 Last Admin: 04/19/23 08:01 Dose: 12.5 mg Miscellaneous (Carbohydrates For Hypoglycemia ) 15 - 30 gm PO UD PRN PRN Reason: Hypoglycemia Protocol Stop: 05/17/23 23:07 Ondansetron HCl (Ondansetron 8mg Od Tab) 8 mg PO Q8H PRN PRN Reason: Nausea And Vomiting Pantoprazole Sodium (Pantoprazole 40 Mg Tab) 40 mg PO QAM [facility] Stop: 05/18/23 09:09 Last Admin: 04/19/23 08:01 Dose: 40 mg Petrolatum (Butt Paste (Zinc Oxide 16%) 171 Appln/57 Gm Jar) 1 appln EXT BID PRN PRN Reason: itching/irritation Stop: 05/18/23 12:14 Polyethylene Glycol (Polyethylene (Miralax) 17 Gm Pack) 17 gm PO DAILY PRN PRN Reason: Constipation Stop: 05/14/23 18:37 Prochlorperazine (Prochlorperazine Maleate 10 Mg Tab) 10 mg PO Q6H PRN PRN Reason: Nausea And Vomiting Stop: 05/14/23 21:17 Rivaroxaban (Rivaroxaban 20 Mg Tab) 20 mg PO QDD [facility] Stop: 05/21/23 16:29 Sertraline HCl (Sertraline Hcl 50 Mg Tablet) 50 mg PO QAM [facility] Stop: 05/15/23 08:59 Last Admin: 04/19/23 08:01 Dose: 50 mg Umeclidinium/Vilanterol (Umeclidinium/Vilanterol 62.5/25mcg 7 Puffs/Inhaler) 1 puffs INH DAILY [facility] Stop: 05/15/23 08:59 Last Admin: 04/19/23 08:01 Dose: 1 puffs
[2023-04-19] MEDS ORDERED: ALBUTEROL HFA 8 GM INHALER INH PRN (14:07)
[2023-04-20 06:12] LABS: Hematocrit (blood only) 23.8 % (42.0-52.0); Hemoglobin 8.3 g/dl (14.0-18.0); Mean Corpuscular Hemoglobin 35.8 pg (25.0-34.0); Mean Corpuscular Hgb Conc 34.9 g/dL (32.0-36.0); Mean Corpuscular Volume 102.6 fL (80.0-100.0); Mean Platelet Volume 9.9 fL (9.4-12.4); Platelet Count 67 K/uL (130-400); RDW Coefficient of Variation 16.1 % (11.5-14.5); RDW Standard Deviation 56.4 fL (36.4-46.3); Red Blood Count 2.32 M/uL (4.70-6.10); White Blood Count 1.58 K/ul (4.8-10.8)
[2023-04-20 06:16] LABS: Creatinine Clr Calc Pharmacy 87.5 ml/min; Est GFR (African American) 103.7 ml/min; Est GFR (Non-African American) 89.5 ml/min; Magnesium 1.5 mg/dl (1.7-2.4); Potassium 3.7 mmol/L (3.5-5.1)
[2023-04-20 06:41] LABS: Polychromasia 1+
[2023-04-20 06:42] LABS: Eosinophils # (auto) 0.01 K/uL (0.00-0.50); Eosinophils % (auto) 0.6 %; Immature Granulocytes # (auto) 0.01 K/uL (0.01-0.20); Immature Granulocytes % (auto) 0.6 %; Lymphocytes # (auto) 0.42 K/uL (1.20-3.40); Lymphocytes % (auto) 26.6 %; Monocytes # (auto) 0.25 K/uL (0.11-0.59); Monocytes % (auto) 15.8 %; Neutrophils # (auto) 0.89 K/uL (1.40-6.50); Neutrophils % (auto) 56.4 %
[2023-04-20] MEDS: AMOXICILLIN/CLAVULANATE 875 MG TAB PO SCH (08:00)
[2023-04-20] MEDS: PANTOprazole 40 MG TAB PO SCH (08:00)
[2023-04-20] MEDS: MAGNESIUM OXIDE 400 MG TAB PO SCH (08:00)
[2023-04-20] MEDS: SERTRALINE HCL 50 MG TABLET PO SCH (08:00)
[2023-04-20] MEDS: ATORVASTATIN 40 MG TAB PO SCH (08:00)
[2023-04-20] MEDS: FOLIC ACID 1 MG TAB PO SCH (08:00)
[2023-04-20] MEDS ORDERED: MAGNESIUM SULFATE / D5W 1 GM/100 ML BAG IV ONE (08:02)
[2023-04-20] MEDS ORDERED: METOPROLOL SUCC 25MG EXT REL TAB PO SCH (09:00)
[2023-04-20] MEDS: UMECLIDINIUM/VILANTEROL 62.5/25MCG 7 PUFFS/INHALER INH SCH (09:25)
[2023-04-20] MEDS ORDERED: METOPROLOL SUCC 25MG EXT REL TAB PO ONE (10:23)
--- NOTE | 2023-04-20 10:32 | Cardiology Progress Note ---
Date of Service April 20, 2023 Assessment & Plan (1) Chronic atrial fibrillation with rapid ventricular response: (2) Nonobstructive atherosclerosis of coronary artery: (3) Nonischemic cardiomyopathy: (4) Hemochromatosis: (5) UGIB (upper gastrointestinal bleed): Plan Permanent atrial fibrillation. Recommend rate control. Recommend metoprolol succinate at 25 mg/day. If patient experiences symptomatic hypotension from metoprolol succinate would reconsider digoxin 125 mcg/day. Resume anticoagulation when able from a GI standpoint. Nonobstructive coronary artery disease. Cardiac catheterization on 07/04/2012 revealed branch vessel CAD with no significant stenosis in his major coronary tree. Patient asymptomatic. Continue medical management. History of nonischemic cardiomyopathy. Compensated volume status. Dyslipidemia. LDL 38 mg/dL on 11/25/2021. Continue atorvastatin 40 mg/day. Hypomagnesemia and borderline potassium. Supplement magnesium IV and potassium orally. OK for discharge from a cardiac standpoint. Outpatient cardiology follow-up. Please contact with any questions or concerns. Admission and Anticipated Discharge Date Admission Date: April 14, 2023 Supervising Physician Co-Signing Physician Notes 77-year-old patient seen and examined at the bedside. Patient admitted with GI bleed. History of permanent atrial fibrillation with borderline resting hypotension. Patient denies palpitations, lightheadedness, or dizziness. No chest discomfort or unusual shortness of breath. PE: VSS. Gen: NAD, AAO x3. Heart: Irregular rhythm. Normal S1-S2. No murmur. Lungs: Clear bilateral, no rales, rhonchi, wheeze. Extremities: No edema. A/P: Agree with above PA-C history, physical exam, assessment and plan. Titrate metoprolol succinate to 25 mg daily. Consider transition to oral digoxin if unable to tolerate low-dose beta-deandre. Resume anticoagulation when stable from a GI perspective. Repeat echocardiogram demonstrates preserved LV systolic function. Compensated from a heart failure perspective. Cardiology will sign off. Please call with additional concerns/questions. Subjective Patient seen and examined. Chart, medications, and telemetry reviewed. No chest pain, palpitations, or worsening shortness of breath Telemetry: Atrial fibrillation throughout with heart rates ranging from 70 to 130 bpm, predominantly in the 90s. April 19, 2023 TTE Interpretation Summary ([facility], Dr. Pereira): Compared to prior study, changes are noted. Technically adequate. EF 55 to 60%. Mildly dilated RV in limited views. Normal RV systolic function. Moderate aortic valve sclerosis without significant stenosis. Mild to moderate tricuspid regurgitation. Estimated systolic pulmonary pressure 42 mmHg. Aortic root mildly enlarged at 4.1 cm. Ascending aorta moderately enlarged at 4.6 cm. Review of Systems Review of Systems: The review of systems is otherwise as stated above, negative, noncontributory. Physical Exam Physical Exam: General: A&Ox3. NAD. HENT: Normocephalic. Atraumatic. Eyes: PER. Conjunctiva pink, sclera clear. Neck: No carotid bruits. No JVD. Heart: Irregularly irregular at 90 bpm. Soft systolic murmur. No diastolic murmur. Lungs: Diminished. Decreased. No wheeze. Abdomen: +BS. Soft. Nontender. No masses or organomegaly. Extremities: No clubbing, cyanosis, or edema. Limited neurological examination is without focal deficits. Pulses: Posterior tibial=2/4. Results & Data Vital Signs (Past 12 Hours) Vital Signs Temp Pulse Pulse Resp BP BP Pulse Ox 04/20/23 08:18 36.6 C 113 H 20 121/68 91 04/20/23 06:52 89 04/20/23 04:08 36.6 C 84 18 118/78 94 04/19/23 23:55 36.9 C 90 18 98/69 L 94 O2 Del Method 04/20/23 08:18 Room Air 04/20/23 06:52 04/20/23 04:08 Room Air 04/19/23 23:55 Room Air Laboratory Results CBC 04/20/23 Range/Units 05:24 WBC 1.58 L (4.8-10.8) K/ul RBC 2.32 L (4.70-6.10) M/uL Hgb 8.3 L (14.0-18.0) g/dl Hct 23.8 L (42.0-52.0) % Plt Count 67 L (130-400) K/uL Neut # (Auto) 0.89 L* (1.40-6.50) K/uL Lymph # (Auto) 0.42 L (1.20-3.40) K/uL [place] # (Auto) 0.25 (0.11-0.59) K/uL Eos # (Auto) 0.01 (0.00-0.50) K/uL Baso # (Auto) 0.00 (0.00-0.20) K/uL Comprehensive Metabolic Panel 04/20/23 Range/Units 05:24 Sodium 139 (136-145) mmol/L Potassium 3.7 (3.5-5.1) mmol/L Chloride 110 H (98-107) mmol/L Carbon Dioxide 25 (21-32) mmol/L BUN 8 (6-23) mg/dl Creatinine 0.73 (0.6-1.4) mg/dl Glucose 96 (70-99(Fasting)) mg/dl Calcium 8.0 L (8.6-10.3) mg/dl Intake and Output 04/19/23 04/20/23 04/20/23 22:59 06:59 14:59 Intake Total 240 / 240 100 / 100 Balance 240 / 240 100 / 100 Intake: IV 100 / 100 Magnesium Sulfate / D5w 1 gm In 100 / 100 100 ml @ 50 mls/hr IV ONE ONE Rx#:[id number] Oral 240 / 240 Other: # Unmeasured Voids 1 Weight 76.4 kg Weight Measurement Method Built in [facility]
[2023-04-20] MEDS ORDERED: POTASSIUM CHLORIDE CRTAB 20 MEQ TABCR PO ONE (10:33)
--- NOTE | 2023-04-20 11:12 | Hospitalist Progress Note ---
Date of Service April 20, 2023 Assessment & Plan (1) UGIB (upper gastrointestinal bleed): (2) Anemia: (3) Primary cancer of right lower lobe of lung: (4) Diabetes mellitus type II, controlled: (5) Atrial fibrillation: Plan Pt is a 77yo M w/ lung cancer (currently undergoing chemotherapy and radiation), atrial fibrillation anticoagulated with xarelto, DMII, HLD, hemochromatosis, Mood disorder admitted with an acute GI bleed. Acute GI Bleed/Melena/Acute blood loss anemia Presents with black tarry stools for the past week. States he was occasionally dizzy. Denies chest pain, SOB. Admits to abdominal discomfort/ "gurgling". Symptoms have improved/resolved. Hgb on arrival of 9.8. Hemodynamically stable. Started on ppi drip Underwent EGD on 04/17 with clip placed on non-bleeding angioectasia and other angioectasia spots that were not clipped. Hemoglobin remains stable at 8.3 as of 04/19/2023 Advanced diet as tolerated. PPI drip converted to PO this morning, cont once daily Protonix Appreciate GI input and recommendation We will have a EUS as an outpatient and colonoscopy in 3 months Hemoglobin remains stable at 8.3 Will be discharged home this afternoon Acute diverticulitis it with diverticular abscess CT abd/pelvis c/w diverticulitis w/ poss. abscess - started on zosyn Appreciate surgery input and recommendation Zosyn has been changed to oral Augmentin which will be continued for a total of 14 days following discharge No abdominal pain, nausea and or vomiting Hypomagnesemia Mg 1.5, replace and repeat in am. Cont oral Mg Oxide at discharge. PPI may continue to cause this to be low post hospital discharge. Followup with PCP. Received 1 g of magnesium IV today 04/20/2020 Hx of Lung Cancer Non small cell lung cancer, in R lower lobe Currently undergoing chemotherapy (weekly paclitaxel and carboplatin) and radiation, follows with Dr. Mari Continue home inhalers, compazine and zofran prn Will continue XRT while inpatient, next session on 04/18. Denies any lung symptoms-we will continue radiation as an outpatient Pancytopenia 2/2 chemotherapy No indication for transfusion at this time. Cont neutropenic precautions for now wtih borderline ANC. Hemochromatosis Per [facility], had HFE testing done in 2016 Has not had phlebotomy for many years. ferritin 460, iron panel obtained Atrial fibrillation with rapid ventricular response Persistent afib. On metoprolol which was decreased by 50% on admission. Increased to 12.5mg PO TID this morning for better HR control, partly off because of infection. hold xarelto and aspirin as above until 04/21. Appreciate cardiology input and recommendation Echo of the heart showed-EF of 55 to 60%, RV appears mildly dilated, RV systolic function is equivocally normal, aortic valve sclerosis without any significant stenosis mild to moderate tricuspid regurgitation, estimated systolic pulmonary pressure 42 mmHg, aortic root is mildly dilated at 4.1 cm and ascending aorta is moderately dilated at 4.6 cm. Metoprolol has been increased to succinate 25 mg a day and if needed digoxin can be added if symptomatic dizziness with metoprolol 25 mg DMII On metformin at home daily Also takes glipizide on chemo days when taking dexamethasone Hold home PO meds, ISS held at this time to avoid hypoglycemia. given BSG is at goal. Cont to trend BSG Mood Disorder chronic, stable. Continue home sertraline once taking po, home ativan prn HLD continue home statin once taking po macrocytosis MCV >100 folic acid and b12 levels wnl Continue home folic acid once tolerating po DVT prophylaxis: holding home xarelto and aspirin in setting of acute GI bleed. Additional chemoprophylaxis is contraindicated in setting of thrombocytopenia. SCDs, ambulation Dispo: PCU/tele, if HR stabilizes and he does well after the transition to oral medication will plan to dc him to home in am. Will ensure he is moving well [facility] PT/OT to evaluate. CODE STATUS: DNR/DNI Discharge home this afternoon Admission and Anticipated Discharge Date Admission Date: April 14, 2023 Subjective 04/19/2023 The patient was seen and examined in telemetry unit He remains stable and denies any significant symptoms No chest pain, cough or shortness of breath at rest but he still has palpitation Also complains to have occasional dizziness with ambulation 04/20/2023 The patient was seen and examined in telemetry unit He has been feeling much better and wants to be discharged today Does not have any chest pain, palpitation or shortness of breath Heart rate remains around 113 Review of Systems Review of Systems: All systems reviewed and are unremarkable except as noted below Neurologic: Occasional dizziness with ambulation Physical Exam Physical Exam: Lying in bed comfortably Constitutional: well developed, well nourished, + ill appearing and average body habitus Eyes: PERRL, conjunctivae normal, anicteric sclerae ENMT: external ear and nose normal, oropharynx normal Neck: trachea midline, no thyromegaly Respiratory: normal respiratory effort, lungs clear to auscultation Cardiovascular: Rate/Rhythm: regular rate and regular rhythm; not tachycardic Heart Sounds: normal S1, normal S2 and + murmur Extremities: no edema Gastrointestinal (Abdomen): Inspection/Auscultation: normal bowel sounds; abdomen not distended Percussion/Palpation: abdomen soft; abdomen nontender Musculoskeletal: No acute Arthritis in any joint Neurologic: normal touch/pain/proprioception and moves all extremities; no focal motor deficits Lymphatic: no cervical or axillary lymphadenopathy Results & Data Results & Data Vital Signs (Past 12 Hours) Vital Signs Temp Pulse Pulse Resp BP BP Pulse Ox 04/20/23 08:18 36.6 C 113 H 20 121/68 91 04/20/23 06:52 89 04/20/23 04:08 36.6 C 84 18 118/78 94 04/19/23 23:55 36.9 C 90 18 98/69 L 94 O2 Del Method 04/20/23 08:18 Room Air 04/20/23 06:52 04/20/23 04:08 Room Air 04/19/23 23:55 Room Air Laboratory Results Short CBC 04/20/23 Range/Units 05:24 WBC 1.58 L (4.8-10.8) K/ul Hgb 8.3 L (14.0-18.0) g/dl Hct 23.8 L (42.0-52.0) % Plt Count 67 L (130-400) K/uL BMP 04/20/23 05:24 Sodium 139 Potassium 3.7 Chloride 110 H Carbon Dioxide 25 BUN 8 Creatinine 0.73 Glucose 96 Calcium 8.0 L Medications Administered Current Inpatient Medications Acetaminophen (Acetaminophen 325 Mg Tab) 650 mg PO Q4 PRN PRN Reason: Headache or Pain Stop: 05/15/23 15:24 Last Admin: 04/18/23 16:20 Dose: 650 mg Albuterol (Albuterol Hfa 8 Gm Inhaler) 2 puffs INH Q4R PRN PRN Reason: Wheezing Stop: 05/19/23 14:06 Amoxicillin/Clavulanate Potassium (Amoxicillin/Clavulanate 875 Mg Tab) 1 tab PO Q8H TIANA; Protocol Stop: 04/28/23 15:59 Last Admin: 04/20/23 08:00 Dose: 1 tab Atorvastatin Calcium (Atorvastatin 40 Mg Tab) 40 mg PO DAILY TIANA Stop: 05/15/23 08:59 Last Admin: 04/20/23 08:00 Dose: 40 mg Benzocaine (Benzocaine/Menthol 18 Eduard/1 Box) 1 eduard MT Q4 PRN PRN Reason: Sore Throat Stop: 05/15/23 09:03 Dextrose (Dextrose 50% 50 Ml Syringe) 25 - 50 ml IV UD PRN; Protocol PRN Reason: Hypoglycemia Protocol Stop: 05/17/23 23:07 Folic Acid (Folic Acid 1 Mg Tab) 1 mg PO DAILY TIANA Stop: 05/15/23 08:59 Last Admin: 04/20/23 08:00 Dose: 1 mg Glucagon (Glucagon For Inj 1 Mg Vial) 1 mg SQ UD PRN; Protocol PRN Reason: Hypoglycemia Protocol Stop: 05/17/23 23:07 Glucose (Glucose 10 Tab/Tube) 4 - 8 tab PO UD PRN; Protocol PRN Reason: Hypoglycemia Treatment Stop: 05/17/23 23:07 Glucose (Glucose 40% Gel 15 Gm Tube) 15 - 30 gm PO UD PRN; Protocol PRN Reason: Hypoglycemia Protocol Stop: 05/17/23 23:07 Lorazepam (Lorazepam 0.5 Mg Tab) 0.5 mg PO BID PRN PRN Reason: Anxiety Stop: 05/14/23 21:17 Last Admin: 04/18/23 20:00 Dose: 0.5 mg Magnesium Oxide (Magnesium Oxide 400 Mg Tab) 400 mg PO BID TIANA Stop: 05/15/23 20:59 Last Admin: 04/20/23 08:00 Dose: 400 mg Metoprolol Succinate (Metoprolol Succ 25mg Ext Rel Tab) 25 mg PO QAM TIANA Stop: 05/21/23 08:59 Miscellaneous (Carbohydrates For Hypoglycemia ) 15 - 30 gm PO UD PRN PRN Reason: Hypoglycemia Protocol Stop: 05/17/23 23:07 Ondansetron HCl (Ondansetron 8mg Od Tab) 8 mg PO Q8H PRN PRN Reason: Nausea And Vomiting Pantoprazole Sodium (Pantoprazole 40 Mg Tab) 40 mg PO QAM [facility] Stop: 05/18/23 09:09 Last Admin: 04/20/23 08:00 Dose: 40 mg Petrolatum (Butt Paste (Zinc Oxide 16%) 171 Appln/57 Gm Jar) 1 appln EXT BID PRN PRN Reason: itching/irritation Stop: 05/18/23 12:14 Polyethylene Glycol (Polyethylene (Miralax) 17 Gm Pack) 17 gm PO DAILY PRN PRN Reason: Constipation Stop: 05/14/23 18:37 Prochlorperazine (Prochlorperazine Maleate 10 Mg Tab) 10 mg PO Q6H PRN PRN Reason: Nausea And Vomiting Stop: 05/14/23 21:17 Rivaroxaban (Rivaroxaban 20 Mg Tab) 20 mg PO QDD [facility] Stop: 05/21/23 16:29 Sertraline HCl (Sertraline Hcl 50 Mg Tablet) 50 mg PO QAM [facility] Stop: 05/15/23 08:59 Last Admin: 04/20/23 08:00 Dose: 50 mg Umeclidinium/Vilanterol (Umeclidinium/Vilanterol 62.5/25mcg 7 Puffs/Inhaler) 1 puffs INH DAILY [facility] Stop: 05/15/23 08:59 Last Admin: 04/20/23 09:25 Dose: 1 puffs
[2023-04-21] MEDS ORDERED: METOPROLOL SUCC 25MG EXT REL TAB PO SCH (09:00)
[2023-04-21] MEDS ORDERED: RIVAROXABAN 20 MG TAB PO SCH (16:30)
--- NOTE | 2023-04-28 09:04 | Discharge Summary ---
Date of Service April 20, 2023 Admission HPI Per Admitting Provider Pt is a 77yo very pleasant gentleman with Pmhx significant for lung cancer (currently undergoing chemotherapy and radiation), atrial fibrillation anticoagulated with xarelto, DMII, HLD, hemochromatosis, mood disorder admitted with an acute GI bleed. Younger sister is present in the room. Hx obtained from patient, sister, [facility] and [employer] rad/onc records. Pt states that he has been having black tarry stools for the past week. Presented to his pcp today and discussed the stools. He was advised to present to the ED after it was noted that his hgb dropped to 9.9 from 11 two days ago. States that the stools are "sticky". Notes he had heartburn about 2-3 days ago that prompted his sister to advise use of OTC pepcid to help. States that he has been occasionally dizzy since noting the black stools. Denies chest pain, SOB. Admits to abdominal discomfort/ "gurgling in the area" where he was told he had gallstones. Notes that he last took his baby aspirin on MondayApr 10 as he ran out but has been taking his home xarelto. Currently undergoing both chemotherapy and radiation treatments for lung cancer. Was a former smoker. States that he had radiation yesterday. In the ED, Hgb of 9.8 noted, pantoprazole drip started. Admission Exam Per Admitting Provider Physical Exam: General: Alert, oriented. No acute distress but shivering under blanket Psych: Appropriate mood and affect, occasionally joking Neuro: No gross deficits while laying in bed HEENT: NC/AT CV: Irregular Resp: Breath sounds clear but decreased bilaterally, no increased effort of breathing. Abdomen: Soft, nontender Extremities: No edema in lower extremities bilaterally. Principal Diagnosis Acute GI bleed, acute diverticulitis with abscess, lung cancer with ongoing chemo and radiation, atrial fibrillation Discharge Exam Lying in bed comfortably Constitutional well developed, well nourished, + ill appearing and average body habitus Eyes PERRL, conjunctivae normal, anicteric sclerae ENMT external ear and nose normal, oropharynx normal Neck trachea midline, no thyromegaly Respiratory normal respiratory effort, lungs clear to auscultation Cardiovascular Rate/Rhythm: regular rate and regular rhythm; not tachycardic Heart Sounds: normal S1, normal S2 and + murmur Extremities: no edema Gastrointestinal (Abdomen) Inspection/Auscultation: normal bowel sounds; abdomen not distended Percussion/Palpation: abdomen soft; abdomen nontender Neurologic normal touch/pain/proprioception and moves all extremities; no focal motor deficits Lymphatic no cervical or axillary lymphadenopathy Discharge Data Allergies Allergy/AdvReac Type Severity Reaction Status Date / Time No Known Drug Allergies Allergy Verified 04/14/23 15:58 Consultations 04/14/23 16:24 ED Decision to Admit Stat 04/14/23 18:38 Consult Gastroenterology Routine 04/15/23 10:26 Consult General Surgery Routine 04/18/23 15:58 Consult Cardiology Routine Procedures Performed Operation Date: 04/17/23 16:45 Actual Procedures p EGD Hemostasis - Yodit Ellington MD Ordered Studies 04/15/23 08:45 CT abd pelvis IV con only Urgent 04/18/23 11:45 CT chest diagnostic wo con Urgent Hospital Course (1) UGIB (upper gastrointestinal bleed): (2) Anemia: (3) Primary cancer of right lower lobe of lung: (4) Diabetes mellitus type II, controlled: (5) Atrial fibrillation: Plan Pt is a 77yo M w/ lung cancer (currently undergoing chemotherapy and radiation), atrial fibrillation anticoagulated with xarelto, DMII, HLD, hemochromatosis, Mood disorder admitted with an acute GI bleed. Acute GI Bleed/Melena/Acute blood loss anemia Presents with black tarry stools for the past week. States he was occasionally dizzy. Denies chest pain, SOB. Admits to abdominal discomfort/ "gurgling". Symptoms have improved/resolved. Hgb on arrival of 9.8. Hemodynamically stable. Started on ppi drip Underwent EGD on 04/17 with clip placed on non-bleeding angioectasia and other angioectasia spots that were not clipped. Hemoglobin remains stable at 8.3 as of 04/19/2023 Advanced diet as tolerated. PPI drip converted to PO this morning, cont once daily Protonix Appreciate GI input and recommendation We will have a EUS as an outpatient and colonoscopy in 3 months Hemoglobin remains stable at 8.3 Will be discharged home this afternoon Acute diverticulitis it with diverticular abscess CT abd/pelvis c/w diverticulitis w/ poss. abscess - started on zosyn Appreciate surgery input and recommendation Zosyn has been changed to oral Augmentin which will be continued for a total of 14 days following discharge No abdominal pain, nausea and or vomiting Hypomagnesemia Mg 1.5, replace and repeat in am. Cont oral Mg Oxide at discharge. PPI may continue to cause this to be low post hospital discharge. Followup with PCP. Received 1 g of magnesium IV today 04/20/2020 Hx of Lung Cancer Non small cell lung cancer, in R lower lobe Currently undergoing chemotherapy (weekly paclitaxel and carboplatin) and radiation, follows with Dr. Mari Continue home inhalers, compazine and zofran prn Will continue XRT while inpatient, next session on 04/18. Denies any lung symptoms-we will continue radiation as an outpatient Pancytopenia 2/2 chemotherapy No indication for transfusion at this time. Cont neutropenic precautions for now wtih borderline ANC. Hemochromatosis Per [facility], had HFE testing done in 2016 Has not had phlebotomy for many years. ferritin 460, iron panel obtained Atrial fibrillation with rapid ventricular response Persistent afib. On metoprolol which was decreased by 50% on admission. Increased to 12.5mg PO TID this morning for better HR control, partly off because of infection. hold xarelto and aspirin as above until 04/21. Appreciate cardiology input and recommendation Echo of the heart showed-EF of 55 to 60%, RV appears mildly dilated, RV systolic function is equivocally normal, aortic valve sclerosis without any significant stenosis mild to moderate tricuspid regurgitation, estimated systolic pulmonary pressure 42 mmHg, aortic root is mildly dilated at 4.1 cm and ascending aorta is moderately dilated at 4.6 cm. Metoprolol has been increased to succinate 25 mg a day and if needed digoxin can be added if symptomatic dizziness with metoprolol 25 mg DMII On metformin at home daily Also takes glipizide on chemo days when taking dexamethasone Hold home PO meds, ISS held at this time to avoid hypoglycemia. given BSG is at goal. Cont to trend BSG Mood Disorder chronic, stable. Continue home sertraline once taking po, home ativan prn HLD continue home statin once taking po macrocytosis MCV >100 folic acid and b12 levels wnl Continue home folic acid once tolerating po DVT prophylaxis: holding home xarelto and aspirin in setting of acute GI bleed. Additional chemoprophylaxis is contraindicated in setting of thrombocytopenia. SCDs, ambulation Dispo: PCU/tele, if HR stabilizes and he does well after the transition to oral medication will plan to dc him to home in am. Will ensure he is moving well wt PT/OT to evaluate. CODE STATUS: DNR/DNI Discharge home this afternoon Total Time Total Time Spent Total Time Spent (In Minutes): 35 minutes Discharge Plan Discharge Items Patient Disposition: Home - Home Health Services Reason For Visit: LOW HEMOGLOBIN Discharge Diagnosis: Acute GI bleed, acute diverticulitis with abscess, lung cancer with ongoing chemo and radiation, atrial fibrillation Condition on Discharge: Fair Activity: Resume your previous activity Non-emergency contact: Primary Care Provider Call non-emergency contact if: you have any medication questions and your symptoms worsen Follow-up/Referrals: Jase Yap [Physician Etl Lead] - (The Cardiology office will contact you for a follow up appointment.) Bryce Hathaway MD [Physician] - (Date & Time 05/04/2023 2:30 PM Provider Bryce Hathaway MD Department General Surgery, [facility] ) So Dave DO [Primary Care Provider] - (Date & Time 04/27/2023 1:20 PM Provider Pharmacist [address] [place] [address] [address] [place] [address] Date & Time 04/27/2023 1:40 PM Provider So Dave DO [facility] [address] [place] [address] ) Diet: Carb Consistent or DM2 Addtl Attending Provider Instructions: Please take precautions to avoid falls Take your medications as advised Your metoprolol succinate has been increased to 25 mg daily Start Xarelto and aspirin from tomorrow. Please keep follow-up appointments with your healthcare provider Pending Studies at Discharge: No Stand-Alone Forms: My [facility], Smoking Cessation Medications and DC Order Prescriptions: New pantoprazole 40 mg Tablet,Delayed Release (Dr/Ec) 40 mg PO QAM Qty: 30 0RF amoxicillin-pot clavulanate 875-125 mg Tablet 1 tab PO Q8H Qty: 16 0RF metoprolol succinate 25 mg Tablet Extended Release 24 Hr 25 mg PO QAM Qty: 30 0RF Continued folic acid 1 mg tablet 1 mg PO DAILY metformin 500 mg tablet 500 mg PO DAILY lorazepam 0.5 mg Tablet 0.5 mg PO BID PRN Qty: 0 albuterol sulfate [ProAir HFA] 90 mcg/actuation Hfa Aerosol Inhaler 2 puff Inhalation PRN Qty: 0 nitroglycerin [Nitrostat] 0.4 mg Tablet, Sublingual 0.4 mg UT PRN Qty: 0 aspirin 81 mg Tablet 81 mg PO QAM Qty: 0 Xarelto 20 mg Tablet 1 tab PO DAILY 30 Days Qty: 30 glipizide 5 mg tablet extended release 24hr See Rx Instructions .ROUTE .COMPLEX Rx Instructions: Take 1-2 tablets the night before chemo with dexamethasone and in the evening the day of chemo as directed for 7 weeks. (tapering dose based on blood glucose) dexamethasone 4 mg tablet See Rx Instructions .ROUTE .COMPLEX Rx Instructions: TAKE 12mg THE NIGHT BEFORE AND THE MORNING OF EACH CHEMO TREATMENT sertraline 50 mg tablet 50 mg PO QAM Anoro Ellipta 62.5-25 mcg/actuation blister with device 1 inh INHALATION DAILY diclofenac sodium 1 % Gel 2 g Topical BID PRN (Reason: Pain) atorvastatin 40 mg Tablet 40 mg PO DAILY ondansetron HCl 8 mg Tablet 8 mg PO Q8H PRN (Reason: Nausea And Vomiting) prochlorperazine maleate [Compazine] 10 mg Tablet 10 mg PO Q6H PRN (Reason: Nausea And Vomiting) Changed metoprolol succinate 25 mg tablet extended release 24 hr 25 mg PO QAM Qty: 30 0RF Discharge Orders: Discharge Order (Routine); Ordered 04/20/23 Ordered By: Francy Key/Other Patient Handouts: High Blood Sugar (Hyperglycemia), Hypoglycemia (Low Blood Sugar), Managing Type 2 Diabetes Admission Data Admit Date/Time: 04/14/23 18:38 Attending Provider: Francy Patino Admit Provider: Sugar Blas Primary Care Provider: So Dave Other Providers: Sugar Blas ; Yodit Ellington ; Bryce Hathaway ; Alphonse Pereira Other Interventions: Discharge Summary Assessment (RN) Last Done: 04/20/23 11:46
== END 2023-04-20 12:53 | disposition home health service (06) | DRG 377 ==
LOC: ED 14:11 → SUATTDRO 18:38 → 2E 18:38

== ENCOUNTER 2023-06-07 15:26 | Inpatient (IN) ==
[2023-06-07] MEDS ORDERED: SODIUM CHLORIDE 0.9% 1,000 ML IV ONE ×2 (15:48→16:40)
--- NOTE | 2023-06-07 15:57 | Emergency Department Note ---
Impression & Plan Atrial fibrillation with rapid ventricular response, Pneumonia, Acute hypotension ED Provider Note NAME: THAIS KIMBLE AGE: 78 SEX: M : 1945 ARRIVES VIA: Walk-In INFORMANT: Patient, ED PROVIDER(S): Oleg Givens DO CHIEF COMPLAINT: Weakness HPI: The patient is a 78-year-old male who presented to the emergency department for an evaluation of generalized weakness. The patient states that he has been having trouble breathing for the last few weeks. He was seen by his primary care physician. He did have a CT of the chest obtained to rule out a pulmonary embolism. This was consistent with pneumonia. The patient was started on antibiotics. Over the last few days he has been noticing worsening diarrhea and weakness. He denies having any abdominal pain. He denies having any fever or hemoptysis. He denies having any lower extremity swelling or pain. The patient states he has been compliant with his outpatient medications. ROS: See above HPI for pertinent positives & negatives. A total of 10 systems reviewed and were otherwise negative. PAST MEDICAL HISTORY: See Below PAST SURGICAL HISTORY: See Below FAMILY HISTORY: See Below SOCIAL HISTORY: See Below HOME MEDICATIONS: See Below ALLERGIES: See Below VITALS: See Below PHYSICAL EXAMINATION: GENERAL: Patient is awake alert in no acute distress patient is resting comfortably and showing no signs of anxiety EYES: The conjunctivae are clear. The pupils are round and reactive. EARS, NOSE, MOUTH AND THROAT: The nose is without any evidence of any deformity. Mucous membranes are moist. Tongue is midline. NECK: The neck is nontender and supple. RESPIRATORY: Normal respiratory effort is noted there is no evidence of wheezing rhonchi or rales CARDIOVASCULAR: Tachycardic and irregular heart sounds were noted to auscultation. There is no definite murmur GASTROINTESTINAL: The abdomen is soft. Abdomen is nontender. MUSCULOSKELETAL/EXTREMITIES: There is no evidence of gross deformity full range of motion is noted in the hips and shoulders. SKIN: There is no obvious evidence of any rash. There are no petechiae, pallor or cyanosis noted. NEUROLOGIC: Patient is awake alert and oriented x3 MEDICAL DECISION MAKING: The patient is a 78-year-old male who presented to the emergency department for an evaluation of weakness. The patient was found to be hypotensive and tachycardic. He was in atrial fibrillation with RVR. He was also found to have signs of pneumonia. I discussed the patient's laboratory and radiographic studies with him. He was treated with IV fluids in the emergency department. This improved his tachycardia as well as his hypotension. I do feel his underlying issue is most likely related to his pulmonary infection. He was started on IV antibiotics. I discussed patient's laboratory and radiographic studies with him. [facility] have agreed to evaluate the patient in the emergency department for further management and disposition. Triage Nursing notes reviewed. Prior medical records reviewed Vital Signs: reviewed and remarkable for initial hypotension Differential diagnosis: Infection, dehydration, metabolic abnormality, hypo/hyperglycemia, electrolyte disturbance, anemia, hypoxia, cardiac sources, intracerebral event, toxicologic, neurologic, as well as other pathologies. ER treatment provided: See below Diagnostics interpreted by me: ECG: EKG was obtained in the emergency department. My interpretation is atrial fibrillation at [address] segment abnormalities were noted. There was no PVCs noted. This was compared to a tracing from April 14, 2023. Atrial fibrillation is not new however the rate is increased compared to the earlier tracing. Cardiac Monitoring: An order was placed for continuous cardiac monitoring. The monitor shows a rate of 104 bpm with atrial fibrillation with RVR. Laboratory studies: As stated above and show below. Imaging studies: See below. Radiographic imaging was reviewed by myself Consultation(s): I discussed this case with Dr. Blas who [facility] ED COURSE: Procedures: none Critical Care: I have personally spent greater than 45 minutes of critical care time in the direct management of this patient. This includes bedside care, interpretation of diagnostic studies, and testing, discussion with consultants, patient, and family members, and other required patient management activities. This 45 minutes is in excess of all separately billable procedures. Past Med/Surg History Medical History Atrial fibrillation COPD (chronic obstructive pulmonary disease) with emphysema Diabetes mellitus type II, controlled Gall stones Lung cancer Skin cancer of scalp Surgical History H/O cataract removal with insertion of prosthetic lens 07/21 H/O colonoscopy 10/27/2015 Dr. Sargent; Diverticulosis; repeat 10 yrs H/O ventral hernia repair 09/01/2009 Dr. Cortes; right inguinal hernia Hx of tonsillectomy <12 y/o Family History Mother Breast cancer Father Diabetes Type I Stroke Sister Breast cancer Sister Autoimmune hemolytic anemia Aunt Breast cancer Social History Smoking Status: Never smoker Tobacco Type: Cigarettes Age Started Using Tobacco: 20; Age Quit Using Tobacco: 77; packs per day: 0.5; Second Hand Exposure: Yes; Do You Dip or Chew Tobacco: No; Hx Alcohol Use: No Hx Substance Use: No Preferred Language: Swedish Communication Ability: Effective Visual Impairment: No Limitations Wire Galvanizer Required: No Beliefs That Will Affect Care: None marital status: Current Living Situation: Spouse current occupational status: employed 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 How many Children do You have: 2 Feels Safe at Home: Yes Assistive Devices: None Allergies Allergies Allergy/AdvReac Type Severity Reaction Status Date / Time No Known Drug Allergies Allergy Unknown Verified 06/07/23 19:30 Home Meds Home Medications Medication Instructions Recorded Confirmed albuterol sulfate 90 mcg/actuation 2 puff inhalation Q4 PRN Shortness 06/30/12 06/07/23 aerosol inhaler (ProAir HFA) Of Breath ##0 lorazepam 0.5 mg tablet 0.5 mg PO BID PRN #0 tabs 06/30/12 06/07/23 nitroglycerin 0.4 mg sublingual 0.4 mg UT PRN #0 BTLS 07/18/12 06/07/23 tablet (Nitrostat) rivaroxaban 20 mg tablet (Xarelto) 1 tab PO DAILY 30 days #30 tabs 11/17/16 06/07/23 folic acid 1 mg tablet 1 mg PO DAILY 02/16/23 06/07/23 atorvastatin 40 mg tablet 40 mg PO DAILY 04/14/23 06/07/23 sertraline 50 mg tablet 50 mg PO QAM 04/14/23 06/07/23 umeclidinium 62.5 mcg-vilanterol 1 inh inhalation QAM 04/14/23 06/07/23 25 mcg/actuation powdr for inhalation (Anoro Ellipta) aspirin 81 mg tablet,delayed 81 mg PO QAM 06/07/23 06/07/23 release cyanocobalamin (vitamin B-12) 1,000 mcg PO QAM 06/07/23 06/07/23 1,000 mcg tablet (Vitamin B-12) levofloxacin 500 mg tablet 500 mg PO QAM 06/07/23 06/07/23 magnesium oxide 400 mg PO DAILY 06/07/23 06/07/23 Previous Rx's Medication Instructions Recorded metoprolol succinate 25 mg 25 mg PO QAM #30 tabs 04/20/23 tablet,extended release 24 hr pantoprazole 40 mg tablet,delayed 40 mg PO QAM #30 tabs 04/20/23 release Results & Data (ED) Vital Signs Vital Signs - 24 hr 06/07/23 15:37 06/07/23 15:51 06/07/23 15:48 Temperature 36.3 C L Temperature Source Temporal Artery Scan Pulse Rate 113 H 131 H Pulse Rate [Apical] 130 H Respiratory Rate 22 24 Respiratory Effort / Characteristics Non-Labored Spontaneous Non-Labored Spontaneous Respiratory Depth Normal Normal Respiratory Pattern Regular Regular Blood Pressure 63/43 L Blood Pressure [Left Arm] 67/51 L Blood Pressure Mean 49 Blood Pressure Mean [Left Arm] 56 Blood Pressure Position [Left Arm] Semi-fowlers Pulse Oximetry 92 Oxygen Delivery Method Room Air Oxygen Flow Rate Sepsis Recent Fever Within 48 Hours No Sepsis New/Unexplained Change in Mental Status N/A Sepsis Action Taken by Nursing No Action Required 06/07/23 16:03 06/07/23 16:30 06/07/23 16:45 Temperature Temperature Source Pulse Rate Pulse Rate [Apical] 105 H 95 H 113 H Respiratory Rate 18 Respiratory Effort / Characteristics Respiratory Depth Respiratory Pattern Blood Pressure Blood Pressure [Left Arm] 99/64 L 99/80 L 99/80 L Blood Pressure Mean Blood Pressure Mean [Left Arm] 75 86 86 Blood Pressure Position [Left Arm] Semi-fowlers Semi-fowlers Pulse Oximetry 91 Oxygen Delivery Method Room Air Oxygen Flow Rate Sepsis Recent Fever Within 48 Hours Sepsis New/Unexplained Change in Mental Status Sepsis Action Taken by Nursing 06/07/23 17:00 06/07/23 17:30 06/07/23 18:00 Temperature Temperature Source Pulse Rate Pulse Rate [Apical] 100 H 88 93 H Respiratory Rate 17 Respiratory Effort / Characteristics Respiratory Depth Respiratory Pattern Blood Pressure Blood Pressure [Left Arm] 112/86 139/89 118/95 Blood Pressure Mean Blood Pressure Mean [Left Arm] 94 105 102 Blood Pressure Position [Left Arm] Semi-fowlers Pulse Oximetry 96 Oxygen Delivery Method Nasal Cannula Oxygen Flow Rate 3 Sepsis Recent Fever Within 48 Hours Sepsis New/Unexplained Change in Mental Status Sepsis Action Taken by Nursing 06/07/23 20:57 06/07/23 20:59 Temperature Temperature Source Pulse Rate 104 H Pulse Rate [Apical] 95 H Respiratory Rate 19 Respiratory Effort / Characteristics Respiratory Depth Respiratory Pattern Blood Pressure Blood Pressure [Left Arm] 110/79 Blood Pressure Mean Blood Pressure Mean [Left Arm] 89 Blood Pressure Position [Left Arm] Pulse Oximetry 96 Oxygen Delivery Method Nasal Cannula Oxygen Flow Rate 3 Sepsis Recent Fever Within 48 Hours Sepsis New/Unexplained Change in Mental Status Sepsis Action Taken by [facility] Medications Current Medication List: was personally reviewed by me Laboratory Data Attestation: I reviewed the patient's lab results. 06/07/23 15:48 06/07/23 15:48 Lab Results 06/07/23 06/07/23 06/07/23 Range/Units 15:48 15:48 15:48 WBC 6.04 (4.8-10.8) K/ul RBC 2.98 L (4.70-6.10) M/uL Hgb 11.6 L (14.0-18.0) g/dl Hct 33.8 L (42.0-52.0) % MCV 113.4 H (80.0-100.0) fL MCH 38.9 H (25.0-34.0) pg MCHC 34.3 (32.0-36.0) g/dL RDW Std Deviation 66.6 H (36.4-46.3) fL RDW Coeff of Norm 15.8 H (11.5-14.5) % Plt Count 224 (130-400) K/uL MPV 9.0 L (9.4-12.4) fL Immature Gran % (Auto) 0.3 % Neut % (Auto) 76.4 % Lymph % (Auto) 8.1 % Blaine % (Auto) 12.1 % Eos % (Auto) 2.6 % Baso % (Auto) 0.5 % Neut # (Auto) 4.61 (1.40-6.50) K/uL Lymph # (Auto) 0.49 L (1.20-3.40) K/uL Blaine # (Auto) 0.73 H (0.11-0.59) K/uL Eos # (Auto) 0.16 (0.00-0.50) K/uL Baso # (Auto) 0.03 (0.00-0.20) K/uL Immature Gran # (Auto) 0.02 (0.01-0.20) K/uL Macrocytosis Present PT 19.1 H (9.0-12.0) Seconds INR 1.8 H (0.9-1.1) APTT 44.2 H* (21.0-31.0) Seconds PTT Ratio 1.6 VBG pH (7.36-7.41) VBG pCO2 (38-50) mmHg VBG pO2 mmHg VBG HCO3 mmol/L VBG O2 Saturation % VBG Base Excess mEq/L Sodium 141 (136-145) mmol/L Potassium 3.7 (3.5-5.1) mmol/L Chloride 105 (98-107) mmol/L Carbon Dioxide 26 (21-32) mmol/L Anion Gap 10 (3-11) BUN 19 (6-23) mg/dl Creatinine 1.19 (0.6-1.4) mg/dl Est Cr Clr Drug Dosing 52.4 ml/min Est GFR ( Amer) 67.4 ml/min Est GFR (Non-Af Amer) 58.2 ml/min BUN/Creatinine Ratio 16.0 (10-20) Glucose 134 H (70-99(Fasting)) mg/dl Lactate (0.4-2.0) mmol/L Calcium 9.4 (8.6-10.3) mg/dl Magnesium 1.6 L (1.7-2.4) mg/dl Total Bilirubin 2.5 H (0.2-1.0) mg/dl Direct Bilirubin 0.6 H (0-0.2) mg/dl AST 15 (13-39) U/L ALT 6 L (7-52) U/L Alkaline Phosphatase 64 (34-104) U/L Troponin I High Sens 12.0 (0-20) pg/ml B-Natriuretic Peptide (0-100) pg/ml Total Protein 7.5 (6.0-8.3) gm/dl Albumin 3.9 (3.4-5.0) gm/dl Procalcitonin (0-0.5) ng/ml Urine Color Urine Appearance (Clear) Urine pH (4.5-7.5) Ur Specific Ca[place]field (1.000-1.030) Urine Protein (Negative) Urine Glucose (UA) (Negative) Urine Ketones (Negative) Urine Blood (Negative) Urine Nitrite (Negative) Urine Bilirubin (Negative) Urine Urobilinogen (Negative) Ur Leukocyte Esterase (Negative) Urine WBC (Auto) (0-5) /hpf Urine RBC (Auto) (0-4) /hpf U Hyaline Cast (Auto) (0-5) /lpf U Epithel Cells (Auto) (0-5) /lpf Urine Bacteria (Auto) (Negative) 06/07/23 06/07/23 06/07/23 Range/Units 15:48 15:48 15:57 WBC (4.8-10.8) K/ul RBC (4.70-6.10) M/uL Hgb (14.0-18.0) g/dl Hct (42.0-52.0) % MCV (80.0-100.0) fL MCH (25.0-34.0) pg MCHC (32.0-36.0) g/dL RDW Std Deviation (36.4-46.3) fL RDW Coeff of Norm (11.5-14.5) % Plt Count (130-400) K/uL MPV (9.4-12.4) fL Immature Gran % (Auto) % Neut % (Auto) % Lymph % (Auto) % Blaine % (Auto) % Eos % (Auto) % Baso % (Auto) % Neut # (Auto) (1.40-6.50) K/uL Lymph # (Auto) (1.20-3.40) K/uL Blaine # (Auto) (0.11-0.59) K/uL Eos # (Auto) (0.00-0.50) K/uL Baso # (Auto) (0.00-0.20) K/uL Immature Gran # (Auto) (0.01-0.20) K/uL Macrocytosis PT (9.0-12.0) Seconds INR (0.9-1.1) APTT (21.0-31.0) Seconds PTT Ratio VBG pH (7.36-7.41) VBG pCO2 (38-50) mmHg VBG pO2 mmHg VBG HCO3 mmol/L VBG O2 Saturation % VBG Base Excess mEq/L Sodium (136-145) mmol/L Potassium (3.5-5.1) mmol/L Chloride (98-107) mmol/L Carbon Dioxide (21-32) mmol/L Anion Gap (3-11) BUN (6-23) mg/dl Creatinine (0.6-1.4) mg/dl Est Cr Clr Drug Dosing ml/min Est GFR ( Amer) ml/min Est GFR (Non-Af Amer) ml/min BUN/Creatinine Ratio (10-20) Glucose (70-99(Fasting)) mg/dl Lactate 2.2 H* (0.4-2.0) mmol/L Calcium (8.6-10.3) mg/dl Magnesium (1.7-2.4) mg/dl Total Bilirubin (0.2-1.0) mg/dl Direct Bilirubin (0-0.2) mg/dl AST (13-39) U/L ALT (7-52) U/L Alkaline Phosphatase (34-104) U/L Troponin I High Sens (0-20) pg/ml B-Natriuretic Peptide 457 H (0-100) pg/ml Total Protein (6.0-8.3) gm/dl Albumin (3.4-5.0) gm/dl Procalcitonin 2.62 H (0-0.5) ng/ml Urine Color Urine Appearance (Clear) Urine pH (4.5-7.5) Ur Specific [place] (1.000-1.030) Urine Protein (Negative) Urine Glucose (UA) (Negative) Urine Ketones (Negative) Urine Blood (Negative) Urine Nitrite (Negative) Urine Bilirubin (Negative) Urine Urobilinogen (Negative) Ur Leukocyte Esterase (Negative) Urine WBC (Auto) (0-5) /hpf Urine RBC (Auto) (0-4) /hpf U Hyaline Cast (Auto) (0-5) /lpf U Epithel Cells (Auto) (0-5) /lpf Urine Bacteria (Auto) (Negative) 06/07/23 06/07/23 06/07/23 Range/Units 16:38 16:42 19:27 WBC (4.8-10.8) K/ul RBC (4.70-6.10) M/uL Hgb (14.0-18.0) g/dl Hct (42.0-52.0) % MCV (80.0-100.0) fL MCH (25.0-34.0) pg MCHC (32.0-36.0) g/dL RDW Std Deviation (36.4-46.3) fL RDW Coeff of Norm (11.5-14.5) % Plt Count (130-400) K/uL MPV (9.4-12.4) fL Immature Gran % (Auto) % Neut % (Auto) % Lymph % (Auto) % Blaine % (Auto) % Eos % (Auto) % Baso % (Auto) % Neut # (Auto) (1.40-6.50) K/uL Lymph # (Auto) (1.20-3.40) K/uL Blaine # (Auto) (0.11-0.59) K/uL Eos # (Auto) (0.00-0.50) K/uL Baso # (Auto) (0.00-0.20) K/uL Immature Gran # (Auto) (0.01-0.20) K/uL Macrocytosis PT (9.0-12.0) Seconds INR (0.9-1.1) APTT (21.0-31.0) Seconds PTT Ratio VBG pH 7.36 (7.36-7.41) VBG pCO2 45 (38-50) mmHg VBG pO2 < 20 mmHg VBG HCO3 25 mmol/L VBG O2 Saturation < 60.0 % VBG Base Excess -0.2 mEq/L Sodium (136-145) mmol/L Potassium (3.5-5.1) mmol/L Chloride (98-107) mmol/L Carbon Dioxide (21-32) mmol/L Anion Gap (3-11) BUN (6-23) mg/dl Creatinine (0.6-1.4) mg/dl Est Cr Clr Drug Dosing ml/min Est GFR ( Amer) ml/min Est GFR (Non-Af Amer) ml/min BUN/Creatinine Ratio (10-20) Glucose (70-99(Fasting)) mg/dl Lactate 1.0 (0.4-2.0) mmol/L Calcium (8.6-10.3) mg/dl Magnesium (1.7-2.4) mg/dl Total Bilirubin (0.2-1.0) mg/dl Direct Bilirubin (0-0.2) mg/dl AST (13-39) U/L ALT (7-52) U/L Alkaline Phosphatase (34-104) U/L Troponin I High Sens (0-20) pg/ml B-Natriuretic Peptide (0-100) pg/ml Total Protein (6.0-8.3) gm/dl Albumin (3.4-5.0) gm/dl Procalcitonin (0-0.5) ng/ml Urine Color Dark Yellow Urine Appearance Clear (Clear) Urine pH 6.0 (4.5-7.5) Ur Specific [place] 1.025 (1.000-1.030) Urine Protein Trace H (Negative) Urine Glucose (UA) Negative (Negative) Urine Ketones Negative (Negative) Urine Blood Negative (Negative) Urine Nitrite Negative (Negative) Urine Bilirubin Negative (Negative) Urine Urobilinogen Negative (Negative) Ur Leukocyte Esterase Negative (Negative) Urine WBC (Auto) 1-5 (0-5) /hpf Urine RBC (Auto) 0-4 (0-4) /hpf U Hyaline Cast (Auto) 1-5 (0-5) /lpf U Epithel Cells (Auto) 10-20 H (0-5) /lpf Urine Bacteria (Auto) Negative (Negative) Administered Medications Discontinued Medications Sodium Chloride (Nss) 1,000 mls @ 999 mls/hr IV .Q1H1M ONE Stop: 06/07/23 16:48 Last Infusion: 06/07/23 17:23 Dose: 0 mls/hr Documented By: Admin: 06/07/23 16:22 Dose: 999 mls/hr Documented By: BRAYDEN Sodium Chloride (Nss) 1,000 mls @ 999 mls/hr IV .Q1H1M ONE Stop: 06/07/23 17:40 Last Infusion: 06/07/23 17:57 Dose: 0 mls/hr Documented By: Admin: 06/07/23 16:56 Dose: 999 mls/hr Documented By: BRAYDEN Magnesium Sulfate/Dextrose (Magnesium Sulfate / D5w) 1 gm in 100 mls @ 100 mls/hr IV Q1H TIANA Stop: 06/07/23 18:39 Last Infusion: 06/07/23 19:03 Dose: 0 mls/hr Documented By: Admin: 06/07/23 17:59 Dose: 100 mls/hr Documented By: Infusion: 06/07/23 17:55 Dose: 0 mls/hr Documented By: Admin: 06/07/23 16:55 Dose: 100 mls/hr Documented By: BRAYDEN Cefepime HCl (Maxipime) 2,000 mg in 20 mls @ 5 mls/min IV NOW STA; Protocol Stop: 06/07/23 17:20 Last Admin: 06/07/23 17:35 Dose: 5 mls/min Documented By: KV Ondansetron HCl (Ondansetron Inj 2 Mg/Ml 2 Ml Vial) 4 mg IV NOW STA Stop: 06/07/23 17:45 Last Admin: 06/07/23 17:47 Dose: 4 mg Documented By: KV Imaging Data Attestation: I personally reviewed and interpreted this imaging study as follows: My Impression: 1 view chest x-ray was obtained in the emergency department. My interpretation is infiltrative process noted on the right. There is no free air, final report below. Radiologist's Impression: Chest X-Ray 06/07/23 15:48 XR chest 1V portable HISTORY: Sepsis COMPARISON: Chest CT 04/18/2023. FINDINGS: No pneumothorax. There are trace bilateral pleural effusions. The cardiac silhouette is top normal in size. This remains unchanged. There is diffuse interstitial thickening. This has progressed and may represent mild congestive change on the background of chronic interstitial lung disease. There is a surgical clip within the left upper quadrant.. Emphysema again noted. Patchy airspace opacities within the right midlung zone which is similar to the prior chest CT. This could represent posttreatment changes. A superimposed pneumonia would be difficult to exclude. IMPRESSION: 1. Diffuse interstitial thickening. This has progressed and may represent mild congestive change and the background of chronic interstitial lung disease. 2. Patchy airspace opacities within the right midlung zone are similar to the prior chest CT and likely represent posttreatment changes. A superimposed pneumonia would be difficult to exclude. ACT 112: Negative or not required by law. Electronically signed by: Efrain Yoo M.D. 06/07/2023 5:15 PM Discharge Plan Visit Data Chief Complaint: Dehydration Stated Complaint: DEHYDRATED ED Provider: Oleg Givens Discharge Problem: Atrial fibrillation with rapid ventricular response, Pneumonia, Acute hypotension Patient Disposition: Being Evaluated by Hospitalist Forms Stand Alone Forms: [facility] Prescriptions Prescriptions: No Action folic acid 1 mg tablet 1 mg PO DAILY lorazepam 0.5 mg Tablet 0.5 mg PO BID PRN Qty: 0 albuterol sulfate [ProAir HFA] 90 mcg/actuation Hfa Aerosol Inhaler 2 puff Inhalation Q4 PRN (Reason: Shortness Of Breath) Qty: 0 nitroglycerin [Nitrostat] 0.4 mg Tablet, Sublingual 0.4 mg UT PRN Qty: 0 Xarelto 20 mg Tablet 1 tab PO DAILY 30 Days Qty: 30 sertraline 50 mg tablet 50 mg PO QAM Anoro Ellipta 62.5-25 mcg/actuation blister with device 1 inh INHALATION QAM atorvastatin 40 mg Tablet 40 mg PO DAILY pantoprazole 40 mg Tablet,Delayed Release (Dr/Ec) 40 mg PO QAM Qty: 30 0RF metoprolol succinate 25 mg tablet extended release 24 hr 25 mg PO QAM Qty: 30 0RF levofloxacin 500 mg tablet 500 mg PO QAM Rx Instructions: take for 19 days ordered 06/06/23 cyanocobalamin (vitamin B-12) [Vitamin B-12] 1,000 mcg Tablet 1,000 mcg PO QAM magnesium oxide 400 mg magnesium Tablet 400 mg PO DAILY aspirin [Aspir-Low] 81 mg Tablet,Delayed Release (Dr/Ec) 81 mg PO QAM Referrals Referrals: So Dave DO [Primary Care Provider] -
[2023-06-07 16:12] LABS: Basophils # (auto) 0.03 K/uL (0.00-0.20); Basophils % (auto) 0.5 %; Eosinophils # (auto) 0.16 K/uL (0.00-0.50); Eosinophils % (auto) 2.6 %; Hematocrit (blood only) 33.8 % (42.0-52.0); Hemoglobin 11.6 g/dl (14.0-18.0); Immature Granulocytes # (auto) 0.02 K/uL (0.01-0.20); Immature Granulocytes % (auto) 0.3 %; Lymphocytes # (auto) 0.49 K/uL (1.20-3.40); Lymphocytes % (auto) 8.1 %; Mean Corpuscular Hemoglobin 38.9 pg (25.0-34.0); Mean Corpuscular Hgb Conc 34.3 g/dL (32.0-36.0); Mean Corpuscular Volume 113.4 fL (80.0-100.0); Monocytes # (auto) 0.73 K/uL (0.11-0.59); Monocytes % (auto) 12.1 %; Neutrophils # (auto) 4.61 K/uL (1.40-6.50); Neutrophils % (auto) 76.4 %; Platelet Count 224 K/uL (130-400); RDW Coefficient of Variation 15.8 % (11.5-14.5); RDW Standard Deviation 66.6 fL (36.4-46.3); Red Blood Count 2.98 M/uL (4.70-6.10); White Blood Count 6.04 K/ul (4.8-10.8)
[2023-06-07 16:37] LABS: Albumin Level 3.9 gm/dl (3.4-5.0); Bilirubin Direct 0.6 mg/dl (0-0.2); Bilirubin,Total 2.5 mg/dl (0.2-1.0); Calcium 9.4 mg/dl (8.6-10.3); Creatinine Clr Calc Pharmacy 52.4 ml/min; Est GFR (African American) 67.4 ml/min; Est GFR (Non-African American) 58.2 ml/min; Magnesium 1.6 mg/dl (1.7-2.4); Potassium 3.7 mmol/L (3.5-5.1); Total Protein 7.5 gm/dl (6.0-8.3)
[2023-06-07 16:45] LABS: Macrocytosis Present
[2023-06-07] MEDS: MAGNESIUM SULFATE / D5W 1 GM/100 ML BAG IV SCH ×2 (16:55→17:59)
[2023-06-07 16:57] LABS: Base Excess VBG -0.2 mEq/L; HCO3 VBG 25 mmol/L; Oxygen Saturation VBG < 60.0 %; PCO2 VBG 45 mmHg (38-50); PO2 VBG < 20 mmHg; pH VBG 7.36 (7.36-7.41)
[2023-06-07 17:05] LABS: Appearance Urine Clear (Clear); Bacteria Urine Automated Negative (Negative); Bilirubin Urine Negative (Negative); Blood Urine Negative (Negative); Color Urine Dark Yellow; Glucose Urine UA Negative (Negative); Ketones Urine Negative (Negative); Leukocyte Esterase Urine Negative (Negative); Nitrite Urine Negative (Negative); Protein Urine Trace (Negative); RBC Urine Automated 0-4 /hpf (0-4); Specific Gravity Urine 1.025 (1.000-1.030); Urobilinogen Urine Negative (Negative)
[2023-06-07 17:08] LABS: INR 1.8 (0.9-1.1); Partial Thromboplastin Ratio 1.6; Prothrombin Time 19.1 Seconds (9.0-12.0)
--- NOTE | 2023-06-07 17:16 | XRay Report ---
XR chest 1V portable HISTORY: Sepsis COMPARISON: Chest CT 04/18/2023. FINDINGS: No pneumothorax. There are trace bilateral pleural effusions. The cardiac silhouette is top normal in size. This remains unchanged. There is diffuse interstitial thickening. This has progresse d and may represent mild congestive change on the background of chronic interstitial lung disease. Th ere is a surgical clip within the left upper quadrant.. Emphysema again noted. Patchy airspace opacit ies within the right midlung zone which is similar to the prior chest CT. This could represent posttr eatment changes. A superimposed pneumonia would be difficult to exclude. IMPRESSION: 1. Diffuse interstitial thickening. This has progressed and may represent mild congestive change and the background of chronic interstitial lung disease. 2. Patchy airspace opacities within the right midlung zone are similar to the prior chest CT and like ly represent posttreatment changes. A superimposed pneumonia would be difficult to exclude. ACT 112: Negative or not required by law. Electronically signed by: Efrain Yoo M.D. 06/07/2023 5:15 PM
[2023-06-07] MEDS ORDERED: CEFEPIME 2,000 MG/20 ML VIAL IV STA (17:17)
--- NOTE | 2023-06-07 17:35 | Electrocardiogram Report ---
Test Reason : Blood Pressure : / mmHG Vent. Rate : 146 BPM Atrial Rate : 000 BPM P-R Int : 000 ms QRS Dur : 084 ms QT Int : 310 ms P-R-T Axes : 000 111 009 degrees QTc Int : 483 ms Atrial fibrillation with rapid ventricular response Abnormal ECG Confirmed by Lencho Reid ([id number]) on 06/07/2023 5:34:37 PM Referred By: Confirmed By:Denny Reid
[2023-06-07] MEDS ORDERED: ONDANSETRON INJ 2 MG/ML 2 ML VIAL IV STA (17:44)
[2023-06-07 17:55] LABS: Partial Thromboplastin Time 44.2 Seconds (21.0-31.0)
--- NOTE | 2023-06-07 19:10 | History & Physical Report ---
Date of Service June 07, 2023 Assessment & Plan (1) Atrial fibrillation with rapid ventricular response: (2) Pneumonia: (3) Hemochromatosis: (4) Diabetes mellitus type II, controlled: (5) Primary cancer of right lower lobe of lung: (6) Acute hypoxic respiratory failure: Plan Pt is a 77yo very pleasant gentleman with Pmhx significant for lung cancer (s/p chemotherapy and radiation, currently receiving immunotherapy), atrial fibrillation anticoagulated with xarelto, DMII, HLD, hemochromatosis, Mood disorder admitted with SOB in the setting of known pneumonia. CTA PE 06/06 (from [facility]) IMPRESSION 1. No pulmonary embolism. 2. Right lower lobe superior segment nodule is stable from 05/08/2023. 3. Increasing opacification in the right upper lobe posterior segment, consistent with pneumonia. Few new patchy alveolar opacities in the left lower lobe superior segment are probably also of infectious etiology. 4. Moderate decrease in right pleural effusion since 05/08/2023. 5. Severe emphysema. 6. No significant change in size of mediastinal and hilar lymph nodes. 7. Healing right rib fractures. 8. Cardiomegaly. Coronary artery calcifications. Pneumonia Acute hypoxic respiratory failure Pt with SOB, recently started on home oxygen after being diagnosed with pneumonia on CT scan by pcp Currently requiring 3L at baseline CTA PE done outpt on 06/06 with pneumonia and other findings noted above Chest xray in house concerning for pneumonia WBC relatively elevated given pt previously with low WBC levels Sputum Cx ordered, blood Cx x2 pending Was started on Levaquin outpt, received a dose of Cefepime in the ED Continue with IV Zosyn (for anaerobic coverage as well given pattern of opacification, concern for aspiration) and PO doxycycline. MRSA nares pending. Speech consult placed Continue to monitor, wean oxygen as tolerated. 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 Status post completion of combined radiation and chemotherapy about a month ago. Currently undergoing immunotherapy per family Continue home inhalers, compazine and zofran prn Atrial fibrillation with rapid ventricular response Persistent afib. On metoprolol succinate 25mg daily, xarelto for anticoagulation HR improved with hydration in the ED Continue IVF Consider prn IV Lopressor 5mg doses and dose increase of metoprolol succ for better control as needed. DMII On metformin at home daily [id number] of 7.2 in Apr Hold home PO meds, bsg achs DMII diet Consider ISS based on BSG/AM [id number] Chronic anemia Macrocytosis Previously admitted with acute GI bleed Hgb stable and improved to >11 at this time Continue home ppi daily Still with macrocytosis, continue home folic acid and b12 supplement Pancytopenia 2/2 chemotherapy No longer pancytopenic, neutrophil count wnl Hypomagnesemia Continue home magnesium tabs Hemochromatosis Per [facility], had HFE testing done in 2016 Has not had phlebotomy for many years. Stable Mood Disorder chronic, stable. Continue home sertraline home ativan prn HLD continue home statin DVT prophylaxis: On xarelto Diet: DMII CODE STATUS:DNR/DNI Dispo: Med/Surg with tele at this time, PT/OT orders are in History of Present Illness Chief Complaint: SOB Primary Care Provider: So Dave DO Pt is a 77yo very pleasant gentleman with Pmhx significant for lung cancer (s/p chemotherapy and radiation, currently receiving immunotherapy), atrial fibrillation anticoagulated with xarelto, DMII, HLD, hemochromatosis, Mood d isorder admitted with SOB in the setting of known pneumonia. Daughter and younger sister also present in the room and help provide the history. Pt states that 2 days ago started with diarrhea and SOB. Followed up with pcp and had outpt testing done that included a CTA chest. That did not show a PE but did note a pneumonia. Was started on Levaquin but states he only took 1 pill today. Also just started using oxygen and states he does not have a long cord for it so only uses it when he is sitting in his "spot." States that he used OTC diarrhea medication and his diarrhea got better. Notes that while the stools are liquid-like there is some form to it. Notes that he has only taken one dose of the antibiotics he was prescribed. States that the SOB is worse with ambulation, like when he gets up to use the bathroom. Has also been weaker than usual. Completed chemotherapy and radiation about a month ago and is now undergoing immunotherapy. Allergies Allergy/AdvReac Type Severity Reaction Status Date / Time No Known Drug Allergies Allergy Unknown Verified 06/07/23 19:30 Home Medications Medication Instructions Recorded Confirmed Type albuterol sulfate 90 mcg/actuation 2 puff inhalation Q4 PRN Shortness 06/30/12 06/07/23 History aerosol inhaler (ProAir HFA) Of Breath ##0 lorazepam 0.5 mg tablet 0.5 mg PO BID PRN #0 tabs 06/30/12 06/07/23 History nitroglycerin 0.4 mg sublingual 0.4 mg UT PRN #0 BTLS 07/18/12 06/07/23 History tablet (Nitrostat) rivaroxaban 20 mg tablet (Xarelto) 1 tab PO DAILY 30 days #30 tabs 11/17/16 06/07/23 History folic acid 1 mg tablet 1 mg PO DAILY 02/16/23 06/07/23 History atorvastatin 40 mg tablet 40 mg PO DAILY 04/14/23 06/07/23 History sertraline 50 mg tablet 50 mg PO QAM 04/14/23 06/07/23 History umeclidinium 62.5 mcg-vilanterol 1 inh inhalation QAM 04/14/23 06/07/23 History 25 mcg/actuation powdr for inhalation (Anoro Ellipta) metoprolol succinate 25 mg 25 mg PO QAM #30 tabs 04/20/23 06/07/23 Rx tablet,extended release 24 hr pantoprazole 40 mg tablet,delayed 40 mg PO QAM #30 tabs 04/20/23 06/07/23 Rx release aspirin 81 mg tablet,delayed 81 mg PO QAM 06/07/23 06/07/23 History release cyanocobalamin (vitamin B-12) 1,000 mcg PO QAM 06/07/23 06/07/23 History 1,000 mcg tablet (Vitamin B-12) levofloxacin 500 mg tablet 500 mg PO QAM 06/07/23 06/07/23 History magnesium oxide 400 mg PO DAILY 06/07/23 06/07/23 History Past Med/Surg History Medical History Atrial fibrillation COPD (chronic obstructive pulmonary disease) with emphysema Diabetes mellitus type II, controlled Gall stones Lung cancer Skin cancer of scalp Surgical History H/O cataract removal with insertion of prosthetic lens 07/21 H/O colonoscopy 10/27/2015 Dr. Sargent; Diverticulosis; repeat 10 yrs H/O ventral hernia repair 09/01/2009 Dr. Cortes; right inguinal hernia Hx of tonsillectomy <12 y/o Family History Mother Breast cancer Father Diabetes Type I Stroke Sister Breast cancer Sister Autoimmune hemolytic anemia Aunt Breast cancer Social History Smoking Status: Never smoker Tobacco Type: Cigarettes Age Started Using Tobacco: 20; Age Quit Using Tobacco: 77; packs per day: 0.5; Second Hand Exposure: Yes; Do You Dip or Chew Tobacco: No; Hx Alcohol Use: No Hx Substance Use: No Preferred Language: Albanian Communication Ability: Effective Visual Impairment: No Limitations Dog Pound Attendant Required: No Beliefs That Will Affect Care: None marital status: Current Living Situation: Spouse current occupational status: employed 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 No acute distress Psych: Appropriate mood and affect Neuro: No gross deficits HEENT: NC/AT Chest: Nontender to palpation. CV: Irregular rate and rhythm Resp: Breath sounds decreased bilaterally, no increased effort of breathing. NC in nares Abdomen: Soft, nontender, nondistended. Extremities: No edema in lower extremities bilaterally. Results & Data Results & Data Vital Signs (Past 12 Hours) Vital Signs Temp Pulse Pulse Resp BP BP Pulse Ox 06/07/23 18:00 93 H 17 118/95 96 06/07/23 17:30 88 139/89 06/07/23 17:00 100 H 112/86 06/07/23 16:45 113 H 99/80 L 06/07/23 16:30 95 H 18 99/80 L 91 06/07/23 16:03 105 H 99/64 L 06/07/23 15:48 131 H 06/07/23 15:51 130 H 24 67/51 L 06/07/23 15:37 36.3 C L 113 H 22 63/43 L 92 O2 Del Method O2 Flow Rate 06/07/23 18:00 Nasal Cannula 3 06/07/23 17:30 06/07/23 17:00 06/07/23 16:45 06/07/23 16:30 Room Air 06/07/23 16:03 06/07/23 15:48 06/07/23 15:51 06/07/23 15:37 Room Air Diagnostic Findings Chest X-Ray 06/07/23 15:48 XR chest 1V portable HISTORY: Sepsis COMPARISON: Chest CT 04/18/2023. FINDINGS: No pneumothorax. There are trace bilateral pleural effusions. The cardiac silhouette is top normal in size. This remains unchanged. There is diffuse interstitial thickening. This has progressed and may represent mild congestive change on the background of chronic interstitial lung disease. There is a surgical clip within the left upper quadrant.. Emphysema again noted. Patchy airspace opacities within the right midlung zone which is similar to the prior chest CT. This could represent posttreatment changes. A superimposed pneumonia would be difficult to exclude. IMPRESSION: 1. Diffuse interstitial thickening. This has progressed and may represent mild congestive change and the background of chronic interstitial lung disease. 2. Patchy airspace opacities within the right midlung zone are similar to the prior chest CT and likely represent posttreatment changes. A superimposed pneumonia would be difficult to exclude. ACT 112: Negative or not required by law. Electronically signed by: Efrain Yoo M.D. 06/07/2023 5:15 PM Code Status & VTE Plan VTE Prophylaxis Plan VTE Prophylaxis will be ordered: Yes (2) Pneumonia Laterality: unspecified laterality Lung location: unspecified part of lung Pneumonia type: due to unspecified organism Qualified Code(s): J18.9 - Pneumonia, unspecified organism
[2023-06-08] MEDS ORDERED: LORazepam 0.5 MG TAB PO PRN (00:46)
[2023-06-08] MEDS ORDERED: ALBUTEROL HFA 8 GM INHALER INH PRN (00:46)
[2023-06-08] MEDS ORDERED: DOXYCYCLINE HYCLATE 100 MG CAP PO STA (00:50)
[2023-06-08] MEDS ORDERED: PIPERACILLIN/TAZOBACTAM 4.5 GM/100 ML BAG IV STA (00:50)
[2023-06-08] MEDS: SODIUM CHLORIDE 0.9% 1,000 ML IV SCH ×2 (01:41→13:28)
[2023-06-08 04:59] LABS: Basophils # (auto) 0.02 K/uL (0.00-0.20); Basophils % (auto) 0.5 %; Eosinophils # (auto) 0.23 K/uL (0.00-0.50); Eosinophils % (auto) 5.3 %; Hematocrit (blood only) 27.6 % (42.0-52.0); Hemoglobin 9.3 g/dl (14.0-18.0); Immature Granulocytes # (auto) 0.02 K/uL (0.01-0.20); Immature Granulocytes % (auto) 0.5 %; Lymphocytes % (auto) 9.3 %; Mean Corpuscular Hemoglobin 38.8 pg (25.0-34.0); Mean Corpuscular Hgb Conc 33.7 g/dL (32.0-36.0); Mean Platelet Volume 9.1 fL (9.4-12.4); Monocytes % (auto) 16.2 %; Neutrophils # (auto) 2.95 K/uL (1.40-6.50); Neutrophils % (auto) 68.2 %; Platelet Count 150 K/uL (130-400); RDW Coefficient of Variation 15.8 % (11.5-14.5); RDW Standard Deviation 66.8 fL (36.4-46.3); White Blood Count 4.32 K/ul (4.8-10.8)
[2023-06-08 05:12] LABS: Albumin Globulin Ratio 1.1 (0.9-2); Albumin Level 3.1 gm/dl (3.4-5.0); Bilirubin,Total 1.2 mg/dl (0.2-1.0); Calcium 8.2 mg/dl (8.6-10.3); Creatinine Clr Calc Pharmacy 66.3 ml/min; Est GFR (African American) 89.6 ml/min; Est GFR (Non-African American) 77.3 ml/min; Globulin 2.7 gm/dl (2.5-4.0); Magnesium 1.8 mg/dl (1.7-2.4); Phosphorus 3.2 mg/dl (2.5-4.9); Potassium 3.7 mmol/L (3.5-5.1); Total Protein 5.8 gm/dl (6.0-8.3)
[2023-06-08] MEDS: METOPROLOL SUCC 25MG EXT REL TAB PO SCH (08:32)
[2023-06-08] MEDS: PANTOprazole 40 MG TAB PO SCH (08:32)
[2023-06-08] MEDS: ATORVASTATIN 40 MG TAB PO SCH (08:32)
[2023-06-08] MEDS: ASPIRIN 81 MG ECTAB PO SCH (08:32)
[2023-06-08] MEDS: UMECLIDINIUM/VILANTEROL 62.5/25MCG 7 PUFFS/INHALER INH SCH (08:32)
[2023-06-08] MEDS: SERTRALINE HCL 50 MG TABLET PO SCH (08:32)
[2023-06-08] MEDS: FOLIC ACID 1 MG TAB PO SCH (08:32)
[2023-06-08 09:23] LABS: Estimated Average Glucose 111 mg/dl; Hemoglobin A1C 5.5 % (4.5-5.6)
[2023-06-08] MEDS: DOXYCYCLINE HYCLATE 100 MG CAP PO SCH ×2 (09:44→21:09)
[2023-06-08] MEDS: PIPERACILLIN/TAZOBACTAM 4.5 GM in DEXTROSE 5% MINI-B 100 ML IV SCH ×2 (09:45→17:07)
[2023-06-08] MEDS ORDERED: SODIUM CHLORIDE 0.65% NA SOLN 45 ML (OCEAN) PRN (12:07)
[2023-06-08] MEDS ORDERED: PROCHLORPERAZINE 5 MG in SYRINGE 4 ML IV PRN (14:39)
[2023-06-08] MEDS ORDERED: ONDANSETRON INJ 2 MG/ML 2 ML VIAL IV PRN (14:39)
--- NOTE | 2023-06-08 15:46 | Hospitalist Progress Note ---
Date of Service June 08, 2023 Assessment & Plan (1) Atrial fibrillation with rapid ventricular response: (2) Pneumonia: (3) Hemochromatosis: (4) Diabetes mellitus type II, controlled: (5) Primary cancer of right lower lobe of lung: (6) Acute hypoxic respiratory failure: Plan Pt is a 77yo very pleasant gentleman with Pmhx significant for lung cancer (s/p chemotherapy and radiation, currently receiving immunotherapy), atrial fibrillation anticoagulated with xarelto, DMII, HLD, hemochromatosis, Mood disorder admitted with SOB in the setting of known pneumonia. CTA PE 06/06 (from [facility] IMPRESSION 1. No pulmonary embolism. 2. Right lower lobe superior segment nodule is stable from 05/08/2023. 3. Increasing opacification in the right upper lobe posterior segment, consistent with pneumonia. Few new patchy alveolar opacities in the left lower lobe superior segment are probably also of infectious etiology. 4. Moderate decrease in right pleural effusion since 05/08/2023. 5. Severe emphysema. 6. No significant change in size of mediastinal and hilar lymph nodes. 7. Healing right rib fractures. 8. Cardiomegaly. Coronary artery calcifications. Pneumonia Acute hypoxic respiratory failure Pt with SOB, recently started on home oxygen after being diagnosed with pneumonia on CT scan by pcp Currently requiring 3L at baseline, wean as tolerated CTA PE done outpt on 06/06 with pneumonia and other findings noted above Chest xray in house concerning for pneumonia WBC relatively elevated given pt previously with low WBC levels, now back to low counts Sputum Cx ordered and pending, blood Cx x2 with NGTD at this time Was started on Levaquin outpt, received a dose of Cefepime in the ED Continue with IV Zosyn (for anaerobic coverage as well given pattern of opacification, concern for aspiration) and PO doxycycline. MRSA nares NEGATIVE, no need for Vanc for pneumonia. Speech consult placed- no concerns for aspiration. Continue to monitor, wean oxygen as tolerated. Await sputum Cx growth to aid with transition to PO abx for discharge. Diarrhea Per pt, has some form, about 2 days duration States it has responded to OTC antidiarrheal medication Notes an episode of bloody stools AM of admission- no further episodes C diff ordered by the ED, not collected as pt without further episodes. Hgb stable Continue to monitor Hx of Lung Cancer Metastatic adenocarcinoma of the right lower lobe of the lung. Status post completion of combined radiation and chemotherapy about a month ago. Currently undergoing immunotherapy per family Continue home inhalers, compazine and zofran prn Atrial fibrillation with rapid ventricular response Persistent afib. On metoprolol succinate 25mg daily, xarelto for anticoagulation HR improved with hydration in the ED Continue IVF Consider prn IV Lopressor 5mg doses and dose increase of metoprolol succ for better control as needed. RVR improved, continue home metoprolol dose DMII On metformin at home daily [id number] of 7.2 in Apr, repeat 5.5 in normal limts Hold home PO meds, bsg achs DMII diet Hgba1c currently wnl, no ISS required. Continue to monitor glucose levels Chronic anemia Macrocytosis Previously admitted with acute GI bleed Hgb stable at this time Continue home ppi daily Still with macrocytosis, continue home folic acid and b12 supplement Pancytopenia 2/2 chemotherapy No longer pancytopenic, neutrophil count wnl Hypomagnesemia Continue home magnesium tabs Hemochromatosis Per [facility], had HFE testing done in 2015 Has not had phlebotomy for many years. Stable Mood Disorder chronic, stable. Continue home sertraline home ativan prn HLD continue home statin DVT prophylaxis: On xarelto Diet: DMII CODE STATUS:DNR/DNI Dispo: PT/OT orders are in- recommending home Admission and Anticipated Discharge Date Admission Date: June 07, 2023 Subjective Pt states that he is feeling much better than when he came in. Dizziness had resolved. No further diarrheal episodes, was about to go use the bathroom for a BM at the time he was seen. Notes he needs the oxygen however as it helps with his breathing. States that he helps take care of his at home who is not doing well medically as well. States that he will update his family. Wanted the room warm/hot, states his hands are very cold. Review of Systems Review of Systems: All systems reviewed & are unremarkable except as noted in Subjective Physical Exam Physical Exam: General: Alert, oriented. No acute distress Psych: Appropriate mood and affect Neuro: No gross deficits HEENT: NC/AT Chest: Nontender to palpation. CV: Irregular rate and rhythm Resp: Breath sounds decreased bilaterally, no increased effort of breathing. NC in nares Abdomen: Soft, nontender, nondistended. Extremities: No edema in lower extremities bilaterally. Results & Data Results & Data Vital Signs (Past 12 Hours) Vital Signs Temp Pulse Pulse Resp BP Pulse Ox Pulse Ox 06/08/23 15:00 95 H 06/08/23 13:39 88 L 06/08/23 12:30 36.4 C L 87 18 108/69 96 06/08/23 07:30 06/08/23 07:24 36.4 C L 85 18 103/68 93 O2 Del Method O2 Flow Rate O2 Flow Rate 06/08/23 15:00 06/08/23 13:39 2 06/08/23 12:30 Nasal Cannula 3 06/08/23 07:30 Nasal Cannula 2 06/08/23 07:24 Nasal Cannula 2 (2) Pneumonia Laterality: unspecified laterality Lung location: unspecified part of lung Pneumonia type: due to unspecified organism Qualified Code(s): J18.9 - Pneumonia, unspecified organism
[2023-06-08] MEDS: RIVAROXABAN 20 MG TAB PO SCH (16:17)
[2023-06-09] MEDS: PIPERACILLIN/TAZOBACTAM 4.5 GM in DEXTROSE 5% MINI-B 100 ML IV SCH ×2 (02:16→11:04)
[2023-06-09 05:01] LABS: BUN Creatinine Ratio 12.7 (10-20); Basophils # (auto) 0.03 K/uL (0.00-0.20); Basophils % (auto) 0.7 %; Calcium 8.4 mg/dl (8.6-10.3); Creatinine Clr Calc Pharmacy 61.1 ml/min; Eosinophils # (auto) 0.35 K/uL (0.00-0.50); Est GFR (African American) 81.2 ml/min; Est GFR (Non-African American) 70.1 ml/min; Globulin 2.9 gm/dl (2.5-4.0); Hematocrit (blood only) 27.8 % (42.0-52.0); Hemoglobin 9.3 g/dl (14.0-18.0); Immature Granulocytes # (auto) 0.02 K/uL (0.01-0.20); Immature Granulocytes % (auto) 0.5 %; Lymphocytes # (auto) 0.39 K/uL (1.20-3.40); Magnesium 1.5 mg/dl (1.7-2.4); Mean Corpuscular Hemoglobin 38.4 pg (25.0-34.0); Mean Corpuscular Hgb Conc 33.5 g/dL (32.0-36.0); Mean Corpuscular Volume 114.9 fL (80.0-100.0); Mean Platelet Volume 8.5 fL (9.4-12.4); Monocytes # (auto) 0.77 K/uL (0.11-0.59); Monocytes % (auto) 17.7 %; Neutrophils # (auto) 2.79 K/uL (1.40-6.50); Neutrophils % (auto) 64.1 %; Phosphorus 3.2 mg/dl (2.5-4.9); Platelet Count 144 K/uL (130-400); Potassium 3.9 mmol/L (3.5-5.1); RDW Coefficient of Variation 15.9 % (11.5-14.5); RDW Standard Deviation 67.2 fL (36.4-46.3); Red Blood Count 2.42 M/uL (4.70-6.10); Total Protein 5.9 gm/dl (6.0-8.3); White Blood Count 4.35 K/ul (4.8-10.8)
[2023-06-09] MEDS: UMECLIDINIUM/VILANTEROL 62.5/25MCG 7 PUFFS/INHALER INH SCH (08:34)
[2023-06-09] MEDS: DOXYCYCLINE HYCLATE 100 MG CAP PO SCH (08:35)
[2023-06-09] MEDS: METOPROLOL SUCC 25MG EXT REL TAB PO SCH (08:35)
[2023-06-09] MEDS: ASPIRIN 81 MG ECTAB PO SCH (08:35)
[2023-06-09] MEDS: FOLIC ACID 1 MG TAB PO SCH (08:35)
[2023-06-09] MEDS: SERTRALINE HCL 50 MG TABLET PO SCH (08:35)
[2023-06-09] MEDS: PANTOprazole 40 MG TAB PO SCH (08:35)
[2023-06-09] MEDS: ATORVASTATIN 40 MG TAB PO SCH (08:35)
[2023-06-09] MEDS ORDERED: MAGNESIUM OXIDE 400 MG TAB PO SCH (09:30)
[2023-06-09] MEDS: MAGNESIUM SULFATE / D5W 1 GM/100 ML BAG IV SCH ×2 (11:04→12:49)
--- NOTE | 2023-06-09 15:39 | Discharge Summary ---
Discharge Summary Date of Service June 09, 2023 Notes For Next Care Provider PCP follow up for pneumonia Consider pulmonology follow up Medication Changes From Visit 8 more days of PO Augmentin 875mg BID and doxycycline 100mg BID Take Doxycycline 4 hours apart from magnesium supplement Admission HPI Per Admitting Provider Pt is a 77yo very pleasant gentleman with Pmhx significant for lung cancer (s/p chemotherapy and radiation, currently receiving immunotherapy), atrial fibrillation anticoagulated with xarelto, DMII, HLD, hemochromatosis, Mood diso rder admitted with SOB in the setting of known pneumonia. Daughter and younger sister also present in the room and help provide the history. Pt states that 2 days ago started with diarrhea and SOB. Followed up with pcp and had outpt testing done that included a CTA chest. That did not show a PE but did note a pneumonia. Was started on Levaquin but states he only took 1 pill today. Also just started using oxygen and states he does not have a long cord for it so only uses it when he is sitting in his "spot." States that he used OTC diarrhea medication and his diarrhea got better. Notes that while the stools are liquid-like there is some form to it. Notes that he has only taken one dose of the antibiotics he was prescribed. States that the SOB is worse with ambulation, like when he gets up to use the bathroom. Has also been weaker than usual. Completed chemotherapy and radiation about a month ago and is now undergoing immunotherapy. Admission Exam Per Admitting Provider General: Alert, oriented. No acute distress Psych: Appropriate mood and affect Neuro: No gross deficits HEENT: NC/AT Chest: Nontender to palpation. CV: Irregular rate and rhythm Resp: Breath sounds decreased bilaterally, no increased effort of breathing. NC in nares Abdomen: Soft, nontender, nondistended. Extremities: No edema in lower extremities bilaterally. Principal Dx & Hospital Course #1 = Principal Diagnosis (1) Atrial fibrillation with rapid ventricular response: (2) Pneumonia: (3) Hemochromatosis: (4) Diabetes mellitus type II, controlled: (5) Primary cancer of right lower lobe of lung: (6) Acute hypoxic respiratory failure: Plan Pt is a 77yo very pleasant gentleman with Pmhx significant for lung cancer (s/p chemotherapy and radiation, currently receiving immunotherapy), atrial fibrillation anticoagulated with xarelto, DMII, HLD, hemochromatosis, Mood disorder admitted with SOB in the setting of known pneumonia. CTA PE 06/06 (from [facility] IMPRESSION 1. No pulmonary embolism. 2. Right lower lobe superior segment nodule is stable from 05/08/2023. 3. Increasing opacification in the right upper lobe posterior segment, consistent with pneumonia. Few new patchy alveolar opacities in the left lower lobe superior segment are probably also of infectious etiology. 4. Moderate decrease in right pleural effusion since 05/08/2023. 5. Severe emphysema. 6. No significant change in size of mediastinal and hilar lymph nodes. 7. Healing right rib fractures. 8. Cardiomegaly. Coronary artery calcifications. Pneumonia Acute hypoxic respiratory failure Pt with SOB, recently started on home oxygen after being diagnosed with pneumonia on CT scan by pcp Required up to 3L of oxygen, discharged on 2L, has home oxygen for use, 2L with ambulation CTA PE done outpt on 06/06 with pneumonia and other findings noted above Chest xray in house concerning for pneumonia WBC was relatively elevated given pt previously with low WBC levels. Sputum Cx with no significant growth to date, blood Cx x2 with NGTD at this time Was started on Levaquin outpt, received a dose of Cefepime in the ED Continue with IV Zosyn (for anaerobic coverage as well given pattern of opacification, concern for aspiration) and PO doxycycline. MRSA nares NEGATIVE, no need for Vanc for pneumonia. Speech consult placed- no concerns for aspiration. Continue to monitor, wean oxygen as tolerated. Pt improved symptomatically and was discharged with 8 more days of PO Augmentin and doxycycline. Diarrhea Per pt, diarrhea had some form, about 2 days duration States it has responded to OTC antidiarrheal medication Noted an episode of bloody stools AM of admission- no further episodes while hospitalized C diff ordered by the ED, not collected as pt without further episodes. Hgb was stable Hx of Lung Cancer Metastatic adenocarcinoma of the right lower lobe of the lung. Status post completion of combined radiation and chemotherapy about a month ago. Currently undergoing immunotherapy per family Continue home inhalers, compazine and zofran prn Atrial fibrillation with rapid ventricular response Persistent afib. On metoprolol succinate 25mg daily, xarelto for anticoagulation HR improved with hydration in the ED Received IV fluids. RVR improved, continued home metoprolol succinate dose with no changes made. DMII On metformin at home daily [id number] of 7.2 in Apr, repeat [id number] 5.5 this admission within normal limits Continue home metformin after discharge with pcp follow up Chronic anemia Macrocytosis Previously admitted with acute GI bleed Hgb stable at this time, during this admission Continue home ppi daily Still with macrocytosis, continue home folic acid and b12 supplement Pancytopenia 2/2 chemotherapy No longer pancytopenic, neutrophil count wnl Hypomagnesemia Continue home magnesium tabs Take about 4 hours apart from doxycycline Hemochromatosis Per [facility], had HFE testing done in 2016 Has not had phlebotomy for many years. Stable Mood Disorder chronic, stable. Continue home sertraline home ativan prn HLD continue home statin Discharge Exam General: Alert, oriented. No acute distress Psych: Appropriate mood and affect Neuro: No gross deficits HEENT: NC/AT Chest: Nontender to palpation. CV: Irregular rate and rhythm Resp: Breath sounds decreased bilaterally, no increased effort of breathing. NC in nares Abdomen: Soft, nontender, nondistended. Extremities: No edema in lower extremities bilaterally. Updated Medication List Medication Instructions Recorded Confirmed Type albuterol sulfate 90 mcg/actuation 2 puff inhalation Q4 PRN Shortness 06/30/12 06/07/23 History aerosol inhaler (ProAir HFA) Of Breath ##0 lorazepam 0.5 mg tablet 0.5 mg PO BID PRN #0 tabs 06/30/12 06/07/23 History nitroglycerin 0.4 mg sublingual 0.4 mg UT PRN #0 BTLS 07/18/12 06/07/23 History tablet (Nitrostat) rivaroxaban 20 mg tablet (Xarelto) 1 tab PO DAILY 30 days #30 tabs 11/17/16 06/07/23 History folic acid 1 mg tablet 1 mg PO DAILY 02/16/23 06/07/23 History atorvastatin 40 mg tablet 40 mg PO DAILY 04/14/23 06/07/23 History sertraline 50 mg tablet 50 mg PO QAM 04/14/23 06/07/23 History umeclidinium 62.5 mcg-vilanterol 1 inh inhalation QAM 04/14/23 06/07/23 History 25 mcg/actuation powdr for inhalation (Anoro Ellipta) metoprolol succinate 25 mg 25 mg PO QAM #30 tabs 04/20/23 06/07/23 Rx tablet,extended release 24 hr pantoprazole 40 mg tablet,delayed 40 mg PO QAM #30 tabs 04/20/23 06/07/23 Rx release aspirin 81 mg tablet,delayed 81 mg PO QAM 06/07/23 06/07/23 History release cyanocobalamin (vitamin B-12) 1,000 mcg PO QAM 06/07/23 06/07/23 History 1,000 mcg tablet (Vitamin B-12) magnesium oxide 400 mg PO DAILY 06/07/23 06/07/23 History amoxicillin 875 mg-potassium 1 tab PO BID #16 tabs 06/09/23 Rx clavulanate 125 mg tablet doxycycline hyclate 100 mg capsule 100 mg PO BID #16 caps 06/09/23 Rx Hospital Stay Data Consultations 06/07/23 18:42 ED Decision to Admit Stat Diagnostic Imagining Performed Chest X-Ray 06/07/23 15:48 XR chest 1V portable HISTORY: Sepsis COMPARISON: Chest CT 04/18/2023. FINDINGS: No pneumothorax. There are trace bilateral pleural effusions. The cardiac silhouette is top normal in size. This remains unchanged. There is diffuse interstitial thickening. This has progressed and may represent mild congestive change on the background of chronic interstitial lung disease. There is a surgical clip within the left upper quadrant.. Emphysema again noted. Patchy airspace opacities within the right midlung zone which is similar to the prior chest CT. This could represent posttreatment changes. A superimposed pneumonia would be difficult to exclude. IMPRESSION: 1. Diffuse interstitial thickening. This has progressed and may represent mild congestive change and the background of chronic interstitial lung disease. 2. Patchy airspace opacities within the right midlung zone are similar to the prior chest CT and likely represent posttreatment changes. A superimposed pneumonia would be difficult to exclude. ACT 112: Negative or not required by law. Electronically signed by: Efrain Yoo M.D. 06/07/2023 5:15 PM Pending Results Patient Have Any Pending Studies at Discharge: No Discharge Instructions Given to Patient (Per Discharging Provider) Mr. Bella, Eduard were admitted with trouble breathing and dizziness in the setting of a pneumonia. We treated you with IV antibiotics and your symptoms improved. We are discharging you home with an additional 8 days of antibiotics. Please take them as prescribed. We are discharging you with a homepack of these antibiotics (Augmentin and Doxycycline) to take tonight in case you cannot get your medications tonight from the pharmacy. Continue to use your home oxygen to help with your breathing especially when you are up and moving around. Please keep close follow up with your primary care provider as well. It was truly a pleasure taking care of you while you were here. Total Time Total Time Spent Total Time Spent (In Minutes): > 30 minutes
[2023-06-09] MEDS ORDERED: DOXYCYCLINE HYCLATE 100 MG CAP PO STA (16:31)
[2023-06-09] MEDS ORDERED: AMOXICILLIN/CLAVULANATE 875 MG TAB PO STA (16:32)
[2023-06-09] MEDS: RIVAROXABAN 20 MG TAB PO SCH (18:03)
[2023-06-09] MEDS ORDERED: DOXYCYCLINE HOME PACK 100 MG PO ONE (21:00)
[2023-06-09] MEDS ORDERED: AMOXICILLIN/CLAVULANATE 875MG HOME PACK PO ONE (21:00)
== END 2023-06-09 18:57 | disposition home or self-care (01) | DRG 193 ==
LOC: ED 15:26 → EDINP 19:03 → 2W 06-08 01:05

== ENCOUNTER 2023-06-20 12:40 | Inpatient (IN) ==
[2023-06-20] MEDS ORDERED: SODIUM CHLORIDE 0.9% 1,000 ML IV STA (12:56)
[2023-06-20 13:27] LABS: Basophils # (auto) 0.06 K/uL (0.00-0.20); Basophils % (auto) 0.9 %; Eosinophils # (auto) 0.17 K/uL (0.00-0.50); Eosinophils % (auto) 2.6 %; Hematocrit (blood only) 32.9 % (42.0-52.0); Immature Granulocytes # (auto) 0.02 K/uL (0.01-0.20); Immature Granulocytes % (auto) 0.3 %; Lymphocytes # (auto) 0.76 K/uL (1.20-3.40); Lymphocytes % (auto) 11.7 %; Mean Corpuscular Hemoglobin 38.1 pg (25.0-34.0); Mean Corpuscular Hgb Conc 33.4 g/dL (32.0-36.0); Mean Corpuscular Volume 113.8 fL (80.0-100.0); Mean Platelet Volume 9.3 fL (9.4-12.4); Monocytes # (auto) 1.15 K/uL (0.11-0.59); Monocytes % (auto) 17.8 %; Neutrophils # (auto) 4.31 K/uL (1.40-6.50); Neutrophils % (auto) 66.7 %; Platelet Count 187 K/uL (130-400); RDW Coefficient of Variation 14.5 % (11.5-14.5); RDW Standard Deviation 61.1 fL (36.4-46.3); Red Blood Count 2.89 M/uL (4.70-6.10); White Blood Count 6.47 K/ul (4.8-10.8)
--- NOTE | 2023-06-20 13:40 | XRay Report ---
XR chest 1V portable CLINICAL HISTORY: Chest pain, nonspecific TECHNIQUE: Single frontal radiograph of the chest was obtained. Comparison: Comparison is made to chest radiograph 06/07/2023 FINDINGS: No lines and tubes are seen. Calcified aortic knob is seen. Right midlung airspace opacity is increas ed in density from prior exam. No evidence of pleural effusion or pneumothorax. IMPRESSION: Increased density in the right midlung may represent atelectasis, pneumonia, and/or aspiration superi mposed upon posttreatment changes. ACT 112: Negative or not required by law. Electronically signed by: Riaz Branch M.D. 06/20/2023 1:39 PM
[2023-06-20 13:43] LABS: Albumin Level 3.4 gm/dl (3.4-5.0); BUN Creatinine Ratio 17.9 (10-20); Bilirubin,Total 1.6 mg/dl (0.2-1.0); Calcium 9.4 mg/dl (8.6-10.3); Creatinine Clr Calc Pharmacy 54.6 ml/min; Est GFR (African American) 88.5 ml/min; Est GFR (Non-African American) 76.4 ml/min; Globulin 3.5 gm/dl (2.5-4.0); Magnesium 1.6 mg/dl (1.7-2.4); Potassium 4.1 mmol/L (3.5-5.1); Total Protein 6.9 gm/dl (6.0-8.3)
--- NOTE | 2023-06-20 13:53 | Emergency Department Note ---
Impression & Plan Pneumonia, Acute hypotension, Atrial fibrillation with rapid ventricular response, Hypomagnesemia ED Provider Note NAME: THAIS KIMBLE AGE: 78 SEX: M ARRIVES VIA: Walk-In INFORMANT: Patient ED PROVIDER(S): Alex Linder MD CHIEF COMPLAINT: Fever, PNA, referred. PLAN: Disposition: Admit MEDICAL DECISION MAKING: The patient is a pleasant 78-year-old gentleman with a past medical history of lung cancer, history of atrial fibrillation on Xarelto, hypertension hyperlipidemia, hemochromatosis, diabetes, NICM with recovery of EF who presents to the emergency department via walk-in for evaluation of ongoing fevers with cough and congestion after being admitted to this facility from 06/07-06/09 for treatment of pneumonia. They report that the patient recently completed antibiotics following his admission yesterday and upon evaluation by home health today had a fever up to 104 per their report. They were referred to the emergency department by telehealth provider for assessment and admission. The patient denies vomiting, diarrhea or urinary symptoms. On my evaluation the patient is fatigued appearing but no distress, afebrile with heart in the 100s and blood pressure 80s/50s but mentating normally. He appears clinically dry. Scant rhonchi of right midlung graves and otherwise clear. EKG without overt acute ischemia. Chest x-ray demonstrates increased right midlung opacities from prior suspicious for progression of pneumonia in the clinical context per my preliminary interpretation. WBC and platelets within normal limits. H/H improved from prior. Chemistry without metabolic acidosis. Magnesium 1.6 with IV repletion provided. LFTs without significant abnormality. High-sensitivity troponin 6.5, within normal limits. Procalcitonin is undetectable. Respiratory viral panel/BioFire was negative. Empiric treatment for pneumonia initiated with IV Zosyn. MRSA swab ordered and pending. Patient did receive 2 L of normal saline with improvement and stabilization in his blood pressure. CT of the chest further characterizes lung findings suspicious for pneumonia. No evidence of pulmonary embolism. CT of the pelvis negative for acute intra- abdominal process. Case was discussed with Dr. Bajwa, [facility] hospitalist, who will evaluate the patient for admission. Empiric vancomycin also ordered while awaiting MRSA swab. Further management per admitting team. Triage Nursing notes reviewed and agree them. Prior/external medical records reviewed Vital Signs: reviewed Differential diagnosis: Viral syndrome, otitis, pharyngitis, pneumonia, influenza, meningitis, urinary tract infection, sepsis, bacteremia, as well as other pathologies. ER treatment provided: See below. Diagnostics interpreted by me: ECG: Atrial fibrillation, 86 bpm, no ectopy, no overt ST elevation or depression, QTc 464, QRS 90. Cardiac Monitoring: An order for continuous cardiac monitoring was placed and demonstrated Atrial fibrillation, 86 bpm, no ectopy. Laboratory studies: See below Imaging studies: See below Consultation(s): Dr. Bajwa, [facility] hospitalist HPI: The patient is a pleasant 78-year-old gentleman with a past medical history of lung cancer, history of atrial fibrillation on Xarelto, hypertension hyperlipidemia, hemochromatosis, diabetes, NICM with recovery of EF who presents to the emergency department via walk-in for evaluation of ongoing fevers with cough and congestion after being admitted to this facility from 06/07-06/09 for treatment of pneumonia. They report that the patient recently completed antibiotics following his admission yesterday and upon evaluation by home health today had a fever up to 104 per their report. They were referred to the emergency department by telehealth provider for assessment and admission. The patient denies vomiting, diarrhea or urinary symptoms. ROS: See above HPI for pertinent positives & negatives. A total of 10 systems reviewed and were otherwise negative. VITALS:See Below PHYSICAL EXAMINATION: GENERAL: Awake, alert, fatigued-appearing, in no distress HENT: Normocephalic, atraumatic. Oropharynx with dry mucous membranes and otherwise unremarkable. EYES: Normal conjunctiva. Sclera non-icteric. NECK: Supple. No nuchal rigidity. FROM. No JVD. RESPIRATORY: Scant rhonchi of right midlung graves and otherwise clear. CARDIAC: Tachycardic rate, irregular rhythm. Extremities warm and well perfused. Pulses equal. ABDOMEN: Soft, non-distended. No tenderness to palpation. No rebound or guarding. No masses. RECTAL: Deferred. MUSCULOSKELETAL: Chest examination reveals no tenderness. The back is symmetrical on inspection without obvious abnormality. There is no CVA tenderness to palpation. No joint edema. LOWER EXTREMITIES: Calves are equal size bilaterally and non-tender. No edema. No discoloration. NEURO: Normal sensorium. No sensory or motor deficits noted. SKIN: No rash or jaundice noted. Alex Linder MD Past Med/Surg History Medical History Hypomagnesemia Lung cancer Gall stones Skin cancer of scalp Diabetes mellitus type II, controlled Atrial fibrillation COPD (chronic obstructive pulmonary disease) with emphysema Surgical History H/O ventral hernia repair 09/01/2009 Dr. Cortes; right inguinal hernia H/O cataract removal with insertion of prosthetic lens 07/21 Hx of tonsillectomy <12 y/o H/O colonoscopy 10/27/2015 Dr. Sargent; Diverticulosis; repeat 10 yrs Family History Mother Breast cancer Father Diabetes Type I Stroke Sister Breast cancer Sister Autoimmune hemolytic anemia Aunt Breast cancer Social History Smoking Status: Former smoker Tobacco Type: Cigarettes Age Started Using Tobacco: 20; Age Quit Using Tobacco: 77; packs per day: 0.5; Second Hand Exposure: No; Do You Dip or Chew Tobacco: No; Tobacco Cessation Education Requested by Patient: No Hx Alcohol Use: No Hx Substance Use: No Preferred Language: Sinhala Communication Ability: Effective Visual Impairment: No Limitations Inspector Heating And Refrigeration Required: No Beliefs That Will Affect Care: None marital status: Current Living Situation: Spouse Current Living Situation Comment: Lives at home with , who he cares for current occupational status: employed 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 How many Children do You have: 2 Other Information That Helps Us Care for You: No Feels Safe at Home: Yes Safety Concerns: Feels Safe At This Time Assistive Devices: Cane Allergies Allergies Allergy/AdvReac Type Severity Reaction Status Date / Time No Known Drug Allergies Allergy Unknown Verified 06/20/23 16:00 Home Meds Home Medications Medication Instructions Recorded Confirmed albuterol sulfate 90 mcg/actuation 2 puff inhalation Q4 PRN Shortness 06/30/12 06/20/23 aerosol inhaler (ProAir HFA) Of Breath ##0 lorazepam 0.5 mg tablet 0.5 mg PO BID PRN #0 tabs 06/30/12 06/20/23 nitroglycerin 0.4 mg sublingual 0.4 mg UT PRN #0 BTLS 07/18/12 06/20/23 tablet (Nitrostat) rivaroxaban 20 mg tablet (Xarelto) 1 tab PO DAILY 30 days #30 tabs 11/17/16 06/20/23 folic acid 1 mg tablet 1 mg PO DAILY 02/16/23 06/20/23 atorvastatin 40 mg tablet 40 mg PO DAILY 04/14/23 06/20/23 sertraline 50 mg tablet 50 mg PO QAM 04/14/23 06/20/23 umeclidinium 62.5 mcg-vilanterol 1 inh inhalation QAM 04/14/23 06/20/23 25 mcg/actuation powdr for inhalation (Anoro Ellipta) aspirin 81 mg tablet,delayed 81 mg PO QAM 06/07/23 06/20/23 release cyanocobalamin (vitamin B-12) 1,000 mcg PO QAM 06/07/23 06/20/23 1,000 mcg tablet (Vitamin B-12) magnesium oxide 400 mg PO DAILY 06/07/23 06/20/23 Previous Rx's Medication Instructions Recorded metoprolol succinate 25 mg 25 mg PO QAM #30 tabs 04/20/23 tablet,extended release 24 hr pantoprazole 40 mg tablet,delayed 40 mg PO QAM #30 tabs 04/20/23 release Results & Data (ED) Vital Signs Vital Signs - 24 hr 06/20/23 12:43 06/20/23 12:58 06/20/23 13:00 Temperature 36.4 C L Temperature Source Oral Pulse Rate 102 H 104 H 99 H Respiratory Rate 20 20 Respiratory Effort / Characteristics Non-Labored Respiratory Depth Normal Blood Pressure 81/56 L 106/76 Blood Pressure Mean 64 86 Pulse Oximetry 99 96 Oxygen Delivery Method Room Air Nasal Cannula Oxygen Flow Rate 2 Sepsis Recent Fever Within 48 Hours No Sepsis New/Unexplained Change in Mental Status No Sepsis Action Taken by Nursing No Action Required Oxygen Flow Rate - Titration Pulse Oximetry Post Tiitration 06/20/23 13:06 06/20/23 13:39 06/20/23 15:30 Temperature Temperature Source Pulse Rate 87 90 Respiratory Rate 12 20 Respiratory Effort / Characteristics Respiratory Depth Blood Pressure 115/93 Blood Pressure Mean 98 Pulse Oximetry 87 L 94 98 Oxygen Delivery Method Nasal Cannula Nasal Cannula Nasal Cannula Oxygen Flow Rate 2 2 Sepsis Recent Fever Within 48 Hours Sepsis New/Unexplained Change in Mental Status Sepsis Action Taken by Nursing Oxygen Flow Rate - Titration 3 Pulse Oximetry Post Tiitration 93 Laboratory Data Attestation: I reviewed the patient's lab results. 06/20/23 13:03 06/20/23 13:03 Lab Results 06/20/23 06/20/23 06/20/23 Range/Units 13:03 13:46 14:32 WBC 6.47 (4.8-10.8) K/ul RBC 2.89 L (4.70-6.10) M/uL Hgb 11.0 L (14.0-18.0) g/dl Hct 32.9 L (42.0-52.0) % MCV 113.8 H (80.0-100.0) fL MCH 38.1 H (25.0-34.0) pg MCHC 33.4 (32.0-36.0) g/dL RDW Std Deviation 61.1 H (36.4-46.3) fL RDW Coeff of Norm 14.5 (11.5-14.5) % Plt Count 187 (130-400) K/uL MPV 9.3 L (9.4-12.4) fL Immature Gran % (Auto) 0.3 % Neut % (Auto) 66.7 % Lymph % (Auto) 11.7 % Jenkins % (Auto) 17.8 % Eos % (Auto) 2.6 % Baso % (Auto) 0.9 % Neut # (Auto) 4.31 (1.40-6.50) K/uL Lymph # (Auto) 0.76 L (1.20-3.40) K/uL Jenkins # (Auto) 1.15 H (0.11-0.59) K/uL Eos # (Auto) 0.17 (0.00-0.50) K/uL Baso # (Auto) 0.06 (0.00-0.20) K/uL Immature Gran # (Auto) 0.02 (0.01-0.20) K/uL Sodium 138 (136-145) mmol/L Potassium 4.1 (3.5-5.1) mmol/L Chloride 104 (98-107) mmol/L Carbon Dioxide 27 (21-32) mmol/L Anion Gap 7 (3-11) BUN 17 (6-23) mg/dl Creatinine 0.95 (0.6-1.4) mg/dl Est Cr Clr Drug Dosing 54.6 ml/min Est GFR ( Amer) 88.5 ml/min Est GFR (Non-Af Amer) 76.4 ml/min BUN/Creatinine Ratio 17.9 (10-20) Glucose 138 H (70-99(Fasting)) mg/dl Lactate 0.8 (0.4-2.0) mmol/L Calcium 9.4 (8.6-10.3) mg/dl Phosphorus (2.5-4.9) mg/dl Magnesium 1.6 L (1.7-2.4) mg/dl Total Bilirubin 1.6 H (0.2-1.0) mg/dl AST 19 (13-39) U/L ALT 8 (7-52) U/L Alkaline Phosphatase 74 (34-104) U/L Troponin I High Sens 6.5 (0-20) pg/ml Total Protein 6.9 (6.0-8.3) gm/dl Albumin 3.4 (3.4-5.0) gm/dl Globulin 3.5 (2.5-4.0) gm/dl Albumin/Globulin Ratio 1.0 (0.9-2) Lipase 3 L (11-82) U/L Procalcitonin < 0.05 (0-0.5) ng/ml Adenovirus (PCR) Not Detected (NotDetected) B. pertussis DNA (PCR) Not Detected (NotDetected) B.parapertussis DNA PCR Not Detected (NotDetected) C. pneumoniae DNA (PCR) Not Detected (NotDetected) Coronavirus OC43 (PCR) Not Detected (NotDetected) Coronavirus HKU1 (PCR) Not Detected (NotDetected) Coronavirus 229E (PCR) Not Detected (NotDetected) SARS-CoV-2 (PCR) Not Detected (NotDetected) Coronavirus NL63 (PCR) Not Detected (NotDetected) Human Metapneumovir PCR Not Detected (NotDetected) Influenza Type A (PCR) Not Detected (NotDetected) Influenza Type B (PCR) Not Detected (NotDetected) M. pneumoniae (PCR) Not Detected (NotDetected) Parainfluenza 1 (PCR) Not Detected (NotDetected) Parainfluenza 2 (PCR) Not Detected (NotDetected) Parainfluenza 3 (PCR) Not Detected (NotDetected) Parainfluenza 4 (PCR) Not Detected (NotDetected) RSV (PCR) Not Detected (NotDetected) Entero/Rhino (PCR) Not Detected (NotDetected) 06/20/23 Range/Units 14:34 WBC (4.8-10.8) K/ul RBC (4.70-6.10) M/uL Hgb (14.0-18.0) g/dl Hct (42.0-52.0) % MCV (80.0-100.0) fL MCH (25.0-34.0) pg MCHC (32.0-36.0) g/dL RDW Std Deviation (36.4-46.3) fL RDW Coeff of Norm (11.5-14.5) % Plt Count (130-400) K/uL MPV (9.4-12.4) fL Immature Gran % (Auto) % Neut % (Auto) % Lymph % (Auto) % Jenkins % (Auto) % Eos % (Auto) % Baso % (Auto) % Neut # (Auto) (1.40-6.50) K/uL Lymph # (Auto) (1.20-3.40) K/uL Jenkins # (Auto) (0.11-0.59) K/uL Eos # (Auto) (0.00-0.50) K/uL Baso # (Auto) (0.00-0.20) K/uL Immature Gran # (Auto) (0.01-0.20) K/uL Sodium (136-145) mmol/L Potassium (3.5-5.1) mmol/L Chloride (98-107) mmol/L Carbon Dioxide (21-32) mmol/L Anion Gap (3-11) BUN (6-23) mg/dl Creatinine (0.6-1.4) mg/dl Est Cr Clr Drug Dosing ml/min Est GFR ( Amer) ml/min Est GFR (Non-Af Amer) ml/min BUN/Creatinine Ratio (10-20) Glucose (70-99(Fasting)) mg/dl Lactate (0.4-2.0) mmol/L Calcium (8.6-10.3) mg/dl Phosphorus 3.2 (2.5-4.9) mg/dl Magnesium (1.7-2.4) mg/dl Total Bilirubin (0.2-1.0) mg/dl AST (13-39) U/L ALT (7-52) U/L Alkaline Phosphatase (34-104) U/L Troponin I High Sens (0-20) pg/ml Total Protein (6.0-8.3) gm/dl Albumin (3.4-5.0) gm/dl Globulin (2.5-4.0) gm/dl Albumin/Globulin Ratio (0.9-2) Lipase (11-82) U/L Procalcitonin (0-0.5) ng/ml Adenovirus (PCR) (NotDetected) B. pertussis DNA (PCR) (NotDetected) B.parapertussis DNA PCR (NotDetected) C. pneumoniae DNA (PCR) (NotDetected) Coronavirus OC43 (PCR) (NotDetected) Coronavirus HKU1 (PCR) (NotDetected) Coronavirus 229E (PCR) (NotDetected) SARS-CoV-2 (PCR) (NotDetected) Coronavirus NL63 (PCR) (NotDetected) Human Metapneumovir PCR (NotDetected) Influenza Type A (PCR) (NotDetected) Influenza Type B (PCR) (NotDetected) M. pneumoniae (PCR) (NotDetected) Parainfluenza 1 (PCR) (NotDetected) Parainfluenza 2 (PCR) (NotDetected) Parainfluenza 3 (PCR) (NotDetected) Parainfluenza 4 (PCR) (NotDetected) RSV (PCR) (NotDetected) Entero/Rhino (PCR) (NotDetected) Administered Medications Acetaminophen (Ofirmev) 1,000 mg in 100 mls @ 400 mls/hr IV Q8H PRN PRN Reason: Pain or Fever Stop: 06/23/23 22:09 Last Infusion: 06/20/23 22:35 Dose: Infused Documented By: Admin: 06/20/23 22:20 Dose: 400 mls/hr Documented By: RORY Metoprolol Succinate (Metoprolol Succ 25mg Ext Rel Tab) 25 mg PO BID TIANA Stop: 07/20/23 20:59 Last Admin: 06/20/23 22:25 Dose: Not Given Documented By: DM Metoprolol Tartrate (Metoprolol Tartrate 1 Mg/Ml Vial) 5 mg IV Q6 PRN PRN Reason: Tachycardia Stop: 07/21/23 00:00 Last Admin: 06/20/23 22:33 Dose: 5 mg Documented By: DM Discontinued Medications Sodium Chloride (Nss) 1,000 mls @ 999 mls/hr IV .Q1H1M STA Stop: 06/20/23 13:56 Last Infusion: 06/20/23 14:52 Dose: Infused Documented By: Admin: 06/20/23 13:41 Dose: 999 mls/hr Documented By: ALEXY Magnesium Sulfate/Dextrose (Magnesium Sulfate / D5w) 1 gm in 100 mls @ 100 mls/hr IV NOW STA Stop: 06/20/23 15:20 Last Infusion: 06/20/23 15:34 Dose: Infused Documented By: Admin: 06/20/23 14:41 Dose: 100 mls/hr Documented By: LUANNE Piperacillin Sod/Tazobactam Sod (Zosyn) 4.5 gm in 100 mls @ 200 mls/hr IV NOW ONE Stop: 06/20/23 14:50 Last Infusion: 06/20/23 15:18 Dose: Infused Documented By: Admin: 06/20/23 14:41 Dose: 200 mls/hr Documented By: LUANNE Sodium Chloride (Nss) 1,000 mls @ 999 mls/hr IV .Q1H1M ONE Stop: 06/20/23 15:21 Last Infusion: 06/20/23 15:34 Dose: Infused Documented By: Admin: 06/20/23 14:41 Dose: 999 mls/hr Documented By: LUANNE Vancomycin HCl 1,500 mg/ (Sodium Chloride) 530 mls @ 200 mls/hr IV NOW ONE Stop: 06/20/23 18:28 Last Infusion: 06/20/23 19:46 Dose: Infused Documented By: Admin: 06/20/23 16:39 Dose: 200 mls/hr Documented By: ALEXY Cefepime HCl 2,000 mg/ Syringe 20 mls @ 5 mls/min IV 1900 ONE; Protocol Stop: 06/20/23 19:03 Last Admin: 06/20/23 19:04 Dose: 5 mls/min Documented By: CRISTINO Ioversol (Optiray 320 500ml) 115 ml IV ONCE ONE Stop: 06/20/23 15:06 Last Admin: 06/20/23 15:05 Dose: 115 ml Documented By: JERICA Metoprolol Tartrate (Metoprolol Tartrate 1 Mg/Ml Vial) 5 mg IV NOW STA Stop: 06/20/23 20:22 Last Admin: 06/20/23 20:31 Dose: 5 mg Documented By: CRISTINO Imaging Data Radiologist's Impression: Chest X-Ray 06/20/23 12:56 XR chest 1V portable CLINICAL HISTORY: Chest pain, nonspecific TECHNIQUE: Single frontal radiograph of the chest was obtained. Comparison: Comparison is made to chest radiograph 06/07/2023 FINDINGS: No lines and tubes are seen. Calcified aortic knob is seen. Right midlung airspace opacity is increased in density from prior exam. No evidence of pleural effusion or pneumothorax. IMPRESSION: Increased density in the right midlung may represent atelectasis, pneumonia, and/or aspiration superimposed upon posttreatment changes. ACT 112: Negative or not required by law. Electronically signed by: Riaz Branch M.D. 06/20/2023 1:39 PM Abdomen/Pelvis CT 06/20/23 14:09 CT OF THE ABDOMEN AND PELVIS WITH CONTRAST CLINICAL HISTORY: SIRS, diarrhea, recent ABX COMPARISON STUDY: CT of the abdomen and pelvis April 15, 2023. TECHNIQUE: Following IV administration of 115 mL of Optiray, axial images of the abdomen and pelvis were obtained from the lung bases to the proximal femurs. Images were reviewed in the axial, sagittal, and coronal planes. IV contrast was administered without complication. Automated exposure control was utilized for the study. A dose lowering technique was utilized adhering to the principles of ALARA. CT DOSE: 1566.69 mGy.cm FINDINGS: Please note that the chest CT will be reported separately. No pneumatosis, free air or portal venous gas is present. There are no hepatic lesions. There is no biliary or pancreatic ductal dilatation. Spleen, adrenal glands, kidneys and pancreas are unremarkable. There is no hydronephrosis. There is mild symmetric bilateral perinephric stranding. Extensive colonic diverticulosis is present. There is no evidence for acute diverticulitis. The appendix is normal. There is no evidence for a bowel obstruction. Minimal presacral stranding is likely due to volume overload. There is mild anasarca. The infrarenal abdominal aorta is ectatic. Major vasculature is patent. Moderate aortoiliac atherosclerotic plaque. There is no lymphadenopathy. No fluid collections are present. IMPRESSION: 1. No acute process within the abdomen or pelvis. 2. Extensive colonic diverticulosis. No evidence for acute diverticulitis. 3. Anasarca. ACT 112: Negative or not required by law. Electronically signed by: Chung Pelayo M.D. 06/20/2023 3:40 PM Chest CTA 06/20/23 14:09 CT ANGIOGRAPHY OF THE CHEST, PULMONARY EMBOLUS PROTOCOL CLINICAL HISTORY: Cough, sob, fever, r/o PE. Lung cancer. COMPARISON STUDY: Chest CT April 18, 2023. Chest radiograph performed earlier today. TECHNIQUE: Following IV administration of 115 mL of Optiray, helical axial images of the chest were obtained utilizing the pulmonary embolus protocol. Maximal intensity projections and sagittal and coronal reformats were viewed on an independent 3D workstation. IV contrast was administered without complication. Automated exposure control was utilized for the study. A dose lowering technique was utilized adhering to the principles of ALARA. FINDINGS: No pulmonary emboli are identified. There is mild cardiomegaly and moderate coronary artery calcification. There is no pericardial effusion. Mediastinal and right hilar lymph nodes have mildly increased in size since chest CT of April 18, 2023. Index AP window lymph node measures 2.5 x 1.7 cm. It previously measured 1.9 x 1.3 cm. Small right and trace left pleural effusions are present. There is no pneumothorax. Severe emphysema is noted. The previously described right lower lobe lesion is obscured on this examination by airspace opacity. Moderate multifocal airspace opacities within the lungs are present. There is interlobular septal thickening. There is no cavitation. No suspicious lesions within the bony thorax are noted. Visualized portions of the upper abdomen are unremarkable. IMPRESSION: 1. No pulmonary emboli identified. 2. Moderate multifocal airspace opacities within the lungs. The findings favor multifocal pneumonia. Alveolar pulmonary edema could appear similar although is considered less likely. This airspace opacity obscures the previously described right lower lobe lesion. A follow-up chest CT in 2 months to ensure resolution is recommended. 3. Increase in mediastinal and right hilar lymphadenopathy. This may be reactive or related to pulmonary edema. However, progression of pathologic lymphadenopathy cannot be excluded and these nodes can be assessed on follow-up CT. 4. Interlobular septal thickening suggestive of mild pulmonary edema. Small right and trace left pleural effusions. 5. Emphysema. ACT 112: Negative or not required by law. Electronically signed by: Chung Pelayo M.D. 06/20/2023 3:31 PM Discharge Plan Visit Data Chief Complaint: Shortness of Breath/Dyspnea Stated Complaint: FEVER, CONGESTION, DIZZY, SOB ED Provider: Alex Linder Discharge Problem: Pneumonia, Acute hypotension, Atrial fibrillation with rapid ventricular response, Hypomagnesemia Patient Disposition: Admitted As Inpatient Discharge Instructions Interventions: ED Discharge Assessment Last Done: 06/20/23 19:29 Discharge Problem: Pneumonia Qualifiers: Pneumonia type: due to unspecified organism Laterality: right Lung location: u nspecified part of lung Qualified Code(s): J18.9 - Pneumonia, unspecified organism
[2023-06-20] MEDS ORDERED: MAGNESIUM SULFATE / D5W 1 GM/100 ML BAG IV STA (14:21)
[2023-06-20] MEDS ORDERED: PIPERACILLIN/TAZOBACTAM 4.5 GM/100 ML BAG IV ONE (14:21)
[2023-06-20] MEDS ORDERED: SODIUM CHLORIDE 0.9% 1,000 ML IV ONE ×2 (14:21→22:59)
[2023-06-20 14:46] LABS: Troponin I High Sensitivity 6.5 pg/ml (0-20)
[2023-06-20 14:53] LABS: Adenovirus PCR Not Detected (NotDetected); Bordetella parapertussis PCR Not Detected (NotDetected); Bordetella pertussis PCR Not Detected (NotDetected); Chlamydia pneumoniae PCR Not Detected (NotDetected); Coronavirus 229E PCR Not Detected (NotDetected); Coronavirus CoV-2 (COVID19)PCR Not Detected (NotDetected); Coronavirus HKU1 PCR Not Detected (NotDetected); Coronavirus NL63 PCR Not Detected (NotDetected); Coronavirus OC43PCR Not Detected (NotDetected); Human Metapneumovirus PCR Not Detected (NotDetected); Influenza A PCR Not Detected (NotDetected); Influenza B PCR Not Detected (NotDetected); Mycoplasma pneumoniae PCR Not Detected (NotDetected); Parainfluenza Virus 1 PCR Not Detected (NotDetected); Parainfluenza Virus 2 PCR Not Detected (NotDetected); Parainfluenza Virus 3 PCR Not Detected (NotDetected); Parainfluenza Virus 4 PCR Not Detected (NotDetected); Respiratory Syncytial VirusPCR Not Detected (NotDetected); Rhinovirus/Enterovirus PCR Not Detected (NotDetected)
[2023-06-20] MEDS ORDERED: OPTIRAY 320 500ml IV ONE (15:05)
--- NOTE | 2023-06-20 15:33 | CT Scan Report ---
CT ANGIOGRAPHY OF THE CHEST, PULMONARY EMBOLUS PROTOCOL CLINICAL HISTORY: Cough, sob, fever, r/o PE. Lung cancer. COMPARISON STUDY: Chest CT April 18, 2023. Chest radiograph performed earlier today. TECHNIQUE: Following IV administration of 115 mL of Optiray, helical axial images of the chest were o btained utilizing the pulmonary embolus protocol. Maximal intensity projections and sagittal and cor onal reformats were viewed on an independent 3D workstation. IV contrast was administered without co mplication. Automated exposure control was utilized for the study. A dose lowering technique was ut ilized adhering to the principles of ALARA. FINDINGS: No pulmonary emboli are identified. There is mild cardiomegaly and moderate coronary arter y calcification. There is no pericardial effusion. Mediastinal and right hilar lymph nodes have mildl y increased in size since chest CT of April 18, 2023. Index AP window lymph node measures 2.5 x 1 .7 cm. It previously measured 1.9 x 1.3 cm. Small right and trace left pleural effusions are present. There is no pneumothorax. Severe emphysema is noted. The previously described right lower lobe lesio n is obscured on this examination by airspace opacity. Moderate multifocal airspace opacities within the lungs are present. There is interlobular septal thickening. There is no cavitation. No suspicious lesions within the bony thorax are noted. Visualized portions of the upper abdomen are unremarkable. IMPRESSION: 1. No pulmonary emboli identified. 2. Moderate multifocal airspace opacities within the lungs. The findings favor multifocal pneumonia. Alveolar pulmonary edema could appear similar although is considered less likely. This airspace opaci ty obscures the previously described right lower lobe lesion. A follow-up chest CT in 2 months to ens ure resolution is recommended. 3. Increase in mediastinal and right hilar lymphadenopathy. This may be reactive or related to pulmon chin edema. However, progression of pathologic lymphadenopathy cannot be excluded and these nodes can be assessed on follow-up CT. 4. Interlobular septal thickening suggestive of mild pulmonary edema. Small right and trace left pleu ral effusions. 5. Emphysema. ACT 112: Negative or not required by law. Electronically signed by: Chung Pelayo M.D. 06/20/2023 3:31 PM
--- NOTE | 2023-06-20 15:41 | CT Scan Report ---
CT OF THE ABDOMEN AND PELVIS WITH CONTRAST CLINICAL HISTORY: SIRS, diarrhea, recent ABX COMPARISON STUDY: CT of the abdomen and pelvis April 15, 2023. TECHNIQUE: Following IV administration of 115 mL of Optiray, axial images of the abdomen and pelvis w ere obtained from the lung bases to the proximal femurs. Images were reviewed in the axial, sagittal, and coronal planes. IV contrast was administered without complication. Automated exposure control w as utilized for the study. A dose lowering technique was utilized adhering to the principles of ALAR Mira. CT DOSE: 1566.69 mGy.cm FINDINGS: Please note that the chest CT will be reported separately. No pneumatosis, free air or port al venous gas is present. There are no hepatic lesions. There is no biliary or pancreatic ductal dila tation. Spleen, adrenal glands, kidneys and pancreas are unremarkable. There is no hydronephrosis. Th ere is mild symmetric bilateral perinephric stranding. Extensive colonic diverticulosis is present. T here is no evidence for acute diverticulitis. The appendix is normal. There is no evidence for a sivan l obstruction. Minimal presacral stranding is likely due to volume overload. There is mild anasarca. The infrarenal abdominal aorta is ectatic. Major vasculature is patent. Moderate aortoiliac atheroscl erotic plaque. There is no lymphadenopathy. No fluid collections are present. IMPRESSION: 1. No acute process within the abdomen or pelvis. 2. Extensive colonic diverticulosis. No evidence for acute diverticulitis. 3. Anasarca. ACT 112: Negative or not required by law. Electronically signed by: Chnug Pelayo M.D. 06/20/2023 3:40 PM
[2023-06-20] MEDS ORDERED: VANCOMYCIN CONSULT ACTIVE PRN (15:50)
[2023-06-20] MEDS ORDERED: VANCOMYCIN HCL 1,500 MG in SODIUM CHLORIDE 0.9% 500 ML IV ONE (15:50)
[2023-06-20] MEDS ORDERED: MAGNESIUM HYDROXIDE SUSP 30 ML UDC PO PRN (16:12)
[2023-06-20] MEDS ORDERED: ALUMINUM/MAGNESIUM SUSP 30 ML UDC PO PRN (16:12)
[2023-06-20] MEDS ORDERED: POLYETHYLENE (MIRALAX) 17 GM PACK PO PRN (16:12)
[2023-06-20] MEDS ORDERED: ONDANSETRON INJ 2 MG/ML 2 ML VIAL IV PRN (16:12)
--- NOTE | 2023-06-20 16:23 | History & Physical Report ---
Date of Service June 20, 2023 Assessment & Plan (1) Acute hypoxic respiratory failure: (2) Pneumonia: (3) Hypomagnesemia: (4) Diabetes mellitus type II, controlled: (5) Anemia: (6) Primary cancer of right lower lobe of lung: (7) Atrial fibrillation with rapid ventricular response: Plan Mr. Bella is a 78 year old male that presents to the ED as recommended by his home health nurse for persistent fevers up to 103, hemoptysis, and SOB. He stated that his chest feels tight in the morning at times and he has a persistent dry cough. He does report producing brown sputum intermittently. He attended his hospital follow-up as an outpatient today. Patient was recently admitted from 06/07-06/09 for PNA. He Previously completed a course of Levaquin as an OPT; completed Zosyn + Doxy most recent admission and transition to Augmentin plus Doxy to complete home regimen which was completed yesterday. WBC 6.47; suspect elevated given recent chemo completion and lung cancer history. CXR suggestive of RML PNA vs aspiration PNA. abdomen/pelvis CT negative for SBO, suggestive of diverticulosis without diverticulitis. Chest CTA: as outlined: 1. No pulmonary emboli identified. 2. Moderate multifocal airspace opacities within the lungs. The findings favor multifocal pneumonia. Alveolar pulmonary edema could appear similar although is considered less likely. This airspace opacity obscures the previously described right lower lobe lesion. A follow-up chest CT in 2 months to ensure resolution is recommended. 3. Increase in mediastinal and right hilar lymphadenopathy. This may be reactive or related to pulmonary edema. However, progression of pathologic lymphadenopathy cannot be excluded and these nodes can be assessed on follow-up CT. 4. Interlobular septal thickening suggestive of mild pulmonary edema. Small right and trace left pleural effusions. 5. Emphysema. Obtain Blood Cultures and sputum, order MRSA swab, st ool culture including CDiff obtained in ED. continue IV antibiotics Vanco plus cefepime. Patient would benefit from palliative medicine consultation. Patient indicated frustration with repeat hospitalizations and feels informed with his lung cancer prognosis. Unfortunately this individual and his family have increased stress at home taking care of his who is full care. It appears that the stress is increasing over the recent weeks and months. Patient is a DNR/DNI which was confirmed during this ER admission. Patient could benefit from PT OT for short-term rehab and respite for family as well. After initial admission, nursing contacted me to notify me that his HR was gradually increasing; into the 150-160's. ECG obtained AF RVR known. Patient had just eaten and had emesis x2; high risk for aspiration. Stat CXR without aspiration or worsening on comparison from AM CXR. Bedside ABG obtained O2 77%, otherwise compensated respiratory acidosis. Placed on NRB. Want to avoid Bipap as patient having intermittent emesis. Takes Metoprolol; administered 5 mg IV Metoprolol with some resolution. Will give additional PO dose of Metoprolol as well.Family updated. Acute hypoxic Respiratory Failure: Multifocal PNA: acute uncontrolled Recent admission 06/07-06/09 for PNA; completed course of Augmentin + Doxy; last dose yesterday IV Vanco started in ED; continue and add Cefepime IV; adjust based on culture results Requiring 2LNC WBC 6.47; suspect elevated given recent chemo completion and lung ca history Obtain Blood Cultures and sputum Previously completed a course of Levaquin as an OPT; completed Zosyn + Doxy most recent admission. 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 follows with Dr. Mari s/p completion of chemotherapy/radiation Currently perusing immunotherapy Continue Anoruth Damonta Has had thoracentesis in the past; if no improvement with abx and worsening of pleural effusions;consider pulm consultation Palliative medicine consultation as outlined above Hypomagnesemia: Acute uncontrolled serum Mg+ in ED; 1.6; replaced with 1 G Mg+ in ED; will trend Mg+ level in AM DM2: chronic stable A1C 5.5 on 06/08/23 Diabetic Diet Atrial Fibrillation: chronic stable Takes Metoprolol and Xarelto; continue Anemia of chronic disease: chronic stable serum Hgb 11.0 Takes pantoprazole;continue Depression: chronic stable takes sertraline;continue Disposition: PCP: Dr. Rojas @ [facility] Code Status: DNR/DNI VTE Prophylaxis: On Xarelto I spent a total of 87 minutes coordinating, documenting, and providing care for this patient excluding time spent in the performance of separately billed services. All of the aforementioned completed while collaborating with the assigned attending physician for a full treatment plan. Please see their addendum for further details. History of Present Illness Chief Complaint: PNA; acute hypoxic respiratory failure Primary Care Provider: So Dave DO Mr. Bella is a 78 year old male that presents to the ED as recommended by his home health nurse for persistent fevers up to 103, hemoptysis, and SOB. He stated that his chest feels tight in the morning at times and he has a persistent dry cough. He does report producing brown sputum intermittently. He attended his hospital follow-up as an outpatient today. Patient was recently admitted from 06/07-06/09 for PNA. He Previously completed a course of Levaquin as an OPT; completed Zosyn + Doxy most recent admission and transition to Augmentin plus Doxy to complete home regimen which was completed yesterday. WBC 6.47; suspect elevated given recent chemo completion and lung cancer history. CXR suggestive of RML PNA vs aspiration PNA. abdomen/pelvis CT negative for SBO, suggestive of diverticulosis without diverticulitis. Chest CTA: as outlined: 1. No pulmonary emboli identified. 2. Moderate multifocal airspace opacities within the lungs. The findings favor multifocal pneumonia. Alveolar pulmonary edema could appear similar although is considered less likely. This airspace opacity obscures the previously described right lower lobe lesion. A follow-up chest CT in 2 months to ensure resolution is recommended. 3. Increase in mediastinal and right hilar lymphadenopathy. This may be reactive or related to pulmonary edema. However, progression of pathologic lymphadenopathy cannot be excluded and these nodes can be assessed on follow-up CT. 4. Interlobular septal thickening suggestive of mild pulmonary edema. Small right and trace left pleural effusions. 5. Emphysema. Obtain Blood Cultures and sputum, order MRSA swab, stool culture including CDiff obtained in ED. continue IV antibiotics Vanco plus cefepime. Patient would benefit from palliative medicine consultation. Patient indicated frustration with repeat hospitalizations and feels informed with his lung cancer prognosis. Unfortunately this individual and his family have increased stress at home taking care of his who is full care. It appears that the stress is increasing over the recent weeks and months. Patient is a DNR/DNI which was confirmed during this ER admission. Patient could benefit from PT OT for short- term rehab and respite for family as well. After initial admission, nursing contacted me to notify me that his HR was gradually increasing; into the 150-160's. ECG obtained AF RVR known. Patient had just eaten and had emesis x2; high risk for aspiration. Stat CXR without aspiration or worsening on comparison from AM CXR. Bedside ABG obtained O2 77%, otherwise compensated respiratory acidosis. Placed on NRB. Want to avoid Bipap as patient having intermittent emesis. Takes Metoprolol; administered 5 mg IV Metoprolol with some resolution. Will give additional PO dose of Metoprolol as well.Family updated. Patient will be admitted for further evaluation and management. Please see A/P for further details. Allergies Allergy/AdvReac Type Severity Reaction Status Date / Time No Known Drug Allergies Allergy Unknown Verified 06/20/23 16:00 Home Medications Medication Instructions Recorded Confirmed Type albuterol sulfate 90 mcg/actuation 2 puff inhalation Q4 PRN Shortness 06/30/12 06/20/23 History aerosol inhaler (ProAir HFA) Of Breath ##0 lorazepam 0.5 mg tablet 0.5 mg PO BID PRN #0 tabs 06/30/12 06/20/23 History nitroglycerin 0.4 mg sublingual 0.4 mg UT PRN #0 BTLS 07/18/12 06/20/23 History tablet (Nitrostat) rivaroxaban 20 mg tablet (Xarelto) 1 tab PO DAILY 30 days #30 tabs 11/17/16 06/20/23 History folic acid 1 mg tablet 1 mg PO DAILY 02/16/23 06/20/23 History atorvastatin 40 mg tablet 40 mg PO DAILY 04/14/23 06/20/23 History sertraline 50 mg tablet 50 mg PO QAM 04/14/23 06/20/23 History umeclidinium 62.5 mcg-vilanterol 1 inh inhalation QAM 04/14/23 06/20/23 History 25 mcg/actuation powdr for inhalation (Anoro Ellipta) metoprolol succinate 25 mg 25 mg PO QAM #30 tabs 04/20/23 06/20/23 Rx tablet,extended release 24 hr pantoprazole 40 mg tablet,delayed 40 mg PO QAM #30 tabs 04/20/23 06/20/23 Rx release aspirin 81 mg tablet,delayed 81 mg PO QAM 06/07/23 06/20/23 History release cyanocobalamin (vitamin B-12) 1,000 mcg PO QAM 06/07/23 06/20/23 History 1,000 mcg tablet (Vitamin B-12) magnesium oxide 400 mg PO DAILY 06/07/23 06/20/23 History Past Med/Surg History Medical History Hypomagnesemia Lung cancer Gall stones Skin cancer of scalp Diabetes mellitus type II, controlled Atrial fibrillation COPD (chronic obstructive pulmonary disease) with emphysema Surgical History H/O ventral hernia repair 09/01/2009 Dr. Cortes; right inguinal hernia H/O cataract removal with insertion of prosthetic lens 07/21 Hx of tonsillectomy <12 y/o H/O colonoscopy 10/27/2015 Dr. Sargent; Diverticulosis; repeat 10 yrs Family History Mother Breast cancer Father Diabetes Type I Stroke Sister Breast cancer Sister Autoimmune hemolytic anemia Aunt Breast cancer Social History Smoking Status: Former smoker Tobacco Type: Cigarettes Age Started Using Tobacco: 20; Age Quit Using Tobacco: 77; packs per day: 0.5; Second Hand Exposure: No; Do You Dip or Chew Tobacco: No; Tobacco Cessation Education Requested by Patient: No Hx Alcohol Use: No Hx Substance Use: No Preferred Language: Chinese Communication Ability: Effective Visual Impairment: No Limitations Kettle Operator Required: No Beliefs That Will Affect Care: None marital status: Current Living Situation: Spouse Current Living Situation Comment: Lives at home with , who he cares for current occupational status: employed 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 How many Children do You have: 2 Other Information That Helps Us Care for You: No Feels Safe at Home: Yes Safety Concerns: Feels Safe At This Time Assistive Devices: Cane Review of Systems Review of Systems: Neuro: (-) Falls, trauma, slurred speech HEENT: (-) ALONZO, dizziness, dysphagia, visual or auditory changes CV: (-) CP, palpitations, swelling Resp: (-) SOB (-) orthopnea GI: (-) appetite changes, N/V/D, bowel changes : (-) urinary changes Skin: (-) rashes Psych: (-) anxiety, depression Physical Exam Physical Exam: Neuro: AAOx4, PERRLA, no aphagia, memory changes, CNII-XII grossly intact HEENT: head normocephalic, moist mucus membranes CV: S1/S2, (-) M/G/R, (-) edema, cap refill < 3 seconds Resp: Lungs CTA in all graves. On 2LNC GI: Abdomen S/NT/ND, Ax4 bowel sounds, (-) CVA tenderness Musculoskeletal: 5/5 B/L UE strength, 5/5 B/L LE strength. No gait disturbance Skin: (-) rashes , (-) erythema. Psych: euthymic mood Results & Data Results & Data Vital Signs (Past 12 Hours) Vital Signs Temp Pulse Resp BP Pulse Ox O2 Del Method O2 Flow Rate 06/20/23 15:30 90 20 115/93 98 Nasal Cannula 2 06/20/23 13:39 87 12 94 Nasal Cannula 2 06/20/23 13:06 87 L Nasal Cannula 06/20/23 13:00 99 H 20 106/76 96 Nasal Cannula 2 06/20/23 12:58 104 H 06/20/23 12:43 36.4 C L 102 H 20 81/56 L 99 Room Air Laboratory Results Short CBC 06/20/23 Range/Units 13:03 WBC 6.47 (4.8-10.8) K/ul Hgb 11.0 L (14.0-18.0) g/dl Hct 32.9 L (42.0-52.0) % Plt Count 187 (130-400) K/uL BMP 06/20/23 13:03 Sodium 138 Potassium 4.1 Chloride 104 Carbon Dioxide 27 BUN 17 Creatinine 0.95 Glucose 138 H Calcium 9.4 Liver Function 06/20/23 Range/Units 13:03 Total Bilirubin 1.6 H (0.2-1.0) mg/dl AST 19 (13-39) U/L ALT 8 (7-52) U/L Alkaline Phosphatase 74 (34-104) U/L Albumin 3.4 (3.4-5.0) gm/dl Diagnostic Findings Chest X-Ray 06/20/23 12:56 XR chest 1V portable CLINICAL HISTORY: Chest pain, nonspecific TECHNIQUE: Single frontal radiograph of the chest was obtained. Comparison: Comparison is made to chest radiograph 06/07/2023 FINDINGS: No lines and tubes are seen. Calcified aortic knob is seen. Right midlung airspace opacity is increased in density from prior exam. No evidence of pleural effusion or pneumothorax. IMPRESSION: Increased density in the right midlung may represent atelectasis, pneumonia, and/or aspiration superimposed upon posttreatment changes. ACT 112: Negative or not required by law. Electronically signed by: Riaz Branch M.D. 06/20/2023 1:39 PM Abdomen/Pelvis CT 06/20/23 14:09 CT OF THE ABDOMEN AND PELVIS WITH CONTRAST CLINICAL HISTORY: SIRS, diarrhea, recent ABX COMPARISON STUDY: CT of the abdomen and pelvis April 15, 2023. TECHNIQUE: Following IV administration of 115 mL of Optiray, axial images of the abdomen and pelvis were obtained from the lung bases to the proximal femurs. Images were reviewed in the axial, sagittal, and coronal planes. IV contrast was administered without complication. Automated exposure control was utilized for the study. A dose lowering technique was utilized adhering to the principles of ALARA. CT DOSE: 1566.69 mGy.cm FINDINGS: Please note that the chest CT will be reported separately. No pneumatosis, free air or portal venous gas is present. There are no hepatic lesions. There is no biliary or pancreatic ductal dilatation. Spleen, adrenal glands, kidneys and pancreas are unremarkable. There is no hydronephrosis. There is mild symmetric bilateral perinephric stranding. Extensive colonic diverticulosis is present. There is no evidence for acute diverticulitis. The appendix is normal. There is no evidence for a bowel obstruction. Minimal presacral stranding is likely due to volume overload. There is mild anasarca. The infrarenal abdominal aorta is ectatic. Major vasculature is patent. Moderate aortoiliac atherosclerotic plaque. There is no lymphadenopathy. No fluid collections are present. IMPRESSION: 1. No acute process within the abdomen or pelvis. 2. Extensive colonic diverticulosis. No evidence for acute diverticulitis. 3. Anasarca. ACT 112: Negative or not required by law. Electronically signed by: Chung Pelayo M.D. 06/20/2023 3:40 PM Chest CTA 06/20/23 14:09 CT ANGIOGRAPHY OF THE CHEST, PULMONARY EMBOLUS PROTOCOL CLINICAL HISTORY: Cough, sob, fever, r/o PE. Lung cancer. COMPARISON STUDY: Chest CT April 18, 2023. Chest radiograph performed earlier today. TECHNIQUE: Following IV administration of 115 mL of Optiray, helical axial images of the chest were obtained utilizing the pulmonary embolus protocol. Maximal intensity projections and sagittal and coronal reformats were viewed on an independent 3D workstation. IV contrast was administered without complication. Automated exposure control was utilized for the study. A dose lowering technique was utilized adhering to the principles of ALARA. FINDINGS: No pulmonary emboli are identified. There is mild cardiomegaly and moderate coronary artery calcification. There is no pericardial effusion. Mediastinal and right hilar lymph nodes have mildly increased in size since chest CT of April 18, 2023. Index AP window lymph node measures 2.5 x 1.7 cm. It previously measured 1.9 x 1.3 cm. Small right and trace left pleural effusions are present. There is no pneumothorax. Severe emphysema is noted. The previously described right lower lobe lesion is obscured on this examination by airspace opacity. Moderate multifocal airspace opacities within the lungs are present. There is interlobular septal thickening. There is no cavitation. No suspicious lesions within the bony thorax are noted. Visualized portions of the upper abdomen are unremarkable. IMPRESSION: 1. No pulmonary emboli identified. 2. Moderate multifocal airspace opacities within the lungs. The findings favor multifocal pneumonia. Alveolar pulmonary edema could appear similar although is considered less likely. This airspace opacity obscures the previously described right lower lobe lesion. A follow-up chest CT in 2 months to ensure resolution is recommended. 3. Increase in mediastinal and right hilar lymphadenopathy. This may be reactive or related to pulmonary edema. However, progression of pathologic lymphadenopathy cannot be excluded and these nodes can be assessed on follow-up CT. 4. Interlobular septal thickening suggestive of mild pulmonary edema. Small right and trace left pleural effusions. 5. Emphysema. ACT 112: Negative or not required by law. Electronically signed by: Chung Pelayo M.D. 06/20/2023 3:31 PM Code Status & VTE Plan Code Status DNR/DNI in the event of cardiac or respiratory arrest VTE Prophylaxis Plan VTE Prophylaxis will be ordered: Yes Supervising Physician Co-Signing Physician Notes I have seen and examined the patient and have discussed the case with the provider above. I agree with the assessment and plan as stated. 78 yo M with persistent/recurrent? pneumonia vs side effect of recent XRT therapy (radiation pneumonitis) vs other. This is his third hospitalization for the same issue. Had some blood tinged sputum, on blood thinners. Agree wt pulm consult. He does not appear to clinically be in heart failure and new/worsened infiltrate appears to be infectious. Fevers and cough with diarrhea also reported in last few days. He received an appropriate course of abx for pneumonia. Sputum culture ordered. Cont broad spectrum abx pending additional culture results and clinical improvement. Went into afib with RVR in the ER a couple hours after admission. EKG revealed afib with RVR with a rate in the 150s on the monitor. He responded nicely to Lopressor 5mg IV with BP in the 120 systolic range. He was given additional PO metoprolol and will continue this. HR consistently in the [id number] for now. Cautious with additional IV Lopressor so as not to cause hypotension. Confirmed full code. Dispo to telemetry. DO Garett (2) Pneumonia Laterality: unspecified laterality Lung location: unspecified part of lung Pneumonia type: due to unspecified organism Qualified Code(s): J18.9 - Pneumonia, unspecified organism
--- NOTE | 2023-06-20 16:24 | Electrocardiogram Report ---
Test Reason : Blood Pressure : / mmHG Vent. Rate : 086 BPM Atrial Rate : 000 BPM P-R Int : 000 ms QRS Dur : 090 ms QT Int : 388 ms P-R-T Axes : 000 019 049 degrees QTc Int : 464 ms Atrial fibrillation Incomplete right bundle branch block Minor Nonspecific T wave abnormality Lateral leads Abnormal ECG When compared with ECG of 07-JUN-2023 15:47, Vent. rate has decreased BY 60 BPM Confirmed by Dima Daugherty ([id number]) on 06/20/2023 4:24:25 PM Referred By: Confirmed By:Dima Daugherty
[2023-06-20] MEDS ORDERED: CEFEPIME 2,000 MG in SYRINGE 0 ML IV ONE (19:00)
[2023-06-20] MEDS ORDERED: METOPROLOL TARTRATE 1 MG/ML VIAL IV STA (20:21)
[2023-06-20 20:33] LABS: Base Excess VBG -3.8 mEq/L; HCO3 VBG 24 mmol/L; Oxygen Saturation VBG < 60.0 %; PCO2 VBG 57 mmHg (38-50); PO2 VBG 23 mmHg; pH VBG 7.24 (7.36-7.41)
[2023-06-20] MEDS ORDERED: METOPROLOL SUCC 25MG EXT REL TAB PO SCH (21:00)
[2023-06-20] MEDS ORDERED: METOPROLOL TARTRATE 1 MG/ML VIAL IV PRN (22:07)
[2023-06-20] MEDS ORDERED: ACETAMINOPHEN 1,000 MG/100 ML VIAL IV PRN (22:10)
[2023-06-21] MEDS ORDERED: diphenhydrAMINE 50 MG/ML VIAL IV STA ×2 (01:03→08:16)
[2023-06-21] MEDS ORDERED: diphenhydrAMINE 50 MG/ML VIAL ONE (01:10)
[2023-06-21] MEDS ORDERED: FAMOTIDINE 20 MG in SYRINGE 3 ML IV ONE (01:15)
[2023-06-21] MEDS ORDERED: SODIUM CHLORIDE 0.9% 500 ML IV SCH (01:15)
[2023-06-21 01:32] LABS: Appearance Urine Clear (Clear); Bacteria Urine Automated Negative (Negative); Bilirubin Urine Negative (Negative); Blood Urine Negative (Negative); Cast Urine Automated 0 /lpf (0-5); Color Urine Dark Yellow; Glucose Urine UA Negative (Negative); Ketones Urine Trace (Negative); Leukocyte Esterase Urine Negative (Negative); Nitrite Urine Negative (Negative); Protein Urine Trace (Negative); RBC Urine Automated 0-4 /hpf (0-4); Specific Gravity Urine > 1.045 (1.000-1.030); Urobilinogen Urine Negative (Negative)
[2023-06-21] MEDS ORDERED: EPINEPHrine INJ 1 MG/ML AMP IM STA (01:39)
[2023-06-21] MEDS ORDERED: DEXAMETHASONE SOD INJ 4 MG/ML VIAL IV STA (01:42)
[2023-06-21] MEDS ORDERED: dexAMETHasone 10 MG in SYRINGE 0 ML IV ONE (01:45)
[2023-06-21 02:31] LABS: Hematocrit (blood only) 27.4 % (42.0-52.0); Mean Corpuscular Hemoglobin 37.8 pg (25.0-34.0); Mean Corpuscular Hgb Conc 32.8 g/dL (32.0-36.0); Mean Corpuscular Volume 115.1 fL (80.0-100.0); Mean Platelet Volume 9.4 fL (9.4-12.4); Platelet Count 127 K/uL (130-400); RDW Coefficient of Variation 14.8 % (11.5-14.5); RDW Standard Deviation 62.7 fL (36.4-46.3); Red Blood Count 2.38 M/uL (4.70-6.10); White Blood Count 9.36 K/ul (4.8-10.8)
[2023-06-21] MEDS ORDERED: SODIUM CHLORIDE 0.9% 1,000 ML IV SCH (02:45)
[2023-06-21 03:11] LABS: Albumin Globulin Ratio 1.1 (0.9-2); Albumin Level 2.6 gm/dl (3.4-5.0); BUN Creatinine Ratio 16.3 (10-20); Bilirubin,Total 1.8 mg/dl (0.2-1.0); Calcium 7.9 mg/dl (8.6-10.3); Creatinine Clr Calc Pharmacy 64.1 ml/min; Est GFR (African American) 85.2 ml/min; Est GFR (Non-African American) 73.6 ml/min; Globulin 2.4 gm/dl (2.5-4.0); Magnesium 1.4 mg/dl (1.7-2.4); Phosphorus 3.3 mg/dl (2.5-4.9)
[2023-06-21 03:23] LABS: iSTAT Arterial Blood Gas HCO3 20 meg/L (19-24); iSTAT Arterial Blood Gas pCO2 36 mmHg (35-46); iSTAT Arterial Blood Gas pH 7.35 (7.35-7.45); iSTAT Arterial Blood Gas pO2 88 mmHg (80-95); iSTAT Carbon Dioxide 21 mmol/L (24-31); iSTAT Hematocrit 24 % (42-52); iSTAT Hemoglobin 8.2 g/dl (14.0-18.0); iSTAT Potassium 3.9 mmol/L (3.3-5.0); iSTAT Sodium 140 mmol/L (135-144)
[2023-06-21] MEDS ORDERED: MAGNESIUM SULFATE / D5W 1 GM/100 ML BAG IV SCH (03:30)
[2023-06-21] MEDS ORDERED: CALCIUM GLUCONATE 1,000 MG/60 ML BAG IV SCH (03:45)
[2023-06-21] MEDS: CALCIUM GLUCONATE 10% 1,000 MG in NS X2 BAGS IV SCH ×2 (03:46→04:03)
[2023-06-21] MEDS: MAGNESIUM SULFATE / D5W 1 GM/100 ML BAG IV SCH ×5 (03:56→08:48)
--- NOTE | 2023-06-21 03:57 | Critical Care Consultation ---
Date of Consultation June 21, 2023 Assessment & Plan (1) Abnormal blood electrolyte level: (2) Acute hypoxic respiratory failure: (3) Atrial fibrillation with rapid ventricular response: (4) Pneumonia: (5) Acute hypotension: (6) Diabetes mellitus type II, controlled: (7) Anemia: Plan Reason Critically Ill: 78 YOM admitted to hospitalist on 06/20/23 for concern of sepsis from pulmonary source, transferred to ICU for tachycardia and hypotension in setting of rapid Afib. Neuro - Depression -chronic [facility] ICU: [facility] - Patient is without any focal deficits at this time and is mentating well in setting of hypotension - follow neurological status - Continue home Sertraline Cardiac - Hypotension, Afib with RVR, Sepsis, CAD, ICM - Patient presented originally tachycardic and initially appeared to respond to volume resuscitation in light of concern of sepsis - Has been adequately volume resuscitated and likely cause for hypotension at this time is rapid HR in the form of Afib - now with Afib with RVR 130s likely complicated from IM administration of epinephrine - For his Afib with RVR- replete magnesium to at least a level of 2.0, Calcium gluconate 2 GM IV now - If remains hypotensive will start Neosynephrine and consider amiodarone vs. digoxin -If his blood pressure can tolerate BB will re-initiate- currently held - He is without organ dysfunction and without lactate - ECG is without acute STEMI or ischemic changes - ECHO from 04/29- with normal EF- mild TR and elevated RVSp Respiratory - Pneumonia- aspiration most likely, hypoxic respiratory failure, COPD, Lung cancer - DDX: Aspiration pneumonitis vs. pneumonia vs. radiation pneumonitis vs. DAH - Patient appears to be with continued symptoms and refractory pneumonia type picture - Continue with broad spectrum and atypical coverage - Recommend swallow evaluation when patient can participate in evaluation- current radiological films highly suspicious for aspiration events - COPD- continue Anoro Ellipta, MARILIN prn, Consider further ICS if indicated- currently does not appear to be an acute exacerbation - Lung Cancer- adenocarcinoma [id number]- diagnosed 01/27- appears underwent Taxol and Carboplatin with radiation - If hemoptysis is present or worsening hypoxia consider bronchoscopy to rule out DAH and obtain sputum sampling GI - GERD, - Patient did have UGIB in 04/29 with single angioectasia found in abdomen- this was treated with argon plasma and clips- he has tolerated being back on Xarelto - Continue PPI - Hold further systemic steroids RENAL/LYTES - Multiple elctrolyte disorders - Chronic low magnesium- replete aggressively in setting of symptomatic afib with RVR- goal MAG 2.0-2.5 - Hypocalcemia- likely secondary to poor oral intake- replete with 2 GM CAgluconate now - Respiratory acidosis - resolved - No acute needs ENDO - No acute needs - ICU hyperglycemia protocol HEME - Anemia - Unsure of previous anemia workup secondary to limited records available in our system. - currently macrocytic normochromic - no evidence of acute loss - Continue oral supplementation ID - Aspiration pneumonia - Pending blood culture and sputum culture - small pleural effusion on right - if persistently ill consider diagnostic sample if able to identify adequate sample size- however would like to be off anticoagulation for 48 hours, however at this time will follow clinically - Continue Zosyn as he has tolerated this in past and sputum culture earlier in June with NGTD - PCT negative and with normal WBC count - C. DIFF pending as ordered by primary service- no stool noted on arrival to ICU LINES/IV ACCESS - PIV Continue use of these lines DVT PROPHYLAXIS - SCDS, Xarelto DISPO: ICU until better rate control and hemodynamics proven stable I have personally spent 45 minutes of critical care time in the direct management of this patient. This is a life/limb threatening event. This includes time spent evaluating patient, direct bedside care, chart review, placing orders, interpretation of diagnostic studies, discussion with consultants, patient, and family members, as well as other required patient management activities. This time is exclusive of all separately billable procedures, and separate from and in addition to any other critical care service time. Thank you for allowing us to participate in the care of this patient. Please refer to my attending physician's documentation for any further recommendations. History of Present Illness Reason for Consultation: Hypotension Requesting Physician: Shoaib Joseph MD Attending Physician: Guillermina Bajwa DO History of Present Illness 78 YOM 06/20/23 for concern for sepsis from pulmonary source and was previously treated and admitted on 06/07-06/09 for pneumonia and treated with Zosyn and Doxy with transition to Augmentin and Doxycycline as outpatient. Reportedly he con tinued having fevers at home and remained with productive cough, coughing up brown sputum. He was noted to be tachycardic and hypotensive in the EMD. Received crystalloid infusion as well as Vancomycin and Cefepime and was admitted to PCU. As the night progressed patient apparently had increase in HR to the 130s to 150s, as he has known hisotry of afib. He was given oral and IV metoprolol which appeared to improve rate control and HR, however later in the night the patient reported of itching with red skin reported; although it was reported that he did not have any wheezing with this. On the floor he was administered Decadron 10mg, Famotidine, and IV Benadryl, he remained tachycardic and hypotensive and was given IM epinephrine 0.3mg IM. Patient remained hypotensive and request was made to transfer the patient to the ICU. He is currently without a lactic acidosis, and ABG is without hypoxia or hypercarbia. He is noted however to have a Magnesium level of 1.4 and Calcium level of 7.6. Patient was initially evaluated in the PCU prior to transfer, he was awake without complaints of chest pain or difficulty breathing, he did not respond to carotid massage and could not perform Valsalva. Upon Transfer he is with better blood pressure and HR remains 110's-120s. Remaining medical history is- Lung cancer - Adenocarcinoma right lung, completed chemo/radiation, COPD, Afib with RVR on Xarelto, DMII, Anemia-chronic, CAD, GI bleed, CODE: DNR/DNI Allergies Allergy/AdvReac Type Severity Reaction Status Date / Time No Known Drug Allergies Allergy Unknown Verified 06/20/23 16:00 Home Medications Medication Instructions Recorded Confirmed Type albuterol sulfate 90 mcg/actuation 2 puff inhalation Q4 PRN Shortness 06/30/12 06/20/23 History aerosol inhaler (ProAir HFA) Of Breath ##0 lorazepam 0.5 mg tablet 0.5 mg PO BID PRN #0 tabs 06/30/12 06/20/23 History nitroglycerin 0.4 mg sublingual 0.4 mg UT PRN #0 BTLS 07/18/12 06/20/23 History tablet (Nitrostat) rivaroxaban 20 mg tablet (Xarelto) 1 tab PO DAILY 30 days #30 tabs 11/17/16 06/20/23 History folic acid 1 mg tablet 1 mg PO DAILY 02/16/23 06/20/23 History atorvastatin 40 mg tablet 40 mg PO DAILY 04/14/23 06/20/23 History sertraline 50 mg tablet 50 mg PO QAM 04/14/23 06/20/23 History umeclidinium 62.5 mcg-vilanterol 1 inh inhalation QAM 04/14/23 06/20/23 History 25 mcg/actuation powdr for inhalation (Anoro Ellipta) metoprolol succinate 25 mg 25 mg PO QAM #30 tabs 04/20/23 06/20/23 Rx tablet,extended release 24 hr pantoprazole 40 mg tablet,delayed 40 mg PO QAM #30 tabs 04/20/23 06/20/23 Rx release aspirin 81 mg tablet,delayed 81 mg PO QAM 06/07/23 06/20/23 History release cyanocobalamin (vitamin B-12) 1,000 mcg PO QAM 06/07/23 06/20/23 History 1,000 mcg tablet (Vitamin B-12) magnesium oxide 400 mg PO DAILY 06/07/23 06/20/23 History Patient History Medical History Hypomagnesemia Lung cancer Gall stones Skin cancer of scalp Diabetes mellitus type II, controlled Atrial fibrillation COPD (chronic obstructive pulmonary disease) with emphysema Surgical History H/O ventral hernia repair 09/01/2009 Dr. Cortes; right inguinal hernia H/O cataract removal with insertion of prosthetic lens 07/21 Hx of tonsillectomy <12 y/o H/O colonoscopy 10/27/2015 Dr. Sargent; Diverticulosis; repeat 10 yrs Family History Mother Breast cancer Father Diabetes Type I Stroke Sister Breast cancer Sister Autoimmune hemolytic anemia Aunt Breast cancer Social History Smoking Status: Former smoker Tobacco Type: Cigarettes Age Started Using Tobacco: 20; Age Quit Using Tobacco: 77; packs per day: 0.5; Second Hand Exposure: No; Do You Dip or Chew Tobacco: No; Tobacco Cessation Education Requested by Patient: No Hx Alcohol Use: No Hx Substance Use: No Preferred Language: Croatian Communication Ability: Effective Visual Impairment: No Limitations Liquor Bridge Operator Required: No Beliefs That Will Affect Care: None marital status: Current Living Situation: Spouse Current Living Situation Comment: Lives at home with , who he cares for current occupational status: employed 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 How many Children do You have: 2 Other Information That Helps Us Care for You: No Feels Safe at Home: Yes Safety Concerns: Feels Safe At This Time Assistive Devices: Cane Review of Systems Review of Systems: REVIEW OF SYSTEMS: Constitutional: (+) fever, sweats or chills Eyes: No diplopia, no worsening or blurred vision ENT: (+) difficulty hearing, emesis x2 Respiratory: (+) cough, sputum, dyspnea at rest or on exertion Cardiovascular: (+) palpitations, No chest pain, tightness Abdomen: (+) emesis, No pain, nausea, diarrhea or constipation Neurologic: No weakness, numbness/tingling, Psychiatric: (+) depression Skin: (+) itch right upper chest, no hives or wheals Physical Exam Physical Exam: PHYSICAL EXAM: General: awake, alert, no apparent distress Head: Normocephalic, atraumatic ENT: PERRLA, EOMI, no pharyngeal exudate, mucous membranes moist Neuro: AAO x 3, speech clear slightly confused, strength intact bilaterally 5/5, sensation intact and equal all extremities and dermatomes, no pronator drift Chest: equal rise and fall of the chest, no accessory muscle use, Scattered rhonchi with end expiratory wheeze RT>LT Cardiac: Irrgular rate and rhythm, telemetry reviewed- afib, skin warm dry, cap refill <3 seconds, peripheral pulses +2 no JVD, no murmur, no JVD, no edema GI: NABS x 4 quadrants, soft, nontender to palpation, no rebound, guarding or tenderness Psych: Normal mood and affect Skin: no rash or erythema Results & Data Results & Data Vital Signs (Past 12 Hours) Vital Signs Temp Pulse Pulse Resp BP BP Pulse Ox 06/21/23 02:42 36.8 C 136 H 18 70/50 L 97 06/21/23 02:12 96/67 L 06/21/23 02:02 100 H 16 96 06/21/23 02:00 106 H 16 96 06/21/23 02:00 84/54 L 06/21/23 01:49 111 H 9 L 96 06/21/23 01:45 76/59 L 06/21/23 01:45 112 H 18 96 06/21/23 01:35 117 H 22 96 06/21/23 01:30 117 H 12 96 06/21/23 01:30 80/56 L 06/21/23 01:27 113 H 18 96 06/21/23 01:22 117 H 17 96 06/21/23 01:17 117 H 13 96 06/21/23 01:12 110 H 12 96 06/21/23 01:12 84/52 L 06/21/23 01:04 113 H 22 96 06/21/23 01:02 128 H 21 96 06/21/23 01:00 68/54 L 06/21/23 01:00 109 H 17 95 06/21/23 00:37 75/54 L 06/21/23 00:37 103 H 19 94 06/21/23 00:37 82/52 L 06/21/23 00:32 114 H 19 94 06/21/23 00:32 80/51 L 06/21/23 00:32 80/51 L 06/21/23 00:30 113 H 16 94 06/21/23 00:23 06/21/23 00:14 116/82 06/21/23 00:12 114 H 22 95 06/21/23 00:12 116/82 06/21/23 00:07 37.7 C H 06/21/23 00:04 78/44 L 06/21/23 00:04 115 H 19 95 06/21/23 00:00 111 H 20 94 06/21/23 00:00 72/57 L 06/20/23 23:56 86/54 L 06/20/23 23:49 88/51 L 06/20/23 23:49 106 H 16 94 06/20/23 23:45 121 H 19 95 06/20/23 23:45 80/61 L 06/20/23 23:43 102 H 06/20/23 23:35 117 H 22 95 06/20/23 23:35 81/56 L 06/20/23 23:35 38.2 C H 06/20/23 23:30 82/59 L 06/20/23 23:30 106 H 22 95 06/20/23 23:16 121 H 85/59 L 06/20/23 23:15 109 H 20 96 06/20/23 23:15 85/59 L 06/20/23 23:13 06/20/23 23:00 120 H 21 95 06/20/23 23:00 83/57 L 06/20/23 22:53 132 H 24 95 06/20/23 22:53 94/51 L 06/20/23 22:51 82/53 L 06/20/23 22:51 120 H 29 H 95 06/20/23 22:50 114 H 24 94 06/20/23 22:50 37.5 C 117 H 20 82/53 L 96 06/20/23 22:48 117 H 82/53 L 06/20/23 22:45 113 H 22 96 06/20/23 22:33 123 H 105/70 06/20/23 22:03 38.3 C H 129 H 32 H 100/64 94 06/20/23 21:03 122 H 97/69 L 06/20/23 20:38 130 H 31 H 109/83 94 06/20/23 20:31 137 H 118/73 06/20/23 20:14 155 H 30 H 123/92 96 06/20/23 19:45 36.6 C 06/20/23 18:45 136 H 06/20/23 16:41 98 H 14 110/62 94 06/20/23 16:41 98 H 14 94 O2 Del Method O2 Flow Rate 06/21/23 02:42 Oxymask 5 06/21/23 02:12 06/21/23 02:02 06/21/23 02:00 06/21/23 02:00 06/21/23 01:49 06/21/23 01:45 06/21/23 01:45 06/21/23 01:35 06/21/23 01:30 06/21/23 01:30 06/21/23 01:27 06/21/23 01:22 06/21/23 01:17 06/21/23 01:12 06/21/23 01:12 06/21/23 01:04 06/21/23 01:02 06/21/23 01:00 06/21/23 01:00 06/21/23 00:37 06/21/23 00:37 06/21/23 00:37 06/21/23 00:32 06/21/23 00:32 06/21/23 00:32 06/21/23 00:30 06/21/23 00:23 Oxymask 5 06/21/23 00:14 06/21/23 00:12 06/21/23 00:12 06/21/23 00:07 06/21/23 00:04 06/21/23 00:04 06/21/23 00:00 06/21/23 00:00 06/20/23 23:56 06/20/23 23:49 06/20/23 23:49 06/20/23 23:45 06/20/23 23:45 06/20/23 23:43 06/20/23 23:35 06/20/23 23:35 06/20/23 23:35 06/20/23 23:30 06/20/23 23:30 06/20/23 23:16 Oxymask 8 06/20/23 23:15 06/20/23 23:15 06/20/23 23:13 Oxymask 8 06/20/23 23:00 06/20/23 23:00 06/20/23 22:53 06/20/23 22:53 06/20/23 22:51 06/20/23 22:51 06/20/23 22:50 06/20/23 22:50 Oxymask 8 06/20/23 22:48 06/20/23 22:45 06/20/23 22:33 06/20/23 22:03 Oxymask 10 06/20/23 21:03 06/20/23 20:38 Non-rebreather 15 06/20/23 20:31 06/20/23 20:14 Non-rebreather 15 06/20/23 19:45 06/20/23 18:45 06/20/23 16:41 Nasal Cannula 3 06/20/23 16:41 Room Air 3 Laboratory Results Abnormal lab results 06/20/23 06/20/23 06/21/23 Range/Units 13:03 Unknown 01:15 RBC 2.89 L (4.70-6.10) M/uL Hgb 11.0 L (14.0-18.0) g/dl POC Hgb (14.0-18.0) g/dl Hct 32.9 L (42.0-52.0) % POC Hct (42-52) % MCV 113.8 H (80.0-100.0) fL MCH 38.1 H (25.0-34.0) pg RDW Std Deviation 61.1 H (36.4-46.3) fL RDW Coeff of Norm (11.5-14.5) % Plt Count (130-400) K/uL MPV 9.3 L (9.4-12.4) fL Lymph # (Auto) 0.76 L (1.20-3.40) K/uL [place] # (Auto) 1.15 H (0.11-0.59) K/uL POC Total CO2 (24-31) mmol/L POC ABG O2 Sat (90-95) % VBG pH 7.24 L (7.36-7.41) VBG pCO2 57 H (38-50) mmHg Chloride (98-107) mmol/L Glucose 138 H (70-99(Fasting)) mg/dl Calcium (8.6-10.3) mg/dl Magnesium 1.6 L (1.7-2.4) mg/dl Total Bilirubin 1.6 H (0.2-1.0) mg/dl AST (13-39) U/L ALT (7-52) U/L Total Protein (6.0-8.3) gm/dl Albumin (3.4-5.0) gm/dl Globulin (2.5-4.0) gm/dl Lipase 3 L (11-82) U/L Ur Specific [place] > 1.045 H (1.000-1.030) Urine Protein Trace H (Negative) Urine Ketones Trace H (Negative) U Epithel Cells (Auto) 10-20 H (0-5) /lpf 06/21/23 06/21/23 Range/Units 02:09 03:09 RBC 2.38 L (4.70-6.10) M/uL Hgb 9.0 L (14.0-18.0) g/dl POC Hgb 8.2 L (14.0-18.0) g/dl Hct 27.4 L (42.0-52.0) % POC Hct 24 L (42-52) % MCV 115.1 H (80.0-100.0) fL MCH 37.8 H (25.0-34.0) pg RDW Std Deviation 62.7 H (36.4-46.3) fL RDW Coeff of Norm 14.8 H (11.5-14.5) % Plt Count 127 L (130-400) K/uL MPV (9.4-12.4) fL Lymph # (Auto) (1.20-3.40) K/uL [place] # (Auto) (0.11-0.59) K/uL POC Total CO2 21 L (24-31) mmol/L POC ABG O2 Sat 96.0 H (90-95) % VBG pH (7.36-7.41) VBG pCO2 (38-50) mmHg Chloride 111 H (98-107) mmol/L Glucose 117 H (70-99(Fasting)) mg/dl Calcium 7.9 L (8.6-10.3) mg/dl Magnesium 1.4 L (1.7-2.4) mg/dl Total Bilirubin 1.8 H (0.2-1.0) mg/dl AST 12 L (13-39) U/L ALT 5 L (7-52) U/L Total Protein 5.0 L D (6.0-8.3) gm/dl Albumin 2.6 L (3.4-5.0) gm/dl Globulin 2.4 L (2.5-4.0) gm/dl Lipase (11-82) U/L Ur Specific [place] (1.000-1.030) Urine Protein (Negative) Urine Ketones (Negative) U Epithel Cells (Auto) (0-5) /lpf Diagnostic Findings Chest X-Ray 06/20/23 12:56 XR chest 1V portable CLINICAL HISTORY: Chest pain, nonspecific TECHNIQUE: Single frontal radiograph of the chest was obtained. Comparison: Comparison is made to chest radiograph 06/07/2023 FINDINGS: No lines and tubes are seen. Calcified aortic knob is seen. Right midlung airspace opacity is increased in density from prior exam. No evidence of pleural effusion or pneumothorax. IMPRESSION: Increased density in the right midlung may represent atelectasis, pneumonia, and/or aspiration superimposed upon posttreatment changes. ACT 112: Negative or not required by law. Electronically signed by: Riaz Branch M.D. 06/20/2023 1:39 PM Abdomen/Pelvis CT 06/20/23 14:09 CT OF THE ABDOMEN AND PELVIS WITH CONTRAST CLINICAL HISTORY: SIRS, diarrhea, recent ABX COMPARISON STUDY: CT of the abdomen and pelvis April 15, 2023. TECHNIQUE: Following IV administration of 115 mL of Optiray, axial images of the abdomen and pelvis were obtained from the lung bases to the proximal femurs. Images were reviewed in the axial, sagittal, and coronal planes. IV contrast was administered without complication. Automated exposure control was utilized for the study. A dose lowering technique was utilized adhering to the principles of ALARA. CT DOSE: 1566.69 mGy.cm FINDINGS: Please note that the chest CT will be reported separately. No pneumatosis, free air or portal venous gas is present. There are no hepatic lesions. There is no biliary or pancreatic ductal dilatation. Spleen, adrenal glands, kidneys and pancreas are unremarkable. There is no hydronephrosis. There is mild symmetric bilateral perinephric stranding. Extensive colonic diverticulosis is present. There is no evidence for acute diverticulitis. The appendix is normal. There is no evidence for a bowel obstruction. Minimal presacral stranding is likely due to volume overload. There is mild anasarca. The infrarenal abdominal aorta is ectatic. Major vasculature is patent. Moderate aortoiliac atherosclerotic plaque. There is no lymphadenopathy. No fluid collections are present. IMPRESSION: 1. No acute process within the abdomen or pelvis. 2. Extensive colonic diverticulosis. No evidence for acute diverticulitis. 3. Anasarca. ACT 112: Negative or not required by law. Electronically signed by: Chung Pelayo M.D. 06/20/2023 3:40 PM Chest CTA 06/20/23 14:09 CT ANGIOGRAPHY OF THE CHEST, PULMONARY EMBOLUS PROTOCOL CLINICAL HISTORY: Cough, sob, fever, r/o PE. Lung cancer. COMPARISON STUDY: Chest CT April 18, 2023. Chest radiograph performed earlier today. TECHNIQUE: Following IV administration of 115 mL of Optiray, helical axial images of the chest were obtained utilizing the pulmonary embolus protocol. Maximal intensity projections and sagittal and coronal reformats were viewed on an independent 3D workstation. IV contrast was administered without complication. Automated exposure control was utilized for the study. A dose l owering technique was utilized adhering to the principles of ALARA. FINDINGS: No pulmonary emboli are identified. There is mild cardiomegaly and moderate coronary artery calcification. There is no pericardial effusion. Mediastinal and right hilar lymph nodes have mildly increased in size since chest CT of April 18, 2023. Index AP window lymph node measures 2.5 x 1.7 cm. It previously measured 1.9 x 1.3 cm. Small right and trace left pleural effusions are present. There is no pneumothorax. Severe emphysema is noted. The previously described right lower lobe lesion is obscured on this examination by airspace opacity. Moderate multifocal airspace opacities within the lungs are present. There is interlobular septal thickening. There is no cavitation. No suspicious lesions within the bony thorax are noted. Visualized portions of the upper abdomen are unremarkable. IMPRESSION: 1. No pulmonary emboli identified. 2. Moderate multifocal airspace opacities within the lungs. The findings favor multifocal pneumonia. Alveolar pulmonary edema could appear similar although is considered less likely. This airspace opacity obscures the previously described right lower lobe lesion. A follow-up chest CT in 2 months to ensure resolution is recommended. 3. Increase in mediastinal and right hilar lymphadenopathy. This may be reactive or related to pulmonary edema. However, progression of pathologic lymphadenopathy cannot be excluded and these nodes can be assessed on follow-up CT. 4. Interlobular septal thickening suggestive of mild pulmonary edema. Small right and trace left pleural effusions. 5. Emphysema. ACT 112: Negative or not required by law. Electronically signed by: Chung Pelayo M.D. 06/20/2023 3:31 PM Medications Administered Acetaminophen (Ofirmev) 1,000 mg in 100 mls @ 400 mls/hr IV Q8H PRN PRN Reason: Pain or Fever Stop: 06/23/23 22:09 Last Infusion: 06/20/23 22:35 Dose: Infused Documented By: Admin: 06/20/23 22:20 Dose: 400 mls/hr Documented By: RORY Sodium Chloride (Nss) 1,000 mls @ 100 mls/hr IV .Q10H TIANA Stop: 07/21/23 02:44 Last Admin: 06/21/23 02:46 Dose: 100 mls/hr Documented By: RORY Magnesium Sulfate/Dextrose (Magnesium Sulfate / D5w) 1 gm in 100 mls @ 50 mls/hr IV Q1H TIANA Stop: 06/21/23 08:29 Last Admin: 06/21/23 03:56 Dose: 100 mls/hr Documented By: LEVI Calcium Gluconate 1,000 mg/ (Sodium Chloride) 60 mls @ 240 mls/hr IV Q15M TIANA Stop: 06/21/23 04:14 Last Admin: 06/21/23 03:46 Dose: 240 mls/hr Documented By: LEVI Discontinued Medications Diphenhydramine HCl (Diphenhydramine 50 Mg/Ml Vial) 50 mg IV NOW STA Stop: 06/21/23 01:04 Last Admin: 06/21/23 01:12 Dose: 50 mg Documented By: RORY Diphenhydramine HCl (Diphenhydramine 50 Mg/Ml Vial) Confirm Administered Dose 50 mg .ROUTE .STK-MED ONE Stop: 06/21/23 01:11 Last Admin: 06/21/23 01:13 Dose: Not Given Documented By: RORY Epinephrine HCl (Epinephrine Inj 1 Mg/Ml Amp) 0.3 mg IM NOW STA Stop: 06/21/23 01:40 Last Admin: 06/21/23 02:04 Dose: 0.3 mg Documented By: RORY Sodium Chloride (Nss) 1,000 mls @ 999 mls/hr IV .Q1H1M STA Stop: 06/20/23 13:56 Last Infusion: 06/20/23 14:52 Dose: Infused Documented By: Admin: 06/20/23 13:41 Dose: 999 mls/hr Documented By: ALEXY Magnesium Sulfate/Dextrose (Magnesium Sulfate / D5w) 1 gm in 100 mls @ 100 mls/hr IV NOW STA Stop: 06/20/23 15:20 Last Infusion: 06/20/23 15:34 Dose: Infused Documented By: Admin: 06/20/23 14:41 Dose: 100 mls/hr Documented By: LUANNE Piperacillin Sod/Tazobactam Sod (Zosyn) 4.5 gm in 100 mls @ 200 mls/hr IV NOW ONE Stop: 06/20/23 14:50 Last Infusion: 06/20/23 15:18 Dose: Infused Documented By: Admin: 06/20/23 14:41 Dose: 200 mls/hr Documented By: KV Sodium Chloride (Nss) 1,000 mls @ 999 mls/hr IV .Q1H1M ONE Stop: 06/20/23 15:21 Last Infusion: 06/20/23 15:34 Dose: Infused Documented By: Admin: 06/20/23 14:41 Dose: 999 mls/hr Documented By: LUANNE Vancomycin HCl 1,500 mg/ (Sodium Chloride) 530 mls @ 200 mls/hr IV NOW ONE Stop: 06/20/23 18:28 Last Infusion: 06/20/23 19:46 Dose: Infused Documented By: Admin: 06/20/23 16:39 Dose: 200 mls/hr Documented By: ALEXY Cefepime HCl 2,000 mg/ Syringe 20 mls @ 5 mls/min IV 1900 ONE; Protocol Stop: 06/20/23 19:03 Last Admin: 06/20/23 19:04 Dose: 5 mls/min Documented By: CRISTINO Sodium Chloride (Nss) 1,000 mls @ 999 mls/hr IV .Q1H1M ONE Stop: 06/20/23 23:59 Last Infusion: 06/21/23 00:11 Dose: Infused Documented By: Admin: 06/20/23 23:07 Dose: 999 mls/hr Documented By: RORY Famotidine 20 mg/ Syringe 5 mls @ 2.5 mls/min IV NOW ONE Stop: 06/21/23 01:16 Last Admin: 06/21/23 01:17 Dose: 2.5 mls/min Documented By: RORY Sodium Chloride (Nss) 500 mls @ 500 mls/hr IV .Q1H TIANA Stop: 06/21/23 02:14 Last Infusion: 06/21/23 01:40 Dose: Infused Documented By: Admin: 06/21/23 01:13 Dose: 500 mls/hr Documented By: RORY Dexamethasone 10 mg/ Syringe 2.5 mls @ 1 mls/min IV ONE ONE Stop: 06/21/23 01:47 Last Admin: 06/21/23 01:53 Dose: 1 mls/min Documented By: RORY Ioversol (Optiray 320 500ml) 115 ml IV ONCE ONE Stop: 06/20/23 15:06 Last Admin: 06/20/23 15:05 Dose: 115 ml Documented By: JERICA Metoprolol Succinate (Metoprolol Succ 25mg Ext Rel Tab) 25 mg PO BID TIANA Stop: 07/20/23 20:59 Last Admin: 06/20/23 22:25 Dose: Not Given Documented By: RORY Metoprolol Tartrate (Metoprolol Tartrate 1 Mg/Ml Vial) 5 mg IV NOW STA Stop: 06/20/23 20:22 Last Admin: 06/20/23 20:31 Dose: 5 mg Documented By: CRISTINO Metoprolol Tartrate (Metoprolol Tartrate 1 Mg/Ml Vial) 5 mg IV Q6 PRN PRN Reason: Tachycardia Stop: 07/21/23 00:00 Last Admin: 06/20/23 22:33 Dose: 5 mg Documented By: RORY ECG Additional Comments: Atrial fibrillation Incomplete right bundle branch block Minor Nonspecific T wave abnormality Lateral leads Abnormal ECG When compared with ECG of 07-JUN-2023 15:47, Vent. rate has decreased BY 60 BPM Confirmed by Dima Daugherty ([id number]) on 06/20/2023 4:24:25 PM Coding Level of Care Code 19508 CRITICAL CARE 1ST 30-74M Diagnoses Abnormal blood electrolyte level E87.8 Acute hypoxic respiratory failure J96.01 Atrial fibrillation with rapid ventricular response I48.91 Pneumonia J18.9 Acute hypotension I95.9 Diabetes mellitus type II, controlled E11.9 Anemia D64.9
[2023-06-21] MEDS ORDERED: PIPERACILLIN/TAZOBACTAM 4.5 GM in DEXTROSE 5% MINI-B 100 ML IV ONE (06:00)
[2023-06-21] MEDS ORDERED: CEFEPIME 2,000 MG in SYRINGE 0 ML IV SCH (07:00)
--- NOTE | 2023-06-21 07:44 | XRay Report ---
XR chest 1V portable CLINICAL HISTORY: Respiratory distress. COMPARISON STUDY: Chest radiograph and chest CT performed earlier today. FINDINGS: There is no pneumothorax. Small bilateral pleural effusions are again noted. There is under lying emphysema. Multifocal airspace opacities have slightly progressed, most pronounced within the r ight midlung. There is mild interstitial thickening. IMPRESSION: 1. Increase in airspace opacities consistent with multifocal pneumonia. 2. Mild interstitial pulmonary edema with small bilateral pleural effusions. 3. Emphysema. ACT 112: Negative or not required by law. Electronically signed by: Chung Pelayo M.D. 06/21/2023 7:42 AM
--- NOTE | 2023-06-21 08:16 | Communication Note ---
Date of Service: June 21, 2023 Seems had allergic reaction mostly red man syndrome from vancomycin.Received iv vanco, zosy and cefepime few hours before the reaction. was having redness in trunk with itching. was hypotensive. gave fluid bolus and iv benadryl and iv pepcid. itching improved but BP didnot improve. so gave im epinephrine and Decadron but was still hypotensive and was tachycardic.Transferred to ICU.Probably allergic to vancomycin as patient seems received zosyn last admit.MAy need to enter vancomycin as allergy.
--- NOTE | 2023-06-21 08:29 | Electrocardiogram Report ---
Test Reason : Blood Pressure : / mmHG Vent. Rate : 151 BPM Atrial Rate : 000 BPM P-R Int : 000 ms QRS Dur : 084 ms QT Int : 304 ms P-R-T Axes : 000 -08 222 degrees QTc Int : 481 ms Atrial fibrillation with rapid ventricular response Diffuse Nonspecific ST and T wave abnormality Abnormal ECG When compared with ECG of 20-JUN-2023 13:34, Vent. rate has increased BY 65 BPM Confirmed by Dima Daugherty ([id number]) on 06/21/2023 8:29:23 AM Referred By: REFERRED SELF Confirmed By:Dima Daugherty
[2023-06-21] MEDS ORDERED: METOPROLOL SUCC 25MG EXT REL TAB PO SCH (09:00)
[2023-06-21] MEDS ORDERED: METOPROLOL TARTRATE 25 MG TAB PO SCH (09:00)
--- NOTE | 2023-06-21 09:02 | Critical Care Progress Note ---
<Statement entered by Kathrin Navarro MD - 06/21/23 18:29> Agree with above. 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 He is s/p carbo/taxol and receiving xrt. Overnight developed suspected red man syndrome and afib with RVR. Refractory hypotention potentially as a result of both of these processes. After transfer to the ICU his BP improved with heart rate control and after receiving fluid boluses. This morning he feels and looks much better. continue to treat possible pneumonia. Rate control. OK to transfer to floor. Date of Service June 21, 2023 Assessment & Plan (1) Abnormal blood electrolyte level: (2) Hypomagnesemia: (3) Acute hypoxic respiratory failure: (4) Atrial fibrillation with rapid ventricular response: (5) Pneumonia: (6) Acute hypotension: (7) Hemochromatosis: (8) Nonischemic cardiomyopathy: (9) Nonobstructive atherosclerosis of coronary artery: (10) Chronic atrial fibrillation with rapid ventricular response: Plan Reason Critically Ill: 78-year-old male here with concern of sepsis from pulmonary source, transferred to ICU for tachycardia and hypotension in setting of rapid Afib. * Patient is stable for downgrade from ICU today. Neuro - -Alert and oriented -Continue home Sertraline Cardiac - Hypotension, Afib with RVR, Sepsis, CAD, ICM -Became hypotensive and tachycardic overnight after receiving steroids/epinephrine following suspected antibiotic reaction -For his Afib with RVR- repleted magnesium to at least a level of 2.0 -Telemetry showing NSR, HR intermittent tachycardia -Echo from 04/29- with normal EF- mild TR and elevated RVSp Respiratory - Hypoxic respiratory failure, aspiration pneumonia, COPD, lung cancer -Currently on 3L (max of 8L oxymask overnight), on 2L NC at home -Receiving Zosyn for aspiration pneumonia, although differential includes radiation pneumonitis -COPD- continue Anoro Ellipta, MARILIN prn, Consider further ICS if indicated- currently does not appear to be an acute exacerbation -Lung Cancer- adenocarcinoma [id number]- diagnosed 01/27- appears underwent Taxol and Carboplatin with radiation GI - GERD -Concern of aspiration in past, will get formal speech therapy evaluation -Continue home PPI -Patient did have UGIB in 04/29 with single angioectasia found in abdomen- this was treated with argon plasma and clips- he has tolerated being back on Xarelto Renal/Lytes - Hypomagnesemia -Chronic low magnesium- replete aggressively in setting of symptomatic afib with RVR- goal MAG 2.0-2.5 -Hypocalcemia- likely secondary to poor oral intake- received 2g calcium gluc leeanne -Respiratory acidosis - resolved -Replace lytes as needed - -No concerns at present Endo - -Follow ICU hyperglycemic protocols Heme - -Prior records show baseline anemia -Hgb dropped from 11 on admission to 9.0 this morning, likely some hemodilution secondary to 2L+ IV fluids -Will recheck H&H midday ID - Aspiration pneumonia -Pending blood culture and sputum culture -Small pleural effusion on right - if persistently ill consider diagnostic sample if able to identify adequate sample size- however would like to be off anticoagulation for 48 hours, however at this time will follow clinically -Continue Zosyn as he has tolerated this in past and sputum culture earlier in June with NGTD -PCT negative and with normal WBC count -C. diff pending as ordered by primary service- lower suspicion as patient has not had any diarrhea since arrival to unit Lines/IV Access - -PIV intact DVT Prophylaxis - -SCDs, Xarelto Thank you for allowing us to be part of this patient's care. Please refer to Dr. Valdo Navarro's documentation for any further recommendations. Admission and Anticipated Discharge Date Admission Date: June 20, 2023 Subjective Patient seen and examined at bedside. He states that he is feeling better today, although is very itchy at his chest and arms- notes that this started last night after getting antibiotics but improved when he received Benadryl. He denies any dizziness or lightheadedness. Endorses a productive cough, has had some brown colored sputum. Review of Systems Review of Systems: As per above Physical Exam Constitutional: well developed; no acute distress Eyes: + anicteric sclerae; no conjunctival abn ormality ENMT: Ears: no external ear abnormality Nose: no external nose abnormality Moist mucous membranes Respiratory: does not use accessory muscles Auscultation: + diminished lung sounds (bilaterally) Cardiovascular: Rate/Rhythm: regular rate and regular rhythm Extremities: no edema Gastrointestinal (Abdomen): Soft, nontender, nondistended. +Bowel sounds Skin: Some erythema at upper back and chest/neck, skin is dry but some excoriation from scratching Psychiatric: A+Ox3, euthymic affect Results & Data Results & Data Vital Signs (Past 12 Hours) Vital Signs Temp Pulse Pulse Resp BP BP Pulse Ox 06/21/23 07:27 36.7 C 06/21/23 07:00 86 7 L 107/68 99 06/21/23 06:30 80 10 L 99/62 L 98 06/21/23 06:00 101/63 06/21/23 06:00 89 25 H 95 06/21/23 05:30 99/65 L 06/21/23 05:30 95 H 14 99 06/21/23 05:01 120 H 82 L 06/21/23 05:01 118/72 06/21/23 05:00 114 H 19 85 L 06/21/23 04:30 103/71 06/21/23 04:30 97 H 17 98 06/21/23 04:00 06/21/23 04:00 92/62 L 06/21/23 04:00 113 H 12 97 06/21/23 03:30 106/76 06/21/23 03:30 131 H 13 92 06/21/23 03:10 130 H 12 97 06/21/23 03:10 82/57 L 06/21/23 03:00 79/57 L 06/21/23 03:00 143 H 6 L 97 06/21/23 02:50 71/55 L 06/21/23 02:50 147 H 14 97 06/21/23 02:47 94/72 L 06/21/23 02:47 144 H 14 96 06/21/23 02:43 135 H 20 98 06/21/23 02:43 94/64 L 06/21/23 02:42 36.8 C 136 H 18 70/50 L 97 06/21/23 02:40 78/51 L 06/21/23 02:40 134 H 27 H 97 06/21/23 02:38 74/57 L 06/21/23 02:38 131 H 27 H 97 06/21/23 02:30 112 H 26 H 95 06/21/23 02:30 81/51 L 06/21/23 02:20 96 H 18 96 06/21/23 02:20 90/56 L 06/21/23 02:20 83/58 L 06/21/23 02:16 113 H 23 96 06/21/23 02:16 91/56 L 06/21/23 02:12 105 H 11 L 97 06/21/23 02:12 88/65 L 06/21/23 02:12 96/67 L 06/21/23 02:11 119 H 18 97 06/21/23 02:11 96/67 L 06/21/23 02:02 100 H 16 96 06/21/23 02:00 106 H 16 96 06/21/23 02:00 84/54 L 06/21/23 01:49 111 H 9 L 96 06/21/23 01:45 76/59 L 06/21/23 01:45 112 H 18 96 06/21/23 01:35 117 H 22 96 06/21/23 01:30 117 H 12 96 06/21/23 01:30 80/56 L 06/21/23 01:27 113 H 18 96 06/21/23 01:22 117 H 17 96 06/21/23 01:17 117 H 13 96 06/21/23 01:12 110 H 12 96 06/21/23 01:12 84/52 L 06/21/23 01:04 113 H 22 96 06/21/23 01:02 128 H 21 96 06/21/23 01:00 68/54 L 06/21/23 01:00 109 H 17 95 06/21/23 00:37 75/54 L 06/21/23 00:37 103 H 19 94 06/21/23 00:37 82/52 L 06/21/23 00:32 114 H 19 94 06/21/23 00:32 80/51 L 06/21/23 00:32 80/51 L 06/21/23 00:30 113 H 16 94 06/21/23 00:23 06/21/23 00:14 116/82 06/21/23 00:12 114 H 22 95 06/21/23 00:12 116/82 06/21/23 00:07 37.7 C H 06/21/23 00:04 78/44 L 06/21/23 00:04 115 H 19 95 06/21/23 00:00 111 H 20 94 06/21/23 00:00 72/57 L 06/20/23 23:56 86/54 L 06/20/23 23:49 88/51 L 06/20/23 23:49 106 H 16 94 06/20/23 23:45 121 H 19 95 06/20/23 23:45 80/61 L 06/20/23 23:43 102 H 06/20/23 23:35 117 H 22 95 06/20/23 23:35 81/56 L 06/20/23 23:35 38.2 C H 06/20/23 23:30 82/59 L 06/20/23 23:30 106 H 22 95 06/20/23 23:16 121 H 85/59 L 06/20/23 23:15 109 H 20 96 06/20/23 23:15 85/59 L 06/20/23 23:13 06/20/23 23:00 120 H 21 95 06/20/23 23:00 83/57 L 06/20/23 22:53 132 H 24 95 06/20/23 22:53 94/51 L 06/20/23 22:51 82/53 L 06/20/23 22:51 120 H 29 H 95 06/20/23 22:50 114 H 24 94 06/20/23 22:50 37.5 C 117 H 20 82/53 L 96 06/20/23 22:48 117 H 82/53 L 06/20/23 22:45 113 H 22 96 06/20/23 22:33 123 H 105/70 06/20/23 22:03 38.3 C H 129 H 32 H 100/64 94 06/20/23 21:03 122 H 97/69 L O2 Del Method O2 Flow Rate 06/21/23 07:27 06/21/23 07:00 06/21/23 06:30 06/21/23 06:00 06/21/23 06:00 06/21/23 05:30 06/21/23 05:30 06/21/23 05:01 06/21/23 05:01 06/21/23 05:00 06/21/23 04:30 06/21/23 04:30 06/21/23 04:00 Oxymask 8 06/21/23 04:00 06/21/23 04:00 06/21/23 03:30 06/21/23 03:30 06/21/23 03:10 06/21/23 03:10 06/21/23 03:00 06/21/23 03:00 06/21/23 02:50 06/21/23 02:50 06/21/23 02:47 06/21/23 02:47 06/21/23 02:43 06/21/23 02:43 06/21/23 02:42 Oxymask 5 06/21/23 02:40 06/21/23 02:40 06/21/23 02:38 06/21/23 02:38 06/21/23 02:30 06/21/23 02:30 06/21/23 02:20 06/21/23 02:20 06/21/23 02:20 06/21/23 02:16 06/21/23 02:16 06/21/23 02:12 06/21/23 02:12 06/21/23 02:12 06/21/23 02:11 06/21/23 02:11 06/21/23 02:02 06/21/23 02:00 06/21/23 02:00 06/21/23 01:49 06/21/23 01:45 06/21/23 01:45 06/21/23 01:35 06/21/23 01:30 06/21/23 01:30 06/21/23 01:27 06/21/23 01:22 06/21/23 01:17 06/21/23 01:12 06/21/23 01:12 06/21/23 01:04 06/21/23 01:02 06/21/23 01:00 06/21/23 01:00 06/21/23 00:37 06/21/23 00:37 06/21/23 00:37 06/21/23 00:32 06/21/23 00:32 06/21/23 00:32 06/21/23 00:30 06/21/23 00:23 Oxymask 5 06/21/23 00:14 06/21/23 00:12 06/21/23 00:12 06/21/23 00:07 06/21/23 00:04 06/21/23 00:04 06/21/23 00:00 06/21/23 00:00 06/20/23 23:56 06/20/23 23:49 06/20/23 23:49 06/20/23 23:45 06/20/23 23:45 06/20/23 23:43 06/20/23 23:35 06/20/23 23:35 06/20/23 23:35 06/20/23 23:30 06/20/23 23:30 06/20/23 23:16 Oxymask 8 06/20/23 23:15 06/20/23 23:15 06/20/23 23:13 Oxymask 8 06/20/23 23:00 06/20/23 23:00 06/20/23 22:53 06/20/23 22:53 06/20/23 22:51 06/20/23 22:51 06/20/23 22:50 06/20/23 22:50 Oxymask 8 06/20/23 22:48 06/20/23 22:45 06/20/23 22:33 06/20/23 22:03 Oxymask 10 06/20/23 21:03 Diagnostic Findings Chest X-Ray 06/20/23 12:56 XR chest 1V portable CLINICAL HISTORY: Chest pain, nonspecific TECHNIQUE: Single frontal radiograph of the chest was obtained. Comparison: Comparison is made to chest radiograph 06/07/2023 FINDINGS: No lines and tubes are seen. Calcified aortic knob is seen. Right midlung airspace opacity is increased in density from prior exam. No evidence of pleural effusion or pneumothorax. IMPRESSION: Increased density in the right midlung may represent atelectasis, pneumonia, and/or aspiration superimposed upon posttreatment changes. ACT 112: Negative or not required by law. Electronically signed by: Riaz Branch M.D. 06/20/2023 1:39 PM Abdomen/Pelvis CT 06/20/23 14:09 CT OF THE ABDOMEN AND PELVIS WITH CONTRAST CLINICAL HISTORY: SIRS, diarrhea, recent ABX COMPARISON STUDY: CT of the abdomen and pelvis April 15, 2023. TECHNIQUE: Following IV administration of 115 mL of Optiray, axial images of the abdomen and pelvis were obtained from the lung bases to the proximal femurs. Images were reviewed in the axial, sagittal, and coronal planes. IV contrast was administered without complication. Automated exposure control was utilized for the study. A dose lowering technique was utilized adhering to the principles of ALARA. CT DOSE: 1566.69 mGy.cm FINDINGS: Please note that the chest CT will be reported separately. No pn eumatosis, free air or portal venous gas is present. There are no hepatic lesions. There is no biliary or pancreatic ductal dilatation. Spleen, adrenal glands, kidneys and pancreas are unremarkable. There is no hydronephrosis. There is mild symmetric bilateral perinephric stranding. Extensive colonic diverticulosis is present. There is no evidence for acute diverticulitis. The appendix is normal. There is no evidence for a bowel obstruction. Minimal presacral stranding is likely due to volume overload. There is mild anasarca. The infrarenal abdominal aorta is ectatic. Major vasculature is patent. Moderate aortoiliac atherosclerotic plaque. There is no lymphadenopathy. No fluid collections are present. IMPRESSION: 1. No acute process within the abdomen or pelvis. 2. Extensive colonic diverticulosis. No evidence for acute diverticulitis. 3. Anasarca. ACT 112: Negative or not required by law. Electronically signed by: Chung Pelayo M.D. 06/20/2023 3:40 PM Chest CTA 06/20/23 14:09 CT ANGIOGRAPHY OF THE CHEST, PULMONARY EMBOLUS PROTOCOL CLINICAL HISTORY: Cough, sob, fever, r/o PE. Lung cancer. COMPARISON STUDY: Chest CT April 18, 2023. Chest radiograph performed earlier today. TECHNIQUE: Following IV administration of 115 mL of Optiray, helical axial images of the chest were obtained utilizing the pulmonary embolus protocol. Maximal intensity projections and sagittal and coronal reformats were viewed on an independent 3D workstation. IV contrast was administered without complication. Automated exposure control was utilized for the study. A dose lowering technique was utilized adhering to the principles of ALARA. FINDINGS: No pulmonary emboli are identified. There is mild cardiomegaly and moderate coronary artery calcification. There is no pericardial effusion. Mediastinal and right hilar lymph nodes have mildly increased in size since chest CT of April 18, 2023. Index AP window lymph node measures 2.5 x 1.7 cm. It previously measured 1.9 x 1.3 cm. Small right and trace left pleural effusions are present. There is no pneumothorax. Severe emphysema is noted. The previously described right lower lobe lesion is obscured on this examination by airspace opacity. Moderate multifocal airspace opacities within the lungs are present. There is interlobular septal thickening. There is no cavitation. No suspicious lesions within the bony thorax are noted. Visualized portions of the upper abdomen are unremarkable. IMPRESSION: 1. No pulmonary emboli identified. 2. Moderate multifocal airspace opacities within the lungs. The findings favor multifocal pneumonia. Alveolar pulmonary edema could appear similar although is considered less likely. This airspace opacity obscures the previously described right lower lobe lesion. A follow-up chest CT in 2 months to ensure resolution is recommended. 3. Increase in mediastinal and right hilar lymphadenopathy. This may be reactive or related to pulmonary edema. However, progression of pathologic lymphadenopathy cannot be excluded and these nodes can be assessed on follow-up CT. 4. Interlobular septal thickening suggestive of mild pulmonary edema. Small right and trace left pleural effusions. 5. Emphysema. ACT 112: Negative or not required by law. Electronically signed by: Chung Pelayo M.D. 06/20/2023 3:31 PM Chest X-Ray 06/20/23 20:10 XR chest 1V portable CLINICAL HISTORY: Respiratory distress. COMPARISON STUDY: Chest radiograph and chest CT performed earlier today. FINDINGS: There is no pneumothorax. Small bilateral pleural effusions are again noted. There is underlying emphysema. Multifocal airspace opacities have slightly progressed, most pronounced within the right midlung. There is mild interstitial thickening. IMPRESSION: 1. Increase in airspace opacities consistent with multifocal pneumonia. 2. Mild interstitial pulmonary edema with small bilateral pleural effusions. 3. Emphysema. ACT 112: Negative or not required by law. Electronically signed by: Chung Pelayo M.D. 06/21/2023 7:42 AM Resident Activity Tracking Resident Involvement: Resident Care Provided Care Provided: [facility] Medicine
[2023-06-21] MEDS: FOLIC ACID 1 MG TAB PO SCH (09:45)
[2023-06-21] MEDS: ASPIRIN 81 MG ECTAB PO SCH (09:45)
[2023-06-21] MEDS: PANTOprazole 40 MG TAB PO SCH (09:45)
[2023-06-21] MEDS: SERTRALINE HCL 50 MG TABLET PO SCH (09:45)
[2023-06-21] MEDS: CYANOCOBALAMIN (B-12) 500 MCG TABLET PO SCH (09:45)
[2023-06-21] MEDS: ATORVASTATIN 40 MG TAB PO SCH (09:45)
[2023-06-21] MEDS: METOPROLOL TARTRATE 1 MG/ML VIAL IV SCH ×3 (09:46→21:44)
[2023-06-21] MEDS: UMECLIDINIUM/VILANTEROL 62.5/25MCG 7 PUFFS/INHALER INH SCH (09:46)
[2023-06-21] MEDS: PIPERACILLIN/TAZOBACTAM 4.5 GM in DEXTROSE 5% MINI-B 100 ML IV SCH ×2 (10:52→17:10)
[2023-06-21 11:29] LABS: iSTAT Arterial Blood Gas HCO3 20 meg/L (19-24); iSTAT Arterial Blood Gas pCO2 36 mmHg (35-46); iSTAT Arterial Blood Gas pH 7.35 (7.35-7.45); iSTAT Arterial Blood Gas pO2 88 mmHg (80-95); iSTAT Carbon Dioxide 21 mmol/L (24-31); iSTAT Hematocrit 24 % (42-52); iSTAT Hemoglobin 8.2 g/dl (14.0-18.0); iSTAT Potassium 3.9 mmol/L (3.3-5.0); iSTAT Sodium 140 mmol/L (135-144)
[2023-06-21 12:31] LABS: Hematocrit (blood only) 30.5 % (42.0-52.0); Hemoglobin 10.2 g/dl (14.0-18.0)
--- NOTE | 2023-06-21 13:44 | Hospitalist Progress Note ---
Date of Service June 21, 2023 Assessment & Plan (1) Acute hypoxic respiratory failure: (2) Pneumonia: (3) Hypomagnesemia: (4) Diabetes mellitus type II, controlled: (5) Anemia: (6) Primary cancer of right lower lobe of lung: (7) Atrial fibrillation with rapid ventricular response: Plan Mr. Bella is a 78 yo gentleman with Pmhx significant for lung cancer, atrial fibrillation, DMII, HLD, hemochromatosis, Mood disorder admitted with pneumonia once more. Acute hypoxic Respiratory Failure: Multifocal PNA: acute uncontrolled Recent admission 06/07-06/09 for PNA; completed course of Augmentin + Doxy; last dose yesterday Blood Cx x2 with NGTD, no sputum Cx obtained yet IV Vanco started in ED with Cefepime Had allergic rxn, possible red man syndrome to vanc and it was discontinued. MRSA negative as well. Continue Zosyn Requiring 2LNC, supplement as needed Pulm consult and palliative care- appreciate recs Lung Cancer: chronic stable 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 follows with Dr. Mari s/p completion of chemotherapy/radiation, on immunotherapy Continue Cam Bazzi Has had thoracentesis in the past for pleural effusions- pulm consult placed Palliative medicine consultation as outlined above Hypomagnesemia: replete as needed DM2: chronic stable A1C 5.5 on 06/08/23 Diabetic Diet Atrial Fibrillation: Had rvr episode Currently controlled Continue Metoprolol and Xarelto Anemia of chronic disease: chronic stable Depression: chronic stable takes sertraline;continue Disposition: PCP: Dr. Rojas @ [facility] Code Status: DNR/DNI VTE Prophylaxis: On Xarelto Admission and Anticipated Discharge Date Admission Date: June 20, 2023 Subjective Pt seen in the AM. Overnight had allergic reaction, a fib with rvr. Notes that he has been feeling weaker at home. Agreeable to palliative care consult. Review of Systems Review of Systems: All systems reviewed & are unremarkable except as noted in Subjective Physical Exam Physical Exam: General: Alert, oriented. No acute distress Psych: Appropriate mood and affect Neuro: weak HEENT: NC/AT CV: Irregular rate and rhythm Resp: Breath sounds decreased bilaterally Abdomen: Soft, nontender Extremities: No edema in lower extremities bilaterally. Results & Data Results & Data Vital Signs (Past 12 Hours) Vital Signs Temp Pulse Pulse Resp BP BP Pulse Ox 06/21/23 12:44 36.5 C 06/21/23 12:30 103 H 22 104/61 91 06/21/23 12:01 87 22 94/60 L 91 06/21/23 11:30 122 H 29 H 108/68 90 06/21/23 11:00 82 19 103/73 92 06/21/23 10:41 06/21/23 10:30 21 112/75 06/21/23 10:01 81 06/21/23 10:00 17 102/59 L 93 06/21/23 09:46 78 110/71 06/21/23 09:01 81 94/67 L 93 06/21/23 08:30 107 H 112/86 95 06/21/23 08:06 95 H 150 H 105/62 76 L 06/21/23 07:27 36.7 C 06/21/23 07:00 86 7 L 107/68 99 06/21/23 06:30 80 10 L 99/62 L 98 06/21/23 06:00 101/63 06/21/23 06:00 89 25 H 95 06/21/23 05:30 99/65 L 06/21/23 05:30 95 H 14 99 06/21/23 05:01 120 H 82 L 06/21/23 05:01 118/72 06/21/23 05:00 114 H 19 85 L 06/21/23 04:30 103/71 06/21/23 04:30 97 H 17 98 06/21/23 04:00 06/21/23 04:00 92/62 L 06/21/23 04:00 113 H 12 97 06/21/23 03:30 106/76 06/21/23 03:30 131 H 13 92 06/21/23 03:10 130 H 12 97 06/21/23 03:10 82/57 L 06/21/23 03:00 79/57 L 06/21/23 03:00 143 H 6 L 97 06/21/23 02:50 71/55 L 06/21/23 02:50 147 H 14 97 06/21/23 02:47 94/72 L 06/21/23 02:47 144 H 14 96 06/21/23 02:43 135 H 20 98 06/21/23 02:43 94/64 L 06/21/23 02:42 36.8 C 136 H 18 70/50 L 97 06/21/23 02:40 78/51 L 06/21/23 02:40 134 H 27 H 97 06/21/23 02:38 74/57 L 06/21/23 02:38 131 H 27 H 97 06/21/23 02:30 112 H 26 H 95 06/21/23 02:30 81/51 L 06/21/23 02:20 96 H 18 96 06/21/23 02:20 90/56 L 06/21/23 02:20 83/58 L 06/21/23 02:16 113 H 23 96 06/21/23 02:16 91/56 L 06/21/23 02:12 105 H 11 L 97 06/21/23 02:12 88/65 L 06/21/23 02:12 96/67 L 06/21/23 02:11 119 H 18 97 06/21/23 02:11 96/67 L 06/21/23 02:02 100 H 16 96 06/21/23 02:00 106 H 16 96 06/21/23 02:00 84/54 L 06/21/23 01:49 111 H 9 L 96 06/21/23 01:45 76/59 L 06/21/23 01:45 112 H 18 96 O2 Del Method O2 Flow Rate 06/21/23 12:44 06/21/23 12:30 06/21/23 12:01 06/21/23 11:30 06/21/23 11:00 06/21/23 10:41 Nasal Cannula 2 06/21/23 10:30 06/21/23 10:01 06/21/23 10:00 Nasal Cannula 2 06/21/23 09:46 06/21/23 09:01 Nasal Cannula 2 06/21/23 08:30 Nasal Cannula 2 06/21/23 08:06 06/21/23 07:27 06/21/23 07:00 06/21/23 06:30 06/21/23 06:00 06/21/23 06:00 06/21/23 05:30 06/21/23 05:30 06/21/23 05:01 06/21/23 05:01 06/21/23 05:00 06/21/23 04:30 06/21/23 04:30 06/21/23 04:00 Oxymask 8 06/21/23 04:00 06/21/23 04:00 06/21/23 03:30 06/21/23 03:30 06/21/23 03:10 06/21/23 03:10 06/21/23 03:00 06/21/23 03:00 06/21/23 02:50 06/21/23 02:50 06/21/23 02:47 06/21/23 02:47 06/21/23 02:43 06/21/23 02:43 06/21/23 02:42 Oxymask 5 06/21/23 02:40 06/21/23 02:40 06/21/23 02:38 06/21/23 02:38 06/21/23 02:30 06/21/23 02:30 06/21/23 02:20 06/21/23 02:20 06/21/23 02:20 06/21/23 02:16 06/21/23 02:16 06/21/23 02:12 06/21/23 02:12 06/21/23 02:12 06/21/23 02:11 06/21/23 02:11 06/21/23 02:02 06/21/23 02:00 06/21/23 02:00 06/21/23 01:49 06/21/23 01:45 06/21/23 01:45
[2023-06-21] MEDS: RIVAROXABAN 20 MG TAB PO SCH (17:10)
--- NOTE | 2023-06-21 18:54 | Fluoroscopy Report ---
MODIFIED BARIUM SWALLOW CLINICAL HISTORY: r/o aspiration COMPARISON STUDY: None. FLUOROSCOPY TIME: 2.44 minutes. Ka, r: 7.58 mGy. TECHNIQUE: A modified barium swallow was performed in conjunction with Speech Pathology. The patient ingested varying consistencies of barium containing material. Video fluoroscopy was performed. FINDINGS: Note was made of tracheal aspiration with thin liquids by spoon. No aspiration was identifi ed with thin liquids by cup. There was no aspiration with pudding or cookie in pudding consistencies. Moderate residual were noted with multiple consistencies. Premature spillage was also noted. IMPRESSION: 1. Tracheal aspiration with thin liquids by spoon. No aspiration with the remainder of the consistenc ies. 2. Moderate residuals with multiple consistencies. 3. Full recommendations by Speech pathology to follow. ACT 112: Negative or not required by law. Electronically signed by: Chung Pelayo M.D. 06/21/2023 6:52 PM
--- NOTE | 2023-06-21 19:58 | Palliative Care Consultation ---
Date of Consultation June 21, 2023 Assessment & Plan (1) Weakness generalized: (2) Anxiety about health: (3) Palliative care by specialist: Met with pt. Provided overview of Palliative Medicine, a subspecialty that provides specialized medical care for people living with a serious illness by offering a focus on quality of life. Palliative Medicine is often conflated with hospice: I advised patient/family that Palliative and hospice can be partners but we are not the same. It is important to understand the difference so that we may be informed, and not afraid. Palliative Medicine works to improve QOL through reduction of symptom burden/more control over their illness, for both the patient and family. Palliative medicine clinicians are board certified, specially-trained and another member of the patient's medical care team. We often provide an extra layer of support because our care is based on the needs of the patient, not the prognosis; as such, it's appropriate at any age/advancing stage of a serious illness and can be provided along with curative treatment. Palliative Medicine clinicians are also trained in advanced communication methodologies, to facilitate complex discussions about advanced illness planning, which are needed to help assure that the treatment choices match the patient's goals, aka delivering Goal Concordant care. Finally, we discussed that hospice is a visiting nurse service that focuses on care delivered at the very end of life for patients with terminal illness, with life expectancy less than 6 month. (4) Advanced care planning/counseling discussion: Face to face ACP x 35min at bedside with pt: he is open to trial of rehab. Seems most focused on seeing if he can get some strength back and return home. has loose ends to tie up. plus Dr Mari in oncology has not ruled out more cancer treatment and pt plans to keep follow up. no interest in hospice. i agreed with pt and told him if rehab does not help or he gets worse they can help him go home from there with hospice if desired and he was happy with that plan. additionally, he is open to continued pall care as OP, will see [facility] for convenience. I will loop in [facility] as FYI - match appt with Dr Mari follow up. Plan ACP as noted above please have PT start working with pt, he is very eager to see if he can regain some strength and mobility. Primary team updated. Thank you for allowing us to participate in the ongoing care of this patient. Please don't hesitate to call or page with any additional concerns. Dr. She Martinez DNP Director, Palliative Care History of Present Illness Reason for Consultation: "lung cancer/frequent hospitali/goal for opt pall" Attending Physician: Sugar Blas MD History of Present Illness ADmitted 06/20/23 via ED for PNA, acute hypotension, a fib with RVR, hypomag PMH: met adenoca RLL/followed by Dr Mari/Elia Reyes [facility] s/[ chemoradiation; atrial fibrillation on Xarelto, hypertension hyperlipidemia, hemochromatosis, diabetes, NICM with recovery of EF C/o persistent fevers with cough and congestion with a very recent admission to [facility] 06/07-06/09 for pneumonia. Pt and family reported to ED that patient completed antibiotics from that admission 06/19 and "when home health nurse saw him 06/20, he was found to have a fever of 104." Home health then sent pt to ED by telehealth provider for assessment and admission. Lab and imaging review: EKG without overt acute ischemia. CXR: increased right midlung opacities from prior suspicious for progression of PNA. WBC and platelets WNL. H/H improved from prior. Chemistry without metabolic acidosis. Magnesium 1.6 with IV repletion provided. LFTs without significant abnormality. High-sensitivity troponin 6.5/WNL PCT neg Respiratory viral panel/[employer] was negative. He was started on empiric treatment for pneumonia initiated with IV Zosyn along with 2 L of normal saline with improvement and stabilization in his blood pressure. CT of the chest further characterizes lung findings suspicious for pneumonia. No evidence of pulmonary embolism. CT of the pelvis negative for acute intra- abdominal process. Per admitting note: "Patient indicated frustration with repeat hospitalizations and feels informed with his lung cancer prognosis. Unfortunately this individual and his family have increased stress at home taking care of his who is full care. It appears that the stress is increasing over the recent weeks and months. Patient is a DNR/DNI which was confirmed during this ER admission. Patient could benefit from PT OT for short-term rehab and respite for family as well." Allergies Allergy/AdvReac Type Severity Reaction Status Date / Time vancomycin Allergy Intermediate Rash Verified 06/21/23 10:08 No Known Drug Allergies Allergy Unknown Verified 06/20/23 16:00 Home Medications Medication Instructions Recorded Confirmed Type albuterol sulfate 90 mcg/actuation 2 puff inhalation Q4 PRN Shortness 06/30/12 06/20/23 History aerosol inhaler (ProAir HFA) Of Breath ##0 lorazepam 0.5 mg tablet 0.5 mg PO BID PRN #0 tabs 06/30/12 06/20/23 History nitroglycerin 0.4 mg sublingual 0.4 mg UT PRN #0 BTLS 07/18/12 06/20/23 History tablet (Nitrostat) rivaroxaban 20 mg tablet (Xarelto) 1 tab PO DAILY 30 days #30 tabs 11/17/16 06/20/23 History folic acid 1 mg tablet 1 mg PO DAILY 02/16/23 06/20/23 History atorvastatin 40 mg tablet 40 mg PO DAILY 04/14/23 06/20/23 History sertraline 50 mg tablet 50 mg PO QAM 04/14/23 06/20/23 History umeclidinium 62.5 mcg-vilanterol 1 inh inhalation QAM 04/14/23 06/20/23 History 25 mcg/actuation powdr for inhalation (Anoro Ellipta) metoprolol succinate 25 mg 25 mg PO QAM #30 tabs 04/20/23 06/20/23 Rx tablet,extended release 24 hr pantoprazole 40 mg tablet,delayed 40 mg PO QAM #30 tabs 04/20/23 06/20/23 Rx release aspirin 81 mg tablet,delayed 81 mg PO QAM 06/07/23 06/20/23 History release cyanocobalamin (vitamin B-12) 1,000 mcg PO QAM 06/07/23 06/20/23 History 1,000 mcg tablet (Vitamin B-12) magnesium oxide 400 mg PO DAILY 06/07/23 06/20/23 History Patient History Medical History Hypomagnesemia Lung cancer Gall stones Skin cancer of scalp Diabetes mellitus type II, controlled Atrial fibrillation COPD (chronic obstructive pulmonary disease) with emphysema Surgical History H/O ventral hernia repair 09/01/2009 Dr. Cortes; right inguinal hernia H/O cataract removal with insertion of prosthetic lens 07/21 Hx of tonsillectomy <12 y/o H/O colonoscopy 10/27/2015 Dr. 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 Beliefs That Will Affect Care: None marital status: Current Living Situation: Spouse Current Living Situation Comment: Lives at home with , who he cares for current occupational status: employed 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 How many Children do You have: 2 Other Information That Helps Us Care for You: No Feels Safe at Home: Yes Safety Concerns: Feels Safe At This Time Assistive Devices: Cane, Oxygen - Continuous and Walker Review of Systems Review of Systems: All systems reviewed & are unremarkable except as noted in Subjective Physical Exam Physical Exam: thin elderly male resting in bed bitemp wasting perrla, eomi's neck supple, no stridor coarse rhonchi no jvd s1s2, irreg abd soft, BS+ gen weakness skin pale, cool, no clubbing or cyanosis AAOx3 Results & Data Vital Signs (Past 12 Hours) Vital Signs Temp Pulse Pulse Resp BP BP Pulse Ox 06/21/23 19:44 36.9 C 94 H 18 114/72 93 06/21/23 16:39 36.9 C 102 H 20 110/72 93 06/21/23 15:01 92 H 23 128/71 06/21/23 14:58 92 H 97/69 L 06/21/23 14:49 79 06/21/23 14:27 96 H 100/66 06/21/23 14:00 106 H 22 100/66 92 06/21/23 13:30 115 H 23 100/76 06/21/23 12:44 36.5 C 06/21/23 12:30 103 H 22 104/61 91 06/21/23 12:01 87 22 94/60 L 91 06/21/23 11:30 122 H 29 H 108/68 90 06/21/23 11:00 82 19 103/73 92 06/21/23 10:41 06/21/23 10:30 21 112/75 06/21/23 10:01 81 06/21/23 10:00 17 102/59 L 93 06/21/23 09:46 78 110/71 06/21/23 09:01 81 94/67 L 93 06/21/23 08:30 107 H 112/86 95 06/21/23 08:06 95 H 150 H 105/62 76 L O2 Del Method O2 Flow Rate 06/21/23 19:44 Oxymask 3 06/21/23 16:39 Nasal Cannula 3.0 06/21/23 15:01 06/21/23 14:58 06/21/23 14:49 06/21/23 14:27 06/21/23 14:00 06/21/23 13:30 06/21/23 12:44 06/21/23 12:30 06/21/23 12:01 06/21/23 11:30 06/21/23 11:00 06/21/23 10:41 Nasal Cannula 2 06/21/23 10:30 06/21/23 10:01 06/21/23 10:00 Nasal Cannula 2 06/21/23 09:46 06/21/23 09:01 Nasal Cannula 2 06/21/23 08:30 Nasal Cannula 2 06/21/23 08:06 Laboratory Results data reviewed, see HPI Diagnostic Findings data reviewed, see HPI PG Care Time/CCT Total # of Minutes Spent Total Time Spent: 90 Total Time Spent with Patient: Total time spent is greater than 50% in coordination of care (as documented) at patient's floor/unit and/or counseling patient: Advanced Care Planning 06626 Advanced Care Planning 30 Min 64696 Advanced Care Planning Additional 30 [place] [address] IN/OBS CONSULT LVL 5,80M Patient Type New History Comprehensive Exam Comprehensive Medical Decision Making High Complexity Diagnoses Weakness generalized R53.1 Anxiety about health F41.8 Palliative care by specialist Z51.5 Advanced care planning/counseling discussion Z71.89 Additional Codes Advanced Care Planning - 32552 Advanced Care Planning 30 Min: 36763 Advanced Care Planning 30 Min ([id number]) Advanced Care Planning - 33452 Advanced Care Planning Additional 30 Min: 10254 Advanced Care Planning Additional 30 Min ([id number])
[2023-06-22] MEDS: PIPERACILLIN/TAZOBACTAM 4.5 GM in DEXTROSE 5% MINI-B 100 ML IV SCH ×3 (01:57→17:16)
[2023-06-22] MEDS: METOPROLOL TARTRATE 1 MG/ML VIAL IV SCH ×3 (05:57→20:26)
[2023-06-22 07:19] LABS: Basophils # (auto) 0.01 K/uL (0.00-0.20); Basophils % (auto) 0.1 %; Hematocrit (blood only) 26.7 % (42.0-52.0); Hemoglobin 9.1 g/dl (14.0-18.0); Immature Granulocytes # (auto) 0.03 K/uL (0.01-0.20); Immature Granulocytes % (auto) 0.4 %; Lymphocytes # (auto) 0.36 K/uL (1.20-3.40); Lymphocytes % (auto) 4.8 %; Mean Corpuscular Hemoglobin 38.1 pg (25.0-34.0); Mean Corpuscular Hgb Conc 34.1 g/dL (32.0-36.0); Mean Corpuscular Volume 111.7 fL (80.0-100.0); Mean Platelet Volume 9.8 fL (9.4-12.4); Monocytes # (auto) 0.67 K/uL (0.11-0.59); Monocytes % (auto) 8.9 %; Neutrophils # (auto) 6.47 K/uL (1.40-6.50); Neutrophils % (auto) 85.8 %; Platelet Count 133 K/uL (130-400); RDW Coefficient of Variation 14.4 % (11.5-14.5); RDW Standard Deviation 58.6 fL (36.4-46.3); Red Blood Count 2.39 M/uL (4.70-6.10); White Blood Count 7.54 K/ul (4.8-10.8)
[2023-06-22 07:36] LABS: Albumin Globulin Ratio 1.1 (0.9-2); Albumin Level 3.1 gm/dl (3.4-5.0); BUN Creatinine Ratio 19.3 (10-20); Bilirubin,Total 1.5 mg/dl (0.2-1.0); Creatinine Clr Calc Pharmacy 71.4 ml/min; Est GFR (African American) 95.4 ml/min; Est GFR (Non-African American) 82.3 ml/min; Globulin 2.9 gm/dl (2.5-4.0); Magnesium 1.8 mg/dl (1.7-2.4); Potassium 4.2 mmol/L (3.5-5.1)
[2023-06-22] MEDS: CYANOCOBALAMIN (B-12) 500 MCG TABLET PO SCH (07:47)
[2023-06-22] MEDS: ASPIRIN 81 MG ECTAB PO SCH (07:47)
[2023-06-22] MEDS: SERTRALINE HCL 50 MG TABLET PO SCH (07:47)
[2023-06-22] MEDS: ATORVASTATIN 40 MG TAB PO SCH (07:47)
[2023-06-22] MEDS: UMECLIDINIUM/VILANTEROL 62.5/25MCG 7 PUFFS/INHALER INH SCH (07:47)
[2023-06-22] MEDS: PANTOprazole 40 MG TAB PO SCH (07:47)
[2023-06-22] MEDS: FOLIC ACID 1 MG TAB PO SCH (07:47)
--- NOTE | 2023-06-22 12:07 | Hospitalist Progress Note ---
Date of Service June 22, 2023 Assessment & Plan (1) Acute hypoxic respiratory failure: (2) Pneumonia: (3) Hypomagnesemia: (4) Diabetes mellitus type II, controlled: (5) Anemia: (6) Primary cancer of right lower lobe of lung: (7) Atrial fibrillation with rapid ventricular response: Plan Mr. Bella is a 78 yo gentleman with Pmhx significant for lung cancer, atrial fibrillation, DMII, HLD, hemochromatosis, Mood disorder admitted with pneumonia once more. 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 MRSA negative as well. 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 follows with Dr. Mari s/p completion of chemotherapy/radiation, on immunotherapy Continue Cam Bazzi Has had thoracentesis in the past for pleural effusions- pulm consult placed Palliative medicine consultation as outlined above Hypomagnesemia: replete as needed DM2: chronic stable A1C 5.5 on 06/08/23 Diabetic Diet Atrial Fibrillation: Had rvr episode Currently controlled Continue Metoprolol and Xarelto Anemia of chronic disease: chronic stable Depression: chronic stable takes sertraline;continue PCP: Dr. Rojas @ forward Code Status: DNR/DNI VTE Prophylaxis: On Xarelto Dispo: PT recommending home, however pt and Palliative would like acute rehab. Will f/u with CM Admission and Anticipated Discharge Date Admission Date: June 20, 2023 Subjective Pt seen in the AM. Extensive discussion about goals, bucket list, and wanting to provide fin ancially for a sick at home and not drain the finances of his daughter and family members helping to pay for rising health care costs. Agreeable to palliative care consult, had not had it at that time. States that he has been trying to get up and get moving to help get better. Review of Systems Review of Systems: All systems reviewed & are unremarkable except as noted in Subjective Physical Exam Physical Exam: General: Alert, oriented. No acute distress Psych: Appropriate mood and affect Neuro: weak HEENT: NC/AT CV: Irregular rate and rhythm Resp: Breath sounds decreased bilaterally Abdomen: Soft, nontender Extremities: No edema in lower extremities bilaterally. Results & Data Results & Data Vital Signs (Past 12 Hours) Vital Signs Temp Pulse Pulse Resp BP BP Pulse Ox 06/22/23 11:15 36.4 C L 109 H 18 119/70 88 L 06/22/23 11:00 104 H 06/22/23 08:57 06/22/23 08:07 36.4 C L 76 20 119/81 91 06/22/23 08:00 104 H 06/22/23 06:00 104 H 118/89 06/22/23 05:57 96 H 118/89 06/22/23 04:24 88 06/22/23 04:04 36.5 C 109 H 19 104/73 94 O2 Del Method O2 Flow Rate 06/22/23 11:15 Nasal Cannula 6 06/22/23 11:00 06/22/23 08:57 Nasal Cannula 2 06/22/23 08:07 Oxymask 5 06/22/23 08:00 06/22/23 06:00 06/22/23 05:57 06/22/23 04:24 06/22/23 04:04 Oxymask 5
[2023-06-22] MEDS: RIVAROXABAN 20 MG TAB PO SCH (15:32)
[2023-06-22] MEDS ORDERED: ALBUT/IPRATROP 3MG/0.5MG NEB 3 ML VIAL NEB STA (23:17)
[2023-06-22] MEDS ORDERED: ALBUT/IPRATROP 3MG/0.5MG NEB 3 ML VIAL NEB PRN (23:17)
[2023-06-22] MEDS ORDERED: MAGNESIUM SULFATE / D5W 1 GM/100 ML BAG IV ONE (23:19)
[2023-06-22 23:40] LABS: Base Excess ABG 1.8 mEq/L (-9-1.8); HCO3 ABG 26 mmol/L (19-24); Oxygen Saturation ABG 90.3 % (90-95); PCO2 ABG 37 mmHg (35-46); PO2 ABG 56 mmHg (80-95); pH ABG 7.45 (7.35-7.45)
[2023-06-22] MEDS ORDERED: FUROSEMIDE INJ 20 MG/2 ML VIAL IV ONE (23:46)
[2023-06-22] MEDS ORDERED: ALBUMIN 25% 12.5 GM/50 ML VIAL IV ONE (23:46)
[2023-06-22] MEDS ORDERED: methylPREDNISolone 20 MG in SYRINGE 0 ML IV ONE (23:55)
[2023-06-23 00:04] LABS: Allen Test Pos (Pos)
[2023-06-23] MEDS: PIPERACILLIN/TAZOBACTAM 4.5 GM in DEXTROSE 5% MINI-B 100 ML IV SCH ×3 (04:12→18:27)
[2023-06-23] MEDS: METOPROLOL TARTRATE 1 MG/ML VIAL IV SCH ×3 (04:13→23:32)
[2023-06-23 06:17] LABS: Basophils # (auto) 0.01 K/uL (0.00-0.20); Basophils % (auto) 0.1 %; Hematocrit (blood only) 25.6 % (42.0-52.0); Immature Granulocytes # (auto) 0.06 K/uL (0.01-0.20); Immature Granulocytes % (auto) 0.7 %; Lymphocytes # (auto) 0.36 K/uL (1.20-3.40); Lymphocytes % (auto) 4.2 %; Mean Corpuscular Hemoglobin 38.8 pg (25.0-34.0); Mean Corpuscular Hgb Conc 35.2 g/dL (32.0-36.0); Mean Corpuscular Volume 110.3 fL (80.0-100.0); Mean Platelet Volume 9.4 fL (9.4-12.4); Monocytes # (auto) 0.63 K/uL (0.11-0.59); Monocytes % (auto) 7.4 %; Neutrophils # (auto) 7.51 K/uL (1.40-6.50); Neutrophils % (auto) 87.6 %; Platelet Count 132 K/uL (130-400); RDW Coefficient of Variation 14.7 % (11.5-14.5); RDW Standard Deviation 59.6 fL (36.4-46.3); Red Blood Count 2.32 M/uL (4.70-6.10); White Blood Count 8.57 K/ul (4.8-10.8)
[2023-06-23 06:29] LABS: Albumin Globulin Ratio 1.1 (0.9-2); Albumin Level 3.2 gm/dl (3.4-5.0); Bilirubin,Total 1.5 mg/dl (0.2-1.0); Calcium 8.7 mg/dl (8.6-10.3); Creatinine Clr Calc Pharmacy 59.3 ml/min; Est GFR (African American) 77.5 ml/min; Est GFR (Non-African American) 66.9 ml/min; Globulin 2.9 gm/dl (2.5-4.0); Magnesium 1.5 mg/dl (1.7-2.4); Phosphorus 3.2 mg/dl (2.5-4.9); Potassium 3.7 mmol/L (3.5-5.1); Total Protein 6.1 gm/dl (6.0-8.3)
--- NOTE | 2023-06-23 07:34 | XRay Report ---
XR chest 1V portable CLINICAL HISTORY: sob TECHNIQUE: Single frontal radiograph of the chest was obtained. Comparison: Comparison is made to chest radiograph 06/20/2023 FINDINGS: No lines and tubes are seen. The cardiomediastinal silhouette is stable. Interval increase in multifo marichuy airspace opacities. Interstitial lung disease is again seen. No evidence of pleural effusion or p neumothorax. IMPRESSION: Interval increase in multifocal airspace opacities compatible with pneumonia. ACT 112: Negative or not required by law. Electronically signed by: Riaz Branch M.D. 06/23/2023 7:33 AM
[2023-06-23] MEDS: CYANOCOBALAMIN (B-12) 500 MCG TABLET PO SCH (09:21)
[2023-06-23] MEDS: PANTOprazole 40 MG TAB PO SCH (09:21)
[2023-06-23] MEDS: FOLIC ACID 1 MG TAB PO SCH (09:22)
[2023-06-23] MEDS: ATORVASTATIN 40 MG TAB PO SCH (09:22)
[2023-06-23] MEDS: ASPIRIN 81 MG ECTAB PO SCH (09:22)
[2023-06-23] MEDS: SERTRALINE HCL 50 MG TABLET PO SCH (09:23)
[2023-06-23] MEDS: MAGNESIUM SULFATE / D5W 1 GM/100 ML BAG IV SCH ×2 (09:39→11:44)
[2023-06-23] MEDS: ACETAMINOPHEN 325 MG TAB PO PRN (09:46)
[2023-06-23] MEDS: UMECLIDINIUM/VILANTEROL 62.5/25MCG 7 PUFFS/INHALER INH SCH (10:07)
[2023-06-23] MEDS: MAGNESIUM OXIDE 400 MG TAB PO SCH ×2 (10:49→21:10)
--- NOTE | 2023-06-23 11:50 | Hospitalist Progress Note ---
Date of Service June 23, 2023 Assessment & Plan (1) Acute hypoxic respiratory failure: (2) Pneumonia: (3) Hypomagnesemia: (4) Diabetes mellitus type II, controlled: (5) Anemia: (6) Primary cancer of right lower lobe of lung: (7) Atrial fibrillation with rapid ventricular response: Plan Mr. Bella is a 78 yo gentleman with Pmhx significant for lung cancer, atrial fibrillation, DMII, HLD, hemochromatosis, Mood disorder admitted with pneumonia once more. 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 MRSA negative as well. Continue Zosyn Requiring 2LNC, supplement as needed Pulm consult and palliative care- appreciate recs -per Palliative, pt would like to pursue acute rehab -pulm recommending treating pneumonia 06/23- increased oxygen need, chest xray with improving pneumonia and possible pleural effusions. 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 follows with Dr. Mari s/p completion of chemotherapy/radiation, on immunotherapy Continue Cam Bazzi Has had thoracentesis in the past for pleural effusions- pulm consult placed Palliative medicine consultation as outlined above Hypomagnesemia: replete as needed DM2: chronic stable A1C 5.5 on 06/08/23 Diabetic Diet Atrial Fibrillation: Had rvr episode Currently controlled Continue Metoprolol and Xarelto Anemia of chronic disease: chronic stable Depression: chronic stable takes sertraline;continue PCP: Dr. Rojas @ 65 forward Code Status: DNR/DNI VTE Prophylaxis: On Xarelto Dispo: PT recommending home, however pt and Palliative would like acute rehab. Will f/u with CM Admission and Anticipated Discharge Date Admission Date: June 20, 2023 Subjective Pt seen multiple times during the day. Per nursing had coughed up a blood clot requiring hi flow oxygen. Later, advised that he had an increasing oxygen need. Pt sitting at bedside and comfortable Review of Systems Review of Systems: All systems reviewed & are unremarkable except as noted in Subjective Physical Exam Physical Exam: General: Alert, oriented. No acute distress Psych: Appropriate mood and affect Neuro: weak HEENT: NC/AT CV: Irregular rate and rhythm Resp: Breath sounds decreased bilaterally Abdomen: Soft, nontender Extremities: No edema in lower extremities bilaterally. Results & Data Results & Data Vital Signs (Past 12 Hours) Vital Signs Temp Pulse Pulse Resp BP BP Pulse Ox 06/23/23 11:20 06/23/23 10:00 06/23/23 08:08 36.7 C 98 H 22 128/95 95 06/23/23 06:53 95 H 18 94 06/23/23 04:54 98 H 06/23/23 04:13 126 H 102/69 06/23/23 02:57 37.4 C 126 H 20 102/69 88 L 06/23/23 02:12 89 20 90 06/23/23 01:18 92 06/23/23 01:00 90 06/22/23 23:52 102 H 22 91 Pulse Ox Pulse Ox Pulse Ox O2 Del Method O2 Flow Rate O2 Flow Rate O2 Flow Rate 06/23/23 11:20 89 L 94 85 L 25 25 06/23/23 10:00 High Flow Nasal Cannula 06/23/23 08:08 High Flow Nasal Cannula 25 06/23/23 06:53 High Flow Nasal Cannula 25 06/23/23 04:54 06/23/23 04:13 06/23/23 02:57 High Flow Nasal Cannula 25 06/23/23 02:12 High Flow Nasal Cannula 25 06/23/23 01:18 High Flow Nasal Cannula 06/23/23 01:00 High Flow Nasal Cannula 20 06/22/23 23:52 30 O2 Flow Rate FiO2 06/23/23 11:20 25 06/23/23 10:00 50 06/23/23 08:08 55 06/23/23 06:53 50 06/23/23 04:54 06/23/23 04:13 06/23/23 02:57 70 06/23/23 02:12 70 06/23/23 01:18 06/23/23 01:00 70 06/22/23 23:52 50
--- NOTE | 2023-06-23 14:30 | XRay Report ---
XR chest 1V portable CLINICAL HISTORY: Hypoxia. COMPARISON STUDY: Chest CT June 20, 2023. Chest radiograph June 22, 2023. FINDINGS: There is no pneumothorax. Small right and trace left pleural effusions are present. Interst itial thickening and bilateral opacities have improved since chest radiograph of June 22, 2023. C ardiomediastinal silhouette is stable. Incidental note is made of oral contrast within visualized por tions of the colon from modified barium swallow. IMPRESSION: 1. Improvement in interstitial thickening and bilateral airspace opacities since prior exam. The find ings favor multifocal pneumonia, likely superimposed upon interstitial pulmonary edema. 2. Small right and trace left pleural effusions, unchanged. ACT 112: Negative or not required by law. Electronically signed by: Chung Pelayo M.D. 06/23/2023 2:29 PM
[2023-06-23] MEDS ORDERED: FUROSEMIDE 40 MG/4 ML VIAL IV ONE (15:24)
[2023-06-23] MEDS: RIVAROXABAN 20 MG TAB PO SCH (16:08)
[2023-06-23] MEDS: POTASSIUM CHLORIDE CRTAB 20 MEQ TABCR PO SCH (21:10)
[2023-06-24] MEDS: PIPERACILLIN/TAZOBACTAM 4.5 GM in DEXTROSE 5% MINI-B 100 ML IV SCH ×3 (02:37→18:18)
[2023-06-24 04:51] LABS: Basophils # (auto) 0.02 K/uL (0.00-0.20); Basophils % (auto) 0.3 %; Eosinophils # (auto) 0.06 K/uL (0.00-0.50); Eosinophils % (auto) 0.8 %; Hematocrit (blood only) 27.1 % (42.0-52.0); Hemoglobin 9.2 g/dl (14.0-18.0); Immature Granulocytes # (auto) 0.03 K/uL (0.01-0.20); Immature Granulocytes % (auto) 0.4 %; Lymphocytes # (auto) 0.55 K/uL (1.20-3.40); Lymphocytes % (auto) 7.2 %; Mean Corpuscular Hgb Conc 33.9 g/dL (32.0-36.0); Mean Platelet Volume 9.3 fL (9.4-12.4); Monocytes # (auto) 1.11 K/uL (0.11-0.59); Monocytes % (auto) 14.5 %; Neutrophils # (auto) 5.91 K/uL (1.40-6.50); Neutrophils % (auto) 76.8 %; Platelet Count 141 K/uL (130-400); RDW Coefficient of Variation 14.5 % (11.5-14.5); RDW Standard Deviation 59.8 fL (36.4-46.3); Red Blood Count 2.42 M/uL (4.70-6.10); White Blood Count 7.68 K/ul (4.8-10.8)
[2023-06-24 05:02] LABS: Albumin Level 3.2 gm/dl (3.4-5.0); Bilirubin,Total 1.4 mg/dl (0.2-1.0); Calcium 8.8 mg/dl (8.6-10.3); Magnesium 1.7 mg/dl (1.7-2.4); Potassium 3.2 mmol/L (3.5-5.1)
[2023-06-24 05:08] LABS: Albumin Globulin Ratio 1.1 (0.9-2); BUN Creatinine Ratio 20.6 (10-20); Creatinine Clr Calc Pharmacy 64.8 ml/min; Est GFR (African American) 86.3 ml/min; Est GFR (Non-African American) 74.5 ml/min; Globulin 2.9 gm/dl (2.5-4.0); Phosphorus 2.6 mg/dl (2.5-4.9); Total Protein 6.1 gm/dl (6.0-8.3)
[2023-06-24] MEDS: METOPROLOL TARTRATE 1 MG/ML VIAL IV SCH ×3 (06:33→22:08)
[2023-06-24] MEDS: ATORVASTATIN 40 MG TAB PO SCH (08:45)
[2023-06-24] MEDS: ASPIRIN 81 MG ECTAB PO SCH (08:45)
[2023-06-24] MEDS: PANTOprazole 40 MG TAB PO SCH (08:46)
[2023-06-24] MEDS: MAGNESIUM OXIDE 400 MG TAB PO SCH ×2 (08:46→21:05)
[2023-06-24] MEDS: CYANOCOBALAMIN (B-12) 500 MCG TABLET PO SCH (08:46)
[2023-06-24] MEDS: POTASSIUM CHLORIDE CRTAB 20 MEQ TABCR PO SCH ×2 (08:46→21:05)
[2023-06-24] MEDS: SERTRALINE HCL 50 MG TABLET PO SCH (08:46)
[2023-06-24] MEDS: FOLIC ACID 1 MG TAB PO SCH (08:46)
[2023-06-24] MEDS: UMECLIDINIUM/VILANTEROL 62.5/25MCG 7 PUFFS/INHALER INH SCH (08:46)
--- NOTE | 2023-06-24 14:50 | Hospitalist Progress Note ---
Date of Service June 24, 2023 Assessment & Plan (1) Acute hypoxic respiratory failure: (2) Pneumonia: (3) Hypomagnesemia: (4) Diabetes mellitus type II, controlled: (5) Anemia: (6) Primary cancer of right lower lobe of lung: (7) Atrial fibrillation with rapid ventricular response: Plan Mr. Bella is a 78 yo gentleman with Pmhx significant for lung cancer, atrial fibrillation, DMII, HLD, hemochromatosis, Mood disorder admitted with pneumonia once more. 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 MRSA negative as well. Continue Zosyn Requiring 2LNC, supplement as needed Pulm consult and palliative care- appreciate recs -per Palliative, pt would like to pursue acute rehab -pulm recommending treating pneumonia 06/23- increased oxygen need, chest xray with improving pneumonia and possible pleural effusions. 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 follows with Dr. Mari s/p completion of chemotherapy/radiation, on immunotherapy Continue Cam Bazzi Has had thoracentesis in the past for pleural effusions- pulm consult placed Palliative medicine consultation as outlined above Hypomagnesemia: replete as needed DM2: chronic stable A1C 5.5 on 06/08/23 Diabetic Diet Atrial Fibrillation: Had rvr episode Currently controlled Continue Metoprolol and Xarelto Anemia of chronic disease: chronic stable Depression: chronic stable takes sertraline;continue PCP: Dr. Rojas @ forward Code Status: DNR/DNI VTE Prophylaxis: On Xarelto Dispo: PT recommending home, however pt and Palliative would like acute rehab. Will f/u with CM Admission and Anticipated Discharge Date Admission Date: June 20, 2023 Subjective Pt seen in the AM. Has been having episodes of hemoptysis, increased resp need. Would like to go home to get affairs in order, particularly worried about his . Review of Systems Review of Systems: All systems reviewed & are unremarkable except as noted in Subjective Physical Exam Physical Exam: General: Alert, oriented Psych: Appropriate mood and affect Neuro: weak HEENT: NC/AT CV: Irregular rate and rhythm Resp: Breath sounds decreased bilaterally Abdomen: Soft, nontender Extremities: No edema in lower extremities bilaterally. Results & Data Results & Data Vital Signs (Past 12 Hours) Vital Signs Temp Pulse Pulse Resp BP BP BP 06/24/23 11:58 36.7 C 90 22 111/67 06/24/23 09:00 06/24/23 07:54 79 06/24/23 07:45 36.7 C 74 23 118/74 06/24/23 06:48 85 99/62 L 06/24/23 06:33 83 103/65 06/24/23 06:32 83 103/65 06/24/23 03:38 36.5 C 87 18 108/72 Pulse Ox O2 Del Method O2 Flow Rate 06/24/23 11:58 95 Oxymask 12 06/24/23 09:00 Oxymask 12 06/24/23 07:54 06/24/23 07:45 96 Oxymask 12 06/24/23 06:48 06/24/23 06:33 06/24/23 06:32 06/24/23 03:38 96 Oxymask 12
--- NOTE | 2023-06-24 16:22 | Pulmonology Progress Note ---
Date of Service June 24, 2023 Assessment & Plan (1) Abnormal blood electrolyte level: (2) Acute hypoxic respiratory failure: (3) Atrial fibrillation with rapid ventricular response: (4) Pneumonia: (5) Acute hypotension: (6) Diabetes mellitus type II, controlled: (7) Anemia: Plan Pneumonia, hypoxic respiratory failure, COPD, Lung cancer -kamrynn d4 - COPD- continue MARILIN Flores, Spoke with patient and family at length at bedside. Daughters and were present. Expect a prolonged recovery course in terms of weaning oxygen and regaining energy as patient has multiple active pulmonary issues. Hemoptysis appears to be stable with old clots. Reassurance provided and will continue to monitor. Patient's primary concern is with finances and providing care for his . 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 He looks forward to speaking with a cyanide case hardener to discuss options. Discussed with RN. Admission and Anticipated Discharge Date Admission Date: June 20, 2023 Subjective "how am I doing..you tell me!" frustrated that he easily desats. still coughing up dark red clots. Physical Exam Constitutional: + underweight Respiratory: normal respiratory effort Cardiovascular: Rate/Rhythm: regular rate and regular rhythm Skin: no rashes, warm and dry Neurologic: CN's II-XI intact bilaterally and awake Results & Data Results & Data Vital Signs (Past 12 Hours) Vital Signs Temp Pulse Pulse Resp BP BP BP 06/24/23 15:29 99 H 06/24/23 15:11 90 06/24/23 14:56 100 H 100/62 06/24/23 14:55 100 H 100/62 06/24/23 11:58 36.7 C 90 22 111/67 06/24/23 09:00 06/24/23 07:54 79 06/24/23 07:45 36.7 C 74 23 118/74 06/24/23 06:48 85 99/62 L 06/24/23 06:33 83 103/65 06/24/23 06:32 83 103/65 Pulse Ox O2 Del Method O2 Flow Rate 06/24/23 15:29 06/24/23 15:11 06/24/23 14:56 06/24/23 14:55 06/24/23 11:58 95 Oxymask 12 06/24/23 09:00 Oxymask 12 06/24/23 07:54 06/24/23 07:45 96 Oxymask 12 06/24/23 06:48 06/24/23 06:33 06/24/23 06:32 PG Care Time/CCT Total # of Minutes Spent Total Time Spent with Patient: Total time spent is greater than 50% in coordination of care (as documented) at patient's floor/unit and/or counseling patient: Coding Level of Care Code 86885 SUB INP/OBS CARE 2/35MIN Diagnoses Abnormal blood electrolyte level E87.8 Acute hypoxic respiratory failure J96.01 Atrial fibrillation with rapid ventricular response I48.91 Pneumonia J18.9 Acute hypotension I95.9 Diabetes mellitus type II, controlled E11.9 Anemia D64.9
[2023-06-24] MEDS: RIVAROXABAN 20 MG TAB PO SCH (17:13)
--- NOTE | 2023-06-24 17:49 | CT Scan Report ---
CT SCAN OF THE CHEST WITHOUT IV CONTRAST CLINICAL HISTORY: Hemoptysis. Hypoxia. COMPARISON STUDY: Chest x-ray dated 06/23/2023. Chest CT scans dated 06/20/2023, 04/18/2023, and 06/08. TECHNIQUE: CT scan of the thorax was performed from the thoracic inlet to the upper abdomen. Images are reviewed in the axial, sagittal, and coronal planes. IV contrast was not administered for this ex amination as per the referring clinician. A dose lowering technique was utilized adhering to the aniya Elias. CT DOSE: 389.48 mGy.cm FINDINGS: Thyroid: Normal in size and heterogeneous in attenuation. Thoracic aorta: There is atherosclerotic calcification of the thoracic aorta, which is normal in shi landon and demonstrates standard 3-vessel arch anatomy. Heart: The heart is enlarged and without pericardial effusion. The coronary arteries are densely calc ified. The main pulmonary arteries are dilated suggesting pulmonary artery hypertension. Lungs and pleural spaces: There is advanced emphysema. Minimal secretions are noted in the trachea an d right mainstem bronchus. Moderate multifocal airspace consolidation is again seen throughout both l ungs comment has modestly worsened as compared to 06/20/2023. There are small pleural effusions, righ t larger than left. There are scattered calcified granulomas. The previously characterized right lowe r lobe lung lesion is obscured by airspace consolidation. Mediastinum: There are numerous mildly enlarged mediastinal lymph nodes. These are similar to 023 examination. A right paratracheal node on image #71 measures 2.3 x 1.1 cm. An AP window node on i mage #107 measures 2.4 x 1.6 cm. Lindsey: Not well assessed without IV contrast. Axillae: There is no axillary lymphadenopathy. Upper abdomen: There is a small hiatal hernia. Calcified gallstones are noted. Residual enteric contr ast is noted in the left colon. Skeletal structures: The skeletal structures are osteopenic. Degenerative change and hyperkyphosis is noted in the thoracic spine. Arthritic change is seen in the shoulders. No lytic or blastic bony les ions are identified. Chronic posttraumatic deformity is seen in the bilateral ribs. IMPRESSION: 1. Cardiomegaly and advanced emphysema. 2. Multifocal airspace consolidation is again seen throughout both lungs. This has modestly worsened as compared to 06/20/2023. Clinical correlation will be required and radiographic follow-up to resolu tion is recommended. 3. Small pleural effusions. 4. Mildly enlarged mediastinal lymph nodes are similar to previous. 5. Cholelithiasis. 6. The previously characterized right lower lobe lung lesion is obscured by airspace consolidation. 7. Additional findings as above. ACT 112: Negative or not required by law. Electronically signed by: Lonnie Baez M.D. 06/24/2023 5:46 PM
[2023-06-25] MEDS: PIPERACILLIN/TAZOBACTAM 4.5 GM in DEXTROSE 5% MINI-B 100 ML IV SCH ×3 (02:07→18:48)
[2023-06-25] MEDS ORDERED: ALBUMIN 25% 25 GM/100 ML VIAL IV ONE (03:46)
[2023-06-25] MEDS ORDERED: POTASSIUM CHLORIDE CRTAB 20 MEQ TABCR PO STA (03:52)
[2023-06-25] MEDS ORDERED: BENZONATATE 100 MG CAPSULE PO ONE (03:59)
[2023-06-25] MEDS ORDERED: BENZONATATE 100 MG CAPSULE PO PRN (03:59)
--- NOTE | 2023-06-25 03:59 | Communication Note ---
Date of Service: June 25, 2023 3:45 AM Patient noted to be hypoxemic and tachycardic upon returning to bed from bedside commode as per RN. Rapid A-fib, heart rate 110-150s, SBP 90s. Lowest O2 sats of 70s improved to 90% on 15 L oxy mask as per RN. Patient without chest pain, unusual SOB, abdominal pain as per RN. Patient later noted to have usual hemoptysis. Chest x-ray as per my interpretation bilateral infiltrates worsening on the right AP Worsening hypoxemic respiratory failure Progressive multifocal pneumonia Hemoptysis secondary to above Rapid A-fib, hypotension Supplemental O2 Baseline ABG Solu-Medrol 1 dose for hemoptysis, possible sleep exacerbation Antitussives as needed A.m. labs now Hold aspirin and Eliquis given hemoptysis until H&H back IV albumin 1 dose for hypotension, appropriate to hold IV Lopressor RTC for now given borderline BP Digoxin 1 dose if a.m. potassium within normal limits, consider initiating amiodarone infusion if A-fib unresponsive to digoxin Supplement potassium and magnesium once electrolytes back
[2023-06-25] MEDS ORDERED: methylPREDNISolone 20 MG in SYRINGE 0 ML IV ONE (04:00)
[2023-06-25] MEDS ORDERED: XOPENEX/ATROVENT 1.25mg/0.5MG NEB COMBO NEB PRN (04:14)
[2023-06-25] MEDS ORDERED: LEVALBUTEROL 1.25 MG/3 ML NEB NEB PRN (04:14)
[2023-06-25] MEDS ORDERED: IPRATROPIUM BROMIDE NEB SOLN 0.02% 2.5 ML VIAL INH PRN (04:14)
[2023-06-25 04:22] LABS: Base Excess ABG 3.9 mEq/L (-9-1.8); HCO3 ABG 28 mmol/L (19-24); Oxygen Saturation ABG 96.1 % (90-95); PCO2 ABG 38 mmHg (35-46); PO2 ABG 76 mmHg (80-95); pH ABG 7.47 (7.35-7.45)
[2023-06-25 04:40] LABS: Albumin Globulin Ratio 1.1 (0.9-2); Albumin Level 3.1 gm/dl (3.4-5.0); BUN Creatinine Ratio 18.6 (10-20); Bilirubin,Total 1.3 mg/dl (0.2-1.0); Calcium 8.7 mg/dl (8.6-10.3); Creatinine Clr Calc Pharmacy 64.8 ml/min; Est GFR (African American) 86.3 ml/min; Est GFR (Non-African American) 74.5 ml/min; Globulin 2.9 gm/dl (2.5-4.0); Magnesium 1.5 mg/dl (1.7-2.4); Phosphorus 2.3 mg/dl (2.5-4.9); Potassium 3.5 mmol/L (3.5-5.1)
[2023-06-25] MEDS ORDERED: POTASSIUM PHOS 3 MMOL/1 ML INFUSION IV STA (04:43)
[2023-06-25 04:44] LABS: Basophils # (auto) 0.02 K/uL (0.00-0.20); Basophils % (auto) 0.2 %; Eosinophils % (auto) 2.4 %; Hemoglobin 9.3 g/dl (14.0-18.0); Immature Granulocytes # (auto) 0.05 K/uL (0.01-0.20); Immature Granulocytes % (auto) 0.6 %; Lymphocytes # (auto) 0.44 K/uL (1.20-3.40); Lymphocytes % (auto) 5.3 %; Mean Corpuscular Hgb Conc 34.4 g/dL (32.0-36.0); Mean Corpuscular Volume 110.2 fL (80.0-100.0); Mean Platelet Volume 9.6 fL (9.4-12.4); Monocytes # (auto) 1.12 K/uL (0.11-0.59); Monocytes % (auto) 13.4 %; Neutrophils # (auto) 6.52 K/uL (1.40-6.50); Neutrophils % (auto) 78.1 %; Platelet Count 146 K/uL (130-400); RDW Coefficient of Variation 14.5 % (11.5-14.5); Red Blood Count 2.45 M/uL (4.70-6.10); White Blood Count 8.35 K/ul (4.8-10.8)
[2023-06-25] MEDS ORDERED: DIGOXIN 250 MCG in SYRINGE 9 ML IV STA (04:45)
[2023-06-25 04:59] LABS: Allen Test Pos (Pos)
[2023-06-25] MEDS ORDERED: POTASSIUM PHOSPHATE 15 MMOL in SODIUM CHLORIDE 0.9% 250 ML IV ONE (05:00)
[2023-06-25] MEDS: MAGNESIUM SULFATE / D5W 1 GM/100 ML BAG IV SCH ×2 (05:51→07:32)
[2023-06-25] MEDS ORDERED: METOPROLOL TARTRATE 1 MG/ML VIAL IV SCH (06:00)
--- NOTE | 2023-06-25 07:23 | XRay Report ---
XR chest 1V portable HISTORY: low o2 COMPARISON: Chest CT 06/24/2023. Chest x-ray 06/23/2023. FINDINGS: No pneumothorax. Bilateral midlung zone airspace opacities have progressed. There is diffus e interstitial thickening again noted. The cardiac silhouette is top normal in size. Old, healed righ t lower rib fractures. There are trace bilateral pleural effusions again noted. IMPRESSION: Slight progression of the bilateral midlung zone airspace opacities. ACT 112: Negative or not required by law. Electronically signed by: Efrain Yoo M.D. 06/25/2023 7:21 AM
[2023-06-25] MEDS: SERTRALINE HCL 50 MG TABLET PO SCH (08:37)
[2023-06-25] MEDS: PANTOprazole 40 MG TAB PO SCH (08:37)
[2023-06-25] MEDS: POTASSIUM CHLORIDE CRTAB 20 MEQ TABCR PO SCH ×2 (08:37→20:28)
[2023-06-25] MEDS: UMECLIDINIUM/VILANTEROL 62.5/25MCG 7 PUFFS/INHALER INH SCH (08:37)
[2023-06-25] MEDS: ATORVASTATIN 40 MG TAB PO SCH (08:37)
[2023-06-25] MEDS: CYANOCOBALAMIN (B-12) 500 MCG TABLET PO SCH (08:37)
[2023-06-25] MEDS: MAGNESIUM OXIDE 400 MG TAB PO SCH ×2 (08:37→20:28)
[2023-06-25] MEDS: FOLIC ACID 1 MG TAB PO SCH (08:37)
[2023-06-25] MEDS ORDERED: METOPROLOL TARTRATE 25 MG TAB PO SCH (09:00)
[2023-06-25 09:08] LABS: Hemoglobin 9.4 g/dl (14.0-18.0)
--- NOTE | 2023-06-25 11:09 | Pulmonology Progress Note ---
Date of Service June 25, 2023 Assessment & Plan (1) Abnormal blood electrolyte level: (2) Acute hypoxic respiratory failure: (3) Atrial fibrillation with rapid ventricular response: (4) Pneumonia: (5) Acute hypotension: (6) Diabetes mellitus type II, controlled: (7) Anemia: Anemia type: due to chronic kidney disease Plan Pneumonia, hypoxic respiratory failure, COPD, Lung cancer -zosyn d5 - COPD- continue MARILIN Flores prn, Spoke with patient and sister at bedside. No significant change compared to yesterday. continue current care. I believe repeat discussion with palliative regarding goals of care and family concerns would be very helpful as well. Discussed with primary and RN. Admission and Anticipated Discharge Date Admission Date: June 20, 2023 Subjective got up to use bedside commode overnight. desated, tachycardic and desated. Physical Exam Constitutional: + ill appearing; no acute distress Respiratory: normal respiratory effort Auscultation: + rhonchi Cardiovascular: Rate/Rhythm: regular rate and regular rhythm Skin: no rashes, warm and dry Neurologic: CN's II-XI intact bilaterally and awake Results & Data Results & Data Vital Signs (Past 12 Hours) Vital Signs Temp Pulse Pulse Resp BP BP Pulse Ox 06/25/23 08:00 104 H 06/25/23 07:56 36.9 C 106 H 18 118/79 97 06/25/23 05:44 110 H 06/25/23 03:37 102 H 16 92 06/25/23 02:54 127 H 20 96/60 L 85 L 06/25/23 01:24 74 18 95 O2 Del Method O2 Flow Rate 06/25/23 08:00 06/25/23 07:56 Room Air 06/25/23 05:44 06/25/23 03:37 Oxymask 15 06/25/23 02:54 Oxymask 15 06/25/23 01:24 Oxymask 12 PG Care Time/CCT Total # of Minutes Spent Total Time Spent with Patient: Total time spent is greater than 50% in coordination of care (as documented) at patient's floor/unit and/or counseling patient: Coding Level of Care Code 84356 SUB INP/OBS CARE 2/35MIN Diagnoses Abnormal blood electrolyte level E87.8 Acute hypoxic respiratory failure J96.01 Atrial fibrillation with rapid ventricular response I48.91 Pneumonia J18.9 Acute hypotension I95.9 Diabetes mellitus type II, controlled E11.9 Anemia D64.9 Anemia type: due to chronic kidney disease
--- NOTE | 2023-06-25 12:34 | Cardiology Consultation ---
Date of Consultation June 25, 2023 Assessment & Plan (1) Atrial fibrillation: Plan Mr. Bella is a 78 year old male who is hospitalized for pneumonia in the setting of metastatic adenocarcinoma of the RLL. Cardiology has been consulted for atrial fibrillation with RVR. Of note, he has a history of permanent AFib, rate controlled on toprol 25mg qday and a/c with xarelto. He has no cardiac complaints this morning. No chest pain. No N/V/ALONZO; afebrile. (+) shortness of breath at baseline on O2 via facemask. 1. Afib with RVR -now rate controlled after multiple bolus of 5mg IV metoprolol as well as metoprolol tartrate 12.5mg bid -will stop metoprolol tartrate and add toprol 50mg qday starting now -can uptitrate his dose of toprol for better rate control if need be I provided 85 min of care to the patient and as well as discussed the management of Afib. History of Present Illness Reason for Consultation: Afib with RVR Attending Physician: Sugar Blas MD History of Present Illness Mr. Bella is a 78 year old male who is hospitalized for pneumonia in the setting of metastatic adenocarcinoma of the RLL. Cardiology has been consulted for atrial fibrillation with RVR. Of note, he has a history of permanent AFib, rate controlled on toprol 25mg qday and a/c with xarelto. He has no cardiac complaints this morning. No chest pain. No N/V/ALONZO; afebrile. (+) shortness of breath at baseline on O2 via facemask. Allergies Allergy/AdvReac Type Severity Reaction Status Date / Time vancomycin Allergy Intermediate Rash Verified 06/21/23 10:08 No Known Drug Allergies Allergy Unknown Verified 06/20/23 16:00 Home Medications Medication Instructions Recorded Confirmed Type albuterol sulfate 90 mcg/actuation 2 puff inhalation Q4 PRN Shortness 06/30/12 06/20/23 History aerosol inhaler (ProAir HFA) Of Breath ##0 lorazepam 0.5 mg tablet 0.5 mg PO BID PRN #0 tabs 06/30/12 06/20/23 History nitroglycerin 0.4 mg sublingual 0.4 mg UT PRN #0 BTLS 07/18/12 06/20/23 History tablet (Nitrostat) rivaroxaban 20 mg tablet (Xarelto) 1 tab PO DAILY 30 days #30 tabs 11/17/16 06/20/23 History folic acid 1 mg tablet 1 mg PO DAILY 02/16/23 06/20/23 History atorvastatin 40 mg tablet 40 mg PO DAILY 04/14/23 06/20/23 History sertraline 50 mg tablet 50 mg PO QAM 04/14/23 06/20/23 History umeclidinium 62.5 mcg-vilanterol 1 inh inhalation QAM 04/14/23 06/20/23 History 25 mcg/actuation powdr for inhalation (Anoro Ellipta) metoprolol succinate 25 mg 25 mg PO QAM #30 tabs 04/20/23 06/20/23 Rx tablet,extended release 24 hr pantoprazole 40 mg tablet,delayed 40 mg PO QAM #30 tabs 04/20/23 06/20/23 Rx release aspirin 81 mg tablet,delayed 81 mg PO QAM 06/07/23 06/20/23 History release cyanocobalamin (vitamin B-12) 1,000 mcg PO QAM 06/07/23 06/20/23 History 1,000 mcg tablet (Vitamin B-12) magnesium oxide 400 mg PO DAILY 06/07/23 06/20/23 History Patient History Medical History Hypomagnesemia Lung cancer Gall stones Skin cancer of scalp Diabetes mellitus type II, controlled Atrial fibrillation COPD (chronic obstructive pulmonary disease) with emphysema Surgical History H/O ventral hernia repair 09/01/2009 Dr. Cortes; right inguinal hernia H/O cataract removal with insertion of prosthetic lens 07/21 Hx of tonsillectomy <12 y/o H/O colonoscopy 10/27/2015 Dr. Sargent; Diverticulosis; repeat 10 yrs Family History Mother Breast cancer Father Diabetes Type I Stroke Sister Breast cancer Sister Autoimmune hemolytic anemia Aunt Breast cancer Social History Smoking Status: Former smoker Tobacco Type: Cigarettes Age Started Using Tobacco: 20; Age Quit Using Tobacco: 77; packs per day: 0.5; Second Hand Exposure: No; Do You Dip or Chew Tobacco: No; Tobacco Cessation Education Requested by Patient: No Hx Alcohol Use: No Hx Substance Use: No Preferred Language: Icelandic Communication Ability: Effective Visual Impairment: No Limitations Clinical Office Technician Required: No Beliefs That Will Affect Care: None marital status: Current Living Situation: Spouse Current Living Situation Comment: Lives at home with , who he cares for current occupational status: employed 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 Physical Exam Physical Exam: GEN: AAOx3; NAD; Receiving O2 via facemask HEENT: no JVD CV: Irregular rhythm; normal rate PULM: decreased breath sounds b/l ABD: soft; NTND EXT: no lower extremity edema Results & Data Vital Signs (Past 12 Hours) Vital Signs Temp Pulse Pulse Resp BP BP Pulse Ox 06/25/23 11:28 36.5 C 79 18 105/66 94 06/25/23 09:00 06/25/23 08:00 104 H 06/25/23 07:56 36.9 C 106 H 18 118/79 97 06/25/23 05:44 110 H 06/25/23 03:37 102 H 16 92 06/25/23 02:54 127 H 20 96/60 L 85 L 06/25/23 01:24 74 18 95 O2 Del Method O2 Flow Rate 06/25/23 11:28 Room Air 06/25/23 09:00 Oxymask 15 06/25/23 08:00 06/25/23 07:56 Room Air 06/25/23 05:44 06/25/23 03:37 Oxymask 15 06/25/23 02:54 Oxymask 15 06/25/23 01:24 Oxymask 12 Results BMP Results: Sodium 138 mmol/L (136-145) 06/25/23 Potassium 3.5 mmol/L (3.5-5.1) 06/25/23 Chloride 103 mmol/L (98-107) 06/25/23 Carbon Dioxide 29 mmol/L (21-32) 06/25/23 Anion Gap 6 (3-11) 06/25/23 BUN 18 mg/dl (6-23) 06/25/23 Creatinine 0.97 mg/dl (0.6-1.4) 06/25/23 Glucose 161 mg/dl (70-99(Fasting)) H 06/25/23 Results Complete Blood Count Results: RBC 2.45 M/uL (4.70-6.10) L 06/25/23 WBC 8.35 K/ul (4.8-10.8) 06/25/23 Hgb 9.4 g/dl (14.0-18.0) L 06/25/23 Hct 28.0 % (42.0-52.0) L 06/25/23 Plt Count 146 K/uL (130-400) 06/25/23 Results CBC w Diff Results: RBC 2.45 M/uL (4.70-6.10) L 06/25/23 WBC 8.35 K/ul (4.8-10.8) 06/25/23 Hgb 9.4 g/dl (14.0-18.0) L 06/25/23 Hct 28.0 % (42.0-52.0) L 06/25/23 MCV 110.2 fL (80.0-100.0) H 06/25/23 MCH 38.0 pg (25.0-34.0) H 06/25/23 MCHC 34.4 g/dL (32.0-36.0) 06/25/23 RDW Standard Deviation 59.0 fL (36.4-46.3) H 06/25/23 RDW Coefficient of Variation 14.5 % (11.5-14.5) 06/25/23 Plt Count 146 K/uL (130-400) 06/25/23 MPV 9.6 fL (9.4-12.4) 06/25/23 Neutrophils (%) (Auto) 78.1 % 06/25/23 Lymphocytes (%) (Auto) 5.3 % 06/25/23 Monocytes # (Auto) 1.12 K/uL (0.11-0.59) H 06/25/23 Eosinophils # (Auto) 0.20 K/uL (0.00-0.50) 06/25/23 Immature Granulocyte % (Auto) 0.6 % 06/25/23 Neutrophils # (Auto) 6.52 K/uL (1.40-6.50) H 06/25/23 Lymphocytes # (Auto) 0.44 K/uL (1.20-3.40) L 06/25/23 Monocytes # (Auto) 1.12 K/uL (0.11-0.59) H 06/25/23 Eosinophils # (Auto) 0.20 K/uL (0.00-0.50) 06/25/23 Basophils # (Auto) 0.02 K/uL (0.00-0.20) 06/25/23 Immature Granulocyte # (Auto) 0.05 K/uL (0.01-0.20) 3 Hyposegmented Neutrophils 1+ 04/17/23 Polychromasia 1+ 04/20/23 Macrocytosis Present 06/07/23
[2023-06-25] MEDS: METOPROLOL SUCC 50MG EXT REL TAB PO SCH (13:20)
--- NOTE | 2023-06-25 16:42 | Hospitalist Progress Note ---
Date of Service June 25, 2023 Assessment & Plan (1) Acute hypoxic respiratory failure: (2) Pneumonia: (3) Hypomagnesemia: (4) Diabetes mellitus type II, controlled: (5) Anemia: (6) Primary cancer of right lower lobe of lung: (7) Atrial fibrillation with rapid ventricular response: Plan Mr. Bella is a 78 yo gentleman with Pmhx significant for lung cancer, atrial fibrillation, DMII, HLD, hemochromatosis, Mood disorder admitted with pneumonia once more. 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 MRSA negative as well. Continue Zosyn Requiring 2LNC, supplement as needed Pulm consult and palliative care- appreciate recs -per Palliative, pt would like to pursue acute rehab -pulm recommending treating pneumonia 06/23- increased oxygen need, chest xray with improving pneumonia and possible pleural effusions. IV lasix 40mg ordered, pt transitioned to oxymask 06/24- increasing hemoptysis episodes, CT chest was ordered- read still pending 06/25- chest CT showing progressing pneumonia/pathology, case discussed with pulmonology once more, episode of a fib with rvr overnight, cardiology consult placed. 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 follows with Dr. Mari s/p completion of chemotherapy/radiation, on immunotherapy Continue Anoruth Bazzi Has had thoracentesis in the past for pleural effusions- pulm consult placed Palliative medicine consultation as outlined above Hypomagnesemia: replete as needed DM2: chronic stable A1C 5.5 on 06/08/23 Diabetic Diet Atrial Fibrillation: Had rvr episode 06/25- chest CT showing progressing pneumonia/pathology, case discussed with pulmonology once more, episode of a fib with rvr overnight, cardiology consult placed. Previously on Metoprolol and Xarelto Anemia of chronic disease: chronic stable Depression: chronic stable takes sertraline;continue PCP: Dr. Rojas @ 65 forward Code Status: DNR/DNI VTE Prophylaxis: On Xarelto Dispo: PT recommending home, however pt and Palliative would like acute rehab. Will f/u with CM Admission and Anticipated Discharge Date Admission Date: June 20, 2023 Subjective Pt seen in the AM. Had episode of a fib with rvr overnight. Notes that he feels better. Repeat chest imaging from the day before showing progressing pneumonia. Review of Systems Review of Systems: All systems reviewed & are unremarkable except as noted in Subjective Physical Exam Physical Exam: General: Alert, oriented Psych: Appropriate mood and affect Neuro: weak HEENT: NC/AT CV: Irregular rate and rhythm Resp: Breath sounds decreased bilaterally Abdomen: Soft, nontender Extremities: No edema in lower extremities bilaterally. Results & Data Results & Data Vital Signs (Past 12 Hours) Vital Signs Temp Pulse Pulse Resp BP BP Pulse Ox 06/25/23 15:39 88 06/25/23 15:38 36.5 C 76 18 97/59 L 98 06/25/23 13:19 84 115/71 06/25/23 11:28 36.5 C 79 18 105/66 94 06/25/23 09:00 06/25/23 08:00 104 H 06/25/23 07:56 36.9 C 106 H 18 118/79 97 06/25/23 05:44 110 H O2 Del Method O2 Flow Rate 06/25/23 15:39 06/25/23 15:38 Room Air 06/25/23 13:19 06/25/23 11:28 Room Air 06/25/23 09:00 Oxymask 15 06/25/23 08:00 06/25/23 07:56 Room Air 06/25/23 05:44 (5) Anemia Anemia type: due to chronic kidney disease
--- NOTE | 2023-06-25 17:45 | Pulmonology Progress Note ---
Date of Service June 25, 2023 Assessment & Plan (1) Abnormal blood electrolyte level: (2) Acute hypoxic respiratory failure: (3) Atrial fibrillation with rapid ventricular response: (4) Pneumonia: (5) Acute hypotension: (6) Diabetes mellitus type II, controlled: (7) Anemia: Anemia type: due to chronic kidney disease Plan Pneumonia, hypoxic respiratory failure, COPD, Lung cancer -zosyn d5 - COPD- continue MARILIN Flores prn, Spoke with patient and sister at bedside. No significant change compared to yesterday. continue current care. I believe repeat discussion with palliative regarding goals of care and family concerns would be very helpful as well. Discussed with primary and RN. Admission and Anticipated Discharge Date Admission Date: June 20, 2023 Physical Exam Constitutional: + ill appearing and + underweight; no ac [place] distress Respiratory: normal respiratory effort Auscultation: + rhonchi Cardiovascular: Rate/Rhythm: regular rate and regular rhythm Skin: no rashes, warm and dry Neurologic: CN's II-XI intact bilaterally and awake Psychiatric: pleasant and conversant Results & Data Results & Data Vital Signs (Past 12 Hours) Vital Signs Temp Pulse Pulse Resp BP BP Pulse Ox 06/25/23 17:00 06/25/23 15:39 88 06/25/23 15:38 36.5 C 76 18 97/59 L 98 06/25/23 13:19 84 115/71 06/25/23 11:28 36.5 C 79 18 105/66 94 06/25/23 09:00 06/25/23 08:00 104 H 06/25/23 07:56 36.9 C 106 H 18 118/79 97 06/25/23 05:44 110 H Pulse Ox O2 Del Method O2 Del Method O2 Flow Rate O2 Flow Rate 06/25/23 17:00 92 Oxymask 15 06/25/23 15:39 06/25/23 15:38 Room Air 06/25/23 13:19 06/25/23 11:28 Room Air 06/25/23 09:00 Oxymask 15 06/25/23 08:00 06/25/23 07:56 Room Air 06/25/23 05:44 PG Care Time/CCT Total # of Minutes Spent Total Time Spent with Patient: Total time spent is greater than 50% in coordination of care (as documented) at patient's floor/unit and/or counseling patient: Coding Diagnoses Abnormal blood electrolyte level E87.8 Acute hypoxic respiratory failure J96.01 Atrial fibrillation with rapid ventricular response I48.91 Pneumonia J18.9 Acute hypotension I95.9 Diabetes mellitus type II, controlled E11.9 Anemia D64.9 Anemia type: due to chronic kidney disease
[2023-06-26] MEDS: PIPERACILLIN/TAZOBACTAM 4.5 GM in DEXTROSE 5% MINI-B 100 ML IV SCH ×3 (01:58→18:11)
--- NOTE | 2023-06-26 06:10 | Electrocardiogram Report ---
Test Reason : Blood Pressure : / mmHG Vent. Rate : 089 BPM Atrial Rate : 129 BPM P-R Int : 000 ms QRS Dur : 090 ms QT Int : 404 ms P-R-T Axes : 000 029 033 degrees QTc Int : 491 ms Atrial fibrillation Prolonged QT Abnormal ECG When compared with ECG of 20-JUN-2023 19:57, Vent. rate has decreased BY [address] no longer depressed in Inferior leads ST no longer depressed in Anterior leads Nonspecific T wave abnormality no longer evident in Anterolateral leads Confirmed by Pierce Rader ([id number]) on 06/26/2023 6:10:09 AM Referred By: REFERRED SELF Confirmed By:Pierce Rader
[2023-06-26] MEDS: MAGNESIUM OXIDE 400 MG TAB PO SCH ×2 (10:33→20:35)
[2023-06-26] MEDS: CYANOCOBALAMIN (B-12) 500 MCG TABLET PO SCH (10:33)
[2023-06-26] MEDS: PANTOprazole 40 MG TAB PO SCH (10:33)
[2023-06-26] MEDS: ATORVASTATIN 40 MG TAB PO SCH (10:33)
[2023-06-26] MEDS: SERTRALINE HCL 50 MG TABLET PO SCH (10:33)
[2023-06-26] MEDS: POTASSIUM CHLORIDE CRTAB 20 MEQ TABCR PO SCH ×2 (10:33→20:35)
[2023-06-26] MEDS: FOLIC ACID 1 MG TAB PO SCH (10:34)
[2023-06-26] MEDS: METOPROLOL SUCC 50MG EXT REL TAB PO SCH (10:34)
[2023-06-26] MEDS: UMECLIDINIUM/VILANTEROL 62.5/25MCG 7 PUFFS/INHALER INH SCH (10:34)
[2023-06-26 10:35] LABS: Basophils # (auto) 0.02 K/uL (0.00-0.20); Basophils % (auto) 0.2 %; Eosinophils # (auto) 0.22 K/uL (0.00-0.50); Eosinophils % (auto) 2.7 %; Hematocrit (blood only) 26.4 % (42.0-52.0); Hemoglobin 8.7 g/dl (14.0-18.0); Immature Granulocytes # (auto) 0.05 K/uL (0.01-0.20); Immature Granulocytes % (auto) 0.6 %; Lymphocytes # (auto) 0.62 K/uL (1.20-3.40); Lymphocytes % (auto) 7.6 %; Mean Corpuscular Hemoglobin 37.7 pg (25.0-34.0); Mean Corpuscular Volume 114.3 fL (80.0-100.0); Mean Platelet Volume 9.7 fL (9.4-12.4); Monocytes # (auto) 1.44 K/uL (0.11-0.59); Monocytes % (auto) 17.5 %; Neutrophils # (auto) 5.86 K/uL (1.40-6.50); Neutrophils % (auto) 71.4 %; Platelet Count 146 K/uL (130-400); RDW Coefficient of Variation 14.7 % (11.5-14.5); RDW Standard Deviation 61.5 fL (36.4-46.3); Red Blood Count 2.31 M/uL (4.70-6.10); White Blood Count 8.21 K/ul (4.8-10.8)
[2023-06-26 10:38] LABS: Albumin Globulin Ratio 1.1 (0.9-2); Albumin Level 3.1 gm/dl (3.4-5.0); BUN Creatinine Ratio 17.8 (10-20); Bilirubin,Total 1.2 mg/dl (0.2-1.0); Calcium 8.9 mg/dl (8.6-10.3); Creatinine Clr Calc Pharmacy 69.8 ml/min; Est GFR (African American) 94.5 ml/min; Est GFR (Non-African American) 81.5 ml/min; Globulin 2.9 gm/dl (2.5-4.0); Magnesium 1.6 mg/dl (1.7-2.4); Phosphorus 2.8 mg/dl (2.5-4.9); Potassium 4.2 mmol/L (3.5-5.1)
[2023-06-26] MEDS: MAGNESIUM SULFATE / D5W 1 GM/100 ML BAG IV SCH ×2 (12:53→14:33)
--- NOTE | 2023-06-26 13:00 | Hospitalist Progress Note ---
Date of Service June 26, 2023 Assessment & Plan (1) Acute hypoxic respiratory failure: (2) Pneumonia: (3) Hypomagnesemia: (4) Diabetes mellitus type II, controlled: (5) Anemia: (6) Primary cancer of right lower lobe of lung: (7) Atrial fibrillation with rapid ventricular response: Plan Mr. Bella is a 78 yo gentleman with Pmhx significant for lung cancer, atrial fibrillation, DMII, HLD, hemochromatosis, Mood disorder admitted with pneumonia once more. 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 MRSA negative as well. Continue Zosyn Requiring 2LNC, supplement as needed Pulm consult and palliative care- appreciate recs -per Palliative, pt would like to pursue acute rehab -pulm recommending treating pneumonia 06/23- increased oxygen need, chest xray with improving pneumonia and possible pleural effusions. IV lasix 40mg ordered, pt transitioned to oxymask 06/24- increasing hemoptysis episodes, CT chest was ordered- read still pending 06/25- chest CT showing progressing pneumonia/pathology, case discussed with pulmonology once more, episode of a fib with rvr overnight, cardiology consult placed. 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 follows with Dr. Mari s/p completion of chemotherapy/radiation, on immunotherapy Continue Cam Bazzi Has had thoracentesis in the past for pleural effusions- pulm consult placed Palliative medicine consultation as outlined above Hypomagnesemia: replete as needed DM2: chronic stable A1C 5.5 on 06/08/23 Diabetic Diet Atrial Fibrillation: Had rvr episode 06/25- chest CT showing progressing pneumonia/pathology, case discussed with pulmonology once more, episode of a fib with rvr overnight, cardiology consult placed. Previously on Metoprolol and Xarelto Anemia of chronic disease: chronic stable Depression: chronic stable takes sertraline;continue PCP: Dr. Rojas @ 65 forward Code Status: DNR/DNI VTE Prophylaxis: On Xarelto Dispo: PT recommending home, however pt and Palliative would like acute rehab. Will f/u with CM Admission and Anticipated Discharge Date Admission Date: June 20, 2023 Subjective Extensive discussion with the pt today about his diagnosis, progressing symptoms and desire to "take care of some things". Voiced he was worried about his and getting loose ends tied for her. States that it is scary that he "is facing his own mortality". Will be with daughter speaking with palliative care later today. Looking forward to seeing pulm as well. Review of Systems Review of Systems: All systems reviewed & are unremarkable except as noted in Subjective Physical Exam Physical Exam: General: Alert, oriented Psych: Appropriate mood and affect Neuro: weak HEENT: NC/AT CV: Irregular rate and rhythm Resp: Breath sounds decreased bilaterally Abdomen: Soft, nontender Extremities: No edema in lower extremities bilaterally. Results & Data Results & Data Vital Signs (Past 12 Hours) Vital Signs Temp Pulse Pulse Resp BP BP Pulse Ox 06/26/23 12:08 36.6 C 78 21 120/71 96 06/26/23 08:00 06/26/23 08:00 80 06/26/23 02:01 36.4 C L 81 18 102/64 91 06/26/23 01:54 111 H O2 Del Method O2 Flow Rate 06/26/23 12:08 Oxymask 15 06/26/23 08:00 Oxymask 15 06/26/23 08:00 06/26/23 02:01 Oxymask 15 06/26/23 01:54 (5) Anemia Anemia type: due to chronic kidney disease
--- NOTE | 2023-06-26 15:08 | Palliative Care Progress Note ---
Date of Service June 26, 2023 Assessment & Plan (1) Dyspnea and respiratory abnormalities: (2) Weakness generalized: (3) Anxiety about health: (4) Palliative care by specialist: Plan: Met with pt/family. Provided overview of Palliative Medicine, a subspecialty that provides specialized medical care for people living with a serious illness by offering a focus on quality of life. Palliative Medicine is often conflated with hospice: I advised patient/family that Palliative and hospice can be partners but we are not the same. It is important to understand the difference so that we may be informed, and not afraid. Palliative Medicine works to improve QOL through reduction of symptom burden/more control over their illness, for both the patient and family. Palliative medicine clinicians are board certified, specially-trained and another member of the patient's medical care team. We often provide an extra layer of support because our care is based on the needs of the patient, not the prognosis; as such, it's appropriate at any age/advancing stage of a serious illness and can be provided along with curative treatment. Palliative Medicine clinicians are also trained in advanced communication methodologies, to facilitate complex discussions about advanced illness planning, which are needed to help assure that the treatment choices match the patient's goals, aka delivering Goal Concordant care. Finally, we discussed that hospice is a visiting nurse service that focuses on care delivered at the very end of life for patients with terminal illness, with life expectancy less than 6 month. (5) Advanced care planning/counseling discussion: Plan: Met face to face with pt and niece at bedside + cousin by phone x 50min We discussed his resp issues, progressive weakness, declining PS He states he is getting tired: "everything is just harder to do." He states he is not sure he wants more cancer therapy. He feels he does not have much time. His worries about have been abated - niece states is going to be admitted to SNF but may need hospital admission first (probably to get placement) We spoke about the following options: * rehab + ongoing cancer care as determined by onc * rehab + return home or stay at SNF for comfort care * transition to comfort care going home with hospice is not an option, there are no caregivers Niece asked about [facility] caregivers - directed to follow up with CM about this spoke about hospice: We discussed the goals of hospice as a patient service and the goals of care; we discussed EOL trajectories and transitions charlie the emotional impact of realizing mortality as a concrete reality from prior abstract considerations. Pt was reassured that no matter where they are along this trajectory, they are not alone - their medical team will remain by their side through their journey. Discussed the pros/cons of accepting help when especially weakened and distressed by pain-which would also help provide relief/decrease caregiver burden/strain. I provided education about the hospice benefit: an interdisciplinary program offered by nurses, nurses aides, social workers, chaplains and a medical record transcriber for patients with a terminal condition and a life expectancy of less than 6 months. This is covered by Medicare at 100%/no out of pocket expense to patient and all meds/supplies needed by patient for the reason they are on hospice are paid for/covered by hospice. The goal is assure quality of life of the patient in their home setting (home, jail, inpatient hospice setting) by providing symptoms management, psychosocial and spiritual support. However, they cannot offer 24 hours care and if the family is unable to provide that care, they will have to consider personal care with out of pocket cost vs. jail placement. We discussed the goals of hospice as a patient service and the goals of care; we discussed EOL trajectories and transitions charlie the emotional impact of realizing mortality as a concrete reality from prior abstract considerations. Pt was reassured that no matter where they are along this trajectory, they are not alone - their medical team will remain by their side through their journey. Discussed the pros/cons of accepting help when especially weakened and distressed by pain-which would also help provide relief/decrease caregiver burden/strain. (6) Acute hypoxic respiratory failure: (7) Atrial fibrillation with rapid ventricular response: (8) Primary cancer of right lower lobe of lung: Plan * I encouraged they discuss further as family * I did review case briefly with Dr Jesus Mari/[facility] who advised he agreed with pt desire for comfort focus and he is not a candidate for chemo or immunotherapy at this time * Follow up planned for tomorrow at 11am with pt and family Thank you for allowing us to participate in the ongoing care of this patient. Please don't hesitate to call or page with any additional concerns. Dr. She Martinez DNP Director, Palliative Care Admission and Anticipated Discharge Date Admission Date: June 20, 2023 Subjective Rising o2 needs Desats to 60s on 12lpm with 2 person assist to commode, now up to 15lpm Feeling general decline, tired, SOB, weak, not taking PO very well/says he "really can't stand" the pureed diet HIs niece is at bedside and cousin on phone for family meeting Review of Systems Review of Systems: All systems reviewed & are unremarkable except as noted in Subjective Physical Exam Physical Exam: thin elderly male resting in bed +resp effort, +conversational dyspnea +tired appearing bitemp wasting perrla, eomi's neck supple, no stridor coarse rhonchi no jvd s1s2, irreg abd soft, BS+ gen weakness skin pale, cool, no clubbing or cyanosis AAOx3 Results & Data Vital Signs (Past 12 Hours) Vital Signs Temp Pulse Pulse Resp BP Pulse Ox O2 Del Method 06/26/23 14:36 91 06/26/23 12:08 36.6 C 78 21 120/71 96 Oxymask 06/26/23 08:00 Oxymask 06/26/23 08:00 80 O2 Flow Rate 06/26/23 14:36 15 06/26/23 12:08 15 06/26/23 08:00 15 06/26/23 08:00 Laboratory Results data reviewed Diagnostic Findings data reviewed PG Care Time/CCT Total # of Minutes Spent Total Time Spent: 105 Total Time Spent with Patient: Total time spent is greater than 50% in coordination of care (as documented) at patient's floor/unit and/or counseling patient: I spent 105 minutes overall addressing this case: 15 min in medical data review/discussion with referring provider(s) and/or preparation for the visit 20 min in direct interaction with the patient/exam 50 min in Advance Care Planning/Goals of Care discussions as detailed above in note (must be >16min) 10 min in subsequent review and synthesis of assessment and plan 10 min communicating with other providers regarding the patient's case: Advanced Care Planning 68860 Advanced Care Planning 30 Min [id number] Advanced Care Planning Additional 30 Min [place] [id number] SUB INP/OBS CARE 3/50MIN Patient Type Established History Comprehensive Exam Comprehensive Medical Decision Making High Complexity Diagnoses Dyspnea and respiratory abnormalities R06.00; R06.89 Weakness generalized R53.1 Anxiety about health F41.8 Palliative care by specialist Z51.5 Advanced care planning/counseling discussion Z71.89 Acute hypoxic respiratory failure J96.01 Atrial fibrillation with rapid ventricular response I48.91 Primary cancer of right lower lobe of lung C34.31 Additional Codes Advanced Care Planning - 70158 Advanced Care Planning 30 Min: 76535 Advanced Care Planning 30 Min ([id number]) Advanced Care Planning - 39338 Advanced Care Planning Additional 30 Min: 16933 Advanced Care Planning Additional 30 Min ([id number])
--- NOTE | 2023-06-26 15:40 | Pulmonology Progress Note ---
Date of Service June 26, 2023 Assessment & Plan (1) Abnormal blood electrolyte level: (2) Acute hypoxic respiratory failure: (3) Atrial fibrillation with rapid ventricular response: (4) Pneumonia: (5) Acute hypotension: (6) Diabetes mellitus type II, controlled: (7) Anemia: Anemia type: due to chronic kidney disease Plan Impression: 78-year-old male with stage IIIa lung cancer status post chemo and radiation therapy with adjuvant durvalumab therapy now with progressive hypoxemic respiratory failure and CT scan showing progressive interstitial infiltrates in the setting of severe emphysema. The differential diagnosis for the interstitial infiltrates is broad and would include pulmonary ICI toxicity (grade 3-4), lymphangitic progression of malignancy, atypical pulmonary edema, pneumonia, pulmonary toxicity secondary to chemotherapeutic agents, or other interstitial lung disease felt to be less likely. Recommendations: 1. I met with the patient as well as his family members. We discussed that his clinical course is declining. Unfortunately his oxygen requirement continues to escalate and his quality of life is currently unacceptable. He states that he wants to be kept comfortable and is okay with the prospect of . We spent an extensive amount of time discussing what that would look like. I advised him that his current oxygen requirement would preclude transfer to home hospice. We discussed that we could initiate palliative care here with symptom based management and potentially discontinue his oxygen. He and his family wanted an estimated time course which I advised him would be difficult to impossible to provide. I did advise them that it is unlikely that he would be able to receive any additional chemotherapy or radiation therapy and given the possibility of ICI pulmonary toxicity, these medications would not be recommended in the future. He is too ill to consider bronchoscopy to guide antimicrobial therapy and has been on empiric antimicrobial therapy during the course of his hospitalization as well as other courses of antibiotics prior. I did offer the opportunity to try a dose of steroids to see if it offers him a clinical benefit. He understands the risks associated with this. We will also continue to provide diuretics to keep the lungs as dry as possible. He confirmed DNR/DNI status which I believe is appropriate. We discussed how he would like to proceed. He and his family would like to take it under advisement. In light of his current condition it seems reasonable to liberalize his diet and allow him to eat or drink whatever he wants and allow for permissive aspiration as well as to decrease oxygen and consider symptom targeted therapy including low-dose narcotics and benzodiazepines if needed. Will [place] back with him in the next 24 hours to revisit and addressed questions. He and his family asked multiple insightful questions. A total of 50 minutes in critical care time was spent in evaluation management and coordinating end-of-life care on this patient. He is critically ill with multiorgan system dysfunction and high probability of clinical deterioration and/or Admission and Anticipated Discharge Date Admission Date: June 20, 2023 Subjective Patient seen and examined. MAR reviewed. Discussed with patient and family members at bedside and reviewed with off going hvac refrigeration technician. Patient states that his breathing is continuing to decline. He becomes significantly short of breath and tachycardic with any significant physical activity. He states that he is not interested in living like this. I was able to discern some additional information regarding the patient's lung cancer course. He completed 6 cycles of CarboTaxol. The last cycle was aborted due to complications including diverticular disease. He also completed radiation therapy. I am unclear on what the repeat staging is as he has not had a follow-up PET scan since completing therapy. He did receive 1 dose of nivolumab and the his current respiratory issues appear to have a temporal relationship to the durvalumab administration. He has never been formally diagnosed with pulmonary ICI toxicity. He has not been on steroids. The patient believes his quality of life is continuing to decline. He is not happy with his current diet given his aspiration issues. He is not enthusiastic about the prospect of therapy. He understands that his oxygen requirement likely precludes discharge at this point in time. Review of Systems 2 Review of Systems: All systems reviewed & are unremarkable except as noted in Subjective Physical Exam 2 Constitutional: + ill appearing; no acute distress Respiratory: normal respiratory effort Auscultation: + rhonchi Cardiovascular: Rate/Rhythm: regular rate and regular rhythm Skin: no rashes, warm and dry Neurologic: CN's II-XI intact bilaterally and awake Results & Data Results & Data Vital Signs (Past 12 Hours) Vital Signs Temp Pulse Pulse Resp BP Pulse Ox O2 Del Method 06/26/23 14:36 91 06/26/23 12:08 36.6 C 78 21 120/71 96 Oxymask 06/26/23 08:00 Oxymask 06/26/23 08:00 80 O2 Flow Rate 06/26/23 14:36 15 06/26/23 12:08 15 06/26/23 08:00 15 06/26/23 08:00 Laboratory Results 06/26/23 10:03 06/26/23 10:03 Diagnostic Findings Imaging studies including CTs and chest x-rays were all independently reviewed. No updated imaging obtained. PG Care Time/CCT Total # of Minutes Spent Total Time Spent with Patient: Total time spent is greater than 50% in coordination of care (as documented) at patient's floor/unit and/or counseling patient: Coding Level of Care Code 72276 CRITICAL CARE 1ST 30-74M Diagnoses Abnormal blood electrolyte level E87.8 Acute hypoxic respiratory failure J96.01 Atrial fibrillation with rapid ventricular response I48.91 Pneumonia J18.9 Acute hypotension I95.9 Diabetes mellitus type II, controlled E11.9 Anemia D64.9 Anemia type: due to chronic kidney disease
[2023-06-26] MEDS: FUROSEMIDE 20 MG TAB PO SCH (18:11)
[2023-06-26] MEDS: methylPREDNISolone 60 MG in SYRINGE 0 ML IV SCH ×2 (18:11→23:03)
[2023-06-27] MEDS: PIPERACILLIN/TAZOBACTAM 4.5 GM in DEXTROSE 5% MINI-B 100 ML IV SCH ×2 (01:07→09:10)
[2023-06-27 06:27] LABS: Hemoglobin 9.7 g/dl (14.0-18.0); Immature Granulocytes # (auto) 0.03 K/uL (0.01-0.20); Immature Granulocytes % (auto) 0.8 %; Lymphocytes # (auto) 0.26 K/uL (1.20-3.40); Lymphocytes % (auto) 6.9 %; Mean Corpuscular Hemoglobin 37.7 pg (25.0-34.0); Mean Corpuscular Hgb Conc 33.4 g/dL (32.0-36.0); Mean Corpuscular Volume 112.8 fL (80.0-100.0); Mean Platelet Volume 9.7 fL (9.4-12.4); Monocytes # (auto) 0.15 K/uL (0.11-0.59); Neutrophils # (auto) 3.34 K/uL (1.40-6.50); Neutrophils % (auto) 88.3 %; Platelet Count 163 K/uL (130-400); RDW Coefficient of Variation 14.6 % (11.5-14.5); RDW Standard Deviation 60.4 fL (36.4-46.3); Red Blood Count 2.57 M/uL (4.70-6.10); White Blood Count 3.78 K/ul (4.8-10.8)
[2023-06-27 07:11] LABS: Albumin Level 3.3 gm/dl (3.4-5.0); Bilirubin,Total 1.2 mg/dl (0.2-1.0); Calcium 9.2 mg/dl (8.6-10.3); Magnesium 1.7 mg/dl (1.7-2.4); Potassium 4.9 mmol/L (3.5-5.1)
[2023-06-27 07:17] LABS: Albumin Globulin Ratio 1.1 (0.9-2); BUN Creatinine Ratio 19.6 (10-20); Creatinine Clr Calc Pharmacy 56.1 ml/min; Est GFR (African American) 72.5 ml/min; Est GFR (Non-African American) 62.6 ml/min; Globulin 3.1 gm/dl (2.5-4.0); Phosphorus 3.7 mg/dl (2.5-4.9); Total Protein 6.4 gm/dl (6.0-8.3)
[2023-06-27] MEDS: methylPREDNISolone 60 MG in SYRINGE 0 ML IV SCH ×2 (08:43→16:16)
[2023-06-27] MEDS: MAGNESIUM OXIDE 400 MG TAB PO SCH ×2 (08:43→20:34)
[2023-06-27] MEDS: POTASSIUM CHLORIDE CRTAB 20 MEQ TABCR PO SCH ×2 (08:43→20:33)
[2023-06-27] MEDS: UMECLIDINIUM/VILANTEROL 62.5/25MCG 7 PUFFS/INHALER INH SCH (08:43)
[2023-06-27] MEDS: PANTOprazole 40 MG TAB PO SCH (08:44)
[2023-06-27] MEDS: ATORVASTATIN 40 MG TAB PO SCH (08:44)
[2023-06-27] MEDS: SERTRALINE HCL 50 MG TABLET PO SCH (08:44)
[2023-06-27] MEDS: CYANOCOBALAMIN (B-12) 500 MCG TABLET PO SCH (08:44)
[2023-06-27] MEDS: FOLIC ACID 1 MG TAB PO SCH (08:44)
[2023-06-27] MEDS: METOPROLOL SUCC 50MG EXT REL TAB PO SCH (08:44)
[2023-06-27] MEDS: FUROSEMIDE 20 MG TAB PO SCH (08:44)
--- NOTE | 2023-06-27 13:09 | Pulmonology Progress Note ---
Date of Service June 27, 2023 Assessment & Plan Admission and Anticipated Discharge Date Admission Date: June 20, 2023 Results & Data Results & Data Vital Signs (Past 12 Hours) Vital Signs Temp Pulse Pulse Resp BP BP Pulse Ox 06/27/23 11:11 36.7 C 98 H 20 102/62 94 06/27/23 11:11 06/27/23 08:10 93 H 06/27/23 07:18 36.4 C L 84 18 108/72 91 06/27/23 04:07 90 06/27/23 02:45 36.4 C L 86 20 110/68 90 06/27/23 02:21 92 O2 Del Method O2 Flow Rate 06/27/23 11:11 Nasal Cannula 15 06/27/23 11:11 High Flow Nasal Cannula 15 06/27/23 08:10 06/27/23 07:18 Oxymask 6 06/27/23 04:07 Oxymask 7 06/27/23 02:45 Oxymask 6 06/27/23 02:21 Oxymask 7 PG Care Time/CCT Total # of Minutes Spent Total Time Spent with Patient: Total time spent is greater than 50% in coordination of care (as documented) at patient's floor/unit and/or counseling patient: Coding
--- NOTE | 2023-06-27 14:36 | Hospitalist Progress Note ---
Date of Service June 27, 2023 Assessment & Plan (1) Acute hypoxic respiratory failure: (2) Pneumonia: (3) Hypomagnesemia: (4) Diabetes mellitus type II, controlled: (5) Anemia: (6) Primary cancer of right lower lobe of lung: (7) Atrial fibrillation with rapid ventricular response: Plan Mr. Bella is a 78 yo gentleman with Pmhx significant for lung cancer, atrial fibrillation, DMII, HLD, hemochromatosis, Mood disorder admitted with pneumonia once more. 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 MRSA negative as well. Continue Zosyn Requiring 2LNC, supplement as needed Pulm consult and palliative care- appreciate recs -per Palliative, pt would like to pursue acute rehab -pulm recommending treating pneumonia 06/23- increased oxygen need, chest xray with improving pneumonia and possible pleural effusions. IV lasix 40mg ordered, pt transitioned to oxymask 06/24- increasing hemoptysis episodes, CT chest was ordered- read still pending 06/25- chest CT showing progressing pneumonia/pathology, case discussed with pulmonology once more, episode of a fib with rvr overnight, cardiology consult placed. 06/26- stable, discussions with pulm and palliative care, pt considering options 06/27- stable, started on Steroids and Lasix by pulm. States he is still deciding what route to take but at this time would like diet to be a regular one but wants to continue with all treatments and lab monitoring at this time. 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 follows with Dr. Mari s/p completion of chemotherapy/radiation, on immunotherapy Continue Anor[place] Ellipta Has had thoracentesis in the past for pleural effusions- pulm consult placed Palliative medicine consultation as outlined above Hypomagnesemia: replete as needed DM2: chronic stable A1C 5.5 on 06/08/23 Diabetic Diet Atrial Fibrillation: Had rvr episode 06/25- chest CT showing progressing pneumonia/pathology, case discussed with pulmonology once more, episode of a fib with rvr overnight, cardiology consult placed. Previously on Metoprolol and Xarelto Stable at this time Anemia of chronic disease: chronic stable Depression: chronic stable takes sertraline;continue PCP: Dr. Rojas @ 65 forward Code Status: DNR/DNI VTE Prophylaxis: On Xarelto Dispo: Pt met with Palliative Care- weighing options Admission and Anticipated Discharge Date Admission Date: June 20, 2023 Subjective Extensive discussion with the pt today again about his diagnosis, progressing symptoms. Daughter at bedside. Would like to continue with all treatments and lab monitoring at this time but wants a regular diet. Review of Systems Review of Systems: All systems reviewed & are unremarkable except as noted in Subjective Physical Exam Physical Exam: General: Alert, oriented Psych: Appropriate mood and affect Neuro: weak HEENT: NC/AT CV: Irregular rate and rhythm Resp: Breath sounds decreased bilaterally Abdomen: Soft, nontender Extremities: No edema in lower extremities bilaterally. Results & Data Results & Data Vital Signs (Past 12 Hours) Vital Signs Temp Pulse Pulse Resp BP BP Pulse Ox 06/27/23 11:11 36.7 C 98 H 20 102/62 94 06/27/23 11:11 06/27/23 08:10 93 H 06/27/23 07:18 36.4 C L 84 18 108/72 91 06/27/23 04:07 90 06/27/23 02:45 36.4 C L 86 20 110/68 90 O2 Del Method O2 Flow Rate 06/27/23 11:11 Nasal Cannula 15 06/27/23 11:11 High Flow Nasal Cannula 15 06/27/23 08:10 06/27/23 07:18 Oxymask 6 06/27/23 04:07 Oxymask 7 06/27/23 02:45 Oxymask 6 (5) Anemia Anemia type: due to chronic kidney disease
--- NOTE | 2023-06-27 14:44 | Pulmonology Progress Note ---
Date of Service June 27, 2023 Assessment & Plan (1) Acute hypoxic respiratory failure: (2) Pneumonia: Plan Impression: 78-year-old male with stage IIIa lung cancer status post chemo and radiation therapy with adjuvant durvalumab therapy now with progressive hypoxemic respiratory failure and CT scan showing progressive interstitial infiltrates in the setting of severe emphysema. The differential diagnosis for the interstitial infiltrates is broad and would include pulmonary ICI toxicity (grade 3-4), lymphangitic progression of malignancy, atypical pulmonary edema, pneumonia, pulmonary toxicity secondary to chemotherapeutic agents, or other interstitial lung disease felt to be less likely. Recommendations: 1. Pulmonary infiltrates: Unclear if this represents pneumonia, atypical heart failure, or ICI pulmonary toxicity. Currently on steroids. The patient has c ompleted 8 days of broad-spectrum antibiotics so I think any infectious component has been adequately controlled treated and antibiotics can be discontinued at this point in time. Would continue diuretics to try and keep the patient as dry as possible and wean oxygen. Patient remains 3-1/2 L positive. He was only slightly negative over the last 24 hours. 2. Hypoxemic respiratory failure: We will try and get the patient out of bed to chair as tolerated. Goal would be to try and wean supplemental oxygen to below 10 L/min which would allow for the patient to potentially go home. Home hospice could be considered at that point time. Discussed with patient and family at bedside. Questions were answered to the best my ability. Admission and Anticipated Discharge Date Admission Date: June 20, 2023 Subjective Patient seen and examined. EMR reviewed. The patient is much happier now that his diet is been liberalized. He feels better with the steroids but has not had a significant change in his oxygen requirement as of yet. He is not coughing or expectorating phlegm. He continues to desat with any significant physical activity. He denies fevers chills night sweats or other constitutional symptoms. No chest pain palpitations or significant lower extremity edema. Review of Systems Review of Systems: All systems reviewed & are unremarkable except as noted in Subjective Physical Exam Constitutional: + ill appearing; no acute distress Respiratory: normal respiratory effort Auscultation: + rhonchi Cardiovascular: Rate/Rhythm: regular rate and regular rhythm Skin: no rashes, warm and dry Neurologic: CN's II-XI intact bilaterally and awake Results & Data Results & Data Vital Signs (Past 12 Hours) Vital Signs Temp Pulse Pulse Resp BP BP Pulse Ox 06/27/23 11:11 36.7 C 98 H 20 102/62 94 06/27/23 11:11 06/27/23 08:10 93 H 06/27/23 07:18 36.4 C L 84 18 108/72 91 06/27/23 04:07 90 06/27/23 02:45 36.4 C L 86 20 110/68 90 O2 Del Method O2 Flow Rate 06/27/23 11:11 Nasal Cannula 15 06/27/23 11:11 High Flow Nasal Cannula 15 06/27/23 08:10 06/27/23 07:18 Oxymask 6 06/27/23 04:07 Oxymask 7 06/27/23 02:45 Oxymask 6 PG Care Time/CCT Total # of Minutes Spent Total Time Spent with Patient: Total time spent is greater than 50% in coordination of care (as documented) at patient's floor/unit and/or counseling patient: Coding Level of Care Code 15068 SUB INP/OBS CARE 2/35MIN Diagnoses Acute hypoxic respiratory failure J96.01 Pneumonia J18.9
--- NOTE | 2023-06-27 14:44 | Palliative Care Progress Note ---
Date of Service June 27, 2023 Assessment & Plan (1) Dyspnea and respiratory abnormalities: Plan: steroid started today offered low dose MSIR, wants to nicole this over but feels he is leaning towards wanting to try it (2) Weakness generalized: (3) Anxiety about health: (4) Palliative care by specialist: (5) Acute hypoxic respiratory failure: (6) Atrial fibrillation with rapid ventricular response: (7) Primary cancer of right lower lobe of lung: Plan * Contemplating comfort care * Starting steroid today * not candidate for more cancer rx * psychosocial stress: being admitted to [facility] today for "case mgt help to get into group home, there's no money. her daughter's handling that." * declining PS, inc O2 demands * prognosis guarded. Thank you for allowing us to participate in the ongoing care of this patient. Please don't hesitate to call or page with any additional concerns. Dr. She Martinez DNP Director, Palliative Care Admission and Anticipated Discharge Date Admission Date: June 20, 2023 Subjective pt seen bedside with daughterKristnia states he spoke with pulm, feels he has good understanding of all issues. still leaning towards comfort care I updated him about my discussion with Dr Mari/med onc He states he is not surprised, as he has not felt he is tolerating cancer rx still dealing with dyspnea starting more steroids today after d/w pulm, understands risks and tells me he is unsure it will really do much in the long run but daughter wanted to try easily exerted, needs help for all ADLs. had personal hygiene in bed bc too much struggle getting OOB to commode anymore. Review of Systems Review of Systems: All systems reviewed & are unremarkable except as noted in Subjective Physical Exam Physical Exam: thin elderly male resting in bed +resp effort, +conversational dyspnea +tired appearing bitemp wasting perrla, eomi's neck supple, no stridor coarse rhonchi no jvd s1s2, irreg abd soft, BS+ gen weakness skin pale, cool, no clubbing or cyanosis AAOx3 Results & Data Vital Signs (Past 12 Hours) Vital Signs Temp Pulse Pulse Resp BP BP Pulse Ox 06/27/23 11:11 36.7 C 98 H 20 102/62 94 06/27/23 11:11 06/27/23 08:10 93 H 06/27/23 07:18 36.4 C L 84 18 108/72 91 06/27/23 04:07 90 06/27/23 02:45 36.4 C L 86 20 110/68 90 O2 Del Method O2 Flow Rate 06/27/23 11:11 Nasal Cannula 15 06/27/23 11:11 High Flow Nasal Cannula 15 06/27/23 08:10 06/27/23 07:18 Oxymask 6 06/27/23 04:07 Oxymask 7 06/27/23 02:45 Oxymask 6 Laboratory Results reviewed Diagnostic Findings reviewed PG Care Time/CCT Total # of Minutes Spent Total Time Spent: 75 Total Time Spent with Patient: Total time spent is greater than 50% in coordination of care (as documented) at patient's floor/unit and/or counseling patient: Coding [place] [address] SUB INP/OBS CARE 3/50MIN Patient Type Established History Comprehensive Exam Comprehensive Medical Decision Making High Complexity Diagnoses Dyspnea and respiratory abnormalities R06.00; R06.89 Weakness generalized R53.1 Anxiety about health F41.8 Palliative care by specialist Z51.5 Acute hypoxic respiratory failure J96.01 Atrial fibrillation with rapid ventricular response I48.91 Primary cancer of right lower lobe of lung C34.31
[2023-06-28] MEDS: methylPREDNISolone 60 MG in SYRINGE 0 ML IV SCH ×3 (00:39→15:21)
[2023-06-28 06:31] LABS: Basophils # (auto) 0.01 K/uL (0.00-0.20); Basophils % (auto) 0.1 %; Hematocrit (blood only) 30.2 % (42.0-52.0); Hemoglobin 10.3 g/dl (14.0-18.0); Immature Granulocytes # (auto) 0.07 K/uL (0.01-0.20); Immature Granulocytes % (auto) 0.8 %; Lymphocytes # (auto) 0.32 K/uL (1.20-3.40); Lymphocytes % (auto) 3.6 %; Mean Corpuscular Hemoglobin 37.9 pg (25.0-34.0); Mean Corpuscular Hgb Conc 34.1 g/dL (32.0-36.0); Mean Platelet Volume 9.9 fL (9.4-12.4); Monocytes # (auto) 0.67 K/uL (0.11-0.59); Monocytes % (auto) 7.5 %; Neutrophils # (auto) 7.86 K/uL (1.40-6.50); Platelet Count 186 K/uL (130-400); RDW Coefficient of Variation 14.6 % (11.5-14.5); RDW Standard Deviation 59.4 fL (36.4-46.3); Red Blood Count 2.72 M/uL (4.70-6.10); White Blood Count 8.93 K/ul (4.8-10.8)
[2023-06-28 06:50] LABS: Albumin Globulin Ratio 1.1 (0.9-2); Albumin Level 3.5 gm/dl (3.4-5.0); BUN Creatinine Ratio 33.3 (10-20); Calcium 9.5 mg/dl (8.6-10.3); Creatinine Clr Calc Pharmacy 80.6 ml/min; Est GFR (African American) 100.2 ml/min; Est GFR (Non-African American) 86.5 ml/min; Globulin 3.3 gm/dl (2.5-4.0); Magnesium 1.6 mg/dl (1.7-2.4); Potassium 4.1 mmol/L (3.5-5.1); Total Protein 6.8 gm/dl (6.0-8.3)
[2023-06-28 09:05] LABS: Adenovirus F 40/41 PCR Not Detected (NotDetected); Astrovirus PCR Not Detected (NotDetected); Campylobacter PCR Not Detected (NotDetected); Cryptosporidium PCR Not Detected (NotDetected); Cyclospora cayetanensis PCR Not Detected (NotDetected); Entamoeba histolytica PCR Not Detected (NotDetected); Enteroaggregative E.coli(EAEC) Not Detected (NotDetected); Enteropathogenic E.coli (EPEC) Not Detected (NotDetected); Enterotoxigenic E.coli (ETEC) Not Detected (NotDetected); Giardia lamblia PCR Not Detected (NotDetected); Norovirus GI/GII PCR Not Detected (NotDetected); Plesiomonas shigelloides PCR Not Detected (NotDetected); Rotavirus A PCR Not Detected (NotDetected); Salmonella PCR Not Detected (NotDetected); Sapovirus PCR Not Detected (NotDetected); Shiga-like Toxin E.coli (STEC) Not Detected (NotDetected); Shigella/Enteroinvasive E.coli Not Detected (NotDetected); Vibrio cholerae PCR Not Detected (NotDetected); Vibrio species PCR Not Detected (NotDetected); Yersinia enterocolitica PCR Not Detected (NotDetected)
[2023-06-28] MEDS: POTASSIUM CHLORIDE CRTAB 20 MEQ TABCR PO SCH ×2 (09:27→20:40)
[2023-06-28] MEDS: FUROSEMIDE 40 MG TAB PO SCH (09:28)
[2023-06-28] MEDS: ATORVASTATIN 40 MG TAB PO SCH (09:28)
[2023-06-28] MEDS: PANTOprazole 40 MG TAB PO SCH (09:28)
[2023-06-28] MEDS: METOPROLOL SUCC 50MG EXT REL TAB PO SCH (09:28)
[2023-06-28] MEDS: MAGNESIUM OXIDE 400 MG TAB PO SCH ×2 (09:28→20:40)
[2023-06-28] MEDS: FOLIC ACID 1 MG TAB PO SCH (09:28)
[2023-06-28] MEDS: CYANOCOBALAMIN (B-12) 500 MCG TABLET PO SCH (09:28)
[2023-06-28] MEDS: SERTRALINE HCL 50 MG TABLET PO SCH (09:28)
[2023-06-28] MEDS: UMECLIDINIUM/VILANTEROL 62.5/25MCG 7 PUFFS/INHALER INH SCH (09:29)
--- NOTE | 2023-06-28 10:39 | Pulmonology Progress Note ---
Date of Service June 28, 2023 Assessment & Plan (1) Acute hypoxic respiratory failure: (2) Pneumonia: Plan Impression: 78-year-old male with stage IIIa lung cancer status post chemo and radiation therapy with adjuvant durvalumab therapy now with progressive hypoxemic respiratory failure and CT scan showing progressive interstitial infiltrates in the setting of severe emphysema. The differential diagnosis for the interstitial infiltrates is broad and would include pulmonary ICI toxicity (grade 3-4), lymphangitic progression of malignancy, atypical pulmonary edema, pneumonia, pulmonary toxicity secondary to chemotherapeutic agents, or other interstitial lung disease felt to be less likely. Recommendations: 1. Pulmonary infiltrates: Unclear if this represents pneumonia, atypical heart failure, or ICI pulmonary toxicity. It seems reasonable to continue steroids at this point in time although realistically, we may not see response for several days to weeks. In addition, his multifactorial respiratory issues due to his COPD are unlikely to be affected by high-dose steroids. If the patient wanted to stop steroids, I would have no significant issues with this. He understands that were trying to treat everything that is potentially reversible but we may not be able to get to a point where he could potentially leave the hospital. He expressed understanding. 2. Hypoxemic respiratory failure: Patient is clinically stagnant with regards to his oxygen requirement. Unclear if were going to make a significant impact. We did discuss dyspnea management techniques and the patient is open to a trial of morphine for dyspnea management. Advised him that I will put the order in and he can contact his nurse if he wishes to pursue this therapy. It appears unlikely that the patient's oxygen requirements will improve enough to allow him to potentially be transferred to inpatient hospice or home hospice. In addition, it is unclear if he has resources to be able to make this feasible at home. Discussed with patient and bedside clinical care nurse Admission and Anticipated Discharge Date Admission Date: June 20, 2023 Subjective Patient seen and examined. EMR reviewed. The patient is sitting up in the chair at bedside. He desaturated into the 70% range with minimal activity and took prolonged period of time to recover. He states he feels about the same. He is maintained on 15 L/min with no improvement in his saturations. The patient has come to electric solderer with the gravity of his situation and understands that he is likely approaching the end of his life. He asks multiple insightful questions about the dying process. He has come to electric solderer with this but he believes his family may have continued struggles. Review of Systems 2 Review of Systems: All systems reviewed & are unremarkable except as noted in Subjective Physical Exam 2 Constitutional: + ill appearing; no acute distress Respiratory: normal respiratory effort Auscultation: + rhonchi Cardiovascular: Rate/Rhythm: regular rate and regular rhythm Skin: no rashes, warm and dry Neurologic: CN's II-XI intact bilaterally and awake Results & Data Results & Data Vital Signs (Past 12 Hours) Vital Signs Temp Pulse Pulse Resp BP BP Pulse Ox 06/28/23 09:30 90 117/76 06/28/23 08:13 36.3 C L 88 22 104/67 89 L 06/28/23 07:26 88 06/28/23 04:34 06/28/23 03:00 36.6 C 80 18 110/62 95 06/27/23 23:00 36.5 C 82 20 105/67 90 O2 Del Method O2 Flow Rate 06/28/23 09:30 06/28/23 08:13 High Flow Nasal Cannula 15 06/28/23 07:26 06/28/23 04:34 High Flow Nasal Cannula 15 06/28/23 03:00 High Flow Nasal Cannula 15 06/27/23 23:00 High Flow Nasal Cannula 15 Laboratory Results 06/28/23 05:44 06/28/23 05:44 PG Care Time/CCT Total # of Minutes Spent Total Time Spent with Patient: Total time spent is greater than 50% in coordination of care (as documented) at patient's floor/unit and/or counseling patient: Coding Level of Care Code 05239 SUB INP/OBS CARE 2/35MIN Diagnoses Acute hypoxic respiratory failure J96.01 Pneumonia J18.9
[2023-06-28] MEDS: MoRPHine SULFATE 10 MG/0.5 ML UDP PO PRN ×2 (15:26→20:32)
--- NOTE | 2023-06-28 18:16 | Hospitalist Progress Note ---
Date of Service June 28, 2023 Assessment & Plan (1) Acute hypoxic respiratory failure: (2) Pneumonia: (3) Hypomagnesemia: (4) Diabetes mellitus type II, controlled: (5) Anemia: (6) Primary cancer of right lower lobe of lung: (7) Atrial fibrillation with rapid ventricular response: Plan Mr. Bella is a 78 yo gentleman with Pmhx significant for lung cancer, atrial fibrillation, DMII, HLD, hemochromatosis, Mood disorder admitted with pneumonia once more. 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 MRSA negative as well. Continue Zosyn Requiring 2LNC, supplement as needed Pulm consult and palliative care- appreciate recs -per Palliative, pt would like to pursue acute rehab -pulm recommending treating pneumonia 06/23- increased oxygen need, chest xray with improving pneumonia and possible pleural effusions. IV lasix 40mg ordered, pt transitioned to oxymask 06/24- increasing hemoptysis episodes, CT chest was ordered- read still pending 06/25- chest CT showing progressing pneumonia/pathology, case discussed with pulmonology once more, episode of a fib with rvr overnight, cardiology consult placed. 06/26- stable, discussions with pulm and palliative care, pt considering options 06/27- stable, started on Steroids and Lasix by pulm. States he is still deciding what route to take but at this time would like diet to be a regular one but wants to continue with all treatments and lab monitoring at this time. 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 follows with Dr. Mari s/p completion of chemotherapy/radiation, on immunotherapy Continue Anoro Marisolta Has had thoracentesis in the past for pleural effusions- pulm consult placed Palliative medicine consultation as outlined above Patient is not yet ready for comfort care Wants to try the current palliative care medications and will be continued Hypomagnesemia: replete as needed DM2: chronic stable A1C 5.5 on 06/08/23 Diabetic Diet Atrial Fibrillation: Had rvr episode 06/25- chest CT showing progressing pneumonia/pathology, case discussed with pulmonology once more, episode of a fib with rvr overnight, cardiology consult placed. Previously on Metoprolol and Xarelto Stable at this time Anemia of chronic disease: chronic stable Depression: chronic stable takes sertraline;continue PCP: Dr. Rojas @ 65 forward Code Status: DNR/DNI VTE Prophylaxis: On Xarelto Dispo: Pt met with Palliative Care- weighing options Admission and Anticipated Discharge Date Admission Date: June 20, 2023 Subjective 06/28/2083 The patient was seen and examined in telemetry unit in the presence of the He has been stable but remains very anxious and mild to moderate shortness of breath Has been started on IV morphine for anxiety and pain control Not yet for comfort care Review of Systems Review of Systems: All systems reviewed and are unremarkable except as noted below Physical Exam Constitutional: + ill appearing and average body habitus Eyes: PERRL, conjunctivae normal, anicteric sclerae ENMT: external ear and nose normal, oropharynx normal Neck: trachea midline, no thyromegaly Respiratory: + respiratory distress (Has been requiri ng 12 L via oxime mask to maintain saturations) Auscultation: + diminished lung sounds and + crackles (Bilateral crackles) Cardiovascular: Rate/Rhythm: regular rate and regular rhythm; not tachycardic Heart Sounds: normal S1 and normal S2; no murmur Gastrointestinal (Abdomen): Inspection/Auscultation: normal bowel sounds; abdomen not distended Percussion/Palpation: abdomen soft; abdomen nontender Musculoskeletal: No acute arthritis involving any of the joint Neurologic: normal touch/pain/proprioception and moves all extremities; no focal motor deficits Lymphatic: no cervical or axillary lymphadenopathy Results & Data Results & Data Vital Signs (Past 12 Hours) Vital Signs Temp Pulse Pulse Resp BP BP Pulse Ox 06/28/23 16:09 36.5 C 92 H 20 130/85 92 06/28/23 13:58 92 06/28/23 11:45 36.6 C 92 H 22 114/70 97 06/28/23 09:30 90 117/76 06/28/23 08:13 36.3 C L 88 22 104/67 89 L 06/28/23 08:00 11/22/23 07:26 88 O2 Del Method O2 Flow Rate 06/28/23 16:09 Oxymask 12 06/28/23 13:58 15 06/28/23 11:45 Oxymask 06/28/23 09:30 06/28/23 08:13 High Flow Nasal Cannula 15 06/28/23 08:00 High Flow Nasal Cannula 15 06/28/23 07:26 Laboratory Results Short CBC 06/28/23 Range/Units 05:44 WBC 8.93 (4.8-10.8) K/ul Hgb 10.3 L (14.0-18.0) g/dl Hct 30.2 L (42.0-52.0) % Plt Count 186 (130-400) K/uL BMP 06/28/23 05:44 Sodium 138 Potassium 4.1 Chloride 102 Carbon Dioxide 30 BUN 26 H Creatinine 0.78 D Glucose 218 H Calcium 9.5 Liver Function 06/28/23 Range/Units 05:44 Total Bilirubin 1.0 (0.2-1.0) mg/dl AST 14 (13-39) U/L ALT 12 (7-52) U/L Alkaline Phosphatase 66 (34-104) U/L Albumin 3.5 (3.4-5.0) gm/dl Medications Administered Current Inpatient Medications Acetaminophen (Acetaminophen 325 Mg Tab) 650 mg PO Q4H PRN PRN Reason: Pain or Fever Stop: 07/20/23 16:11 Last Admin: 06/23/23 09:46 Dose: 650 mg Al Hydrox/Mg Hydrox/Simethicone (Aluminum/Magnesium Susp 30 Ml Udc) 15 ml PO Q4H PRN PRN Reason: Dyspepsia Stop: 07/20/23 16:11 Aspirin (Aspirin 81 Mg Ectab) 81 mg PO QAM TIANA Stop: 07/21/23 08:59 Last Admin: 06/24/23 08:45 Dose: 81 mg Atorvastatin Calcium (Atorvastatin 40 Mg Tab) 40 mg PO DAILY TIANA Stop: 07/21/23 08:59 Last Admin: 06/28/23 09:28 Dose: 40 mg Benzonatate (Benzonatate 100 Mg Capsule) 100 mg PO TID PRN PRN Reason: Cough Stop: 07/25/23 03:58 Cyanocobalamin (Cyanocobalamin (B-12) 500 Mcg Tablet) 1,000 mcg PO QAM [facility] Stop: 07/21/23 08:59 Last Admin: 06/28/23 09:28 Dose: 1,000 mcg Folic Acid (Folic Acid 1 Mg Tab) 1 mg PO DAILY [facility] Stop: 07/21/23 08:59 Last Admin: 06/28/23 09:28 Dose: 1 mg Furosemide (Furosemide 40 Mg Tab) 40 mg PO QAM [facility] Stop: 07/28/23 08:59 Last Admin: 06/28/23 09:28 Dose: 40 mg Methylprednisolone 60 mg/ (Syringe) 0.96 mls @ 1.5 mls/min IV Q8H TIANA Stop: 07/26/23 15:59 Last Admin: 06/28/23 15:21 Dose: 1.5 mls/min Ipratropium [place] (Ipratropium [place] Neb Soln 0.02% 2.5 Ml Vial) 0.5 mg INH Q4H PRN PRN Reason: sob/wheeze Stop: 07/25/23 04:14 Levalbuterol HCl (Levalbuterol 1.25 Mg/3 Ml Neb) 1.25 mg NEB Q4H PRN PRN Reason: sob/wheeze Stop: 07/25/23 04:14 Magnesium Oxide (Magnesium Oxide 400 Mg Tab) 400 mg PO BID [facility] Stop: 07/23/23 09:14 Last Admin: 06/28/23 09:28 Dose: 400 mg Metoprolol Succinate (Metoprolol Succ 50mg Ext Rel Tab) 50 mg PO QAM [facility] Stop: 07/25/23 12:44 Last Admin: 06/28/23 09:28 Dose: 50 mg Morphine Sulfate (Morphine Sulfate 10 Mg/0.5 Ml Udp) 2.5 mg PO Q4H PRN PRN Reason: Dyspnea Stop: 07/12/23 10:37 Last Admin: 06/28/23 15:26 Dose: 2.5 mg Ondansetron HCl (Ondansetron Inj 2 Mg/Ml 2 Ml Vial) 4 mg IV Q6H PRN PRN Reason: Nausea Stop: 07/20/23 16:11 Pantoprazole Sodium (Pantoprazole 40 Mg Tab) 40 mg PO QAM [facility] Stop: 07/21/23 08:59 Last Admin: 06/28/23 09:28 Dose: 40 mg Polyethylene Glycol (Polyethylene (Miralax) 17 Gm Pack) 17 gm PO DAILY PRN PRN Reason: Constipation Stop: 07/20/23 16:11 Potassium Chloride (Potassium Chloride Crtab 20 Meq Tabcr) 20 meq PO BID [facility] Stop: 07/23/23 20:59 Last Admin: 06/28/23 09:27 Dose: 20 meq Rivaroxaban (Rivaroxaban 20 Mg Tab) 20 mg PO QDD [facility] Stop: 07/21/23 16:29 Last Admin: 06/24/23 17:13 Dose: 20 mg Sertraline HCl (Sertraline Hcl 50 Mg Tablet) 50 mg PO QAM [facility] Stop: 07/21/23 08:59 Last Admin: 06/28/23 09:28 Dose: 50 mg Umeclidinium/Vilanterol (Umeclidinium/Vilanterol 62.5/25mcg 7 Puffs/Inhaler) 1 puffs INH QAM [facility] Stop: 07/21/23 08:59 Last Admin: 06/28/23 09:29 Dose: 1 puffs (5) Anemia Anemia type: due to chronic kidney disease
[2023-06-29] MEDS: methylPREDNISolone 60 MG in SYRINGE 0 ML IV SCH ×3 (00:34→17:29)
[2023-06-29 06:25] LABS: Hematocrit (blood only) 28.3 % (42.0-52.0); Hemoglobin 9.6 g/dl (14.0-18.0); Immature Granulocytes # (auto) 0.11 K/uL (0.01-0.20); Immature Granulocytes % (auto) 1.4 %; Lymphocytes # (auto) 0.28 K/uL (1.20-3.40); Lymphocytes % (auto) 3.5 %; Mean Corpuscular Hemoglobin 37.9 pg (25.0-34.0); Mean Corpuscular Hgb Conc 33.9 g/dL (32.0-36.0); Mean Corpuscular Volume 111.9 fL (80.0-100.0); Mean Platelet Volume 9.4 fL (9.4-12.4); Monocytes # (auto) 0.55 K/uL (0.11-0.59); Neutrophils # (auto) 6.95 K/uL (1.40-6.50); Neutrophils % (auto) 88.1 %; Platelet Count 140 K/uL (130-400); RDW Coefficient of Variation 14.9 % (11.5-14.5); RDW Standard Deviation 61.2 fL (36.4-46.3); Red Blood Count 2.53 M/uL (4.70-6.10); White Blood Count 7.89 K/ul (4.8-10.8)
[2023-06-29 06:38] LABS: Albumin Globulin Ratio 1.1 (0.9-2); Albumin Level 3.3 gm/dl (3.4-5.0); BUN Creatinine Ratio 30.1 (10-20); Calcium 9.3 mg/dl (8.6-10.3); Creatinine Clr Calc Pharmacy 75.7 ml/min; Est GFR (African American) 97.7 ml/min; Est GFR (Non-African American) 84.3 ml/min; Magnesium 1.5 mg/dl (1.7-2.4); Phosphorus 3.5 mg/dl (2.5-4.9); Potassium 4.2 mmol/L (3.5-5.1); Total Protein 6.3 gm/dl (6.0-8.3)
[2023-06-29] MEDS: MAGNESIUM OXIDE 400 MG TAB PO SCH ×2 (08:34→21:25)
[2023-06-29] MEDS: POTASSIUM CHLORIDE CRTAB 20 MEQ TABCR PO SCH ×2 (08:34→21:24)
[2023-06-29] MEDS: METOPROLOL SUCC 50MG EXT REL TAB PO SCH (08:34)
[2023-06-29] MEDS: FUROSEMIDE 40 MG TAB PO SCH (08:35)
[2023-06-29] MEDS: PANTOprazole 40 MG TAB PO SCH (08:35)
[2023-06-29] MEDS: FOLIC ACID 1 MG TAB PO SCH (08:35)
[2023-06-29] MEDS: SERTRALINE HCL 50 MG TABLET PO SCH (08:35)
[2023-06-29] MEDS: CYANOCOBALAMIN (B-12) 500 MCG TABLET PO SCH (08:35)
[2023-06-29] MEDS: ATORVASTATIN 40 MG TAB PO SCH (08:35)
[2023-06-29] MEDS: UMECLIDINIUM/VILANTEROL 62.5/25MCG 7 PUFFS/INHALER INH SCH (08:36)
[2023-06-29] MEDS: MAGNESIUM SULFATE / D5W 1 GM/100 ML BAG IV SCH ×2 (08:37→10:49)
[2023-06-29] MEDS: MoRPHine SULFATE 10 MG/0.5 ML UDP PO PRN ×2 (08:46→21:25)
--- NOTE | 2023-06-29 10:18 | Pulmonology Progress Note ---
Date of Service June 29, 2023 Assessment & Plan (1) Acute hypoxic respiratory failure: (2) Pneumonia: Plan Impression: 78-year-old male with stage IIIa lung cancer status post chemo and radiation therapy with adjuvant durvalumab therapy now with progressive hypoxemic respiratory failure and CT scan showing progressive interstitial infiltrates in the setting of severe emphysema. The differential diagnosis for the interstitial infiltrates is broad and would include pulmonary ICI toxicity (grade 3-4), lymphangitic progression of malignancy, atypical pulmonary edema, pneumonia, pulmonary toxicity secondary to chemotherapeutic agents, or other interstitial lung disease felt to be less likely. Recommendations: 1. Pulmonary infiltrates: Unclear if this represents pneumonia, atypical heart failure, or ICI pulmonary toxicity. Continue steroids at this point in time. Benefit may be sometime in coming. 2. Hypoxemic respiratory failure: Patient is clinically stagnant with regards to his oxygen requirement. Unclear if were going to make a significant impact. Continue oral morphine as needed to treat dyspnea. Discussed with patient and family at bedside. Admission and Anticipated Discharge Date Admission Date: June 20, 2023 Subjective Patient is doing well. He did use the oral morphine once and states that it was very effective in improving his respiratory status. He did not notice any adverse effects from the medication. He is interested in continuing to use this going forward. He is not coughing. He has been able to wean his oxygen to a slight degree. Review of Systems 2 Review of Systems: All systems reviewed & are unremarkable except as noted in Subjective Physical Exam 2 Constitutional: + ill appearing; no acute distress Respiratory: normal respiratory effort Auscultation: + rhonchi Cardiovascular: Rate/Rhythm: regular rate and regular rhythm Skin: no rashes, warm and dry Neurologic: CN's II-XI intact bilaterally and awake Results & Data Results & Data Vital Signs (Past 12 Hours) Vital Signs Temp Pulse Pulse Resp BP Pulse Ox O2 Del Method 06/29/23 07:55 36.4 C L 80 20 130/69 97 High Flow Nasal Cannula 06/29/23 07:43 79 06/29/23 02:35 37.0 C 65 20 150/86 H 97 High Flow Nasal Cannula 06/28/23 22:59 87 06/28/23 22:37 37.2 C 88 16 121/76 97 High Flow Nasal Cannula O2 Flow Rate 06/29/23 07:55 11 06/29/23 07:43 06/29/23 02:35 15 06/28/23 22:59 06/28/23 22:37 15 Laboratory Results 06/29/23 05:54 06/29/23 05:54 Diagnostic Findings No new imaging PG Care Time/CCT Total # of Minutes Spent Total Time Spent with Patient: Total time spent is greater than 50% in coordination of care (as documented) at patient's floor/unit and/or counseling patient: Coding Level of Care Code 00254 SUB INP/OBS CARE 2/35MIN Diagnoses Acute hypoxic respiratory failure J96.01 Pneumonia J18.9
--- NOTE | 2023-06-29 14:50 | Hospitalist Progress Note ---
Date of Service June 29, 2023 Assessment & Plan (1) Acute hypoxic respiratory failure: (2) Pneumonia: (3) Hypomagnesemia: (4) Diabetes mellitus type II, controlled: (5) Anemia: (6) Primary cancer of right lower lobe of lung: (7) Atrial fibrillation with rapid ventricular response: Plan Mr. Bella is a 78 yo gentleman with Pmhx significant for lung cancer, atrial fibrillation, DMII, HLD, hemochromatosis, Mood disorder admitted with pneumonia once more. 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 MRSA negative as well. Continue Zosyn Requiring 2LNC, supplement as needed Pulm consult and palliative care- appreciate recs -per Palliative, pt would like to pursue acute rehab -pulm recommending treating pneumonia 06/23- increased oxygen need, chest xray with improving pneumonia and possible pleural effusions. IV lasix 40mg ordered, pt transitioned to oxymask 06/24- increasing hemoptysis episodes, CT chest was ordered- read still pending 06/25- chest CT showing progressing pneumonia/pathology, case discussed with pulmonology once more, episode of a fib with rvr overnight, cardiology consult placed. 06/26- stable, discussions with pulm and palliative care, pt considering options 06/27- stable, started on Steroids and Lasix by pulm. States he is still deciding what route to take but at this time would like diet to be a regular one but wants to continue with all treatments and lab monitoring at this time. 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 follows with Dr. Mari s/p completion of chemotherapy/radiation, on immunotherapy Continue Cam Bazzi Has had thoracentesis in the past for pleural effusions- pulm consult placed Palliative medicine consultation as outlined above Patient is not yet ready for comfort care Wants to try the current palliative care medications and will be continued Condition seems to be stable and will plan for discharge when the oxygen requirements improves Hypomagnesemia: replete as needed DM2: chronic stable A1C 5.5 on 06/08/23 Diabetic Diet Atrial Fibrillation: Had rvr episode 06/25- chest CT showing progressing pneumonia/pathology, case discussed with pulmonology once more, episode of a fib with rvr overnight, cardiology consult placed. Previously on Metoprolol and Xarelto Stable at this time Anemia of chronic disease: chronic stable Depression: chronic stable takes sertraline;continue PCP: Dr. Rojas @ 65 forward Code Status: DNR/DNI VTE Prophylaxis: On Xarelto Dispo: Pt met with Palliative Care- weighing options Admission and Anticipated Discharge Date Admission Date: June 20, 2023 Subjective 06/28/2083 The patient was seen and examined in telemetry unit in the presence of the He has been stable but remains very anxious and mild to moderate shortness of breath Has been started on IV morphine for anxiety and pain control Not yet for comfort care 06/29/2023 The patient was seen and examined in telemetry unit in presence of the daughter He has been feeling a little better with morphine Still has mild to moderate shortness of breath and has been requiring 10 to 11 L via oxime mask to maintain saturation Denies any significant symptoms and her pain Review of Systems Review of Systems: All systems reviewed and are unremarkable except as noted below Physical Exam Constitutional: + ill appearing and average body habitus Eyes: PERRL, conjunctivae normal, anicteric sclerae ENMT: external ear and nose normal, oropharynx normal Neck: trachea midline, no thyromegaly Respiratory: + respiratory distress (Has been requiri ng 12 L via oxime mask to maintain saturations) Auscultation: + diminished lung sounds and + crackles (Bilateral crackles) Cardiovascular: Rate/Rhythm: regular rate and regular rhythm; not tachycardic Heart Sounds: normal S1 and normal S2; no murmur Gastrointestinal (Abdomen): Inspection/Auscultation: normal bowel sounds; abdomen not distended Percussion/Palpation: abdomen soft; abdomen nontender Neurologic: normal touch/pain/proprioception and moves all extremities; no focal motor deficits Lymphatic: no cervical or axillary lymphadenopathy Results & Data Results & Data Vital Signs (Past 12 Hours) Vital Signs Temp Pulse Pulse Resp BP Pulse Ox O2 Del Method 06/29/23 12:29 36.3 C L 77 18 126/84 93 Oxymask 06/29/23 10:46 Oxymask, High Flow Nasal Cannula 06/29/23 07:55 36.4 C L 80 20 130/69 97 High Flow Nasal Cannula 06/29/23 07:43 79 O2 Flow Rate 06/29/23 12:29 10 06/29/23 10:46 11 06/29/23 07:55 11 06/29/23 07:43 Laboratory Results Short CBC 06/29/23 Range/Units 05:54 WBC 7.89 (4.8-10.8) K/ul Hgb 9.6 L (14.0-18.0) g/dl Hct 28.3 L (42.0-52.0) % Plt Count 140 (130-400) K/uL BMP 06/29/23 05:54 Sodium 136 Potassium 4.2 Chloride 100 Carbon Dioxide 30 BUN 25 H Creatinine 0.83 Glucose 208 H Calcium 9.3 Liver Function 06/29/23 Range/Units 05:54 Total Bilirubin 1.0 (0.2-1.0) mg/dl AST 16 (13-39) U/L ALT 15 (7-52) U/L Alkaline Phosphatase 65 (34-104) U/L Albumin 3.3 L (3.4-5.0) gm/dl Medications Administered Current Inpatient Medications Acetaminophen (Acetaminophen 325 Mg Tab) 650 mg PO Q4H PRN PRN Reason: Pain or Fever Stop: 07/20/23 16:11 Last Admin: 06/23/23 09:46 Dose: 650 mg Al Hydrox/Mg Hydrox/Simethicone (Aluminum/Magnesium Susp 30 Ml Udc) 15 ml PO Q4H PRN PRN Reason: Dyspepsia Stop: 07/20/23 16:11 Aspirin (Aspirin 81 Mg Ectab) 81 mg PO QAM [facility] Stop: 07/21/23 08:59 Last Admin: 06/24/23 08:45 Dose: 81 mg Atorvastatin Calcium (Atorvastatin 40 Mg Tab) 40 mg PO DAILY [facility] Stop: 07/21/23 08:59 Last Admin: 06/29/23 08:35 Dose: 40 mg Benzonatate (Benzonatate 100 Mg Capsule) 100 mg PO TID PRN PRN Reason: Cough Stop: 07/25/23 03:58 Cyanocobalamin (Cyanocobalamin (B-12) 500 Mcg Tablet) [facility] [place] Stop: 07/21/23 08:59 Last Admin: 06/29/23 08:35 Dose: 1,000 mcg Folic Acid (Folic Acid 1 Mg Tab) 1 mg PO DAILY [facility] Stop: 07/21/23 08:59 Last Admin: 06/29/23 08:35 Dose: 1 mg Furosemide (Furosemide 40 Mg Tab) 40 mg PO QAM [facility] Stop: 07/28/23 08:59 Last Admin: 06/29/23 08:35 Dose: 40 mg Methylprednisolone 60 mg/ (Syringe) 0.96 mls @ 1.5 mls/min IV Q8H [facility] Stop: 07/26/23 15:59 Last Admin: 06/29/23 08:34 Dose: 1.5 mls/min Ipratropium [place] (Ipratropium [place] Neb Soln 0.02% 2.5 Ml Vial) 0.5 mg INH Q4H PRN PRN Reason: sob/wheeze Stop: 07/25/23 04:14 Levalbuterol HCl (Levalbuterol 1.25 Mg/3 Ml Neb) 1.25 mg NEB Q4H PRN PRN Reason: sob/wheeze Stop: 07/25/23 04:14 Magnesium Oxide (Magnesium Oxide 400 Mg Tab) 400 mg PO BID [facility] Stop: 07/23/23 09:14 Last Admin: 06/29/23 08:34 Dose: 400 mg Metoprolol Succinate (Metoprolol Succ 50mg Ext Rel Tab) 50 mg PO [facility] Stop: 07/25/23 12:44 Last Admin: 06/29/23 08:34 Dose: 50 mg Morphine Sulfate (Morphine Sulfate 10 Mg/0.5 Ml Udp) 2.5 mg PO Q4H PRN PRN Reason: Dyspnea Stop: 07/12/23 10:37 Last Admin: 06/29/23 08:46 Dose: 2.5 mg Ondansetron HCl (Ondansetron Inj 2 Mg/Ml 2 Ml Vial) 4 mg IV Q6H PRN PRN Reason: Nausea Stop: 07/20/23 16:11 Pantoprazole Sodium (Pantoprazole 40 Mg Tab) [facility] [place] Stop: 07/21/23 08:59 Last Admin: 06/29/23 08:35 Dose: 40 mg Polyethylene Glycol (Polyethylene (Miralax) 17 Gm Pack) 17 gm PO DAILY PRN PRN Reason: Constipation Stop: 07/20/23 16:11 Potassium Chloride (Potassium Chloride Crtab 20 Meq Tabcr) 20 meq PO BID [facility] Stop: 07/23/23 20:59 Last Admin: 06/29/23 08:34 Dose: 20 meq Rivaroxaban (Rivaroxaban 20 Mg Tab) 20 mg PO QDD [facility] Stop: 07/21/23 16:29 Last Admin: 06/24/23 17:13 Dose: 20 mg Sertraline HCl (Sertraline Hcl 50 Mg Tablet) 50 mg PO QAM [facility] Stop: 07/21/23 08:59 Last Admin: 06/29/23 08:35 Dose: 50 mg Umeclidinium/Vilanterol (Umeclidinium/Vilanterol 62.5/25mcg 7 Puffs/Inhaler) 1 puffs INH QAM [facility] Stop: 07/21/23 08:59 Last Admin: 06/29/23 08:36 Dose: 1 puffs (5) Anemia Anemia type: due to chronic kidney disease
[2023-06-30] MEDS: methylPREDNISolone 60 MG in SYRINGE 0 ML IV SCH ×3 (00:06→15:29)
[2023-06-30 05:53] LABS: Basophils # (auto) 0.01 K/uL (0.00-0.20); Basophils % (auto) 0.1 %; Hemoglobin 9.7 g/dl (14.0-18.0); Immature Granulocytes # (auto) 0.11 K/uL (0.01-0.20); Immature Granulocytes % (auto) 1.5 %; Lymphocytes # (auto) 0.26 K/uL (1.20-3.40); Lymphocytes % (auto) 3.5 %; Mean Corpuscular Hemoglobin 37.7 pg (25.0-34.0); Mean Corpuscular Hgb Conc 34.6 g/dL (32.0-36.0); Mean Corpuscular Volume 108.9 fL (80.0-100.0); Mean Platelet Volume 9.7 fL (9.4-12.4); Monocytes # (auto) 0.54 K/uL (0.11-0.59); Monocytes % (auto) 7.3 %; Neutrophils # (auto) 6.51 K/uL (1.40-6.50); Neutrophils % (auto) 87.6 %; Platelet Count 136 K/uL (130-400); RDW Coefficient of Variation 14.6 % (11.5-14.5); RDW Standard Deviation 57.9 fL (36.4-46.3); Red Blood Count 2.57 M/uL (4.70-6.10); White Blood Count 7.43 K/ul (4.8-10.8)
[2023-06-30 06:16] LABS: BUN Creatinine Ratio 29.9 (10-20); Calcium 9.1 mg/dl (8.6-10.3); Creatinine Clr Calc Pharmacy 72.3 ml/min; Est GFR (African American) 95.8 ml/min; Est GFR (Non-African American) 82.7 ml/min; Potassium 4.2 mmol/L (3.5-5.1)
[2023-06-30] MEDS: FUROSEMIDE 40 MG TAB PO SCH (07:44)
[2023-06-30] MEDS: MAGNESIUM OXIDE 400 MG TAB PO SCH ×2 (07:44→20:11)
[2023-06-30] MEDS: CYANOCOBALAMIN (B-12) 500 MCG TABLET PO SCH (07:45)
[2023-06-30] MEDS: METOPROLOL SUCC 50MG EXT REL TAB PO SCH (07:45)
[2023-06-30] MEDS: SERTRALINE HCL 50 MG TABLET PO SCH (07:45)
[2023-06-30] MEDS: POTASSIUM CHLORIDE CRTAB 20 MEQ TABCR PO SCH ×2 (07:45→20:11)
[2023-06-30] MEDS: FOLIC ACID 1 MG TAB PO SCH (07:45)
[2023-06-30] MEDS: ATORVASTATIN 40 MG TAB PO SCH (07:45)
[2023-06-30] MEDS: PANTOprazole 40 MG TAB PO SCH (07:45)
[2023-06-30] MEDS: UMECLIDINIUM/VILANTEROL 62.5/25MCG 7 PUFFS/INHALER INH SCH (08:11)
--- NOTE | 2023-06-30 08:55 | Pulmonology Progress Note ---
Date of Service June 30, 2023 Assessment & Plan (1) Acute hypoxic respiratory failure: (2) Pneumonia: Plan Impression: 78-year-old male with stage IIIa lung cancer status post chemo and radiation therapy with adjuvant durvalumab therapy now with progressive hypoxemic respiratory failure and CT scan showing progressive interstitial infiltrates in the setting of severe emphysema. The differential diagnosis for the interstitial infiltrates is broad and would include pulmonary ICI toxicity (grade 3-4), lymphangitic progression of malignancy, atypical pulmonary edema, pneumonia, pulmonary toxicity secondary to chemotherapeutic agents, or other interstitial lung disease felt to be less likely. Recommendations: 1. Pulmonary infiltrates: Unclear if this represents pneumonia, atypical heart failure, or ICI pulmonary toxicity. Continue steroids at this point in time. Benefit may be sometime in coming. 2. Hypoxemic respiratory failure: Patient is clinically stagnant with regards to his oxygen requirement. Unclear if were going to make a significant impact. Continue oral morphine as needed to treat dyspnea. Discussed with patient and family at bedside. Not much else to offer. Will visit intermittently over the weekend but unfortunately not much else to offer from a pulmonary standpoint. Admission and Anticipated Discharge Date Admission Date: June 20, 2023 Subjective Patient seen and examined. EMR reviewed. The patient had a few doses of morphine yesterday and thinks it is helping with his breathing. Otherwise he is clinically the same Review of Systems 2 Review of Systems: Unobtainable due to endotracheal tube Physical Exam 2 Constitutional: + ill appearing; no acute distress Respiratory: normal respiratory effort Auscultation: + rhonchi Cardiovascular: Rate/Rhythm: regular rate and regular rhythm Skin: no rashes, warm and dry Neurologic: CN's II-XI intact bilaterally and awake Results & Data Results & Data Vital Signs (Past 12 Hours) Vital Signs Temp Pulse Pulse Resp BP BP Pulse Ox 06/30/23 07:11 36.3 C L 70 16 128/74 96 06/30/23 03:00 36.3 C L 76 14 131/80 92 06/29/23 23:09 81 06/29/23 23:00 36.2 C L 79 18 111/60 92 O2 Del Method O2 Flow Rate 06/30/23 07:11 Oxymask 15 06/30/23 03:00 Oxymask 7 06/29/23 23:09 06/29/23 23:00 Oxymask 7 Laboratory Results 06/30/23 05:17 06/30/23 05:17 PG Care Time/CCT Total # of Minutes Spent Total Time Spent with Patient: Total time spent is greater than 50% in coordination of care (as documented) at patient's floor/unit and/or counseling patient: Coding Level of Care Code 77332 SUB INP/OBS CARE 1/25MIN Diagnoses Acute hypoxic respiratory failure J96.01 Pneumonia J18.9
--- NOTE | 2023-06-30 17:25 | Hospitalist Progress Note ---
Date of Service June 30, 2023 Assessment & Plan (1) Acute hypoxic respiratory failure: (2) Pneumonia: (3) Hypomagnesemia: (4) Diabetes mellitus type II, controlled: (5) Anemia: (6) Primary cancer of right lower lobe of lung: (7) Atrial fibrillation with rapid ventricular response: Plan Mr. Bella is a 78 yo gentleman with Pmhx significant for lung cancer, atrial fibrillation, DMII, HLD, hemochromatosis, Mood disorder admitted with pneumonia once more. 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 MRSA negative as well. Continue Zosyn Requiring 2LNC, supplement as needed Pulm consult and palliative care- appreciate recs -per Palliative, pt would like to pursue acute rehab -pulm recommending treating pneumonia 06/23- increased oxygen need, chest xray with improving pneumonia and possible pleural effusions. IV lasix 40mg ordered, pt transitioned to oxymask 06/24- increasing hemoptysis episodes, CT chest was ordered- read still pending 06/25- chest CT showing progressing pneumonia/pathology, case discussed with pulmonology once more, episode of a fib with rvr overnight, cardiology consult placed. 06/26- stable, discussions with pulm and palliative care, pt considering options 06/27- stable, started on Steroids and Lasix by pulm. States he is still deciding what route to take but at this time would like diet to be a regular one but wants to continue with all treatments and lab monitoring at this time. 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 follows with Dr. Mari s/p completion of chemotherapy/radiation, on immunotherapy Continue Anoruth Bazzi Has had thoracentesis in the past for pleural effusions- pulm consult placed Palliative medicine consultation as outlined above Patient is not yet ready for comfort care Wants to try the current palliative care medications and will be continued Condition seems to be stable and will plan for discharge when the oxygen requirements improves He is aware about the lung cancer and aware that the medication he has been getting just for palliation not for treatment He is accepting the diagnosis and the prognosis Condition may get worse at any time Hypomagnesemia: replete as needed DM2: chronic stable A1C 5.5 on 06/08/23 Diabetic Diet Atrial Fibrillation: Had rvr episode 06/25- chest CT showing progressing pneumonia/pathology, case discussed with pulmonology once more, episode of a fib with rvr overnight, cardiology consult placed. Previously on Metoprolol and Xarelto Stable at this time Anemia of chronic disease: chronic stable Depression: chronic stable takes sertraline;continue PCP: Dr. Rojas @ 65 forward Code Status: DNR/DNI VTE Prophylaxis: On Xarelto Dispo: Pt met with Palliative Care- weighing options Admission and Anticipated Discharge Date Admission Date: June 20, 2023 Subjective 06/28/2083 The patient was seen and examined in telemetry unit in the presence of the He has been stable but remains very anxious and mild to moderate shortness of breath Has been started on IV morphine for anxiety and pain control Not yet for comfort care 06/29/2023 The patient was seen and examined in telemetry unit in presence of the daughter He has been feeling a little better with morphine Still has mild to moderate shortness of breath and has been requiring 10 to 11 L via oxime mask to maintain saturation Denies any significant symptoms and her pain 06/30/2023 The patient was seen and examined in telemetry unit He has been feeling little better Requiring about 4 L via oxime mask during my examination Denies any chest pain and/or anxiety Review of Systems Review of Systems: All systems reviewed and are unremarkable except as noted below Physical Exam Physical Exam: Lying in bed with moderate distress due to shortness of breath Constitutional: + ill appearing and average body habitus Eyes: PERRL, conjunctivae normal, anicteric sclerae ENMT: external ear and nose normal, oropharynx normal Neck: trachea midline, no thyromegaly Respiratory: + respiratory distress (Has been requiri ng 12 L via oxime mask to maintain saturations) Auscultation: + diminished lung sounds and + crackles (Bilateral crackles) Cardiovascular: Rate/Rhythm: regular rate and regular rhythm; not tachycardic Heart Sounds: normal S1 and normal S2; no murmur Gastrointestinal (Abdomen): Inspection/Auscultation: normal bowel sounds; abdomen not distended Percussion/Palpation: abdomen soft; abdomen nontender Neurologic: normal touch/pain/proprioception and moves all extremities; no focal motor deficits Lymphatic: no cervical or axillary lymphadenopathy Results & Data Results & Data Vital Signs (Past 12 Hours) Vital Signs Temp Pulse Resp BP Pulse Ox O2 Del Method O2 Flow Rate 06/30/23 15:47 36.6 C 82 20 128/77 88 L Nasal Cannula 88 06/30/23 12:12 36.5 C 79 20 113/69 91 Nasal Cannula 7 06/30/23 08:00 Nasal Cannula 6 06/30/23 07:11 36.3 C L 70 16 128/74 96 Oxymask 15 Laboratory Results Short CBC 06/30/23 Range/Units 05:17 WBC 7.43 (4.8-10.8) K/ul Hgb 9.7 L (14.0-18.0) g/dl Hct 28.0 L (42.0-52.0) % Plt Count 136 (130-400) K/uL BMP 06/30/23 05:17 Sodium 136 Potassium 4.2 Chloride 98 Carbon Dioxide 32 BUN 26 H Creatinine 0.87 Glucose 280 H Calcium 9.1 Medications Administered Current Inpatient Medications Acetaminophen (Acetaminophen 325 Mg Tab) 650 mg PO Q4H PRN PRN Reason: Pain or Fever Stop: 07/20/23 16:11 Last Admin: 06/23/23 09:46 Dose: 650 mg Al Hydrox/Mg Hydrox/Simethicone (Aluminum/Magnesium Susp 30 Ml Udc) 15 ml PO Q4H PRN PRN Reason: Dyspepsia Stop: 07/20/23 16:11 Aspirin (Aspirin 81 Mg Ectab) 81 mg PO QAM [facility] Stop: 07/21/23 08:59 Last Admin: 06/24/23 08:45 Dose: 81 mg Atorvastatin Calcium (Atorvastatin 40 Mg Tab) 40 mg PO DAILY [facility] Stop: 07/21/23 08:59 Last Admin: 06/30/23 07:45 Dose: 40 mg Benzonatate (Benzonatate 100 Mg Capsule) 100 mg PO TID PRN PRN Reason: Cough Stop: 07/25/23 03:58 Cyanocobalamin (Cyanocobalamin (B-12) 500 Mcg Tablet) 1,000 mcg PO QAM [facility] Stop: 07/21/23 08:59 Last Admin: 06/30/23 07:45 Dose: 1,000 mcg Folic Acid (Folic Acid 1 Mg Tab) 1 mg PO DAILY [facility] Stop: 07/21/23 08:59 Last Admin: 06/30/23 07:45 Dose: 1 mg Furosemide (Furosemide 40 Mg Tab) 40 mg PO QAM [facility] Stop: 07/28/23 08:59 Last Admin: 06/30/23 07:44 Dose: 40 mg Methylprednisolone 60 mg/ (Syringe) 0.96 mls @ 1.5 mls/min IV Q8H [facility] Stop: 07/26/23 15:59 Last Admin: 06/30/23 15:29 Dose: 1.5 mls/min Ipratropium [place] (Ipratropium [place] Neb Soln 0.02% 2.5 Ml Vial) 0.5 mg INH Q4H PRN PRN Reason: sob/wheeze Stop: 07/25/23 04:14 Levalbuterol HCl (Levalbuterol 1.25 Mg/3 Ml Neb) 1.25 mg NEB Q4H PRN PRN Reason: sob/wheeze Stop: 07/25/23 04:14 Magnesium Oxide (Magnesium Oxide 400 Mg Tab) 400 mg PO BID [facility] Stop: 07/23/23 09:14 Last Admin: 06/30/23 07:44 Dose: 400 mg Metoprolol Succinate (Metoprolol Succ 50mg Ext Rel Tab) [facility] [place] Stop: 07/25/23 12:44 Last Admin: 06/30/23 07:45 Dose: 50 mg Morphine Sulfate (Morphine Sulfate 10 Mg/0.5 Ml Udp) 2.5 mg PO Q4H PRN PRN Reason: Dyspnea Stop: 07/12/23 10:37 Last Admin: 06/29/23 21:25 Dose: 2.5 mg Ondansetron HCl (Ondansetron Inj 2 Mg/Ml 2 Ml Vial) 4 mg IV Q6H PRN PRN Reason: Nausea Stop: 07/20/23 16:11 Pantoprazole Sodium (Pantoprazole 40 Mg Tab) [facility] [place]: 07/21/23 08:59 Last Admin: 06/30/23 07:45 Dose: 40 mg Polyethylene Glycol (Polyethylene (Miralax) 17 Gm Pack) 17 gm PO DAILY PRN PRN Reason: Constipation Stop: 07/20/23 16:11 Potassium Chloride (Potassium Chloride Crtab 20 Meq Tabcr) 20 meq PO BID [facility] Stop: 07/23/23 20:59 Last Admin: 06/30/23 07:45 Dose: 20 meq Rivaroxaban (Rivaroxaban 20 Mg Tab) 20 mg PO QDD [facility] Stop: 07/21/23 16:29 Last Admin: 06/24/23 17:13 Dose: 20 mg Sertraline HCl (Sertraline Hcl 50 Mg Tablet) 50 mg PO QAM [facility] Stop: 07/21/23 08:59 Last Admin: 06/30/23 07:45 Dose: 50 mg Umeclidinium/Vilanterol (Umeclidinium/Vilanterol 62.5/25mcg 7 Puffs/Inhaler) 1 puffs INH QAM [facility] Stop: 07/21/23 08:59 Last Admin: 06/30/23 08:11 Dose: 1 puffs (5) Anemia Anemia type: due to chronic kidney disease
[2023-06-30] MEDS: MoRPHine SULFATE 10 MG/0.5 ML UDP PO PRN (20:11)
[2023-07-01] MEDS: methylPREDNISolone 60 MG in SYRINGE 0 ML IV SCH ×3 (00:23→15:19)
[2023-07-01] MEDS ORDERED: diphenhydrAMINE Capsule 25 MG CAP PO ONE (04:05)
[2023-07-01] MEDS: ACETAMINOPHEN 325 MG TAB PO PRN (04:16)
[2023-07-01 06:23] LABS: Hematocrit (blood only) 29.9 % (42.0-52.0); Hemoglobin 10.1 g/dl (14.0-18.0); Mean Corpuscular Hemoglobin 37.7 pg (25.0-34.0); Mean Corpuscular Hgb Conc 33.8 g/dL (32.0-36.0); Mean Corpuscular Volume 111.6 fL (80.0-100.0); Platelet Count 139 K/uL (130-400); RDW Coefficient of Variation 14.8 % (11.5-14.5); RDW Standard Deviation 60.7 fL (36.4-46.3); Red Blood Count 2.68 M/uL (4.70-6.10); White Blood Count 9.76 K/ul (4.8-10.8)
[2023-07-01 06:46] LABS: BUN Creatinine Ratio 35.3 (10-20); Calcium 9.2 mg/dl (8.6-10.3); Creatinine Clr Calc Pharmacy 72.6 ml/min; Est GFR (African American) 96.7 ml/min; Est GFR (Non-African American) 83.5 ml/min; Magnesium 1.6 mg/dl (1.7-2.4); Phosphorus 3.4 mg/dl (2.5-4.9); Potassium 4.3 mmol/L (3.5-5.1)
[2023-07-01 06:57] LABS: Basophils # (auto) 0.01 K/uL (0.00-0.20); Basophils % (auto) 0.1 %; Echinocytes 1+; Immature Granulocytes # (auto) 0.09 K/uL (0.01-0.20); Immature Granulocytes % (auto) 0.9 %; Lymphocytes # (auto) 0.28 K/uL (1.20-3.40); Lymphocytes % (auto) 2.9 %; Macrocytosis Present; Monocytes # (auto) 0.56 K/uL (0.11-0.59); Monocytes % (auto) 5.7 %; Neutrophils # (auto) 8.82 K/uL (1.40-6.50); Neutrophils % (auto) 90.4 %; Polychromasia 1+
[2023-07-01] MEDS: FOLIC ACID 1 MG TAB PO SCH (09:26)
[2023-07-01] MEDS: CYANOCOBALAMIN (B-12) 500 MCG TABLET PO SCH (09:26)
[2023-07-01] MEDS: POTASSIUM CHLORIDE CRTAB 20 MEQ TABCR PO SCH ×2 (09:26→21:00)
[2023-07-01] MEDS: PANTOprazole 40 MG TAB PO SCH (09:26)
[2023-07-01] MEDS: SERTRALINE HCL 50 MG TABLET PO SCH (09:26)
[2023-07-01] MEDS: METOPROLOL SUCC 50MG EXT REL TAB PO SCH (09:26)
[2023-07-01] MEDS: ATORVASTATIN 40 MG TAB PO SCH (09:26)
[2023-07-01] MEDS: FUROSEMIDE 40 MG TAB PO SCH (09:26)
[2023-07-01] MEDS: MAGNESIUM OXIDE 400 MG TAB PO SCH ×2 (09:26→21:00)
[2023-07-01] MEDS: UMECLIDINIUM/VILANTEROL 62.5/25MCG 7 PUFFS/INHALER INH SCH (09:26)
[2023-07-01] MEDS: MoRPHine SULFATE 10 MG/0.5 ML UDP PO PRN ×2 (09:35→21:01)
--- NOTE | 2023-07-01 13:46 | Hospitalist Progress Note ---
Date of Service July 01, 2023 Assessment & Plan (1) Acute hypoxic respiratory failure: (2) Pneumonia: (3) Hypomagnesemia: (4) Diabetes mellitus type II, controlled: (5) Anemia: (6) Primary cancer of right lower lobe of lung: (7) Atrial fibrillation with rapid ventricular response: Plan Mr. Bella is a 78 yo gentleman with Pmhx significant for lung cancer, atrial fibrillation, DMII, HLD, hemochromatosis, Mood disorder admitted with pneumonia once more. 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 MRSA negative as well. Continue Zosyn Requiring 2LNC, supplement as needed Pulm consult and palliative care- appreciate recs -per Palliative, pt would like to pursue acute rehab -pulm recommending treating pneumonia 06/23- increased oxygen need, chest xray with improving pneumonia and possible pleural effusions. IV lasix 40mg ordered, pt transitioned to oxymask 06/24- increasing hemoptysis episodes, CT chest was ordered- read still pending 06/25- chest CT showing progressing pneumonia/pathology, case discussed with pulmonology once more, episode of a fib with rvr overnight, cardiology consult placed. 06/26- stable, discussions with pulm and palliative care, pt considering options 06/27- stable, started on Steroids and Lasix by pulm. States he is still deciding what route to take but at this time would like diet to be a regular one but wants to continue with all treatments and lab monitoring at this time. 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 by the shorts sifter for anxiety and pain Will continue current medications Has been feeling a little better with the use of morphine for anxiety and pain Denies any other significant symptoms Has been better since this morning and requiring 4 L to maintain saturation via oxime mask Condition stable with occasional exacerbation and requiring more oxygen at times Has significant anxiety and has been on small dose of morphine for respiratory symptoms and anxiety Likely discharge on Monday in a facility for 24 hours care can be provided Lung Cancer: chronic stable 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 follows with Dr. Mari s/p completion of chemotherapy/radiation, on immunotherapy Continue Cam Bazzi Has had thoracentesis in the past for pleural effusions- pulm consult placed Palliative medicine consultation as outlined above Patient is not yet ready for comfort care Wants to try the current palliative care medications and will be continued Condition seems to be stable and will plan for discharge when the oxygen requirements improves He is aware about the lung cancer and aware that the medication he has been getting just for palliation not for treatment He is accepting the diagnosis and the prognosis Condition may get worse at any time He is completely aware about the diagnosis and the prognosis Hypomagnesemia: replete as needed DM2: chronic stable A1C 5.5 on 06/08/23 Diabetic Diet Atrial Fibrillation: Had rvr episode 06/25- chest CT showing progressing pneumonia/pathology, case discussed with pulmonology once more, episode of a fib with rvr overnight, cardiology consult placed. Previously on Metoprolol and Xarelto Stable at this time Anemia of chronic disease: chronic stable Depression: chronic stable takes sertraline;continue PCP: Dr. Rojas @ 65 forward Code Status: DNR/DNI VTE Prophylaxis: On Xarelto Dispo: Pt met with Palliative Care- weighing options Admission and Anticipated Discharge Date Admission Date: June 20, 2023 Subjective 06/28/2083 The patient was seen and examined in telemetry unit in the presence of the He has been stable but remains very anxious and mild to moderate shortness of breath Has been started on IV morphine for anxiety and pain control Not yet for comfort care 06/29/2023 The patient was seen and examined in telemetry unit in presence of the daughter He has been feeling a little better with morphine Still has mild to moderate shortness of breath and has been requiring 10 to 11 L via oxime mask to maintain saturation Denies any significant symptoms and her pain 06/30/2023 The patient was seen and examined in telemetry unit He has been feeling little better Requiring about 4 L via oxime mask during my examination Denies any chest pain and/or anxiety 07/01/2023 The patient was seen and examined in telemetry unit He has been feeling better today and is requiring 6 L of oxygen via OxiMax to maintain saturation Denies any pain in the chest and anxiety seems to be controlled Review of Systems Review of Systems: All systems reviewed and are unremarkable except as noted below Physical Exam Physical Exam: Lying in bed with moderate distress due to shortness of breath Constitutional: + ill appearing and average body habitus Eyes: PERRL, conjunctivae normal, anicteric sclerae ENMT: external ear and nose normal, oropharynx normal Neck: trachea midline, no thyromegaly Respiratory: + respiratory distress (Has been requiri ng 12 L via oxime mask to maintain saturations) Auscultation: + diminished lung sounds and + crackles (Bilateral crackles) Cardiovascular: Rate/Rhythm: regular rate and regular rhythm; not tachycardic Heart Sounds: normal S1 and normal S2; no murmur Gastrointestinal (Abdomen): Inspection/Auscultation: normal bowel sounds; abdomen not distended Percussion/Palpation: abdomen soft; abdomen nontender Neurologic: normal touch/pain/proprioception and moves all extremities; no focal motor deficits Lymphatic: no cervical or axillary lymphadenopathy Results & Data Results & Data Vital Signs (Past 12 Hours) Vital Signs Temp Pulse Resp BP Pulse Ox O2 Del Method O2 Flow Rate 07/01/23 12:07 36.9 C 85 18 130/82 92 Oxymask 07/01/23 09:00 Oxymask 6 07/01/23 08:09 36.9 C 72 18 127/85 94 Oxymask 6 07/01/23 03:00 36.4 C L 81 16 139/82 93 Oxymask Laboratory Results Short CBC 07/01/23 Range/Units 05:17 WBC 9.76 (4.8-10.8) K/ul Hgb 10.1 L (14.0-18.0) g/dl Hct 29.9 L (42.0-52.0) % Plt Count 139 (130-400) K/uL BMP 07/01/23 05:17 Sodium 136 Potassium 4.3 Chloride 99 Carbon Dioxide 33 H BUN 30 H Creatinine 0.85 Glucose 229 H Calcium 9.2 Medications Administered Current Inpatient Medications Acetaminophen (Acetaminophen 325 Mg Tab) 650 mg PO Q4H PRN PRN Reason: Pain or Fever Stop: 07/20/23 16:11 Last Admin: 07/01/23 04:16 Dose: 650 mg Al Hydrox/Mg Hydrox/Simethicone (Aluminum/Magnesium Susp 30 Ml Udc) 15 ml PO Q4H PRN PRN Reason: Dyspepsia Stop: 07/20/23 16:11 Aspirin (Aspirin 81 Mg Ectab) [facility] Stop: 07/21/23 08:59 Last Admin: 06/24/23 08:45 Dose: 81 mg Atorvastatin Calcium (Atorvastatin 40 Mg Tab) 40 mg PO DAILY [facility] Stop: 07/21/23 08:59 Last Admin: 07/01/23 09:26 Dose: 40 mg Benzonatate (Benzonatate 100 Mg Capsule) 100 mg PO TID PRN PRN Reason: Cough Stop: 07/25/23 03:58 Cyanocobalamin (Cyanocobalamin (B-12) 500 Mcg Tablet) 1,000 [facility]cg [facility] [place] Stop: 07/21/23 08:59 Last Admin: 07/01/23 09:26 Dose: 1,000 mcg Folic Acid (Folic Acid 1 Mg Tab) 1 mg PO DAILY [facility] Stop: 07/21/23 08:59 Last Admin: 07/01/23 09:26 Dose: 1 mg Furosemide (Furosemide 40 Mg Tab) 40 mg PO [facility] Stop: 07/28/23 08:59 Last Admin: 07/01/23 09:26 Dose: 40 mg Methylprednisolone 60 mg/ (Syringe) 0.96 mls @ 1.5 mls/min IV Q8H [facility] Stop: 07/26/23 15:59 Last Admin: 07/01/23 09:25 Dose: 1.5 mls/min Ipratropium [place] (Ipratropium [place] Neb Soln 0.02% 2.5 Ml Vial) 0.5 mg INH Q4H PRN PRN Reason: sob/wheeze Stop: 07/25/23 04:14 Levalbuterol HCl (Levalbuterol 1.25 Mg/3 Ml Neb) 1.25 mg NEB Q4H PRN PRN Reason: sob/wheeze Stop: 07/25/23 04:14 Magnesium Oxide (Magnesium Oxide 400 Mg Tab) 400 mg PO BID [facility] Stop: 07/23/23 09:14 Last Admin: 07/01/23 09:26 Dose: 400 mg Metoprolol Succinate (Metoprolol Succ 50mg Ext Rel Tab) [facility] [place] Stop: 07/25/23 12:44 Last Admin: 07/01/23 09:26 Dose: 50 mg Morphine Sulfate (Morphine Sulfate 10 Mg/0.5 Ml Udp) 2.5 mg PO Q4H PRN PRN Reason: Dyspnea Stop: 07/12/23 10:37 Last Admin: 07/01/23 09:35 Dose: 2.5 mg Ondansetron HCl (Ondansetron Inj 2 Mg/Ml 2 Ml Vial) 4 mg IV Q6H PRN PRN Reason: Nausea Stop: 07/20/23 16:11 Pantoprazole Sodium (Pantoprazole 40 Mg Tab) [facility] [place] Stop: 07/21/23 08:59 Last Admin: 07/01/23 09:26 Dose: 40 mg Polyethylene Glycol (Polyethylene (Miralax) 17 Gm Pack) 17 gm PO DAILY PRN PRN Reason: Constipation Stop: 07/20/23 16:11 Potassium Chloride (Potassium Chloride Crtab 20 Meq Tabcr) 20 meq PO BID [facility] Stop: 07/23/23 20:59 Last Admin: 07/01/23 09:26 Dose: 20 meq Rivaroxaban (Rivaroxaban 20 Mg Tab) 20 mg PO QDD [facility] Stop: 07/21/23 16:29 Last Admin: 06/24/23 17:13 Dose: 20 mg Sertraline HCl (Sertraline Hcl 50 Mg Tablet) 50 mg PO QAM [facility] Stop: 07/21/23 08:59 Last Admin: 07/01/23 09:26 Dose: 50 mg Umeclidinium/Vilanterol (Umeclidinium/Vilanterol 62.5/25mcg 7 Puffs/Inhaler) 1 puffs INH QAM [facility] Stop: 07/21/23 08:59 Last Admin: 07/01/23 09:26 Dose: 1 puffs (5) Anemia Anemia type: due to chronic kidney disease
[2023-07-02] MEDS: methylPREDNISolone 60 MG in SYRINGE 0 ML IV SCH ×3 (01:35→17:03)
[2023-07-02] MEDS: METOPROLOL SUCC 50MG EXT REL TAB PO SCH (08:53)
[2023-07-02] MEDS: PANTOprazole 40 MG TAB PO SCH (08:53)
[2023-07-02] MEDS: SERTRALINE HCL 50 MG TABLET PO SCH (08:54)
[2023-07-02] MEDS: FOLIC ACID 1 MG TAB PO SCH (08:54)
[2023-07-02] MEDS: POTASSIUM CHLORIDE CRTAB 20 MEQ TABCR PO SCH ×2 (08:54→20:58)
[2023-07-02] MEDS: MAGNESIUM OXIDE 400 MG TAB PO SCH ×2 (08:54→20:59)
[2023-07-02] MEDS: UMECLIDINIUM/VILANTEROL 62.5/25MCG 7 PUFFS/INHALER INH SCH (08:54)
[2023-07-02] MEDS: CYANOCOBALAMIN (B-12) 500 MCG TABLET PO SCH (08:54)
[2023-07-02] MEDS: ATORVASTATIN 40 MG TAB PO SCH (08:54)
[2023-07-02] MEDS: FUROSEMIDE 40 MG TAB PO SCH (08:54)
[2023-07-02] MEDS ORDERED: MICONAZOLE NITRATE 2% CR 30 GM TUBE EXT SCH (09:00)
[2023-07-02] MEDS: MoRPHine SULFATE 10 MG/0.5 ML UDP PO PRN ×2 (09:13→21:05)
--- NOTE | 2023-07-02 11:10 | Pulmonology Progress Note ---
Date of Service July 02, 2023 Assessment & Plan (1) Acute hypoxic respiratory failure: (2) Pneumonia: (3) Pulmonary drug toxicity: Plan Impression: 78-year-old male with stage IIIa lung cancer status post chemo and radiation therapy with adjuvant durvalumab therapy now with progressive hypoxemic respiratory failure and CT scan showing progressive interstitial infiltrates in the setting of severe emphysema. The differential diagnosis for the interstitial infiltrates is broad and would include pulmonary ICI toxicity (grade 3-4), lymphangitic progression of malignancy, atypical pulmonary edema, pneumonia, pulmonary toxicity secondary to chemotherapeutic agents, or other interstitial lung disease felt to be less likely. He is improving slightly with completing a course of antibiotics and steroids for ICI toxicity Recommendations: 1. Pulmonary infiltrates: Unclear if this represents pneumonia, atypical heart failure, or ICI pulmonary toxicity. Continue steroids at this point in time. He may have had some mild interval benefit and oxygen requirement is now down to 6 L 2. Hypoxemic respiratory failure: Would continue steroids at this point time and decrease by 5 mg every 2 weeks. Would recommend initiation of PJP prophylaxis with Bactrim double strength 1 tablet every Monday and Monday 3. Dyspnea: Tolerating very low-dose oral morphine on an as-needed basis. Discussed with patient and family at bedside. Patient's oxygen requirement is such that he may be considered for prison facility. Unclear if he could do rehab. The patients family asks multiple insightful questions. He has no one at home and was actually the primary caregiver for his who is currently in the hospital and in the process of being placed as well. I do not think home is an option for the patient. Will defer to PT and OT as far as placement recommendations. I am not sure he can do 4 hours of rehab. As he is home alone, his home situation will need to be addressed prior to discharge. I would be happy to see him back in the pulmonary clinic for follow-up. Plan is as outlined above. Feel free to contact us if there are additional questions or concerns but pulmonary will sign off at this point in time. Admission and Anticipated Discharge Date Admission Date: June 20, 2023 Subjective Patient seen and examined. EMR reviewed. Discussed with patient and family at bedside. The patient is had some improvement in his oxygenation. He is down to 6 L nasal cannula. He is not coughing or expectorating phlegm. He continues to experience significant oxygen desaturations with any physical activity. He has not had fevers or chills. He remains significantly deconditioned Review of Systems 2 Review of Systems: All systems reviewed & are unremarkable except as noted in Subjective Physical Exam 2 Constitutional: + ill appearing; no acute distress Respiratory: normal respiratory effort Auscultation: + rhonchi Cardiovascular: Rate/Rhythm: regular rate and regular rhythm Skin: no rashes, warm and dry Neurologic: CN's II-XI intact bilaterally and awake Results & Data Results & Data Vital Signs (Past 12 Hours) Vital Signs Temp Pulse Resp BP BP Pulse Ox O2 Del Method 07/02/23 08:18 36.3 C L 75 18 107/70 94 Oxymask 07/02/23 04:05 36.5 C 72 20 113/69 92 Oxymask 07/01/23 23:37 36.4 C L 72 20 113/80 91 Oxymask O2 Flow Rate 07/02/23 08:18 6 07/02/23 04:05 6 07/01/23 23:37 6 Laboratory Results 07/01/23 05:17 07/01/23 05:17 Diagnostic Findings No new imaging PG Care Time/CCT Total # of Minutes Spent Total Time Spent with Patient: Total time spent is greater than 50% in coordination of care (as documented) at patient's floor/unit and/or counseling patient: Coding Level of Care Code 09534 SUB INP/OBS CARE 3/50MIN Diagnoses Acute hypoxic respiratory failure J96.01 Pneumonia J18.9 Pulmonary drug toxicity T50.901A; J98.4
[2023-07-02] MEDS: NYSTATIN CR 15 GM TUBE EXT SCH ×2 (13:22→20:57)
--- NOTE | 2023-07-02 15:39 | Hospitalist Progress Note ---
Date of Service July 02, 2023 Assessment & Plan (1) Acute hypoxic respiratory failure: (2) Pneumonia: (3) Hypomagnesemia: (4) Diabetes mellitus type II, controlled: (5) Anemia: (6) Primary cancer of right lower lobe of lung: (7) Atrial fibrillation with rapid ventricular response: Plan Mr. Bella is a 78 yo gentleman with Pmhx significant for lung cancer, atrial fibrillation, DMII, HLD, hemochromatosis, Mood disorder admitted with pneumonia once more. 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 MRSA negative as well. Continue Zosyn Requiring 2LNC, supplement as needed Pulm consult and palliative care- appreciate recs -per Palliative, pt would like to pursue acute rehab -pulm recommending treating pneumonia 06/23- increased oxygen need, chest xray with improving pneumonia and possible pleural effusions. IV lasix 40mg ordered, pt transitioned to oxymask 06/24- increasing hemoptysis episodes, CT chest was ordered- read still pending 06/25- chest CT showing progressing pneumonia/pathology, case discussed with pulmonology once more, episode of a fib with rvr overnight, cardiology consult placed. 06/26- stable, discussions with pulm and palliative care, pt considering options 06/27- stable, started on Steroids and Lasix by pulm. States he is still deciding what route to take but at this time would like diet to be a regular one but wants to continue with all treatments and lab monitoring at this time. 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 element winder for anxiety and pain Will continue current medications Has been feeling a little better with the use of morphine for anxiety and pain Denies any other significant symptoms Has been better since this morning and requiring 4 L to maintain saturation via oxime mask Condition stable with occasional exacerbation and requiring more oxygen at times Has significant anxiety and has been on small dose of morphine for respiratory symptoms and anxiety Likely discharge on Monday in a facility for 24 hours care can be provided If remains stable, likely to be discharged tomorrow if he has a place to go Lung Cancer: chronic stable 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 follows with Dr. Mari s/p completion of chemotherapy/radiation, on immunotherapy Continue Cam Bazzi Has had thoracentesis in the past for pleural effusions- pulm consult placed Palliative medicine consultation as outlined above Patient is not yet ready for comfort care Wants to try the current palliative care medications and will be continued Condition seems to be stable and will plan for discharge when the oxygen requirements improves He is aware about the lung cancer and aware that the medication he has been get ting just for palliation not for treatment He is accepting the diagnosis and the prognosis Condition may get worse at any time He is completely aware about the diagnosis and the prognosis Hypomagnesemia: replete as needed DM2: chronic stable A1C 5.5 on 06/08/23 Diabetic Diet Atrial Fibrillation: Had rvr episode 06/25- chest CT showing progressing pneumonia/pathology, case discussed with pulmonology once more, episode of a fib with rvr overnight, cardiology consult placed. Previously on Metoprolol and Xarelto Stable at this time Denies any cardiac symptoms Anemia of chronic disease: chronic stable Depression: chronic stable takes sertraline;continue PCP: Dr. Rojas @ 65 forward Code Status: DNR/DNI VTE Prophylaxis: On Xarelto Dispo: Pt met with Palliative Care- weighing options Admission and Anticipated Discharge Date Admission Date: June 20, 2023 Subjective 06/28/2083 The patient was seen and examined in telemetry unit in the presence of the He has been stable but remains very anxious and mild to moderate shortness of breath Has been started on IV morphine for anxiety and pain control Not yet for comfort care 06/29/2023 The patient was seen and examined in telemetry unit in presence of the daughter He has been feeling a little better with morphine Still has mild to moderate shortness of breath and has been requiring 10 to 11 L via oxime mask to maintain saturation Denies any significant symptoms and her pain 06/30/2023 The patient was seen and examined in telemetry unit He has been feeling little better Requiring about 4 L via oxime mask during my examination Denies any chest pain and/or anxiety 07/01/2023 The patient was seen and examined in telemetry unit He has been feeling better today and is requiring 6 L of oxygen via OxiMax to maintain saturation Denies any pain in the chest and anxiety seems to be controlled 07/02/2023 The patient was seen and examined in telemetry unit He has been stable but has been requiring 6 L to maintain saturation Gets more shortness of breath with minimal exertion Denies any significant pain but has anxiety Review of Systems Review of Systems: All systems reviewed and are unremarkable except as noted below Physical Exam Physical Exam: Lying in bed with moderate distress due to shortness of breath Constitutional: + ill appearing and average body habitus Eyes: PERRL, conjunctivae normal, anicteric sclerae ENMT: external ear and nose normal, oropharynx normal Neck: trachea midline, no thyromegaly Respiratory: + respiratory distress (Has been requiri ng 12 L via oxime mask to maintain saturations) Auscultation: + diminished lung sounds and + crackles (Bilateral crackles) Cardiovascular: Rate/Rhythm: regular rate and regular rhythm; not tachycardic Heart Sounds: normal S1 and normal S2; no murmur Gastrointestinal (Abdomen): Inspection/Auscultation: normal bowel sounds; abdomen not distended Percussion/Palpation: abdomen soft; abdomen nontender Neurologic: normal touch/pain/proprioception and moves all extremities; no focal motor deficits Lymphatic: no cervical or axillary lymphadenopathy Results & Data Results & Data Vital Signs (Past 12 Hours) Vital Signs Temp Pulse Pulse Resp BP BP Pulse Ox 07/02/23 15:20 36.6 C 76 18 104/68 96 07/02/23 12:14 36.5 C 77 18 123/76 96 07/02/23 08:50 07/02/23 08:18 36.3 C L 75 18 107/70 94 07/02/23 05:50 80 07/02/23 04:05 36.5 C 72 20 113/69 92 O2 Del Method O2 Flow Rate 07/02/23 15:20 Oxymask 6 07/02/23 12:14 Oxymask 6 07/02/23 08:50 Oxymask 6 07/02/23 08:18 Oxymask 6 07/02/23 05:50 07/02/23 04:05 Oxymask 6 Medications Administered Current Inpatient Medications Acetaminophen (Acetaminophen 325 Mg Tab) 650 mg PO Q4H PRN PRN Reason: Pain or Fever Stop: 07/20/23 16:11 Last Admin: 07/01/23 04:16 Dose: 650 mg Al Hydrox/Mg Hydrox/Simethicone (Aluminum/Magnesium Susp 30 Ml Udc) 15 ml PO Q4H PRN PRN Reason: Dyspepsia Stop: 07/20/23 16:11 Aspirin (Aspirin 81 Mg Ectab) [facility] Stop: 07/21/23 08:59 Last Admin: 06/24/23 08:45 Dose: 81 mg Atorvastatin Calcium (Atorvastatin 40 Mg Tab) 40 mg PO DAILY [facility] Stop: 07/21/23 08:59 Last Admin: 07/02/23 08:54 Dose: 40 mg Benzonatate (Benzonatate 100 Mg Capsule) 100 mg PO TID PRN PRN Reason: Cough Stop: 07/25/23 03:58 Cyanocobalamin (Cyanocobalamin (B-12) 500 Mcg Tablet) 1,000 mcg PO [facility] Stop: 07/21/23 08:59 Last Admin: 07/02/23 08:54 Dose: 1,000 mcg Folic Acid (Folic Acid 1 Mg Tab) 1 mg PO DAILY [facility] Stop: 07/21/23 08:59 Last Admin: 07/02/23 08:54 Dose: 1 mg Furosemide (Furosemide 40 Mg Tab) 40 mg PO [facility] Stop: 07/28/23 08:59 Last Admin: 07/02/23 08:54 Dose: 40 mg Methylprednisolone 60 mg/ (Syringe) 0.96 mls @ 1.5 mls/min IV Q8H [facility] Stop: 07/26/23 15:59 Last Admin: 07/02/23 08:53 Dose: 1.5 mls/min Ipratropium [place] (Ipratropium [place] Neb Soln 0.02% 2.5 Ml Vial) 0.5 mg INH Q4H PRN PRN Reason: sob/wheeze Stop: 07/25/23 04:14 Levalbuterol HCl (Levalbuterol 1.25 Mg/3 Ml Neb) 1.25 mg NEB Q4H PRN PRN Reason: sob/wheeze Stop: 07/25/23 04:14 Magnesium Oxide (Magnesium Oxide 400 Mg Tab) 400 mg PO BID [facility] Stop: 07/23/23 09:14 Last Admin: 07/02/23 08:54 Dose: 400 mg Metoprolol Succinate (Metoprolol Succ 50mg Ext Rel Tab) 50 mg PO [facility] Stop: 07/25/23 12:44 Last Admin: 07/02/23 08:53 Dose: 50 mg Morphine Sulfate (Morphine Sulfate 10 Mg/0.5 Ml Udp) 2.5 mg PO Q4H PRN PRN Reason: Dyspnea Stop: 07/12/23 10:37 Last Admin: 07/02/23 09:13 Dose: 2.5 mg Nystatin (Nystatin Cr 15 Gm Tube) 1 appln EXT BID [facility] Stop: 08/01/23 11:59 Last Admin: 07/02/23 13:22 Dose: 1 appln Ondansetron HCl (Ondansetron Inj 2 Mg/Ml 2 Ml Vial) 4 mg IV Q6H PRN PRN Reason: Nausea Stop: 07/20/23 16:11 Pantoprazole Sodium (Pantoprazole 40 Mg Tab) 40 mg PO QAM [facility] Stop: 07/21/23 08:59 Last Admin: 07/02/23 08:53 Dose: 40 mg Polyethylene Glycol (Polyethylene (Miralax) 17 Gm Pack) 17 gm PO DAILY PRN PRN Reason: Constipation Stop: 07/20/23 16:11 Potassium Chloride (Potassium Chloride Crtab 20 Meq Tabcr) 20 meq PO BID [facility] Stop: 07/23/23 20:59 Last Admin: 07/02/23 08:54 Dose: 20 meq Rivaroxaban (Rivaroxaban 20 Mg Tab) 20 mg PO QDD [facility] Stop: 07/21/23 16:29 Last Admin: 06/24/23 17:13 Dose: 20 mg Sertraline HCl (Sertraline Hcl 50 Mg Tablet) 50 mg PO QAM [facility] Stop: 07/21/23 08:59 Last Admin: 07/02/23 08:54 Dose: 50 mg Trimethoprim/Sulfamethoxazole (Sulfamethoxazole/Trimethoprim Ds 800/160mg Tab) 1 tab PO MoWeFr@0900 [facility] Stop: 07/10/23 08:59 Umeclidinium/Vilanterol (Umeclidinium/Vilanterol 62.5/25mcg 7 Puffs/Inhaler) 1 puffs INH QAM [facility] Stop: 07/21/23 08:59 Last Admin: 07/02/23 08:54 Dose: 1 puffs (5) Anemia Anemia type: due to chronic kidney disease
[2023-07-03] MEDS: methylPREDNISolone 60 MG in SYRINGE 0 ML IV SCH ×4 (00:46→23:10)
[2023-07-03 05:58] LABS: Hematocrit (blood only) 32.2 % (42.0-52.0); Hemoglobin 11.2 g/dl (14.0-18.0); Mean Corpuscular Hemoglobin 37.7 pg (25.0-34.0); Mean Corpuscular Hgb Conc 34.8 g/dL (32.0-36.0); Mean Corpuscular Volume 108.4 fL (80.0-100.0); Mean Platelet Volume 9.3 fL (9.4-12.4); Platelet Count 134 K/uL (130-400); RDW Coefficient of Variation 14.6 % (11.5-14.5); RDW Standard Deviation 57.8 fL (36.4-46.3); Red Blood Count 2.97 M/uL (4.70-6.10); White Blood Count 10.93 K/ul (4.8-10.8)
[2023-07-03 06:13] LABS: Calcium 9.4 mg/dl (8.6-10.3); Creatinine Clr Calc Pharmacy 74.9 ml/min; Est GFR (African American) 98.7 ml/min; Est GFR (Non-African American) 85.1 ml/min; Magnesium 1.8 mg/dl (1.7-2.4); Potassium 4.5 mmol/L (3.5-5.1)
[2023-07-03 07:42] LABS: Basophils # (auto) 0.01 K/uL (0.00-0.20); Basophils % (auto) 0.1 %; Immature Granulocytes # (auto) 0.11 K/uL (0.01-0.20); Lymphocytes # (auto) 0.24 K/uL (1.20-3.40); Lymphocytes % (auto) 2.2 %; Monocytes # (auto) 0.62 K/uL (0.11-0.59); Monocytes % (auto) 5.7 %; Neutrophils # (auto) 9.95 K/uL (1.40-6.50); Ovalocytes 1+; Polychromasia 1+; Tear Drop Cells 1+
[2023-07-03] MEDS: FUROSEMIDE 40 MG TAB PO SCH (08:31)
[2023-07-03] MEDS: METOPROLOL SUCC 50MG EXT REL TAB PO SCH (08:31)
[2023-07-03] MEDS: ATORVASTATIN 40 MG TAB PO SCH (08:31)
[2023-07-03] MEDS: SULFAMETHOXAZOLE/TRIMETHOPRIM DS 800/160MG TAB PO SCH (08:31)
[2023-07-03] MEDS: MAGNESIUM OXIDE 400 MG TAB PO SCH ×2 (08:31→20:09)
[2023-07-03] MEDS: POTASSIUM CHLORIDE CRTAB 20 MEQ TABCR PO SCH ×2 (08:31→20:10)
[2023-07-03] MEDS: PANTOprazole 40 MG TAB PO SCH (08:31)
[2023-07-03] MEDS: UMECLIDINIUM/VILANTEROL 62.5/25MCG 7 PUFFS/INHALER INH SCH (08:31)
[2023-07-03] MEDS: FOLIC ACID 1 MG TAB PO SCH (08:31)
[2023-07-03] MEDS: SERTRALINE HCL 50 MG TABLET PO SCH (08:31)
[2023-07-03] MEDS: NYSTATIN CR 15 GM TUBE EXT SCH ×2 (08:32→20:12)
[2023-07-03] MEDS: CYANOCOBALAMIN (B-12) 500 MCG TABLET PO SCH (08:32)
[2023-07-03] MEDS: MoRPHine SULFATE 10 MG/0.5 ML UDP PO PRN ×2 (11:52→23:13)
--- NOTE | 2023-07-03 16:21 | Hospitalist Progress Note ---
Date of Service July 03, 2023 Assessment & Plan (1) Acute hypoxic respiratory failure: (2) Pneumonia: (3) Hypomagnesemia: (4) Diabetes mellitus type II, controlled: (5) Anemia: (6) Primary cancer of right lower lobe of lung: (7) Atrial fibrillation with rapid ventricular response: Plan Mr. Bella is a 78 yo gentleman with Pmhx significant for lung cancer, atrial fibrillation, DMII, HLD, hemochromatosis, Mood disorder admitted with pneumonia once more. 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 MRSA negative as well. Continue Zosyn Requiring 2LNC, supplement as needed Pulm consult and palliative care- appreciate recs -per Palliative, pt would like to pursue acute rehab -pulm recommending treating pneumonia 06/23- increased oxygen need, chest xray with improving pneumonia and possible pleural effusions. IV lasix 40mg ordered, pt transitioned to oxymask 06/24- increasing hemoptysis episodes, CT chest was ordered- read still pending 06/25- chest CT showing progressing pneumonia/pathology, case discussed with pulmonology once more, episode of a fib with rvr overnight, cardiology consult placed. 06/26- stable, discussions with pulm and palliative care, pt considering options 06/27- stable, started on Steroids and Lasix by pulm. States he is still deciding what route to take but at this time would like diet to be a regular one but wants to continue with all treatments and lab monitoring at this time. 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 by the rag grader for anxiety and pain Will continue current medications Has been feeling a little better with the use of morphine for anxiety and pain Denies any other significant symptoms Has been better since this morning and requiring 4 L to maintain saturation via oxime mask Condition stable with occasional exacerbation and requiring more oxygen at times Has significant anxiety and has been on small dose of morphine for respiratory symptoms and anxiety Likely discharge on Monday in a facility for 24 hours care can be provided If remains stable, likely to be discharged tomorrow if he has a place to go Awaiting placement-remains medically stable to be discharged Lung Cancer: chronic stable 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 follows with Dr. Mari s/p completion of chemotherapy/radiation, on immunotherapy Continue Cam Bazzi Has had thoracentesis in the past for pleural effusions- pulm consult placed Palliative medicine consultation as outlined above Patient is not yet ready for comfort care Wants to try the current palliative care medications and will be continued Condition seems to be stable and will plan for discharge when the oxygen requirements improves He is aware about the lung cancer and aware that the medication he has been getting just for palliation not for treatment He is accepting the diagnosis and the prognosis Condition may get worse at any time He is completely aware about the diagnosis and the prognosis Has been requiring up to 6 L to maintain saturation Hypomagnesemia: replete as needed DM2: chronic stable A1C 5.5 on 06/08/23 Diabetic Diet Atrial Fibrillation: Had rvr episode 06/25- chest CT showing progressing pneumonia/pathology, case discussed with pulmonology once more, episode of a fib with rvr overnight, cardiology consult placed. Previously on Metoprolol and Xarelto Stable at this time Denies any cardiac symptoms Rate is controlled and has been on Xarelto Anemia of chronic disease: chronic stable Depression: chronic stable takes sertraline;continue PCP: Dr. Rojas @ 65 forward Code Status: DNR/DNI VTE Prophylaxis: On Xarelto Dispo: Pt met with Palliative Care- weighing options Admission and Anticipated Discharge Date Admission Date: June 20, 2023 Subjective 06/28/2083 The patient was seen and examined in telemetry unit in the presence of the He has been stable but remains very anxious and mild to moderate shortness of breath Has been started on IV morphine for anxiety and pain control Not yet for comfort care 06/29/2023 The patient was seen and examined in telemetry unit in presence of the daughter He has been feeling a little better with morphine Still has mild to moderate shortness of breath and has been requiring 10 to 11 L via oxime mask to maintain saturation Denies any significant symptoms and her pain 06/30/2023 The patient was seen and examined in telemetry unit He has been feeling little better Requiring about 4 L via oxime mask during my examination Denies any chest pain and/or anxiety 07/01/2023 The patient was seen and examined in telemetry unit He has been feeling better today and is requiring 6 L of oxygen via OxiMax to maintain saturation Denies any pain in the chest and anxiety seems to be controlled 07/02/2023 The patient was seen and examined in telemetry unit He has been stable but has been requiring 6 L to maintain saturation Gets more shortness of breath with minimal exertion Denies any significant pain but has anxiety 07/03/2023 The patient was seen and examined in telemetry unit He has been stable with minimal shortness of breath at rest Has been requiring 6 L to maintain saturation Remains otherwise stable Review of Systems Review of Systems: All systems reviewed and are unremarkable except as noted below Physical Exam Physical Exam: Lying in bed with moderate distress due to shortness of breath Constitutional: + ill appearing and average body habitus Eyes: PERRL, conjunctivae normal, anicteric sclerae ENMT: external ear and nose normal, oropharynx normal Neck: trachea midline, no thyromegaly Respiratory: + respiratory distress (Has been requiri ng 12 L via oxime mask to maintain saturations) Auscultation: + diminished lung sounds and + crackles (Bilateral crackles) Cardiovascular: Rate/Rhythm: regular rate and regular rhythm; not tachycardic Heart Sounds: normal S1 and normal S2; no murmur Gastrointestinal (Abdomen): Inspection/Auscultation: normal bowel sounds; abdomen not distended Percussion/Palpation: abdomen soft; abdomen nontender Neurologic: normal touch/pain/proprioception and moves all extremities; no focal motor deficits Lymphatic: no cervical or axillary lymphadenopathy Results & Data Results & Data Vital Signs (Past 12 Hours) Vital Signs Temp Pulse Pulse Resp BP BP Pulse Ox 07/03/23 15:22 36.5 C 77 18 91/62 L 94 07/03/23 14:28 93 07/03/23 11:46 36.4 C L 76 18 133/86 93 07/03/23 08:30 07/03/23 07:54 36.4 C L 81 19 154/88 H 94 07/03/23 05:55 75 O2 Del Method O2 Flow Rate 07/03/23 15:22 Oxymask 6 07/03/23 14:28 6 07/03/23 11:46 Oxymask 6 07/03/23 08:30 Oxymask 6 07/03/23 07:54 Oxymask 6 07/03/23 05:55 Laboratory Results Short CBC 07/03/23 Range/Units 05:35 WBC 10.93 H (4.8-10.8) K/ul Hgb 11.2 L (14.0-18.0) g/dl Hct 32.2 L (42.0-52.0) % Plt Count 134 (130-400) K/uL BMP 07/03/23 05:35 Sodium 135 L Potassium 4.5 Chloride 95 L Carbon Dioxide 35 H BUN 30 H Creatinine 0.81 Glucose 221 H Calcium 9.4 Medications Administered Current Inpatient Medications Acetaminophen (Acetaminophen 325 Mg Tab) 650 mg PO Q4H PRN PRN Reason: Pain or Fever Stop: 07/20/23 16:11 Last Admin: 07/01/23 04:16 Dose: 650 mg Al Hydrox/Mg Hydrox/Simethicone (Aluminum/Magnesium Susp 30 Ml Udc) 15 ml PO Q4H PRN PRN Reason: Dyspepsia Stop: 07/20/23 16:11 Aspirin (Aspirin 81 Mg Ectab) 81 mg PO QAM [facility] Stop: 07/21/23 08:59 Last Admin: 06/24/23 08:45 Dose: 81 mg Atorvastatin Calcium (Atorvastatin 40 Mg Tab) 40 mg PO DAILY [facility] Stop: 07/21/23 08:59 Last Admin: 07/03/23 08:31 Dose: 40 mg Benzonatate (Benzonatate 100 Mg Capsule) 100 mg PO TID PRN PRN Reason: Cough Stop: 07/25/23 03:58 Cyanocobalamin (Cyanocobalamin (B-12) 500 Mcg Tablet) 1,000 mcg PO QAM [facility] Stop: 07/21/23 08:59 Last Admin: 07/03/23 08:32 Dose: 1,000 mcg Folic Acid (Folic Acid 1 Mg Tab) 1 mg PO DAILY [facility] Stop: 07/21/23 08:59 Last Admin: 07/03/23 08:31 Dose: 1 mg Furosemide (Furosemide 40 Mg Tab) 40 mg PO QAM [facility] Stop: 07/28/23 08:59 Last Admin: 07/03/23 08:31 Dose: 40 mg Methylprednisolone 60 mg/ (Syringe) 0.96 mls @ 1.5 mls/min IV Q8H [facility] Stop: 07/26/23 15:59 Last Admin: 07/03/23 08:31 Dose: 1.5 mls/min Ipratropium [place] (Ipratropium [place] Neb Soln 0.02% 2.5 Ml Vial) 0.5 mg INH Q4H PRN PRN Reason: sob/wheeze Stop: 07/25/23 04:14 Levalbuterol HCl (Levalbuterol 1.25 Mg/3 Ml Neb) 1.25 mg NEB Q4H PRN PRN Reason: sob/wheeze Stop: 07/25/23 04:14 Magnesium Oxide (Magnesium Oxide 400 Mg Tab) 400 mg PO BID [facility] Stop: 07/23/23 09:14 Last Admin: 07/03/23 08:31 Dose: 400 mg Metoprolol Succinate (Metoprolol Succ 50mg Ext Rel Tab) 50 mg PO QAM [facility] Stop: 07/25/23 12:44 Last Admin: 07/03/23 08:31 Dose: 50 mg Morphine Sulfate (Morphine Sulfate 10 Mg/0.5 Ml Udp) 2.5 mg PO Q4H PRN PRN Reason: Dyspnea Stop: 07/12/23 10:37 Last Admin: 07/03/23 11:52 Dose: 2.5 mg Nystatin (Nystatin Cr 15 Gm Tube) 1 appln EXT BID [facility] Stop: 08/01/23 11:59 Last Admin: 07/03/23 08:32 Dose: 1 appln Ondansetron HCl (Ondansetron Inj 2 Mg/Ml 2 Ml Vial) 4 mg IV Q6H PRN PRN Reason: Nausea Stop: 07/20/23 16:11 Pantoprazole Sodium (Pantoprazole 40 Mg Tab) 40 mg PO QAM [facility] Stop: 07/21/23 08:59 Last Admin: 07/03/23 08:31 Dose: 40 mg Polyethylene Glycol (Polyethylene (Miralax) 17 Gm Pack) 17 gm PO DAILY PRN PRN Reason: Constipation Stop: 07/20/23 16:11 Potassium Chloride (Potassium Chloride Crtab 20 Meq Tabcr) 20 meq PO BID [facility] Stop: 07/23/23 20:59 Last Admin: 07/03/23 08:31 Dose: 20 meq Rivaroxaban (Rivaroxaban 20 Mg Tab) 20 mg PO QDD [facility] Stop: 07/21/23 16:29 Last Admin: 06/24/23 17:13 Dose: 20 mg Sertraline HCl (Sertraline Hcl 50 Mg Tablet) 50 mg PO QAM [facility] Stop: 07/21/23 08:59 Last Admin: 07/03/23 08:31 Dose: 50 mg Trimethoprim/Sulfamethoxazole (Sulfamethoxazole/Trimethoprim Ds 800/160mg Tab) 1 tab PO MoWeFr@0900 [facility] Stop: 07/10/23 08:59 Last Admin: 07/03/23 08:31 Dose: 1 tab Umeclidinium/Vilanterol (Umeclidinium/Vilanterol 62.5/25mcg 7 Puffs/Inhaler) 1 puffs INH QAM [facility] Stop: 07/21/23 08:59 Last Admin: 07/03/23 08:31 Dose: 1 puffs (5) Anemia Anemia type: due to chronic kidney disease
[2023-07-04] MEDS: METOPROLOL SUCC 50MG EXT REL TAB PO SCH (08:43)
[2023-07-04] MEDS: FOLIC ACID 1 MG TAB PO SCH (08:43)
[2023-07-04] MEDS: CYANOCOBALAMIN (B-12) 500 MCG TABLET PO SCH (08:43)
[2023-07-04] MEDS: POTASSIUM CHLORIDE CRTAB 20 MEQ TABCR PO SCH ×2 (08:43→20:09)
[2023-07-04] MEDS: methylPREDNISolone 60 MG in SYRINGE 0 ML IV SCH ×3 (08:43→22:37)
[2023-07-04] MEDS: MAGNESIUM OXIDE 400 MG TAB PO SCH ×2 (08:43→20:09)
[2023-07-04] MEDS: SERTRALINE HCL 50 MG TABLET PO SCH (08:43)
[2023-07-04] MEDS: ATORVASTATIN 40 MG TAB PO SCH (08:43)
[2023-07-04] MEDS: FUROSEMIDE 40 MG TAB PO SCH (08:43)
[2023-07-04] MEDS: NYSTATIN CR 15 GM TUBE EXT SCH ×2 (08:44→20:10)
[2023-07-04] MEDS: UMECLIDINIUM/VILANTEROL 62.5/25MCG 7 PUFFS/INHALER INH SCH (08:44)
[2023-07-04] MEDS: PANTOprazole 40 MG TAB PO SCH (08:44)
[2023-07-04] MEDS: MoRPHine SULFATE 10 MG/0.5 ML UDP PO PRN ×3 (09:03→22:36)
--- NOTE | 2023-07-04 14:38 | Hospitalist Progress Note ---
Date of Service July 04, 2023 Assessment & Plan (1) Acute hypoxic respiratory failure: (2) Pneumonia: (3) Hypomagnesemia: (4) Diabetes mellitus type II, controlled: (5) Anemia: (6) Primary cancer of right lower lobe of lung: (7) Atrial fibrillation with rapid ventricular response: Plan Mr. Bella is a 78 yo gentleman with Pmhx significant for lung cancer, atrial fibrillation, DMII, HLD, hemochromatosis, Mood disorder admitted with pneumonia once more. 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 MRSA negative as well. Continue Zosyn Requiring 2LNC, supplement as needed Pulm consult and palliative care- appreciate recs -per Palliative, pt would like to pursue acute rehab -pulm recommending treating pneumonia 06/23- increased oxygen need, chest xray with improving pneumonia and possible pleural effusions. IV lasix 40mg ordered, pt transitioned to oxymask 06/24- increasing hemoptysis episodes, CT chest was ordered- read still pending 06/25- chest CT showing progressing pneumonia/pathology, case discussed with pulmonology once more, episode of a fib with rvr overnight, cardiology consult placed. 06/26- stable, discussions with pulm and palliative care, pt considering options 06/27- stable, started on Steroids and Lasix by pulm. States he is still deciding what route to take but at this time would like diet to be a regular one but wants to continue with all treatments and lab monitoring at this time. 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 line maintenance supervisor for anxiety and pain Will continue current medications Has been feeling a little better with the use of morphine for anxiety and pain Denies any other significant symptoms Has been better since this morning and requiring 4 L to maintain saturation via oxime mask Condition stable with occasional exacerbation and requiring more oxygen at times Has significant anxiety and has been on small dose of morphine for respiratory symptoms and anxiety Likely discharge on Monday in a facility for 24 hours care can be provided Has been waiting for placement-medically stable to be discharged, requiring 6 L to maintain saturation, denies any significant pain and/or distress at rest Lung Cancer: chronic stable 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 follows with Dr. Mari s/p completion of chemotherapy/radiation, on immunotherapy Continue Cam Bazzi Has had thoracentesis in the past for pleural effusions- pulm consult placed Palliative medicine consultation as outlined above Patient is not yet ready for comfort care Wants to try the current palliative care medications and will be continued Condition seems to be stable and will plan for discharge when the oxygen requirements improves He is aware about the lung cancer and aware that the medication he has been getting just for palliation not for treatment He is accepting the diagnosis and the prognosis Condition may get worse at any time He is completely aware about the diagnosis and the prognosis Has been requiring up to 6 L to maintain saturation As above Hypomagnesemia: replete as needed DM2: chronic stable A1C 5.5 on 06/08/23 Diabetic Diet Atrial Fibrillation: Had rvr episode 06/25- chest CT showing progressing pneumonia/pathology, case discussed with pulmonology once more, episode of a fib with rvr overnight, cardiology consult placed. Previously on Metoprolol and Xarelto Stable at this time Denies any cardiac symptoms Rate is controlled and has been on Xarelto Rate is controlled and will continue Xarelto Anemia of chronic disease: chronic stable Depression: chronic stable takes sertraline;continue PCP: Dr. Rojas @ 65 forward Code Status: DNR/DNI VTE Prophylaxis: On Xarelto Dispo: Pt met with Palliative Care- weighing options Awaiting placement Admission and Anticipated Discharge Date Admission Date: June 20, 2023 Subjective 06/28/2083 The patient was seen and examined in telemetry unit in the presence of the He has been stable but remains very anxious and mild to moderate shortness of breath Has been started on IV morphine for anxiety and pain control Not yet for comfort care 06/29/2023 The patient was seen and examined in telemetry unit in presence of the daughter He has been feeling a little better with morphine Still has mild to moderate shortness of breath and has been requiring 10 to 11 L via oxime mask to maintain saturation Denies any significant symptoms and her pain 06/30/2023 The patient was seen and examined in telemetry unit He has been feeling little better Requiring about 4 L via oxime mask during my examination Denies any chest pain and/or anxiety 07/01/2023 The patient was seen and examined in telemetry unit He has been feeling better today and is requiring 6 L of oxygen via OxiMax to maintain saturation Denies any pain in the chest and anxiety seems to be controlled 07/02/2023 The patient was seen and examined in telemetry unit He has been stable but has been requiring 6 L to maintain saturation Gets more shortness of breath with minimal exertion Denies any significant pain but has anxiety 07/03/2023 The patient was seen and examined in telemetry unit He has been stable with minimal shortness of breath at rest Has been requiring 6 L to maintain saturation Remains otherwise stable 07/04/2023 The patient was seen and examined in telemetry unit He has been a stable and is still requiring 6 L to maintain saturation Has been using morphine occasionally which is making his anxiety tolerable Awaiting placement Review of Systems Review of Systems: All systems reviewed and are unremarkable except as noted below Physical Exam Physical Exam: Lying in bed with moderate distress due to shortness of breath Constitutional: + ill appearing and average body habitus Eyes: PERRL, conjunctivae normal, anicteric sclerae ENMT: external ear and nose normal, oropharynx normal Neck: trachea midline, no thyromegaly Respiratory: + respiratory distress (Has been requiri ng 12 L via oxime mask to maintain saturations) Auscultation: + diminished lung sounds and + crackles (Bilateral crackles) Cardiovascular: Rate/Rhythm: regular rate and regular rhythm; not tachycardic Heart Sounds: normal S1 and normal S2; no murmur Gastrointestinal (Abdomen): Inspection/Auscultation: normal bowel sounds; abdomen not distended Percussion/Palpation: abdomen soft; abdomen nontender Musculoskeletal: No acute arthritis involving any of the joint Neurologic: normal touch/pain/proprioception and moves all extremities; no focal motor deficits Lymphatic: no cervical or axillary lymphadenopathy Results & Data Results & Data Vital Signs (Past 12 Hours) Vital Signs Temp Pulse Pulse Resp BP Pulse Ox O2 Del Method 07/04/23 12:34 36.9 C 80 20 112/63 96 Oxymask 07/04/23 08:40 Oxymask 07/04/23 08:19 36.4 C 89 20 131/84 95 Oxymask 07/04/23 06:00 80 07/04/23 03:33 36.4 C L 99 H 16 128/77 94 Oxymask O2 Flow Rate 07/04/23 12:34 6 07/04/23 08:40 6 07/04/23 08:19 6 07/04/23 06:00 07/04/23 03:33 6 Medications Administered Current Inpatient Medications Acetaminophen (Acetaminophen 325 Mg Tab) 650 mg PO Q4H PRN PRN Reason: Pain or Fever Stop: 07/20/23 16:11 Last Admin: 07/01/23 04:16 Dose: 650 mg Al Hydrox/Mg Hydrox/Simethicone (Aluminum/Magnesium Susp 30 Ml Udc) 15 ml PO Q4H PRN PRN Reason: Dyspepsia Stop: 07/20/23 16:11 Aspirin (Aspirin 81 Mg Ectab) [facility] [place] Stop: 07/21/23 08:59 Last Admin: 06/24/23 08:45 Dose: 81 mg Atorvastatin Calcium (Atorvastatin 40 Mg Tab) 40 mg PO DAILY [facility] Stop: 07/21/23 08:59 Last Admin: 07/04/23 08:43 Dose: 40 mg Benzonatate (Benzonatate 100 Mg Capsule) 100 mg PO TID PRN PRN Reason: Cough Stop: 07/25/23 03:58 Cyanocobalamin (Cyanocobalamin (B-12) 500 Mcg Tablet) 1,000 [facility] [place] Stop: 07/21/23 08:59 Last Admin: 07/04/23 08:43 Dose: 1,000 mcg Folic Acid (Folic Acid 1 Mg Tab) 1 mg PO DAILY [facility] Stop: 07/21/23 08:59 Last Admin: 07/04/23 08:43 Dose: 1 mg Furosemide (Furosemide 40 Mg Tab) [facility] [place] Stop: 07/28/23 08:59 Last Admin: 07/04/23 08:43 Dose: 40 mg Methylprednisolone 60 mg/ (Syringe) 0.96 mls @ 1.5 mls/min IV Q8H [facility] Stop: 07/26/23 15:59 Last Admin: 07/04/23 08:43 Dose: 1.5 mls/min Ipratropium [place] (Ipratropium [place] Neb Soln 0.02% 2.5 Ml Vial) 0.5 mg INH Q4H PRN PRN Reason: sob/wheeze Stop: 07/25/23 04:14 Levalbuterol HCl (Levalbuterol 1.25 Mg/3 Ml Neb) 1.25 mg NEB Q4H PRN PRN Reason: sob/wheeze Stop: 07/25/23 04:14 Magnesium Oxide (Magnesium Oxide 400 Mg Tab) 400 mg PO BID [facility] Stop: 07/23/23 09:14 Last Admin: 07/04/23 08:43 Dose: 400 mg Metoprolol Succinate (Metoprolol Succ 50mg Ext Rel Tab) [facility] [place] Stop: 07/25/23 12:44 Last Admin: 07/04/23 08:43 Dose: 50 mg Morphine Sulfate (Morphine Sulfate 10 Mg/0.5 Ml Udp) 2.5 mg PO Q4H PRN PRN Reason: Dyspnea Stop: 07/12/23 10:37 Last Admin: 07/04/23 09:03 Dose: 2.5 mg Nystatin (Nystatin Cr 15 Gm Tube) 1 appln EXT BID [facility] Stop: 08/01/23 11:59 Last Admin: 07/04/23 08:44 Dose: 1 appln Ondansetron HCl (Ondansetron Inj 2 Mg/Ml 2 Ml Vial) 4 mg IV Q6H PRN PRN Reason: Nausea Stop: 07/20/23 16:11 Pantoprazole Sodium (Pantoprazole 40 Mg Tab) 40 mg PO QAM [facility] Stop: 07/21/23 08:59 Last Admin: 07/04/23 08:44 Dose: 40 mg Polyethylene Glycol (Polyethylene (Miralax) 17 Gm Pack) 17 gm PO DAILY PRN PRN Reason: Constipation Stop: 07/20/23 16:11 Potassium Chloride (Potassium Chloride Crtab 20 Meq Tabcr) 20 meq PO BID [facility] Stop: 07/23/23 20:59 Last Admin: 07/04/23 08:43 Dose: 20 meq Rivaroxaban (Rivaroxaban 20 Mg Tab) 20 mg PO QDD [facility] Stop: 07/21/23 16:29 Last Admin: 06/24/23 17:13 Dose: 20 mg Sertraline HCl (Sertraline Hcl 50 Mg Tablet) [facility] [place] Stop: 07/21/23 08:59 Last Admin: 07/04/23 08:43 Dose: 50 mg Trimethoprim/Sulfamethoxazole (Sulfamethoxazole/Trimethoprim Ds 800/160mg Tab) 1 tab PO MoWeFr@0900 [facility] Stop: 07/10/23 08:59 Last Admin: 07/03/23 08:31 Dose: 1 tab Umeclidinium/Vilanterol (Umeclidinium/Vilanterol 62.5/25mcg 7 Puffs/Inhaler) 1 puffs INH QAM [facility] Stop: 07/21/23 08:59 Last Admin: 07/04/23 08:44 Dose: 1 puffs (5) Anemia Anemia type: due to chronic kidney disease
[2023-07-04] MEDS: RIVAROXABAN 20 MG TAB PO SCH (16:26)
[2023-07-05] MEDS: methylPREDNISolone 60 MG in SYRINGE 0 ML IV SCH ×3 (09:08→23:30)
[2023-07-05] MEDS: FUROSEMIDE 40 MG TAB PO SCH (09:08)
[2023-07-05] MEDS: PANTOprazole 40 MG TAB PO SCH (09:08)
[2023-07-05] MEDS: FOLIC ACID 1 MG TAB PO SCH (09:10)
[2023-07-05] MEDS: CYANOCOBALAMIN (B-12) 500 MCG TABLET PO SCH (09:11)
[2023-07-05] MEDS: ATORVASTATIN 40 MG TAB PO SCH (09:11)
[2023-07-05] MEDS: SERTRALINE HCL 50 MG TABLET PO SCH (09:11)
[2023-07-05] MEDS: MAGNESIUM OXIDE 400 MG TAB PO SCH ×2 (09:12→21:41)
[2023-07-05] MEDS: METOPROLOL SUCC 50MG EXT REL TAB PO SCH (09:12)
[2023-07-05] MEDS: SULFAMETHOXAZOLE/TRIMETHOPRIM DS 800/160MG TAB PO SCH (09:13)
[2023-07-05] MEDS: POTASSIUM CHLORIDE CRTAB 20 MEQ TABCR PO SCH ×2 (09:13→21:41)
[2023-07-05] MEDS: UMECLIDINIUM/VILANTEROL 62.5/25MCG 7 PUFFS/INHALER INH SCH (09:15)
[2023-07-05] MEDS: NYSTATIN CR 15 GM TUBE EXT SCH ×2 (09:16→21:41)
[2023-07-05] MEDS: MoRPHine SULFATE 10 MG/0.5 ML UDP PO PRN ×3 (09:22→21:53)
--- NOTE | 2023-07-05 15:40 | Hospitalist Progress Note ---
Date of Service July 05, 2023 Assessment & Plan (1) Acute hypoxic respiratory failure: (2) Pneumonia: (3) Hypomagnesemia: (4) Diabetes mellitus type II, controlled: (5) Anemia: (6) Primary cancer of right lower lobe of lung: (7) Atrial fibrillation with rapid ventricular response: Plan Mr. Bella is a 78 yo gentleman with Pmhx significant for lung cancer, atrial fibrillation, DMII, HLD, hemochromatosis, Mood disorder admitted with pneumonia once more. 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 MRSA negative as well. Continue Zosyn Requiring 2LNC, supplement as needed Pulm consult and palliative care- appreciate recs -per Palliative, pt would like to pursue acute rehab -pulm recommending treating pneumonia 06/23- increased oxygen need, chest xray with improving pneumonia and possible pleural effusions. IV lasix 40mg ordered, pt transitioned to oxymask 06/24- increasing hemoptysis episodes, CT chest was ordered- read still pending 06/25- chest CT showing progressing pneumonia/pathology, case discussed with pulmonology once more, episode of a fib with rvr overnight, cardiology consult placed. 06/26- stable, discussions with pulm and palliative care, pt considering options 06/27- stable, started on Steroids and Lasix by pulm. States he is still deciding what route to take but at this time would like diet to be a regular one but wants to continue with all treatments and lab monitoring at this time. 07/05-Has since been started on morphine, which has been helping with the dyspnea, anxiety and pain. 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 follows with Dr. Mari s/p completion of chemotherapy/radiation, on immunotherapy Continue Cam Bazzi Has had thoracentesis in the past for pleural effusions- pulm consult placed Palliative medicine consultation as outlined above -stable at this time -declining comfort measures currently Hypomagnesemia: replete as needed DM2: chronic stable A1C 5.5 on 06/08/23 Diabetic Diet Atrial Fibrillation: Had rvr episode 06/25- chest CT showing progressing pneumonia/pathology, case discussed with pulmonology once more, episode of a fib with rvr overnight, cardiology consult placed. Previously on Metoprolol and Xarelto Stable at this time Anemia of chronic disease: chronic stable Depression: chronic stable takes sertraline;continue PCP: Dr. Rojas @ 65 forward Code Status: DNR/DNI VTE Prophylaxis: On Xarelto Dispo: Pt met with Palliative Care- weighing options Admission and Anticipated Discharge Date Admission Date: June 20, 2023 Subjective States he is stable Denied acute concerns. States he would like to go home for a few hours to get things done. Review of Systems Review of Systems: All systems reviewed & are unremarkable except as noted in Subjective Physical Exam Physical Exam: General: Alert, oriented Psych: Appropriate mood and affect Neuro: weak HEENT: NC/AT CV: Irregular rate and rhythm Resp: Breath sounds decreased bilaterally Abdomen: Soft, nontender Extremities: No edema in lower extremities bilaterally. Results & Data Results & Data Vital Signs (Past 12 Hours) Vital Signs Temp Pulse Resp BP BP Pulse Ox O2 Del Method 07/05/23 11:13 36.4 C L 90 20 93/60 L 94 Oxymask 07/05/23 08:16 Oxymask 07/05/23 07:17 36.4 C L 93 H 19 112/70 95 Oxymask O2 Flow Rate 07/05/23 11:13 3 07/05/23 08:16 3 07/05/23 07:17 3 (5) Anemia Anemia type: due to chronic kidney disease
[2023-07-05] MEDS: RIVAROXABAN 20 MG TAB PO SCH (17:31)
[2023-07-06 06:04] LABS: Hematocrit (blood only) 34.2 % (42.0-52.0); Mean Corpuscular Hgb Conc 35.1 g/dL (32.0-36.0); Mean Corpuscular Volume 108.2 fL (80.0-100.0); Mean Platelet Volume 10.1 fL (9.4-12.4); Platelet Count 141 K/uL (130-400); RDW Coefficient of Variation 14.7 % (11.5-14.5); RDW Standard Deviation 57.6 fL (36.4-46.3); Red Blood Count 3.16 M/uL (4.70-6.10)
[2023-07-06 06:16] LABS: Albumin Globulin Ratio 1.3 (0.9-2); Albumin Level 3.4 gm/dl (3.4-5.0); BUN Creatinine Ratio 35.5 (10-20); Bilirubin,Total 1.4 mg/dl (0.2-1.0); Calcium 8.8 mg/dl (8.6-10.3); Creatinine Clr Calc Pharmacy 55.4 ml/min; Est GFR (African American) 76.7 ml/min; Est GFR (Non-African American) 66.1 ml/min; Globulin 2.6 gm/dl (2.5-4.0); Magnesium 1.8 mg/dl (1.7-2.4); Phosphorus 3.5 mg/dl (2.5-4.9); Potassium 4.5 mmol/L (3.5-5.1)
[2023-07-06 06:24] LABS: Basophils # (auto) 0.01 K/uL (0.00-0.20); Basophils % (auto) 0.1 %; Immature Granulocytes # (auto) 0.13 K/uL (0.01-0.20); Immature Granulocytes % (auto) 1.4 %; Lymphocytes # (auto) 0.23 K/uL (1.20-3.40); Lymphocytes % (auto) 2.5 %; Monocytes # (auto) 0.52 K/uL (0.11-0.59); Monocytes % (auto) 5.6 %; Neutrophils # (auto) 8.41 K/uL (1.40-6.50); Neutrophils % (auto) 90.4 %; RBC Morphology Unremarkable
[2023-07-06] MEDS: methylPREDNISolone 60 MG in SYRINGE 0 ML IV SCH (08:15)
[2023-07-06] MEDS: ATORVASTATIN 40 MG TAB PO SCH (08:17)
[2023-07-06] MEDS: FOLIC ACID 1 MG TAB PO SCH (08:18)
[2023-07-06] MEDS: SERTRALINE HCL 50 MG TABLET PO SCH (08:18)
[2023-07-06] MEDS: PANTOprazole 40 MG TAB PO SCH (08:18)
[2023-07-06] MEDS: FUROSEMIDE 40 MG TAB PO SCH (08:18)
[2023-07-06] MEDS: MAGNESIUM OXIDE 400 MG TAB PO SCH (08:19)
[2023-07-06] MEDS: POTASSIUM CHLORIDE CRTAB 20 MEQ TABCR PO SCH (08:19)
[2023-07-06] MEDS: CYANOCOBALAMIN (B-12) 500 MCG TABLET PO SCH (08:19)
[2023-07-06] MEDS: MoRPHine SULFATE 10 MG/0.5 ML UDP PO PRN (08:28)
--- NOTE | 2023-07-06 09:00 | Discharge Summary ---
Discharge Summary Date of Service July 06, 2023 Notes For Next Care Provider Please ensure close follow up with Pulmonology Decrease Prednisone dose by 5mg every TWO weeks/14 days Medication Changes From Visit START: Prednisone 60mg q8h -per pulm, decrease by 5mg every TWO weeks Lasix 40mg daily Potassium Chloride 20mEq BID Magnesium oxide 400mg BID Metoprolol succinate 50mg daily morphine 2.5mg po q4h PRN Bactrim DS 1 tab STOP: Metoprolol succinate 25mg qAM Admission HPI Per Admitting Provider Mr. Bella is a 78 year old male that presents to the ED as recommended by his home health nurse for persistent fevers up to 103, hemoptysis, and SOB. He stated that his chest feels tight in the morning at times and he has a persistent dry cough. He does report producing brown sputum intermittently. He attended his hospital follow-up as an outpatient today. Patient was recently admitted from 06/07-06/09 for PNA. He Previously completed a course of Levaquin as an OPT; completed Zosyn + Doxy most recent admission and transition to Augmentin plus Doxy to complete home regimen which was completed yesterday. WBC 6.47; suspect elevated given recent chemo completion and lung cancer history. CXR suggestive of RML PNA vs aspiration PNA. abdomen/pelvis CT negative for SBO, suggestive of diverticulosis without diverticulitis. Chest CTA: as outlined: 1. No pulmonary emboli identified. 2. Moderate multifocal airspace opacities within the lungs. The findings favor multifocal pneumonia. Alveolar pulmonary edema could appear similar although is considered less likely. This airspace opacity obscures the previously described right lower lobe lesion. A follow-up chest CT in 2 months to ensure resolution is recommended. 3. Increase in mediastinal and right hilar lymphadenopathy. This may be reactive or related to pulmonary edema. However, progression of pathologic lymphadenopathy cannot be excluded and these nodes can be assessed on follow-up CT. 4. Interlobular septal thickening suggestive of mild pulmonary edema. Small right and trace left pleural effusions. 5. Emphysema. Obtain Blood Cultures and sputum, order MRSA swab, stool culture including CDiff obtained in ED. continue IV antibiotics Vanco plus cefepime. Patient would benefit from palliative medicine consultation. Patient indicated frustration with repeat hospitalizations and feels informed with his lung cancer prognosis. Unfortunately this individual and his family have increased stress at home taking care of his who is full care. It appears that the stress is increasing over the recent weeks and months. Patient is a DNR/DNI which was confirmed during this ER admission. Patient could benefit from PT OT for short- term rehab and respite for family as well. After initial admission, nursing contacted me to notify me that his HR was gradually increasing; into the 150-160's. ECG obtained AF RVR known. Patient had just eaten and had emesis x2; high risk for aspiration. Stat CXR without aspiration or worsening on comparison from AM CXR. Bedside ABG obtained O2 77%, otherwise compensated respiratory acidosis. Placed on NRB. Want to avoid Bipap as patient having intermittent emesis. Takes Metoprolol; administered 5 mg IV Metoprolol with some resolution. Will give additional PO dose of Metoprolol as well.Family updated. Patient will be admitted for further evaluation and management. Please see A/P for further details. Admission Exam Per Admitting Provider Neuro: AAOx4, PERRLA, no aphagia, memory changes, CNII-XII grossly intact HEENT: head normocephalic, moist mucus membranes CV: S1/S2, (-) M/G/R, (-) edema, cap refill < 3 seconds Resp: Lungs CTA in all graves. On 2LNC GI: Abdomen S/NT/ND, Ax4 bowel sounds, (-) CVA tenderness Musculoskeletal: 5/5 B/L UE strength, 5/5 B/L LE strength. No gait disturbance Skin: (-) rashes , (-) erythema. Psych: euthymic mood Principal Dx & Hospital Course #1 = Principal Diagnosis (1) Acute hypoxic respiratory failure: (2) Pneumonia: (3) Hypomagnesemia: (4) Diabetes mellitus type II, controlled: (5) Anemia: (6) Primary cancer of right lower lobe of lung: (7) Atrial fibrillation with rapid ventricular response: (8) Palliative care by specialist: Viridiana Mr. Bella is a 78 yo gentleman with Pmhx significant for lung cancer, atrial fibrillation, DMII, HLD, hemochromatosis, Mood disorder admitted with pneumonia once more. Acute hypoxic Respiratory Failure: Multifocal PNA: Recent admission 06/07-06/09 for PNA; completed course of Augmentin + Doxy; last dose day before admission Blood Cx x2 with NGTD, sputum Cx with noted scant chen growth, likely a contaminant IV Vancomycin started in ED with Cefepime Had allergic rxn, possible red man syndrome to vancomycin and it was discontinued. MRSA negative as well. Was transitioned to Zosyn, completed course Required 2LNC originally with a later increased oxygen need later during the hospital course with episodes of hemoptysis with blood clots. Pulmonology consult and palliative care- appreciate recs -per Palliative, pt would like to pursue acute rehab, later agreeable to SNF discharge with his who also requires care -pulm noted pt not able to withstand a bronchoscopy. Discussion of goals of care- recommended discharge with high dose steroids for recurrent/progressing pneumonia. Was on IV Solu-medrol 60mg q8h and transitioned to PO Prednisone 60mg on discharge. Pulmonology recommending decreasing the dose by 5mg every 14 days/2 weeks. 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 follows with Dr. Mari s/p completion of chemotherapy/radiation, on immunotherapy Continue Cam Bazzi Has had thoracentesis in the past for pleural effusions Palliative medicine consultation as outlined above -stable at this time -declining comfort measures currently Hypomagnesemia: repleted as needed Continue mag ox 400mg BIF DM2: chronic stable A1C 5.5 on 06/08/23 Diabetic Diet Continue to monitor especially with fdc use of steroids. Atrial Fibrillation: Had rvr episode 06/25 Continue on Metoprolol 50mg qAM and Xarelto Stable at this time Anemia of chronic disease: chronic stable Depression: chronic stable takes sertraline;continue Discharge Exam General: Alert, oriented Psych: Appropriate mood and affect Neuro: weak HEENT: NC/AT CV: Irregular rate and rhythm Resp: Breath sounds decreased bilaterally Abdomen: Soft, nontender Extremities: No edema in lower extremities bilaterally. Updated Medication List Medication Instructions Recorded Confirmed Type albuterol sulfate 90 mcg/actuation 2 puff inhalation Q4 PRN Shortness 06/30/12 06/20/23 History aerosol inhaler (ProAir HFA) Of Breath ##0 lorazepam 0.5 mg tablet 0.5 mg PO BID PRN #0 tabs 06/30/12 06/20/23 History nitroglycerin 0.4 mg sublingual 0.4 mg UT PRN #0 BTLS 07/18/12 06/20/23 History tablet (Nitrostat) rivaroxaban 20 mg tablet (Xarelto) 1 tab PO DAILY 30 days #30 tabs 11/17/16 06/20/23 History folic acid 1 mg tablet 1 mg PO DAILY 02/16/23 06/20/23 History atorvastatin 40 mg tablet 40 mg PO DAILY 04/14/23 06/20/23 History sertraline 50 mg tablet 50 mg PO QAM 04/14/23 06/20/23 History umeclidinium 62.5 mcg-vilanterol 1 inh inhalation QAM 04/14/23 06/20/23 History 25 mcg/actuation powdr for inhalation (Anoro Ellipta) pantoprazole 40 mg tablet,delayed 40 mg PO QAM #30 tabs 04/20/23 06/20/23 Rx release aspirin 81 mg tablet,delayed 81 mg PO QAM 06/07/23 06/20/23 History release cyanocobalamin (vitamin B-12) 1,000 mcg PO QAM 06/07/23 06/20/23 History 1,000 mcg tablet (Vitamin B-12) magnesium oxide 400 mg PO DAILY 06/07/23 06/20/23 History furosemide 40 mg tablet 40 mg PO QAM #30 tabs 07/06/23 Rx magnesium oxide 400 mg (241.3 mg 400 mg PO BID #60 tabs 07/06/23 Rx magnesium) tablet metoprolol succinate 50 mg 50 mg PO QAM #30 tabs 07/06/23 Rx tablet,extended release 24 hr morphine concentrate 100 mg/5 mL 2.5 mg (0.125 mL) PO Q4H PRN 07/06/23 Rx (20 mg/mL) oral solution dyspnea #30 mL potassium chloride 20 mEq 20 meq PO BID #60 tabs 07/06/23 Rx tablet,extended release(part/cryst) prednisone 20 mg tablet 60 mg (3 x 20 mg) PO Q8H #15 tabs 07/06/23 Rx sulfamethoxazole 800 1 tab PO MoWeFr@0900 #30 tabs 07/06/23 Rx mg-trimethoprim 160 mg tablet (Bactrim DS) Additional Medication Comments Current Inpatient Medications Acetaminophen (Acetaminophen 325 Mg Tab) 650 mg PO Q4H PRN PRN Reason: Pain or Fever Stop: 07/20/23 16:11 Last Admin: 07/01/23 04:16 Dose: 650 mg Al Hydrox/Mg Hydrox/Simethicone (Aluminum/Magnesium Susp 30 Ml Udc) 15 ml PO Q4H PRN PRN Reason: Dyspepsia Stop: 07/20/23 16:11 Aspirin (Aspirin 81 Mg Ectab) 81 mg PO QAM TIANA Stop: 07/21/23 08:59 Last Admin: 06/24/23 08:45 Dose: 81 mg Atorvastatin Calcium (Atorvastatin 40 Mg Tab) 40 mg PO DAILY TIANA Stop: 07/21/23 08:59 Last Admin: 07/06/23 08:17 Dose: 40 mg Benzonatate (Benzonatate 100 Mg Capsule) 100 mg PO TID PRN PRN Reason: Cough Stop: 07/25/23 03:58 Cyanocobalamin (Cyanocobalamin (B-12) 500 Mcg Tablet) 1,000 mcg PO QAM [facility] Stop: 07/21/23 08:59 Last Admin: 07/06/23 08:19 Dose: 1,000 mcg Folic Acid (Folic Acid 1 Mg Tab) 1 mg PO DAILY [facility] Stop: 07/21/23 08:59 Last Admin: 07/06/23 08:18 Dose: 1 mg Furosemide (Furosemide 40 Mg Tab) 40 mg PO QAM [facility] Stop: 07/28/23 08:59 Last Admin: 07/06/23 08:18 Dose: 40 mg Methylprednisolone 60 mg/ (Syringe) 0.96 mls @ 1.5 mls/min IV Q8H TIANA Stop: 07/26/23 15:59 Last Admin: 07/06/23 08:15 Dose: 1.5 mls/min Ipratropium [place] (Ipratropium [place] Neb Soln 0.02% 2.5 Ml Vial) 0.5 mg INH Q4H PRN PRN Reason: sob/wheeze Stop: 07/25/23 04:14 Levalbuterol HCl (Levalbuterol 1.25 Mg/3 Ml Neb) 1.25 mg NEB Q4H PRN PRN Reason: sob/wheeze Stop: 07/25/23 04:14 Magnesium Oxide (Magnesium Oxide 400 Mg Tab) 400 mg PO BID [facility] Stop: 07/23/23 09:14 Last Admin: 07/06/23 08:19 Dose: 400 mg Metoprolol Succinate (Metoprolol Succ 50mg Ext Rel Tab) 50 mg PO QAM [facility] Stop: 07/25/23 12:44 Last Admin: 07/06/23 09:18 Dose: 50 mg Morphine Sulfate (Morphine Sulfate 10 Mg/0.5 Ml Udp) 2.5 mg PO Q4H PRN PRN Reason: Dyspnea Stop: 07/12/23 10:37 Last Admin: 07/06/23 08:28 Dose: 2.5 mg Nystatin (Nystatin Cr 15 Gm Tube) 1 appln EXT BID [facility] Stop: 08/01/23 11:59 Last Admin: 07/05/23 21:41 Dose: 1 appln Ondansetron HCl (Ondansetron Inj 2 Mg/Ml 2 Ml Vial) 4 mg IV Q6H PRN PRN Reason: Nausea Stop: 07/20/23 16:11 Pantoprazole Sodium (Pantoprazole 40 Mg Tab) 40 mg PO QAM [facility] Stop: 07/21/23 08:59 Last Admin: 07/06/23 08:18 Dose: 40 mg Polyethylene Glycol (Polyethylene (Miralax) 17 Gm Pack) 17 gm PO DAILY PRN PRN Reason: Constipation Stop: 07/20/23 16:11 Potassium Chloride (Potassium Chloride Crtab 20 Meq Tabcr) 20 meq PO BID [facility] Stop: 07/23/23 20:59 Last Admin: 07/06/23 08:19 Dose: 20 meq Rivaroxaban (Rivaroxaban 20 Mg Tab) 20 mg PO QDD [facility] Stop: 07/21/23 16:29 Last Admin: 07/05/23 17:31 Dose: 20 mg Sertraline HCl (Sertraline Hcl 50 Mg Tablet) 50 mg PO QAM [facility] Stop: 07/21/23 08:59 Last Admin: 07/06/23 08:18 Dose: 50 mg Trimethoprim/Sulfamethoxazole (Sulfamethoxazole/Trimethoprim Ds 800/160mg Tab) 1 tab PO MoWeFr@0900 [facility] Stop: 07/10/23 08:59 Last Admin: 07/05/23 09:13 Dose: 1 tab Umeclidinium/Vilanterol (Umeclidinium/Vilanterol 62.5/25mcg 7 Puffs/Inhaler) 1 puffs INH QAM [facility] Stop: 07/21/23 08:59 Last Admin: 07/06/23 09:18 Dose: 1 puffs Hospital Stay Data Consultations 06/20/23 15:51 ED Decision to Admit Stat 06/21/23 03:30 Consult [employer] Routine 06/21/23 08:00 Consult Palliative Care Routine Consult Pulmonology Routine 06/25/23 07:48 Consult Cardiology Routine Diagnostic Imagining Performed 06/20/23 14:09 CT abd pelvis IV con only Stat CT angio chest PE protocol Stat 06/21/23 13:00 Fluoro video [FL video swallow] Routine 06/24/23 09:58 CT chest diagnostic wo con Urgent Chest X-Ray 06/20/23 12:56 XR chest 1V portable CLINICAL HISTORY: Chest pain, nonspecific TECHNIQUE: Single frontal radiograph of the chest was obtained. Comparison: Comparison is made to chest radiograph 06/07/2023 FINDINGS: No lines and tubes are seen. Calcified aortic knob is seen. Right midlung airspace opacity is increased in density from prior exam. No evidence of pleural effusion or pneumothorax. IMPRESSION: Increased density in the right midlung may represent atelectasis, pneumonia, and/or aspiration superimposed upon posttreatment changes. ACT 112: Negative or not required by law. Electronically signed by: Riaz Branch M.D. 06/20/2023 1:39 PM Abdomen/Pelvis CT 06/20/23 14:09 CT OF THE ABDOMEN AND PELVIS WITH CONTRAST CLINICAL HISTORY: SIRS, diarrhea, recent ABX COMPARISON STUDY: CT of the abdomen and pelvis April 15, 2023. TECHNIQUE: Following IV administration of 115 mL of Optiray, axial images of the abdomen and pelvis were obtained from the lung bases to the proximal femurs. Images were reviewed in the axial, sagittal, and coronal planes. IV contrast was administered without complication. Automated exposure control was utilized for the study. A dose lowering technique was utilized adhering to the principles of ALARA. CT DOSE: 1566.69 mGy.cm FINDINGS: Please note that the chest CT will be reported separately. No pneumatosis, free air or portal venous gas is present. There are no hepatic lesions. There is no biliary or pancreatic ductal dilatation. Spleen, adrenal glands, kidneys and pancreas are unremarkable. There is no hydronephrosis. There is mild symmetric bilateral perinephric stranding. Extensive colonic diverticulosis is present. There is no evidence for acute diverticulitis. The appendix is normal. There is no evidence for a bowel obstruction. Minimal presacral stranding is likely due to volume overload. There is mild anasarca. The infrarenal abdominal aorta is ectatic. Major vasculature is patent. Moderate aortoiliac atherosclerotic plaque. There is no lymphadenopathy. No fluid c ollections are present. IMPRESSION: 1. No acute process within the abdomen or pelvis. 2. Extensive colonic diverticulosis. No evidence for acute diverticulitis. 3. Anasarca. ACT 112: Negative or not required by law. Electronically signed by: Chung Pelayo M.D. 06/20/2023 3:40 PM Chest CTA 06/20/23 14:09 CT ANGIOGRAPHY OF THE CHEST, PULMONARY EMBOLUS PROTOCOL CLINICAL HISTORY: Cough, sob, fever, r/o PE. Lung cancer. COMPARISON STUDY: Chest CT April 18, 2023. Chest radiograph performed earlier today. TECHNIQUE: Following IV administration of 115 mL of Optiray, helical axial images of the chest were obtained utilizing the pulmonary embolus protocol. Maximal intensity projections and sagittal and coronal reformats were viewed on an independent 3D workstation. IV contrast was administered without complication. Automated exposure control was utilized for the study. A dose lowering technique was utilized adhering to the principles of ALARA. FINDINGS: No pulmonary emboli are identified. There is mild cardiomegaly and moderate coronary artery calcification. There is no pericardial effusion. Mediastinal and right hilar lymph nodes have mildly increased in size since chest CT of April 18, 2023. Index AP window lymph node measures 2.5 x 1.7 cm. It previously measured 1.9 x 1.3 cm. Small right and trace left pleural effusions are present. There is no pneumothorax. Severe emphysema is noted. The previously described right lower lobe lesion is obscured on this examination by airspace opacity. Moderate multifocal airspace opacities within the lungs are present. There is interlobular septal thickening. There is no cavitation. No suspicious lesions within the bony thorax are noted. Visualized portions of the upper abdomen are unremarkable. IMPRESSION: 1. No pulmonary emboli identified. 2. Moderate multifocal airspace opacities within the lungs. The findings favor multifocal pneumonia. Alveolar pulmonary edema could appear similar although is considered less likely. This airspace opacity obscures the previously described right lower lobe lesion. A follow-up chest CT in 2 months to ensure resolution is recommended. 3. Increase in mediastinal and right hilar lymphadenopathy. This may be reactive or related to pulmonary edema. However, progression of pathologic lymphadenopathy cannot be excluded and these nodes can be assessed on follow-up CT. 4. Interlobular septal thickening suggestive of mild pulmonary edema. Small right and trace left pleural effusions. 5. Emphysema. ACT 112: Negative or not required by law. Electronically signed by: Chung Pelayo M.D. 06/20/2023 3:31 PM Chest X-Ray 06/20/23 20:10 XR chest 1V portable CLINICAL HISTORY: Respiratory distress. COMPARISON STUDY: Chest radiograph and chest CT performed earlier today. FINDINGS: There is no pneumothorax. Small bilateral pleural effusions are again noted. There is underlying emphysema. Multifocal airspace opacities have slightly progressed, most pronounced within the right midlung. There is mild interstitial thickening. IMPRESSION: 1. Increase in airspace opacities consistent with multifocal pneumonia. 2. Mild interstitial pulmonary edema with small bilateral pleural effusions. 3. Emphysema. ACT 112: Negative or not required by law. Electronically signed by: Chung Pelayo M.D. 06/21/2023 7:42 AM Videofluoroscopic Swallow 06/21/23 13:00 MODIFIED BARIUM SWALLOW CLINICAL HISTORY: r/o aspiration COMPARISON STUDY: None. FLUOROSCOPY TIME: 2.44 minutes. Ka, r: 7.58 mGy. TECHNIQUE: A modified barium swallow was performed in conjunction with Speech Pathology. The patient ingested varying consistencies of barium containing material. Video fluoroscopy was performed. FINDINGS: Note was made of tracheal aspiration with thin liquids by spoon. No aspiration was identified with thin liquids by cup. There was no aspiration with pudding or cookie in pudding consistencies. Moderate residual were noted with multiple consistencies. Premature spillage was also noted. IMPRESSION: 1. Tracheal aspiration with thin liquids by spoon. No aspiration with the remainder of the consistencies. 2. Moderate residuals with multiple consistencies. 3. Full recommendations by Speech pathology to follow. ACT 112: Negative or not required by law. Electronically signed by: Chung Pelayo M.D. 06/21/2023 6:52 PM Chest X-Ray 06/22/23 23:18 XR chest 1V portable CLINICAL HISTORY: sob TECHNIQUE: Single frontal radiograph of the chest was obtained. Comparison: Comparison is made to chest radiograph 06/20/2023 FINDINGS: No lines and tubes are seen. The cardiomediastinal silhouette is stable. Interval increase in multifocal airspace opacities. Interstitial lung disease is again seen. No evidence of pleural effusion or pneumothorax. IMPRESSION: Interval increase in multifocal airspace opacities compatible with pneumonia. ACT 112: Negative or not required by law. Electronically signed by: Riaz Branch M.D. 06/23/2023 7:33 AM Chest X-Ray 06/23/23 13:27 XR chest 1V portable CLINICAL HISTORY: Hypoxia. COMPARISON STUDY: Chest CT June 20, 2023. Chest radiograph June 22, 2023. FINDINGS: There is no pneumothorax. Small right and trace left pleural effusions are present. Interstitial thickening and bilateral opacities have improved since chest radiograph of June 22, 2023. Cardiomediastinal silhouette is stable. Incidental note is made of oral contrast within visualized portions of the colon from modified barium swallow. IMPRESSION: 1. Improvement in interstitial thickening and bilateral airspace opacities since prior exam. The findings favor multifocal pneumonia, likely superimposed upon interstitial pulmonary edema. 2. Small right and trace left pleural effusions, unchanged. ACT 112: Negative or not required by law. Electronically signed by: Chung Pelayo M.D. 06/23/2023 2:[address] 06/24/23 09:58 CT SCAN OF THE CHEST WITHOUT IV CONTRAST CLINICAL HISTORY: Hemoptysis. Hypoxia. COMPARISON STUDY: Chest x-ray dated 06/23/2023. Chest CT scans dated 06/20/2023, 04/18/2023, and 07/05/2012. TECHNIQUE: CT scan of the thorax was performed from the thoracic inlet to the upper abdomen. Images are reviewed in the axial, sagittal, and coronal planes. IV contrast was not administered for this examination as per the referring clinician. A dose lowering technique was utilized adhering to the principles of ALARA. CT DOSE: 389.48 mGy.cm FINDINGS: Thyroid: Normal in size and heterogeneous in attenuation. Thoracic aorta: There is atherosclerotic calcification of the thoracic aorta, which is normal in caliber and demonstrates standard 3-vessel arch anatomy. Heart: The heart is enlarged and without pericardial effusion. The coronary arteries are densely calcified. The main pulmonary arteries are dilated suggesting pulmonary artery hypertension. Lungs and pleural spaces: There is advanced emphysema. Minimal secretions are noted in the trachea and right mainstem bronchus. Moderate multifocal airspace consolidation is again seen throughout both lungs comment has modestly worsened as compared to 06/20/2023. There are small pleural effusions, right larger than left. There are scattered calcified granulomas. The previously characterized right lower lobe lung lesion is obscured by airspace consolidation. Mediastinum: There are numerous mildly enlarged mediastinal lymph nodes. These are similar to 06/20/2023 examination. A right paratracheal node on image #[id number] measures 2.3 x 1.1 cm. An AP window node on image #107 measures 2.4 x 1.6 cm. Lindsey: Not well assessed without IV contrast. Axillae: There is no axillary lymphadenopathy. Upper abdomen: There is a small hiatal hernia. Calcified gallstones are noted. Residual enteric contrast is noted in the left colon. Skeletal structures: The skeletal structures are osteopenic. Degenerative change and hyperkyphosis is noted in the thoracic spine. Arthritic change is seen in the shoulders. No lytic or blastic bony lesions are identified. Chronic posttraumatic deformity is seen in the bilateral ribs. IMPRESSION: 1. Cardiomegaly and advanced emphysema. 2. Multifocal airspace consolidation is again seen throughout both lungs. This has modestly worsened as compared to 06/20/2023. Clinical correlation will be required and radiographic follow-up to resolution is recommended. 3. Small pleural effusions. 4. Mildly enlarged mediastinal lymph nodes are similar to previous. 5. Cholelithiasis. 6. The previously characterized right lower lobe lung lesion is obscured by airspace consolidation. 7. Additional findings as above. ACT 112: Negative or not required by law. Electronically signed by: Lonnie Baez M.D. 06/24/2023 5:46 PM Chest X-Ray 06/25/23 03:46 XR chest 1V portable HISTORY: low o2 COMPARISON: Chest CT 06/24/2023. Chest x-ray 06/23/2023. FINDINGS: No pneumothorax. Bilateral midlung zone airspace opacities have progressed. There is diffuse interstitial thickening again noted. The cardiac silhouette is top normal in size. Old, healed right lower rib fractures. There are trace bilateral pleural effusions again noted. IMPRESSION: Slight progression of the bilateral midlung zone airspace opacities. ACT 112: Negative or not required by law. Electronically signed by: Efrain Yoo M.D. 06/25/2023 7:21 AM Discharge Instructions Given to Patient (Per Discharging Provider) Mr Bella, [facility] . You were treated for pneumonia in the setting of lung cancer and you opted to continue with antibiotic treatments and steroid treatments for your symptoms. You were also on morphine to help with your breathing and pain. Please continue with your oxygen use as needed. We will let the facility know what medications you were on while you were here. It was truly a pleasure taking care of you while you were here. Total Time Total Time Spent Total Time Spent (In Minutes): > 30 minutes
[2023-07-06] MEDS: UMECLIDINIUM/VILANTEROL 62.5/25MCG 7 PUFFS/INHALER INH SCH (09:18)
[2023-07-06] MEDS: METOPROLOL SUCC 50MG EXT REL TAB PO SCH (09:18)
== END 2023-07-06 15:37 | DRG 871 ==
LOC: ED 12:40 → EDINP 16:12 → SUATTDRO 16:12 → 2E 19:29 → 1E 06-21 03:30 → 4W 06-22 18:25